=== PATIENT | female | born 1950 | race Caucasian/White ===

== ENCOUNTER 2017-08-04 01:55 | Inpatient (IN) | payer MEDICARE, SELFPAY ==
[2017-08-04] VITALS (10 sets, daily range): BP systolic 122–168; BP diastolic 63–113; PULSE 58–82; RESP 16–24; TEMP 36.4–36.6; O2SAT 94–100; BMI 32.3; BMI 31.9
--- NOTE | 2017-08-04 02:10 | EKG12_ITS ---
Test Reason : Blood Pressure : / mmHG Vent. Rate : 091 BPM Atrial Rate : 091 BPM P-R Int : 182 ms QRS Dur : 090 ms QT Int : 378 ms P-R-T Axes : 075 -23 003 degrees QTc Int : 464 ms Sinus rhythm with Premature atrial complexes Nonspecific ST and T wave abnormality Abnormal ECG Confirmed by LIZETTE FINLEY, LAWRENCE ([id number]), editor news AUTUMN LYONS ([id number]) on 08/06/2017 3:38:59 PM Referred By: LAURA Confirmed By:LAWRENCE BAUER MD
--- NOTE | 2017-08-04 02:10 | CT_ITS ---
STUDY: CT ABDOMEN AND PELVIS WITHOUT CONTRAST REASON FOR EXAM: Female, 66 years old. Mid abdominal pain. Vomiting RADIATION DOSAGE (If Supplied By Facility): CTDIvol = ( 13.91 ) mGy, DLP = ( 670.90 ) mGycm TECHNIQUE: Transaxial images were obtained from the dome of the diaphragm to the symphysis pubis without oral contrast, and without intravenous contrast. Sagittal and coronal images were reconstructed. Individualized dose optimization techniques were used for this CT. COMPARISON: None. FINDINGS: The visualized lung bases are unremarkable. The visualized portions of the heart are within normal limits. Normal liver. There are surgical clips in the gallbladder fossa consistent with a prior cholecystectomy. Normal spleen. Normal pancreas. Normal bilateral adrenal glands. Normal right kidney. Normal left kidney. The patient has had esophagectomy with gastrostomy and esophageal reconstruction using a segment of the colon. There are dilated loops of the small intestine with a non-distended colon consistent with a small bowel obstruction. The ascending colon has been resected. There is diffuse atherosclerotic calcification of the abdominal aorta, without a demonstrated aneurysm. Normal inferior vena cava. Normal retroperitoneum. Normal urinary bladder. Normal abdominal wall. There are diffuse degenerative changes of the visualized lumbar spine. CT/Abdomen/Pelvis without Cont IMPRESSION: There are dilated loops of the small intestine with a non-distended colon consistent with a small bowel obstruction. Electronically Signed: Fara Garcia MD at 3:24 EST Tel , Service support ,
--- NOTE | 2017-08-04 02:11 | RAD_ITS ---
STUDY: X-RAY CHEST REASON FOR EXAM: Female, 66 years old. Chronic cough. Chest pain TECHNIQUE: Frontal and lateral views of the chest. COMPARISON: None. FINDINGS: The lungs are clear and expanded. There is no demonstrated pleural abnormality. Normal size heart. The patient had esophagectomy with esophageal reconstruction. Normal visualized pulmonary arteries. Normal visualized aortic arch and descending thoracic aorta. Normal visualized thoracic spine. There is degenerative osteoarthritis of the bilateral shoulders. There is no demonstrated abnormality of the visualized soft tissue structures of the upper abdomen. RAD/Chest PA and Lateral IMPRESSION: Degenerative changes, status post esophagectomy as described above. No demonstrated acute cardiopulmonary process. Electronically Signed: Fara Garcia MD at 3:19 EST Tel , Service support ,
--- NOTE | 2017-08-04 02:14 | ED.DCSUM_ITS ---
- ER Visit Summary Date of Service: 08/04/17 Chief Complaint: Abdominal pain History of Present Illness: The patient is a 66 F with history of esophageal cancer, pancreatitis, bowel obstruction, cholecystectomy and appendectomy presents for abdominal pain since yesterday evening. Patient states it began in the epigastrium as her pain always begins and now radiates bilaterally around to her back. She denies any fever, chest pain, shortness of breath. She does endorse nausea, vomiting, urinary frequency. Denies diarrhea. She states she is not passing flatus. She takes stool softeners daily but has not had a good bowel movement today. She has had prior symptoms with pancreatitis. She has an anterior chest mass that she states is her esophagus protruding since removal of part of her clavicle, however she and her daughter both stated it is much more prominent and distended today. Physical Examination: Vital signs: afebrile, hemodynamically stable, no hypoxia on room air General: well nourished, well developed, in no distress Skin: warm, dry, no rash, no pallor HEENT: normocephalic and atraumatic; PERRL, EOMI, moist mucous membranes Cardiovascular: regular rate and rhythm without murmurs, no peripheral edema, 2 + pulses all distal extremities, soft nontender mass just left of the sternum in the anterior superior chest. Respiratory: No increased work of breathing, lungs are clear to auscultation bilaterally, no rales, rhonchi or wheezing Abdominal: Abdomen is soft, diffusely tender with hypoactive bowel sounds, no guarding or rebound, no masses MSK: Moves all extremities, no deformities, normal strength Neuro: Awake and alert, oriented ?4. No facial droop, sensation and motor function intact and symmetric Test Results: Abnormal Lab Results 08/04/17 08/04/17 08/04/17 02:25 02:25 02:25 WBC 10.3 RBC 4.97 Hgb 14.3 Hct 42.9 MCV 86.3 MCH 28.8 MCHC 33.3 RDW 13.7 RDW Differential 42.1 Plt Count 118 L MPV 12.1 H Immature Gran % (Auto) 0.200 Neut % (Auto) 90.1 H Lymph % (Auto) 5.9 L [place] % (Auto) 3.5 Eos % (Auto) 0.2 Baso % (Auto) 0.1 Absolute Neuts (auto) 9.3 H Absolute Lymphs (auto) 0.61 L Total Counted Not Reportable Sodium 149 H Potassium 2.7 L* Chloride 115 H Carbon Dioxide 26.0 Anion Gap 8 BUN 17 Creatinine 0.49 L Estim Creat Clear Calc 41.19 Est GFR (MDRD) Af Amer 162 Est GFR (MDRD) Non-Af 134 BUN/Creatinine Ratio 34.8 H Glucose 151 H Lactic Acid 2.6 H Calcium 6.4 L* Total Bilirubin 0.30 AST 159 H ALT 75 H Alkaline Phosphatase 130 H Troponin I 0.02 Total Protein 5.4 L Albumin 2.6 L Globulin 2.8 Albumin/Globulin Ratio 0.9 Lipase 3544 H Urine Color Urine Clarity Urine pH Ur Specific [place] Urine Protein Urine Glucose (UA) Urine Ketones Urine Occult Blood Urine Nitrite Urine Bilirubin Urine Urobilinogen Ur Leukocyte Esterase Urine RBC Urine WBC Ur Squamous Epith Cells Urine Bacteria Urine Mucus 08/04/17 02:25 WBC RBC Hgb Hct MCV MCH MCHC RDW RDW Differential Plt Count MPV Immature Gran % (Auto) Neut % (Auto) Lymph % (Auto) [place] % (Auto) Eos % (Auto) Baso % (Auto) Absolute Neuts (auto) Absolute Lymphs (auto) Total Counted Sodium Potassium Chloride Carbon Dioxide Anion Gap BUN Creatinine Estim Creat Clear Calc Est GFR (MDRD) Af Amer Est GFR (MDRD) Non-Af BUN/Creatinine Ratio Glucose Lactic Acid Calcium Total Bilirubin AST ALT Alkaline Phosphatase Troponin I Total Protein Albumin Globulin Albumin/Globulin Ratio Lipase Urine Color Yellow Urine Clarity Sl. Cloudy Urine pH 7.0 Ur Specific [place] 1.010 Urine Protein 30 H Urine Glucose (UA) 100 H Urine Ketones Negative Urine Occult Blood Negative Urine Nitrite Positive H Urine Bilirubin Negative Urine Urobilinogen Normal Ur Leukocyte Esterase 100 H Urine RBC 0 SEEN Urine WBC 5-10 SEEN Ur Squamous Epith Cells 0-5 SEEN Urine Bacteria 1+ Urine Mucus 0 SEEN Emergency Department Course and Treatment: Patient was given IV fluids, morphine and Zofran for symptomatic relief. EKG showed a sinus rhythm without ischemic changes. Troponin negative. CBC showed no leukocytosis and patient had thrombocytopenia, which is her baseline. Labs were remarkable for hypokalemia of 2.7 and a low calcium of 6.4. Lipase elevated at 3500 with very mild transaminitis. This is consistent with acute pancreatitis and fit patients presentation of epigastric pain radiating around into the back. Lactate was 2.6. Urine was positive for infection. Patient was started on Zosyn to cover urine infection as well as intra-abdominal pathology since the CT was still pending. CT did not show any concerning inflammatory changes in the abdomen but did show small bowel obstruction. An NG tube was not placed given patient's distorted anatomy with the esophageal reconstruction status post her surgical removal of the esophagus. Patient received potassium repletion IV since she is n.p.o. for the pancreatitis and bowel obstruction. She will require correction of her hypocalcemia, however that was deferred until patient received antibiotics and her potassium. Patient will require admission for management of her acute pancreatitis, small bowel obstruction, hypokalemia, and urinary tract infection. Patient was discussed with Dr. Mohr for admission. Because of the hypokalemia and hypocalcemia, patient will require cardiac monitoring. Treatment Plan: [] Disposition: Admission to telemetry Impression: 1. Small bowel obstruction 2. Acute pancreatitis 3. Urinary tract infection 4. Hypokalemia 5. Hypocalcemia This note was generated with Normal dictation software. It may contain incorrect words, spelling, and punctuation that were not noted in review of the chart prior to signing ED Disposition - Plan for ED Patient: Chief Complaint: Abd Pain Referrals: Selma Whitaker MD [Primary Care Provider] -
[2017-08-04] MEDS: Ondansetron 4 MG/2 ML Vial IV (02:20)
[2017-08-04] MEDS: 0.9% Normal Saline 1,000 ML 1000 ML IV (02:20)
[2017-08-04 02:33] LABS: Mucous, Urine 0 SEEN /hpf (<or=2+); Red Blood Cells-Urine 0 SEEN /hpf (0-5)
[2017-08-04 02:35] LABS: Color, Urine Yellow (Yellow); Glucose, Dipstick 100 mg/dl (Normal); Ketone-Dipstick Negative (Negative); Leukocyte Esterase-Dipstick 100 /ul (Negative); Nitrite-Dipstick Positive (Negative); Occult Blood-Urine Negative /ul (Negative); Protein-Dipstick 30 mg/dl (Negative); Urine Bilirubin Dipstick Negative (Negative); Urine Clarity Sl. Cloudy (Clear); Urine Urobilinogen Normal (Normal)
[2017-08-04 02:36] LABS: Absolute Lymphocyte Count 0.61 X10^3/ul (0.83-4.51); Absolute Neutrophil Count 9.3 X10^3/uL (2.0-7.7); Basophil# 0.01 X10^3/uL; Basophil% 0.1 % (0-1); Eosinophil# 0.02 X10^3/uL; Eosinophils% 0.2 % (0-5); Hematocrit 42.9 % (37-47); Hemoglobin 14.3 g/dl (12.0-15.0); Lymphocyte # 0.61 X10^3/ul (4.0); Lymphocyte % 5.9 % (19-41); Mean Corp Hgb Conc 33.3 g/gl (32-36); Mean Corpuscular Hgb 28.8 pg (27.0-32.0); Mean Corpuscular Volume 86.3 fL (81-99); Mean Platelet Vol. 12.1 fl (6.2-12.0); Monocyte# 0.36 X10^3/uL; Monocyte% 3.5 % (0-10); Neutrophil # 9.27 X10^3/uL (2.7-7.7); Neutrophil % 90.1 % (47-70); Platelet Count 118 K/mm3 (150-450); RBC Distribution Width CV 13.7 % (11.6-14.6); RBC Distribution Width SD 42.1 fl (35.1-43.9); Red Blood Count 4.97 M/mm3 (4.2-5.4); White Blood Count 10.3 K/mm3 (4.4-11.0)
[2017-08-04 02:38] LABS: POSITIVE COUNT NO; POSITIVE DIFFERENTIAL NO; POSITIVE MORPHOLOGY NO
[2017-08-04 02:44] LABS: Bacteria 1+ /hpf (None Seen); Squamous Epithelial Cells - UA 0-5 SEEN /hpf (5-10); White Blood Cells 5-10 SEEN /hpf (0-5)
[2017-08-04 03:12] LABS: ALB/GLOB Ratio 0.9 RATIO (0.9-2.4); AST(SGOT) 159 U/L (15-37); Alanine Aminotransfer ALT/SGPT 75 U/L (13-56); Albumin, Serum 2.6 g/dL (3.2-5.0); Alkaline Phosphatase 130 U/L (45-117); Anion Gap 8 (5-15); BUN 17 mg/dL (7-18); BUN/Creat Ratio 34.8 RATIO (10-20); Calcium,Total 6.4 mg/dL (8.5-10.1); Chloride 115 mmol/L (98-107); Creatinine, Serum 0.49 mg/dL (0.55-1.02); EST Glomerular Filtration Rate 134 mL/min (>60); Est Glom Filt Rate - Afr Amer 162 mL/min (>60); Estimated Creatinine Clearance 41.19 ml/min; Globulin 2.8 g/dL (2.2-4.2); Glucose 151 mg/dL (74-106); Lactic Acid 2.6 mmol/L (0.4-2.0); Lipase 3544 U/L (73-393); Potassium 2.7 mmol/L (3.5-5.1); Protein, Total 5.4 g/dL (6.4-8.2); Sodium Level 149 mmol/L (136-145)
--- NOTE | 2017-08-04 03:16 | ED.RN ---
THIS RN RECEIVED CRITICAL LAB VALUE FROM LAB. PT K+ IS 2.7, CALCIUM 6.4, AND LACTIC IS 2.6. DR. SANCHEZ NOTIFIED. CARINA SAMUELS NOTIFIED.
[2017-08-04] MEDS: Piperacil/Tazobactam 3.375 GM/50 ML ML IV ×2 (03:53→13:52)
[2017-08-04] MEDS: Lactated Ringers 1,000 ML 150 ML IV (03:54)
--- NOTE | 2017-08-04 05:11 | PCM.HP.STD ---
Problem List (1) Pancreatitis Status: Acute (2) Small bowel obstruction Status: Acute (3) Chronic pain syndrome Status: Chronic (4) Esophageal cancer Status: Chronic Comment: Unclear specific type, follows w/ [facility], s/p esophageal resection and partial gastrectomy. (5) Fibromyalgia Status: Chronic (6) GERD (gastroesophageal reflux disease) Status: Chronic Qualifiers: History of Present Illness Date of Admission: 08/04/17 Chief Complaint: Pancreatitis The patient is a 66 year old female w/ h/o esophageal cancer, pancreatitis, bowel obstruction, cholecystectomy and appendectomy admitted for abdominal pain. Pain started around 6-7PM last night. Pain is constant and diffuse in the abdominal area. Pain radiated both on the left and right flank. Pain is severe. Nothing made it better or worse. Pain is mostly sharp but also occasionally dull-aching. She has increase urinary frequency for the past 2 weeks. She recently had a bowel movement this AM. Past Medical History Past Medical History (Chronic Problems): Chronic Problems HTN (hypertension) (Chronic) GERD (gastroesophageal reflux disease) (Chronic) Esophageal cancer (Chronic) Unclear specific type, follows w/ [facility], s/p esophageal resection and partial gastrectomy. Anxiety and depression (Chronic) Fibromyalgia (Chronic) Chronic pain syndrome (Chronic) Allergies doxycycline Allergy (Verified 08/04/17 02:04) Unknown Iodinated Contrast- Oral and IV Dye [Iodinated Contrast Media - IV Dye] Allergy (Verified 08/04/17 02:04) Unknown Sulfa (Sulfonamide Antibiotics) Allergy (Verified 08/04/17 02:04) Unknown erythromycin base Adverse Reaction (Verified 08/04/17 02:04) Upset Stomach hydrocodone bitartrate [From Vicodin] Adverse Reaction (Verified 08/04/17 02:04) HEADACHE Home Medications: Ambulatory Orders Medication Instructions Recorded Enalapril Maleate 20 mg PO BID 07/12/15 Latanoprost 1 drop EACH EYE QHS 07/12/15 Metoprolol Tartrate [Lopressor 50 mg PO DAILY 07/12/15 (beta bruce)] Omeprazole 20 mg PO DAILY 07/12/15 Oxycodone HCl [Oxycodone HCl ER] 10 mg PO DAILY PRN 07/12/15 Paroxetine HCl 40 mg PO DAILY 07/12/15 Magnesium 250 mg PO DAILY 01/05/17 ProMETHAzine [Phenergan] 25 mg PO Q4H PRN PRN 01/05/17 Amlodipine [Norvasc] 10 mg PO DAILY #60 tablet 01/07/17 Docusate Sodium [Colace] 400 mg PO DAILY 08/04/17 Ferrous Sulfate [Iron] 325 mg PO DAILY 08/04/17 Ibuprofen 400 mg PO Q4H PRN PRN 08/04/17 Surgical History: - - Esophageal resection, partial gastrectomy, cholecystectomy, appendectomy, hysterectomy, ventral hernia repair ?1. 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 Smoking Status: Never smoker - *Family History Maternal History Items: Heart Disease Paternal History Items: Cancer Review of Systems Constitutional: Denies: Chills, Fever, Weight Change HEENT: Denies: Head Aches, Sinus Congestion, Sinus Drainage Cardiovascular: Denies: Chest Pain, Palpitations Respiratory: Denies: Cough, Shortness of breath at rest, Sputum production Gastrointestinal: Reports: Abdominal Pain, Nausea, Vomiting Genitourinary: Denies: Dysuria Musculoskeletal: Denies: Joint Pain, Joint Tenderness Skin: Denies: Rash, Wounds Neurological: Denies: Numbness, Tingling, Focal weakness Psychiatric: Denies: Anxiety, Depression, Homicidal Ideations, Suicidal Ideations Hematologic/ Lymphatic: Denies: Easy Bruising, Easy Bleeding VTE Information - Inpt Only VTE Present on Admission: No VTE Mechan Device Prophylaxis: SCD's VTE Pharm Prophylaxis ordered?: Yes Patient Problems: Active and Suspected Problems Pancreatitis (Acute) Small bowel obstruction (Acute) - Physical Exam General: Alert, Oriented x3, Cooperative HEENT: Atraumatic, PERRLA, EOMI, Normocephalic Neck: Supple, No JVD, Negative Carotid Bruits Lungs: Clear to auscultation, Normal air movement Cardiovascular: Regular rate, No murmurs Abdomen: Bowel Sounds Present, Soft, Non Tender Extremities: No edema, Capillary Refill Less than 3 Seconds Skin: No rashes, No breakdown Musculoskeletal: No Tenderness to Palpation of Joints or Extremities Neurological: Cranial nerves II-XII grossly intact Psych/Mental Status: Normal Affect, Appropriate Vital Signs Temp Pulse Resp BP Pulse Ox 97.9 F 68 18 167/92 H 95 08/04/17 04:58 08/04/17 04:58 08/04/17 04:58 08/04/17 04:58 08/04/17 04:58 Oxygen Delivery Method Room Air Weight: 77.6 kg Body Mass Index (BMI) 32.3 Laboratory Tests Past 24 Hrs 08/04/17 08/04/17 08/04/17 02:25 02:25 02:25 WBC 10.3 RBC 4.97 Hgb 14.3 Hct 42.9 MCV 86.3 MCH 28.8 MCHC 33.3 RDW 13.7 RDW Differential 42.1 Plt Count 118 L MPV 12.1 H Immature Gran % (Auto) 0.200 Neut % (Auto) 90.1 H Lymph % (Auto) 5.9 L [place] % (Auto) 3.5 Eos % (Auto) 0.2 Baso % (Auto) 0.1 Absolute Neuts (auto) 9.3 H Absolute Lymphs (auto) 0.61 L Total Counted Not Reportable Sodium 149 H Potassium 2.7 L* Chloride 115 H Carbon Dioxide 26.0 Anion Gap 8 BUN 17 Creatinine 0.49 L Estim Creat Clear Calc 41.19 Est GFR (MDRD) Af Amer 162 Est GFR (MDRD) Non-Af 134 BUN/Creatinine Ratio 34.8 H Glucose 151 H Lactic Acid 2.6 H Calcium 6.4 L* Total Bilirubin 0.30 AST 159 H ALT 75 H Alkaline Phosphatase 130 H Troponin I 0.02 Total Protein 5.4 L Albumin 2.6 L Globulin 2.8 Albumin/Globulin Ratio 0.9 Lipase 3544 H Urine Color Urine Clarity Urine pH Ur Specific [place] Urine Protein Urine Glucose (UA) Urine Ketones Urine Occult Blood Urine Nitrite Urine Bilirubin Urine Urobilinogen Ur Leukocyte Esterase Urine RBC Urine WBC Ur Squamous Epith Cells Urine Bacteria Urine Mucus 08/04/17 02:25 WBC RBC Hgb Hct MCV MCH MCHC RDW RDW Differential Plt Count MPV Immature Gran % (Auto) Neut % (Auto) Lymph % (Auto) [place] % (Auto) Eos % (Auto) Baso % (Auto) Absolute Neuts (auto) Absolute Lymphs (auto) Total Counted Sodium Potassium Chloride Carbon Dioxide Anion Gap BUN Creatinine Estim Creat Clear Calc Est GFR (MDRD) Af Amer Est GFR (MDRD) Non-Af BUN/Creatinine Ratio Glucose Lactic Acid Calcium Total Bilirubin AST ALT Alkaline Phosphatase Troponin I Total Protein Albumin Globulin Albumin/Globulin Ratio Lipase Urine Color Yellow Urine Clarity Sl. Cloudy Urine pH 7.0 Ur Specific [place] 1.010 Urine Protein 30 H Urine Glucose (UA) 100 H Urine Ketones Negative Urine Occult Blood Negative Urine Nitrite Positive H Urine Bilirubin Negative Urine Urobilinogen Normal Ur Leukocyte Esterase 100 H Urine RBC 0 SEEN Urine WBC 5-10 SEEN Ur Squamous Epith Cells 0-5 SEEN Urine Bacteria 1+ Urine Mucus 0 SEEN Assessment/Plan Active and Suspected Problems Pancreatitis (Acute) Small bowel obstruction (Acute) 66 year old female w/ h/o esophageal cancer, pancreatitis, bowel obstruction, cholecystectomy and appendectomy admitted for abdominal pain. 1) Pancreatitis: Lipase 3400 noted. Hydration. Pain controlled. NPO. 2) Small bowel obstruction: CT disclosed dilated loops of the small intestine with a non-distended colon. C/w IVF. C/w NPO. Monitor. 3) Hypokalemia: Will need to replete. Monitor. 4) UTI: C/w zosyn until cultures. No e/o necrotizing pancreatitis at this time. Monitor. 5) Prophylaxis: Heparin.
--- NOTE | 2017-08-04 05:21 | HP.PCM_ITS ---
Problem List (1) Pancreatitis Status: Acute (2) Small bowel obstruction Status: Acute (3) Chronic pain syndrome Status: Chronic (4) Esophageal cancer Status: Chronic Comment: Unclear specific type, follows w/ [facility], s/p esophageal resection and partial gastrectomy. (5) Fibromyalgia Status: Chronic (6) GERD (gastroesophageal reflux disease) Status: Chronic Qualifiers: History of Present Illness Date of Admission: 08/04/17 Chief Complaint: Pancreatitis The patient is a 66 year old female w/ h/o esophageal cancer, pancreatitis, bowel obstruction, cholecystectomy and appendectomy admitted for abdominal pain. Pain started around 6-7PM last night. Pain is constant and diffuse in the abdominal area. Pain radiated both on the left and right flank. Pain is severe. Nothing made it better or worse. Pain is mostly sharp but also occasionally dull -aching. She has increase urinary frequency for the past 2 weeks. She recently had a bowel movement this AM. Past Medical History Past Medical History (Chronic Problems): Chronic Problems HTN (hypertension) (Chronic) GERD (gastroesophageal reflux disease) (Chronic) Esophageal cancer (Chronic) Unclear specific type, follows w/ [facility], s/p esophageal resection and partial gastrectomy. Anxiety and depression (Chronic) Fibromyalgia (Chronic) Chronic pain syndrome (Chronic) Allergies doxycycline Allergy (Verified 08/04/17 02:04) Unknown Iodinated Contrast- Oral and IV Dye [Iodinated Contrast Media - IV Dye] Allergy (Verified 08/04/17 02:04) Unknown Sulfa (Sulfonamide Antibiotics) Allergy (Verified 08/04/17 02:04) Unknown erythromycin base Adverse Reaction (Verified 08/04/17 02:04) Upset Stomach hydrocodone bitartrate [From Vicodin] Adverse Reaction (Verified 08/04/17 02:04) HEADACHE Home Medications: Ambulatory Orders Medication Instructions Recorded Enalapril Maleate 20 mg PO BID 07/12/15 Latanoprost 1 drop EACH EYE QHS 07/12/15 Metoprolol Tartrate [Lopressor 50 mg PO DAILY 07/12/15 (beta bruce)] Omeprazole 20 mg PO DAILY 07/12/15 Oxycodone HCl [Oxycodone HCl ER] 10 mg PO DAILY PRN 07/12/15 Paroxetine HCl 40 mg PO DAILY 07/12/15 Magnesium 250 mg PO DAILY 01/05/17 ProMETHAzine [Phenergan] 25 mg PO Q4H PRN PRN 01/05/17 Amlodipine [Norvasc] 10 mg PO DAILY #60 tablet 01/07/17 Docusate Sodium [Colace] 400 mg PO DAILY 08/04/17 Ferrous Sulfate [Iron] 325 mg PO DAILY 08/04/17 Ibuprofen 400 mg PO Q4H PRN PRN 08/04/17 Surgical History: - - Esophageal resection, partial gastrectomy, cholecystectomy , appendectomy, hysterectomy, ventral hernia repair ?1. 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 Smoking Status: Never smoker - *Family History Maternal History Items: Heart Disease Paternal History Items: Cancer Review of Systems Constitutional: Denies: Chills, Fever, Weight Change HEENT: Denies: Head Aches, Sinus Congestion, Sinus Drainage Cardiovascular: Denies: Chest Pain, Palpitations Respiratory: Denies: Cough, Shortness of breath at rest, Sputum production Gastrointestinal: Reports: Abdominal Pain, Nausea, Vomiting Genitourinary: Denies: Dysuria Musculoskeletal: Denies: Joint Pain, Joint Tenderness Skin: Denies: Rash, Wounds Neurological: Denies: Numbness, Tingling, Focal weakness Psychiatric: Denies: Anxiety, Depression, Homicidal Ideations, Suicidal Ideations Hematologic/ Lymphatic: Denies: Easy Bruising, Easy Bleeding VTE Information - Inpt Only VTE Present on Admission: No VTE Mechan Device Prophylaxis: SCD's VTE Pharm Prophylaxis ordered?: Yes Patient Problems: Active and Suspected Problems Pancreatitis (Acute) Small bowel obstruction (Acute) - Physical Exam General: Alert, Oriented x3, Cooperative HEENT: Atraumatic, PERRLA, EOMI, Normocephalic Neck: Supple, No JVD, Negative Carotid Bruits Lungs: Clear to auscultation, Normal air movement Cardiovascular: Regular rate, No murmurs Abdomen: Bowel Sounds Present, Soft, Non Tender Extremities: No edema, Capillary Refill Less than 3 Seconds Skin: No rashes, No breakdown Musculoskeletal: No Tenderness to Palpation of Joints or Extremities Neurological: Cranial nerves II-XII grossly intact Psych/Mental Status: Normal Affect, Appropriate Vital Signs Temp Pulse Resp BP Pulse Ox 97.9 F 68 18 167/92 H 95 08/04/17 04:58 08/04/17 04:58 08/04/17 04:58 08/04/17 04:58 08/04/17 04:58 Oxygen Delivery Method Room Air Weight: 77.6 kg Body Mass Index (BMI) 32.3 Laboratory Tests Past 24 Hrs 08/04/17 08/04/17 08/04/17 02:25 02:25 02:25 WBC 10.3 RBC 4.97 Hgb 14.3 Hct 42.9 MCV 86.3 MCH 28.8 MCHC 33.3 RDW 13.7 RDW Differential 42.1 Plt Count 118 L MPV 12.1 H Immature Gran % (Auto) 0.200 Neut % (Auto) 90.1 H Lymph % (Auto) 5.9 L [place] % (Auto) 3.5 Eos % (Auto) 0.2 Baso % (Auto) 0.1 Absolute Neuts (auto) 9.3 H Absolute Lymphs (auto) 0.61 L Total Counted Not Reportable Sodium 149 H Potassium 2.7 L* Chloride 115 H Carbon Dioxide 26.0 Anion Gap 8 BUN 17 Creatinine 0.49 L Estim Creat Clear Calc 41.19 Est GFR (MDRD) Af Amer 162 Est GFR (MDRD) Non-Af 134 BUN/Creatinine Ratio 34.8 H Glucose 151 H Lactic Acid 2.6 H Calcium 6.4 L* Total Bilirubin 0.30 AST 159 H ALT 75 H Alkaline Phosphatase 130 H Troponin I 0.02 Total Protein 5.4 L Albumin 2.6 L Globulin 2.8 Albumin/Globulin Ratio 0.9 Lipase 3544 H Urine Color Urine Clarity Urine pH Ur Specific [place] Urine Protein Urine Glucose (UA) Urine Ketones Urine Occult Blood Urine Nitrite Urine Bilirubin Urine Urobilinogen Ur Leukocyte Esterase Urine RBC Urine WBC Ur Squamous Epith Cells Urine Bacteria Urine Mucus 08/04/17 02:25 WBC RBC Hgb Hct MCV MCH MCHC RDW RDW Differential Plt Count MPV Immature Gran % (Auto) Neut % (Auto) Lymph % (Auto) [place] % (Auto) Eos % (Auto) Baso % (Auto) Absolute Neuts (auto) Absolute Lymphs (auto) Total Counted Sodium Potassium Chloride Carbon Dioxide Anion Gap BUN Creatinine Estim Creat Clear Calc Est GFR (MDRD) Af Amer Est GFR (MDRD) Non-Af BUN/Creatinine Ratio Glucose Lactic Acid Calcium Total Bilirubin AST ALT Alkaline Phosphatase Troponin I Total Protein Albumin Globulin Albumin/Globulin Ratio Lipase Urine Color Yellow Urine Clarity Sl. Cloudy Urine pH 7.0 Ur Specific [place] 1.010 Urine Protein 30 H Urine Glucose (UA) 100 H Urine Ketones Negative Urine Occult Blood Negative Urine Nitrite Positive H Urine Bilirubin Negative Urine Urobilinogen Normal Ur Leukocyte Esterase 100 H Urine RBC 0 SEEN Urine WBC 5-10 SEEN Ur Squamous Epith Cells 0-5 SEEN Urine Bacteria 1+ Urine Mucus 0 SEEN Assessment/Plan Active and Suspected Problems Pancreatitis (Acute) Small bowel obstruction (Acute) 66 year old female w/ h/o esophageal cancer, pancreatitis, bowel obstruction, cholecystectomy and appendectomy admitted for abdominal pain. 1) Pancreatitis: Lipase 3400 noted. Hydration. Pain controlled. NPO. 2) Small bowel obstruction: CT disclosed dilated loops of the small intestine with a non-distended colon. C/w IVF. C/w NPO. Monitor. 3) Hypokalemia: Will need to replete. Monitor. 4) UTI: C/w zosyn until cultures. No e/o necrotizing pancreatitis at this time. Monitor. 5) Prophylaxis: Heparin.
[2017-08-04 06:32] LABS: Reflex Lactate? Y
[2017-08-04] MEDS: 0.9% Normal Saline 1,000 ML 150 ML IV (07:51)
[2017-08-04] MEDS: 0.9% NaCl Peripheral Flush Adult/Peds IV ×2 (07:51→12:11)
[2017-08-04] MEDS: 0.9% Normal Saline 1,000 ML 999 ML IV (07:51)
--- NOTE | 2017-08-04 08:11 | PN_ITS ---
Patient Problems: Active and Suspected Problems Pancreatitis (Acute) Small bowel obstruction (Acute) Subjective: Patient is a 66-year-old female with a past medical history of recurrent pancreatitis, chronic pain syndrome, esophageal cancer with esophageal resection and partial gastrectomy, fibromyalgia and GERD who presented to the emergency department at [facility] on 08/04/2017 complaining of constant abdominal pain. The pain radiated into both flanks. She additionally complained of urinary frequency for the preceding 2 weeks. Vital signs at presentation to the emergency room were temperature 97.8, pulse rate 82, blood pressure 168/113, respiratory rate 18 and she was 96% saturated on room air. Significant lab included a normal white blood cell count at 10.3 with a 90% neutrophil count. Hemoglobin was 14.3 and the platelet count was 118,000. She has chronic thrombocytopenia. Potassium was low at 2.7 and the sodium was increased at 149. BUN was 17 with a creatinine of 0.49. Calcium was low at 6.4 and the albumin was 2.6 making the corrected serum calcium 1.6 which is low. Lipase was 3544. Total bilirubin was 0.3 but the AST was 159 with an ALT of 75 and an alkaline phosphatase of 130. Urine was positive for nitrite and had 5-10 WBCs per high-power field with 1+ bacteria....clean catch. Blood cultures were sent but no urine culture. CT scan of the abdomen was reported as dilated loops of small intestine within nondistended colon consistent with a small bowel obstruction. She has had prior cholecystectomy. The pancreas was reported as normal. - Physical Exam Vital Signs Temp Pulse Resp BP Pulse Ox 97.6 F L 58 L 18 131/63 H 95 08/04/17 06:47 08/04/17 07:34 08/04/17 06:47 08/04/17 06:47 08/04/17 06:47 Oxygen Delivery Method Room Air Weight: 169 lb 1.259 oz Body Mass Index (BMI) 31.9 Laboratory Tests Past 24 Hrs 08/04/17 07:30 Lactic Acid Pending Assessment/Plan Active and Suspected Problems Pancreatitis (Acute) Small bowel obstruction (Acute)
[2017-08-04 08:20] LABS: Lactic Acid 3.2 mmol/L (0.4-2.0)
--- NOTE | 2017-08-04 08:56 | NURSING ---
Dr. Burgos in the room talking with pt. She is aware that recent Lactic Acid 3.2
--- NOTE | 2017-08-04 10:01 | CASEMGMT ---
Insurance Review for anticipated transfer to [facility]. Per [employer] website, [facility] is Innetwork for this insurance. Rene MEHTAN RN ACM
[2017-08-04] MEDS: Heparin Injection 5,000 UNITS/ML Syringe 5000 UNITS SC (10:59)
--- NOTE | 2017-08-04 10:59 | PCM.CONS.GEN ---
Problem List (1) Pancreatitis Status: Acute (2) Small bowel obstruction Status: Acute Reason for Consult Date of Consultation: 08/04/17 Reason for Consultation: bowel obstruction History of Present Illness: The patient is a 66 year old F with a very complex past medical history who presents with a couple day history of increasing abdominal discomfort, constipation but still passing flatus. Overall, the patient noted a poor appetite for the past few days and significant increasing upper abdominal discomfort/pain. She had a similar episode 6 months previously, which resolved spontaneously. As the pain became more severe, she presented to [facility] emergency department. laboratory studies demonstrated a normal white blood cell count, elevated lipase consistent with pancreatitis and elevated lactic acid. CT scan demonstrated postoperative changes and what was interpreted to be a small bowel obstruction. Patient was admitted to the medicine service. Repeat lactic acid level demonstrated this, it increased to 3.2 from 2.6. I was consulted by Dr. Razia Burgos. the patient is a complex previous medical and surgical history. she has a history of proximal gastric cancer. In 2007, she underwent an esophagogastrectomy with esophagojejunostomy and Grisel-en-Y anastomosis performed by Dr. Garcia at [facility]. This was complicated by an anastomotic failure requiring esophageal spit fistula, repeat thoracic procedure with decortication and a 1 year duration of the feeding jejunostomy. The patient was then brought back in 2008 and underwent a colonic interposition for reconstruction of her esophagus, and reestablishment of continuity between her esophagus and abdominal viscera. In 2009. The patient initially underwent an open cholecystectomy and then incisional hernia repair with a 8 x 12 cm polypropylene/sepramesh. the patient is also had an issue with stenosis at the esophago-colonic anastomosis requiring dilation. on evaluation today, the patient notes a bowel movement and is passing flatus but still notes proximal abdominal distention, discomfort and pain Past Medical History Past Medical History (Chronic Problems): Chronic Problems HTN (hypertension) (Chronic) GERD (gastroesophageal reflux disease) (Chronic) Esophageal cancer (Chronic) Unclear specific type, follows w/ [facility], s/p esophageal resection and partial gastrectomy. Anxiety and depression (Chronic) Fibromyalgia (Chronic) Chronic pain syndrome (Chronic) Allergies doxycycline Allergy (Verified 08/04/17 02:04) Unknown Iodinated Contrast- Oral and IV Dye [Iodinated Contrast Media - IV Dye] Allergy (Verified 08/04/17 02:04) Unknown Sulfa (Sulfonamide Antibiotics) Allergy (Verified 08/04/17 02:04) Unknown erythromycin base Adverse Reaction (Verified 08/04/17 02:04) Upset Stomach hydrocodone bitartrate [From Vicodin] Adverse Reaction (Verified 08/04/17 02:04) HEADACHE Home Medications: Ambulatory Orders Medication Instructions Recorded Enalapril Maleate 20 mg PO BID 07/12/15 Latanoprost 1 drop EACH EYE QHS 07/12/15 Omeprazole 20 mg PO DAILY 07/12/15 Oxycodone HCl [Oxycodone HCl ER] 10 mg PO BID 07/12/15 Paroxetine HCl 40 mg PO DAILY 07/12/15 Magnesium 250 mg PO BID 01/05/17 ProMETHAzine [Phenergan] 25 mg PO Q4H PRN PRN 01/05/17 Amlodipine [Norvasc] 10 mg PO DAILY #60 tablet 01/07/17 Docusate Sodium [Colace] 200 mg PO BID 08/04/17 Ferrous Sulfate [Iron] 325 mg PO DAILY 08/04/17 Ibuprofen 400 mg PO Q4H PRN PRN 08/04/17 Metoprolol Succ Er 50 mg PO DAILY 08/04/17 Surgical History: - - Esophageal resection, partial gastrectomy, cholecystectomy, appendectomy, hysterectomy, ventral hernia repair ?1. 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 Denies: Chills, Fever, Weight Change HEENT: Denies: Head Aches, Sinus Congestion, Sinus Drainage Cardiovascular: Denies: Chest Pain, Palpitations Respiratory: Denies: Cough, Shortness of breath at rest, Sputum production Gastrointestinal: Reports: Abdominal Pain. Denies: Nausea, Vomiting Genitourinary: Denies: Dysuria Musculoskeletal: Denies: Joint Pain, Joint Tenderness Skin: Denies: Rash, Wounds Neurological: Denies: Numbness, Tingling, Focal weakness Psychiatric: Denies: Anxiety, Depression, Homicidal Ideations, Suicidal Ideations Hematologic/ Lymphatic: Denies: Easy Bruising, Easy Bleeding Patient Problems: Active and Suspected Problems Pancreatitis (Acute) Small bowel obstruction (Acute) - Physical Exam General: Alert, Oriented x3, Cooperative Lungs: Clear to auscultation, Normal air movement Cardiovascular: Regular rate, Regular Rhythm Abdomen: Bowel Sounds Present, Soft, Hyperactive Bowel Sounds, Distended, Tender - in the upper abdominal regions with increased proximal abdominal distention with a softer lower abdomen.-This is consistent with the distention noted on CT scan Vital Signs Temp Pulse Resp BP Pulse Ox 97.6 F L 58 L 18 131/63 H 95 08/04/17 06:47 08/04/17 07:34 08/04/17 06:47 08/04/17 06:47 08/04/17 06:47 Oxygen Delivery Method Room Air Weight: 76.693 kg Body Mass Index (BMI) 31.9 Laboratory Tests Past 24 Hrs 08/04/17 07:30 Lactic Acid 3.2 H Assessment/Plan Active and Suspected Problems Pancreatitis (Acute) Small bowel obstruction (Acute) bowel obstruction-level of distal Grisel-en-Y anastomosis on CT scan, pancreatitis, elevated lactic acid level, complex prior surgical history. Currently, the patient appears stable. - with a normal white blood cell count but increasing lactic acid level along with the fact that her BUN wall. Normal is elevated over her baseline and her BUN/creatinine ratio is elevated, I feel her issues still more likely related to undergo resuscitation versus true intestinal ischemia. I've spoken with Dr. Burgos, who agrees and the plan is for IV fluid bolus currently. review the CT scan demonstrates distention and fluid type material/bezoar type material in the thoracic interposed: Section and dilated small bowel with bezoar type material to what appears to be the distal Grisel-en-Y anastomosis. I agree with not placing an NG tube in that there is no stomach to truly aspirate, an feel limited return of material would not improve the patient's symptomatology. As the patient is having some bowel movements. Hopefully with bowel rest. This area will pass somewhat spontaneously. If there is an anastomotic stricture as would be assumed via CT imaging, potentially this could be dilated endoscopically. patient denies alcohol abuse or other substances would lead to pancreatitis. Currently agree with support for her overall findings of elevated lipase level. CT scan does not seem to demonstrate distal pancreatitis, but there is some haziness near the pancreatic head. I'm uncertain whether this truly represents pancreatitis or postsurgical changes from her previous surgical history. Overall, with the patient appears stable and I do not feel she needs urgent surgical intervention. I am still concerned about her elevated lactic acid level and her degree of pain. Given this and the fact that she would be an exceedingly complex surgical endeavor, I recommend referral to a tertiary care center somewhat proactively. Dr. Burgos is contacting the [facility] transfer line. I had spoken with Dr. Fontaine, who was the attending surgeon recreation facility attendant for the acute care surgical service, who has accepted the patient.
[2017-08-04] MEDS: amLODIPine 10 MG Tablet PO (11:01)
--- NOTE | 2017-08-04 11:02 | CON.PCM_ITS ---
Problem List (1) Pancreatitis Status: Acute (2) Small bowel obstruction Status: Acute Reason for Consult Date of Consultation: 08/04/17 Reason for Consultation: bowel obstruction History of Present Illness: The patient is a 66 year old F with a very complex past medical history who presents with a couple day history of increasing abdominal discomfort, constipation but still passing flatus. Overall, the patient noted a poor appetite for the past few days and significant increasing upper abdominal discomfort/pain. She had a similar episode 6 months previously, which resolved spontaneously. As the pain became more severe, she presented to [facility] emergency department. laboratory studies demonstrated a normal white blood cell count, elevated lipase consistent with pancreatitis and elevated lactic acid. CT scan demonstrated postoperative changes and what was interpreted to be a small bowel obstruction. Patient was admitted to the medicine service. Repeat lactic acid level demonstrated this, it increased to 3.2 from 2.6. I was consulted by Dr. Razia Burgos. the patient is a complex previous medical and surgical history. she has a history of proximal gastric cancer. In 2007, she underwent an esophagogastrectomy with esophagojejunostomy and Grisel-en-Y anastomosis performed by Dr. Garcia at [facility]. This was complicated by an anastomotic failure requiring esophageal spit fistula, repeat thoracic procedure with decortication and a 1 year duration of the feeding jejunostomy. The patient was then brought back in 2008 and underwent a colonic interposition for reconstruction of her esophagus, and reestablishment of continuity between her esophagus and abdominal viscera. In 2009. The patient initially underwent an open cholecystectomy and then incisional hernia repair with a 8 x 12 cm polypropylene/sepramesh. the patient is also had an issue with stenosis at the esophago-colonic anastomosis requiring dilation. on evaluation today, the patient notes a bowel movement and is passing flatus but still notes proximal abdominal distention, discomfort and pain Past Medical History Past Medical History (Chronic Problems): Chronic Problems HTN (hypertension) (Chronic) GERD (gastroesophageal reflux disease) (Chronic) Esophageal cancer (Chronic) Unclear specific type, follows w/ [facility], s/p esophageal resection and partial gastrectomy. Anxiety and depression (Chronic) Fibromyalgia (Chronic) Chronic pain syndrome (Chronic) Allergies doxycycline Allergy (Verified 08/04/17 02:04) Unknown Iodinated Contrast- Oral and IV Dye [Iodinated Contrast Media - IV Dye] Allergy (Verified 08/04/17 02:04) Unknown Sulfa (Sulfonamide Antibiotics) Allergy (Verified 08/04/17 02:04) Unknown erythromycin base Adverse Reaction (Verified 08/04/17 02:04) Upset Stomach hydrocodone bitartrate [From Vicodin] Adverse Reaction (Verified 08/04/17 02:04) HEADACHE Home Medications: Ambulatory Orders Medication Instructions Recorded Enalapril Maleate 20 mg PO BID 07/12/15 Latanoprost 1 drop EACH EYE QHS 07/12/15 Omeprazole 20 mg PO DAILY 07/12/15 Oxycodone HCl [Oxycodone HCl ER] 10 mg PO BID 07/12/15 Paroxetine HCl 40 mg PO DAILY 07/12/15 Magnesium 250 mg PO BID 01/05/17 ProMETHAzine [Phenergan] 25 mg PO Q4H PRN PRN 01/05/17 Amlodipine [Norvasc] 10 mg PO DAILY #60 tablet 01/07/17 Docusate Sodium [Colace] 200 mg PO BID 08/04/17 Ferrous Sulfate [Iron] 325 mg PO DAILY 08/04/17 Ibuprofen 400 mg PO Q4H PRN PRN 08/04/17 Metoprolol Succ Er 50 mg PO DAILY 08/04/17 Surgical History: - - Esophageal resection, partial gastrectomy, cholecystectomy , appendectomy, hysterectomy, ventral hernia repair ?1. 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 Denies: Chills, Fever, Weight Change HEENT: Denies: Head Aches, Sinus Congestion, Sinus Drainage Cardiovascular: Denies: Chest Pain, Palpitations Respiratory: Denies: Cough, Shortness of breath at rest, Sputum production Gastrointestinal: Reports: Abdominal Pain. Denies: Nausea, Vomiting Genitourinary: Denies: Dysuria Musculoskeletal: Denies: Joint Pain, Joint Tenderness Skin: Denies: Rash, Wounds Neurological: Denies: Numbness, Tingling, Focal weakness Psychiatric: Denies: Anxiety, Depression, Homicidal Ideations, Suicidal Ideations Hematologic/ Lymphatic: Denies: Easy Bruising, Easy Bleeding Patient Problems: Active and Suspected Problems Pancreatitis (Acute) Small bowel obstruction (Acute) - Physical Exam General: Alert, Oriented x3, Cooperative Lungs: Clear to auscultation, Normal air movement Cardiovascular: Regular rate, Regular Rhythm Abdomen: Bowel Sounds Present, Soft, Hyperactive Bowel Sounds, Distended, Tender - in the upper abdominal regions with increased proximal abdominal distention with a softer lower abdomen.-This is consistent with the distention noted on CT scan Vital Signs Temp Pulse Resp BP Pulse Ox 97.6 F L 58 L 18 131/63 H 95 08/04/17 06:47 08/04/17 07:34 08/04/17 06:47 08/04/17 06:47 08/04/17 06:47 Oxygen Delivery Method Room Air Weight: 76.693 kg Body Mass Index (BMI) 31.9 Laboratory Tests Past 24 Hrs 08/04/17 07:30 Lactic Acid 3.2 H Assessment/Plan Active and Suspected Problems Pancreatitis (Acute) Small bowel obstruction (Acute) bowel obstruction-level of distal Grisel-en-Y anastomosis on CT scan, pancreatitis , elevated lactic acid level, complex prior surgical history. Currently, the patient appears stable. - with a normal white blood cell count but increasing lactic acid level along with the fact that her BUN wall. Normal is elevated over her baseline and her BUN/creatinine ratio is elevated, I feel her issues still more likely related to undergo resuscitation versus true intestinal ischemia. I've spoken with Dr. Burgos, who agrees and the plan is for IV fluid bolus currently. review the CT scan demonstrates distention and fluid type material/bezoar type material in the thoracic interposed: Section and dilated small bowel with bezoar type material to what appears to be the distal Grisel-en-Y anastomosis. I agree with not placing an NG tube in that there is no stomach to truly aspirate , an feel limited return of material would not improve the patient's symptomatology. As the patient is having some bowel movements. Hopefully with bowel rest. This area will pass somewhat spontaneously. If there is an anastomotic stricture as would be assumed via CT imaging, potentially this could be dilated endoscopically. patient denies alcohol abuse or other substances would lead to pancreatitis. Currently agree with support for her overall findings of elevated lipase level. CT scan does not seem to demonstrate distal pancreatitis, but there is some haziness near the pancreatic head. I'm uncertain whether this truly represents pancreatitis or postsurgical changes from her previous surgical history. Overall, with the patient appears stable and I do not feel she needs urgent surgical intervention. I am still concerned about her elevated lactic acid level and her degree of pain. Given this and the fact that she would be an exceedingly complex surgical endeavor, I recommend referral to a tertiary care center somewhat proactively. Dr. Burgos is contacting the [facility] transfer line. I had spoken with Dr. Fontaine, who was the attending surgeon survey questionnaire designer for the acute care surgical service, who has accepted the patient.
[2017-08-04] MEDS: Lactated Ringers 1,000 ML 999 ML IV ×2 (11:42→12:12)
[2017-08-04] MEDS: Metoprolol Tartrate 5 MG/5 ML Vial IV (12:10)
--- NOTE | 2017-08-04 13:52 | PCM.DC.SUM ---
Discharge Date and Diagnosis - Problem List Patient Problems: Active and Suspected Problems Pancreatitis (Acute) Small bowel obstruction (Acute) Date of Admission: 08/04/17 Date of Discharge: 08/04/17 - Primary Discharge Diagnosis Active and Suspected Problems Pancreatitis (Acute) Small bowel obstruction (Acute) Hypokalemia Hypocalcemia Abnormal LFTs Lactic acidosis - Secondary Discharge Diagnosis Chronic Problems HTN (hypertension) (Chronic) GERD (gastroesophageal reflux disease) (Chronic) Esophageal cancer (Chronic) Unclear specific type, follows w/ [facility], s/p esophageal resection and partial gastrectomy. Had reconstruction with a piece of colon at [facility] in 2008 Anxiety and depression (Chronic) Fibromyalgia (Chronic) Chronic pain syndrome (Chronic) Hospital Course and Treatment Imaging Results: Clinical Impression(s) from Imaging Studies Abdomen/Pelvis CT 08/04/17 02:10 IMPRESSION: There are dilated loops of the small intestine with a non-distended colon consistent with a small bowel obstruction. Electronically Signed: Fara Garcia MD at 3:24 EST Tel , Service support , Chest X-Ray 08/04/17 02:11 IMPRESSION: Degenerative changes, status post esophagectomy as described above. No demonstrated acute cardiopulmonary process. Electronically Signed: Fara Garcia MD at 3:19 EST Tel , Service support , Laboratory Tests 08/04/17 08/04/17 08/04/17 02:25 02:25 02:25 WBC 10.3 RBC 4.97 Hgb 14.3 Hct 42.9 MCV 86.3 MCH 28.8 MCHC 33.3 RDW 13.7 RDW Differential 42.1 Plt Count 118 L MPV 12.1 H Immature Gran % (Auto) 0.200 Neut % (Auto) 90.1 H Lymph % (Auto) 5.9 L [place] % (Auto) 3.5 Eos % (Auto) 0.2 Baso % (Auto) 0.1 Absolute Neuts (auto) 9.3 H Absolute Lymphs (auto) 0.61 L Total Counted Not Reportable Sodium 149 H Potassium 2.7 L* Chloride 115 H Carbon Dioxide 26.0 Anion Gap 8 BUN 17 Creatinine 0.49 L Estim Creat Clear Calc 41.19 Est GFR (MDRD) Af Amer 162 Est GFR (MDRD) Non-Af 134 BUN/Creatinine Ratio 34.8 H Glucose 151 H Lactic Acid 2.6 H Calcium 6.4 L* Total Bilirubin 0.30 AST 159 H ALT 75 H Alkaline Phosphatase 130 H Troponin I 0.02 Total Protein 5.4 L Albumin 2.6 L Globulin 2.8 Albumin/Globulin Ratio 0.9 Lipase 3544 H Urine Color Urine Clarity Urine pH Ur Specific [place] Urine Protein Urine Glucose (UA) Urine Ketones Urine Occult Blood Urine Nitrite Urine Bilirubin Urine Urobilinogen Ur Leukocyte Esterase Urine RBC Urine WBC Ur Squamous Epith Cells Urine Bacteria Urine Mucus 08/04/17 08/04/17 02:25 07:30 WBC RBC Hgb Hct MCV MCH MCHC RDW RDW Differential Plt Count MPV Immature Gran % (Auto) Neut % (Auto) Lymph % (Auto) [place] % (Auto) Eos % (Auto) Baso % (Auto) Absolute Neuts (auto) Absolute Lymphs (auto) Total Counted Sodium Potassium Chloride Carbon Dioxide Anion Gap BUN Creatinine Estim Creat Clear Calc Est GFR (MDRD) Af Amer Est GFR (MDRD) Non-Af BUN/Creatinine Ratio Glucose Lactic Acid 3.2 H Calcium Total Bilirubin AST ALT Alkaline Phosphatase Troponin I Total Protein Albumin Globulin Albumin/Globulin Ratio Lipase Urine Color Yellow Urine Clarity Sl. Cloudy Urine pH 7.0 Ur Specific [place] 1.010 Urine Protein 30 H Urine Glucose (UA) 100 H Urine Ketones Negative Urine Occult Blood Negative Urine Nitrite Positive H Urine Bilirubin Negative Urine Urobilinogen Normal Ur Leukocyte Esterase 100 H Urine RBC 0 SEEN Urine WBC 5-10 SEEN Ur Squamous Epith Cells 0-5 SEEN Urine Bacteria 1+ Urine Mucus [address] Jai Barnhart-[facility] general surgery Operations: None Procedures: None Summary of Care Provided: Patient is a 66-year-old female with a past medical history of recurrent pancreatitis, chronic pain syndrome, esophageal cancer with esophageal resection and partial gastrectomy, reconstruction of the esophagus in 2008, fibromyalgia and GERD who presented to the emergency department at [facility] on 08/04/2017 complaining of constant abdominal pain. The pain radiated into both flanks. She additionally complained of urinary frequency for the preceding 2 weeks but denied dysuria. Vital signs at presentation to the emergency room were temperature 97.8, pulse rate 82, blood pressure 168/113, respiratory rate 18 and she was 96% saturated on room air. Significant lab included a normal white blood cell count at 10.3 with a 90% neutrophil count. Hemoglobin was 14.3 and the platelet count was 118,000. She has chronic thrombocytopenia. Potassium was low at 2.7 and the sodium was increased at 149. BUN was 17 with a creatinine of 0.49. Calcium was low at 6.4 and the albumin was 2.6 making the corrected serum calcium 7.6 which is low. Lipase was 3544. Total bilirubin was 0.3 but the AST was 159 with an ALT of 75 and an alkaline phosphatase of 130. Urine was positive for nitrite and had 5-10 WBCs per high-power field with 1+ bacteria....clean catch. Lactic acid was initially 2.6 and increased to 3.2 after 3 hours. Blood cultures were sent but no urine culture. CT scan of the abdomen was reported as dilated loops of small intestine within nondistended colon consistent with a small bowel obstruction. She has had prior cholecystectomy. The pancreas was reported as normal. She was admitted to the hospital with a diagnosis of SBO and acute recurrent pancreatitis. She received 30 cc/kg of fluid. Calcium supplementation and a PTH level were ordered. Potassium supplementation was ordered. She was kept NPO. A follow up BMP and lactic acid are ordered. The abdomen was distended and tympanic but we held off on inserting an NG because of the extensive esophageal surgery in the past. Dr. Barnhart was consulted for a surgical opinion. Dr. Barnhart recommended transfer to [facility] and was in contact with Dr. Fontaine who has graciously agreed to take Mrs. Pitts on her surgical service. Currently she is stable and does not appear toxic. She will continue to be NPO for pancreatitis and pSBO - she has had 2 small BM's. The etiology of the pancreatitis is unclear at this time. She has had a prior cholecystectomy and she denies alcohol use. I wonder if there are adhesions causing obstruction of the biliary tract or if there is a mass in the head of the pancreas.....it appears hazy on CT scan. She is being transferred to the [facility] when a bed becomes available. IgG subclasses have been ordered to exclude autoimmune disease as the etiology of the recurrent pancreatitis. This note was generated with INFOGRAPHI[employer]ation software. It may contain incorrect words, spelling, and punctuation that were not noted in checking the note before signing. Home Medications: Medications to take at Discharge Enalapril Maleate 20 mg PO BID 07/12/15 Latanoprost 1 drop EACH EYE QHS 07/12/15 Omeprazole 20 mg PO DAILY 07/12/15 Oxycodone HCl [Oxycodone HCl ER] 10 mg PO BID 07/12/15 Paroxetine HCl 40 mg PO DAILY 07/12/15 Magnesium 250 mg PO BID 01/05/17 ProMETHAzine [Phenergan] 25 mg PO Q4H PRN PRN 01/05/17 Amlodipine [Norvasc] 10 mg PO DAILY #60 tablet 01/07/17 Docusate Sodium [Colace] 200 mg PO BID 08/04/17 Ferrous Sulfate [Iron] 325 mg PO DAILY 08/04/17 Ibuprofen 400 mg PO Q4H PRN PRN 08/04/17 Metoprolol Succ Er 50 mg PO DAILY 08/04/17 Primary Care Physician: Selma Whitaker MD [Primary Care Provider] - Disposition: Acute [facility] - [facility] Meaningful Use Info Meaningful Use Diagnoses (Choose all that apply): None applicable Code Visit Inpatient E&M: 07939 Disch Hosp
--- NOTE | 2017-08-04 14:14 | DS.PCM_ITS ---
Discharge Date and Diagnosis - Problem List Patient Problems: Active and Suspected Problems Pancreatitis (Acute) Small bowel obstruction (Acute) Date of Admission: 08/04/17 Date of Discharge: 08/04/17 - Primary Discharge Diagnosis Active and Suspected Problems Pancreatitis (Acute) Small bowel obstruction (Acute) Hypokalemia Hypocalcemia Abnormal LFTs Lactic acidosis - Secondary Discharge Diagnosis Chronic Problems HTN (hypertension) (Chronic) GERD (gastroesophageal reflux disease) (Chronic) Esophageal cancer (Chronic) Unclear specific type, follows w/ [facility], s/p esophageal resection and partial gastrectomy. Had reconstruction with a piece of colon at [facility] in 2008 Anxiety and depression (Chronic) Fibromyalgia (Chronic) Chronic pain syndrome (Chronic) Hospital Course and Treatment Imaging Results: Clinical Impression(s) from Imaging Studies Abdomen/Pelvis CT 08/04/17 02:10 IMPRESSION: There are dilated loops of the small intestine with a non-distended colon consistent with a small bowel obstruction. Electronically Signed: Fara Garcia MD at 3:24 EST Tel , Service support , Chest X-Ray 08/04/17 02:11 IMPRESSION: Degenerative changes, status post esophagectomy as described above. No demonstrated acute cardiopulmonary process. Electronically Signed: Fara Garcia MD at 3:19 EST Tel , Service support , Laboratory Tests 08/04/17 08/04/17 08/04/17 02:25 02:25 02:25 WBC 10.3 RBC 4.97 Hgb 14.3 Hct 42.9 MCV 86.3 MCH 28.8 MCHC 33.3 RDW 13.7 RDW Differential 42.1 Plt Count 118 L MPV 12.1 H Immature Gran % (Auto) 0.200 Neut % (Auto) 90.1 H Lymph % (Auto) 5.9 L [place]ye % (Auto) 3.5 Eos % (Auto) 0.2 Baso % (Auto) 0.1 Absolute Neuts (auto) 9.3 H Absolute Lymphs (auto) 0.61 L Total Counted Not Reportable Sodium 149 H Potassium 2.7 L* Chloride 115 H Carbon Dioxide 26.0 Anion Gap 8 BUN 17 Creatinine 0.49 L Estim Creat Clear Calc 41.19 Est GFR (MDRD) Af Amer 162 Est GFR (MDRD) Non-Af 134 BUN/Creatinine Ratio 34.8 H Glucose 151 H Lactic Acid 2.6 H Calcium 6.4 L* Total Bilirubin 0.30 AST 159 H ALT 75 H Alkaline Phosphatase 130 H Troponin I 0.02 Total Protein 5.4 L Albumin 2.6 L Globulin 2.8 Albumin/Globulin Ratio 0.9 Lipase 3544 H Urine Color Urine Clarity Urine pH Ur Specific [place] Urine Protein Urine Glucose (UA) Urine Ketones Urine Occult Blood Urine Nitrite Urine Bilirubin Urine Urobilinogen Ur Leukocyte Esterase Urine RBC Urine WBC Ur Squamous Epith Cells Urine Bacteria Urine Mucus 08/04/17 08/04/17 02:25 07:30 WBC RBC Hgb Hct MCV MCH MCHC RDW RDW Differential Plt Count MPV Immature Gran % (Auto) Neut % (Auto) Lymph % (Auto) Nye % (Auto) Eos % (Auto) Baso % (Auto) Absolute Neuts (auto) Absolute Lymphs (auto) Total Counted Sodium Potassium Chloride Carbon Dioxide Anion Gap BUN Creatinine Estim Creat Clear Calc Est GFR (MDRD) Af Amer Est GFR (MDRD) Non-Af BUN/Creatinine Ratio Glucose Lactic Acid 3.2 H Calcium Total Bilirubin AST ALT Alkaline Phosphatase Troponin I Total Protein Albumin Globulin Albumin/Globulin Ratio Lipase Urine Color Yellow Urine Clarity Sl. Cloudy Urine pH 7.0 Ur Specific [place] 1.010 Urine Protein 30 H Urine Glucose (UA) 100 H Urine Ketones Negative Urine Occult Blood Negative Urine Nitrite Positive H Urine Bilirubin Negative Urine Urobilinogen Normal Ur Leukocyte Esterase 100 H Urine RBC 0 SEEN Urine WBC 5-10 SEEN Ur Squamous Epith Cells 0-5 SEEN Urine Bacteria 1+ Urine Mucus [address] Jai Barhnart-[facility] general surgery Operations: None Procedures: None Summary of Care Provided: Patient is a 66-year-old female with a past medical history of recurrent pancreatitis, chronic pain syndrome, esophageal cancer with esophageal resection and partial gastrectomy, reconstruction of the esophagus in 2008, fibromyalgia and GERD who presented to the emergency department at [facility] on 08/04/2017 complaining of constant abdominal pain. The pain radiated into both flanks. She additionally complained of urinary frequency for the preceding 2 weeks but denied dysuria. Vital signs at presentation to the emergency room were temperature 97.8, pulse rate 82, blood pressure 168/113, respiratory rate 18 and she was 96% saturated on room air. Significant lab included a normal white blood cell count at 10.3 with a 90% neutrophil count. Hemoglobin was 14.3 and the platelet count was 118,000. She has chronic thrombocytopenia. Potassium was low at 2.7 and the sodium was increased at 149. BUN was 17 with a creatinine of 0.49. Calcium was low at 6.4 and the albumin was 2.6 making the corrected serum calcium 7.6 which is low. Lipase was 3544. Total bilirubin was 0.3 but the AST was 159 with an ALT of 75 and an alkaline phosphatase of 130. Urine was positive for nitrite and had 5-10 WBCs per high-power field with 1+ bacteria....clean catch. Lactic acid was initially 2.6 and increased to 3.2 after 3 hours. Blood cultures were sent but no urine culture. CT scan of the abdomen was reported as dilated loops of small intestine within nondistended colon consistent with a small bowel obstruction. She has had prior cholecystectomy. The pancreas was reported as normal. She was admitted to the hospital with a diagnosis of SBO and acute recurrent pancreatitis. She received 30 cc/kg of fluid. Calcium supplementation and a PTH level were ordered. Potassium supplementation was ordered. She was kept NPO. A follow up BMP and lactic acid are ordered. The abdomen was distended and tympanic but we held off on inserting an NG because of the extensive esophageal surgery in the past. Dr. Barnhart was consulted for a surgical opinion. Dr. Barnhart recommended transfer to [facility] and was in contact with Dr. Fontaine who has graciously agreed to take Mrs. Pitts on her surgical service. Currently she is stable and does not appear toxic. She will continue to be NPO for pancreatitis and pSBO - she has had 2 small BM's. The etiology of the pancreatitis is unclear at this time. She has had a prior cholecystectomy and she denies alcohol use. I wonder if there are adhesions causing obstruction of the biliary tract or if there is a mass in the head of the pancreas.....it appears hazy on CT scan. She is being transferred to the [facility] when a bed becomes available. IgG subclasses have been ordered to exclude autoimmune disease as the etiology of the recurrent pancreatitis. This note was generated with Mediumation software. It may contain incorrect words, spelling, and punctuation that were not noted in checking the note before signing. Home Medications: Medications to take at Discharge Enalapril Maleate 20 mg PO BID 07/12/15 Latanoprost 1 drop EACH EYE QHS 07/12/15 Omeprazole 20 mg PO DAILY 07/12/15 Oxycodone HCl [Oxycodone HCl ER] 10 mg PO BID 07/12/15 Paroxetine HCl 40 mg PO DAILY 07/12/15 Magnesium 250 mg PO BID 01/05/17 ProMETHAzine [Phenergan] 25 mg PO Q4H PRN PRN 01/05/17 Amlodipine [Norvasc] 10 mg PO DAILY #60 tablet 01/07/17 Docusate Sodium [Colace] 200 mg PO BID 08/04/17 Ferrous Sulfate [Iron] 325 mg PO DAILY 08/04/17 Ibuprofen 400 mg PO Q4H PRN PRN 08/04/17 Metoprolol Succ Er 50 mg PO DAILY 08/04/17 Primary Care Physician: Selma Whitaker MD [Primary Care Provider] - Disposition: Acute [facility] Meaningful Use Info Meaningful Use Diagnoses (Choose all that apply): None applicable Code Visit Inpatient E&M: 84567 Disch Hosp
[2017-08-06 10:04] LABS: PTHIN 101.7 pg/mL (18.4-80.1)
== END 2017-08-04 16:00 | disposition short-term general hospital (02) | DRG 388 ==
LOC: ED 02:38 → MS2 05:17
PROVIDERS: Admitting Provider Internal Medicine; Emergency Provider Emergency Medicine; Family Provider Internal Medicine; PCP Internal Medicine; Visit Provider Internal Medicine
DX: K56.600 Partial intestinal obstruction, unspecified as to cause (principal); K85.90 Acute pancreatitis without necrosis or infection, unspecified; E87.2 Acidosis; D69.6 Thrombocytopenia, unspecified; E83.51 Hypocalcemia; E87.6 Hypokalemia; R79.89 Other specified abnormal findings of blood chemistry; I10 Essential (primary) hypertension; K21.9 Gastro-esophageal reflux disease without esophagitis; Z90.3 Acquired absence of stomach [part of]; F41.9 Anxiety disorder, unspecified; F32.9 Major depressive disorder, single episode, unspecified; M79.7 Fibromyalgia; G89.4 Chronic pain syndrome; Z90.49 Acquired absence of other specified parts of digestive tract; Z85.01 Personal history of malignant neoplasm of esophagus
CPT/HCPCS: 36415; 71046; 74176; 80053; 81001; 83605; 83690; 83970; 84484; 85025; 87040; 93005; 99285; J7030; J7050; J7120; A4216; J0610; J2405

== ENCOUNTER 2017-12-23 11:35 | Emergency (ER) | payer MEDICARE, SELFPAY ==
[2017-12-23 11:36] VITALS: BP 156/68; PULSE 53; RESP 17; TEMP 36.8; O2SAT 93; BMI 31.4
--- NOTE | 2017-12-23 12:29 | RAD_ITS ---
STUDY: X-RAY - UNILATERAL RIBS ( LEFT ) WITH CHEST REASON FOR EXAM: Female, 67 years old. Rib pain after a hug TECHNIQUE - RIBS: 5 view(s) of the ribs. TECHNIQUE - CHEST: Single PA view of the chest. COMPARISON: August 04, 2017 chest x-ray FINDINGS - RIBS: FINDINGS - CHEST: Findings are highly suspicious for a anteriorly located diaphragmatic hernia with bowel loops which may extend to the level of the thoracic inlet. There is mild cardiac enlargement. There is postoperative change in the midepigastric region and gassy appearance of the anterior aspect of the chest. Normal visualized pulmonary arteries. There is atherosclerotic calcification of the aortic arch with tortuosity. Normal visualized thoracic spine. There is an old left-sided rib fracture. There are acute fractures at the level of left rib 10, 9, 8, 7 and 6. There is suggestion of multiple old anteriorly located rib fractures. There is no demonstrated abnormality of the visualized soft tissue structures of the upper abdomen. RAD/Ribs Uni Min 3V w/PA Chest IMPRESSION: RIBS: Multilevel left-sided rib fractures, ribs 6 through 10.. No definitive visualized pneumothorax. Recommend consideration for follow-up CT scan of the chest if appropriate. CHEST: There are gaseous distended loops of bowel within the chest compatible with probable prior esophagectomy. N.B. : The above information has been verbally conveyed by Mercedes Talley MD to Dr. Randal Chase , Referring Physician, on 12/23/2017 13:20:45 (ET). Electronically Signed: Mercedes Talley MD at 13:15 EDT Tel , Service support , N.B. : The above information has been verbally conveyed by Mercedes Talley MD to Dr. Randal Chase , Referring Physician, on 12/23/2017 13:20:45 (ET).
--- NOTE | 2017-12-23 12:51 | ED.DCSUM_ITS ---
- ER Visit Summary Date of Service: 12/23/17 Chief Complaint: Chest wall pain History of Present Illness: The patient is a 67 F who presents with left lower chest pain that began approximately a week and a half ago after her daughter-in- law gave her a hug and lifted her up. Patient states she felt and heard a pop at that time. Patient states her pain is sharp and is worse with any movement or deep breathing. Patient denies any shortness of breath. Patient denies any nausea or vomiting. Patient denies any radiation of the pain. Patient has been taking Naprosyn with minimal relief. Physical Examination: Vital signs are stable. Patient is afebrile. Patient is in no acute distress. Oral mucosa is pink and moist. Neck is supple. There is no JVD noted. Heart was regular rate and rhythm. Lungs are clear and equal bilaterally. There is good respiratory effort noted. There is tenderness over the left lower chest wall. There is no ecchymosis noted. Abdomen is soft nontender. Cranial nerves II through XII are intact. There are no focal motor or sensory deficits noted. Test Results: X-rays of the left ribs were obtained. There are multiple rib fractures on the left. There is no pneumothorax noted. This was interpreted by the radiologist. Emergency Department Course and Treatment: Patient was instructed to take 10-15 deep breaths every hour while awake to prevent atelectasis and pneumonia. Patient was instructed to continue her naproxen and oxycodone as previously prescribed. Patient was instructed to follow-up with her primary care physician in 5-7 days. Patient understood and was agreeable with the plan. All questions were answered. Disposition: Discharged home Impression: Multiple rib fractures This note was generated with [employer] dictation software. It may contain incorrect words, spelling, and punctuation that were not noted in review of the chart prior to signing ED Disposition - Plan for ED Patient: Disposition: Home or Assisted Living Chief Complaint: Chest Other Diagnosis: Left rib fracture Instructions: ED Fx Rib Referrals: Selma Whitaker MD [Primary Care Provider] -
== END 2017-12-23 14:57 | disposition home or self-care (01) ==
PROVIDERS: Emergency Provider Emergency Medicine; Family Provider Internal Medicine; PCP Internal Medicine
DX: S22.42XA Multiple fractures of ribs, left side, initial encounter for closed fracture (principal); X58.XXXA Exposure to other specified factors, initial encounter; Y93.89 Activity, other specified; Y92.9 Unspecified place or not applicable; Y99.8 Other external cause status
CPT/HCPCS: 71101; 99282

== ENCOUNTER 2021-07-21 12:11 | Inpatient (IN) | payer MEDICARE, SELFPAY ==
[2021-07-21] VITALS (17 sets, daily range): BP systolic 106–134; BP diastolic 58–98; PULSE 91–164; RESP 15–31; TEMP 35.9–37.2; O2SAT 93–98; BMI 28.3; BMI 28.4
--- NOTE | 2021-07-21 12:30 | EKG12_ITS ---
Test Reason : SOB Blood Pressure : / mmHG Vent. Rate : 146 BPM Atrial Rate : 147 BPM P-R Int : 192 ms QRS Dur : 084 ms QT Int : 260 ms P-R-T Axes : 009 -17 172 degrees QTc Int : 405 ms Sinus tachycardia Nonspecific ST and T wave abnormality Abnormal ECG Confirmed by LIZETTE FINLEY, LAWRENCE ([id number]), legal editor CAROLIN JACOBSEN ([id number]) on 07/22/2021 1:24:58 PM Referred By: ANH/ARGELIA Confirmed By:LAWRENCE BAUER MD
--- NOTE | 2021-07-21 12:30 | RAD_ITS ---
STUDY: X-RAY CHEST REASON FOR EXAM: Female, 70 years old. Increasing shortness of breath. History of CHF. TECHNIQUE: Single AP portable view of the chest. COMPARISON: Comparison is made with prior study dated 12/23/2017. FINDINGS: EKG electrodes are seen. There now is evidence of infiltrate in the right lung with blunting of the right cost phrenic angle. Mild increased markings at the left lung base. Blunting of the left costophrenic angle. There is mild cardiac enlargement. Surgical clips are seen in the left parahilar region. Normal visualized pulmonary arteries. There is atherosclerotic tortuosity of the aortic arch and descending thoracic aorta. Normal visualized thoracic spine. Normal visualized ribs, clavicles, and shoulders. There is no demonstrated abnormality of the visualized soft tissue structures of the upper abdomen. RAD/Chest 1 View (Portable) IMPRESSION: Infiltration in the right lung with blunting of the right costophrenic angle. Mild increased markings at the left lung base with blunting of the left costophrenic angle. Electronically Signed: Marvel Apple MD at 13:14 EST , Service support ,
[2021-07-21 13:00] LABS: Absolute Lymphocyte Count 0.72 X10^3/uL (0.83-4.51); Absolute Neutrophil Count 6.6 X10^3/uL (2.0-7.7); Basophil# 0.02 X10^3/uL; Basophil% 0.3 % (0-1); Eosinophil# 0.01 X10^3/uL; Eosinophils% 0.1 % (0-5); Lymphocyte # 0.72 X10^3/ul (0.83-4.51); Lymphocyte % 9.4 % (19-41); Mean Corp Hgb Conc 31.6 g/dL (32-36); Mean Corpuscular Hgb 28.6 pg (27.0-32.0); Mean Corpuscular Volume 90.5 fL (81-99); Mean Platelet Vol. 13.1 fl (6.2-12.0); Monocyte% 3.9 % (0-10); NRBC Flagged by Analyzer 0 % (0-5); Neutrophil # 6.58 X10^3/uL (2.7-7.7); Platelet Count 115 K/mm3 (150-450); RBC Distribution Width CV 14.4 % (11.6-14.6); RBC Distribution Width SD 47.2 fl (35.1-43.9); White Blood Count 7.7 K/mm3 (4.4-11.0)
[2021-07-21 13:15] LABS: Anion Gap 7 (5-15); BUN 19 mg/dL (7-18); BUN/Creat Ratio 26.5 RATIO (10-20); Calcium,Total 8.7 mg/dL (8.5-10.1); Chloride 109 mmol/L (98-107); Creatinine, Serum 0.72 mg/dL (0.55-1.02); EST Glomerular Filtration Rate 85 mL/min (>60); Est Glom Filt Rate - Afr Amer 103 mL/min (>60); Estimated Creatinine Clearance 38.94 ml/min; Glucose 132 mg/dL (74-106); Potassium 3.6 mmol/L (3.5-5.1); Sodium Level 142 mmol/L (136-145); Troponin-I HS 23 pg/mL (3.0-54.0)
[2021-07-21 13:22] LABS: BNP,B-Type NATRIURETIC PEPTIDE 438.2 pg/mL (0-100)
[2021-07-21 13:27] LABS: D-Dimer Quantitative (DVT/PE) 1.71 FEU/ug/m (0.27-0.49)
[2021-07-21] MEDS: 0.9% Normal Saline 1,000 ML 999 ML IV (13:29)
[2021-07-21] MEDS: Furosemide 40 MG/4 ML Vial IV (13:36)
[2021-07-21] MEDS: dilTIAZem 25 MG/5 ML Vial 20 MG IV BOLUS (13:36)
--- NOTE | 2021-07-21 13:42 | ED.VIS.DYS ---
HPI History of Present Illness Chief Complaint: Shortness of Breath Narrative Narrative: 70-year-old female presenting with shortness of breath. She states she has been short of breath since Sunday. She also describes abdominal fullness and believes she is holding onto water. She states that her heart rate has been elevated as well. She states she has a history of atrial fibrillation but it was not persistent so she is not anticoagulated. She is. Patient on metoprolol 25 mg p.o. daily and states that in the summer she was changed from 50 to 20 mg. Patient also feels like she is generally fatigued. She states I thought I had COVID but I am not sure. She denies any fever, chills, body aches. She has no loss of taste or smell. [facility] Medical History Anxiety and depression Esophageal cancer Fibromyalgia GERD (gastroesophageal reflux disease) History of gastrectomy HTN (hypertension) Home Medications enalapril maleate 20 mg PO BID 07/12/15 [History Last Taken 08/03/17 21:00] promethazine 25 mg PO TID PRN PRN 01/05/17 [History Last Taken 08/03/17 20:00] ferrous sulfate [Iron] 325 mg PO BID 08/04/17 [History Last Taken 08/03/17 10:00] amlodipine 10 mg PO DAILY 07/21/21 [History Last Taken Unknown] cholecalciferol (vitamin D3) 1,250 mcg PO .2X/WEEK 07/21/21 [History Last Taken Unknown] cyanocobalamin (vitamin B-12) 1,000 mcg IM QMONTH 07/21/21 [History Last Taken Unknown] latanoprost 1 drp EACH EYE QPM 07/21/21 [History Last Taken Unknown] magnesium 500 mg PO DAILY 07/21/21 [History Last Taken Unknown] metoprolol succinate 25 mg PO DAILY 07/21/21 [History Last Taken Unknown] omeprazole 40 mg PO DAILY 07/21/21 [History Last Taken Unknown] oxycodone 10 mg PO TID 07/21/21 [History Last Taken Unknown] sertraline 75 mg PO DAILY 07/21/21 [History Last Taken Unknown] Allergy/AdvReac Type Severity Reaction Status Date / Time doxycycline Allergy Unknown Verified 07/21/21 12:12 Iodinated Contrast Media Allergy Unknown Verified 07/21/21 12:12 [Iodinated Contrast Media - IV Dye] Sulfa (Sulfonamide Allergy Unknown Verified 07/21/21 12:12 Antibiotics) erythromycin base AdvReac Upset Verified 07/21/21 12:12 Stomach hydrocodone bitartrate AdvReac HEADACHE Verified 07/21/21 12:12 [From Vicodin] Family History Father Cancer Lung cancer. Mother Myocardial infarction Heart disease Surgical History H/O ventral hernia repair History of esophageal surgery Hx of appendectomy Hx of cholecystectomy S/P gastrectomy Social History (Updated 07/21/21 @ 18:05 by Itzel Magallanes) household members: none housing: house pets and animals: No Smoking Status: Never smoker substance use type: does not use ROS ROS ED ROS Narrative Fatigue Constitutional Constitutional ED: Denies chills or fever(s) ENT ENT ED: Denies rhinorrhea or sore throat Cardiovascular Cardiovascular: Reports palpitations and racing heartbeat; Denies chest pain Respiratory/Chest Respiratory/Chest: Reports dyspnea and dyspnea on exertion Gastrointestinal Gastrointestinal: Reports other Details: Abdominal fullness ; Denies nausea or vomiting Musculoskeletal Musculoskeletal: Denies arthralgias or myalgias Integumentary Denies rash Neurologic Neurologic: Denies headache(s) or paresthesias Psychiatric Psychiatric: Denies anxiety or depression EXAM Physical Exam Const Vital Signs: 07/21/21 12:12 07/21/21 12:15 07/21/21 12:50 Temperature 96.7 F L 96.7 F L Temperature Source Temporal Oral Pulse Rate 138 H 164 H 145 H Respiratory Rate 15 18 Respiratory Effort Normal Non-Labored Blood Pressure 131/97 H 106/74 Blood Pressure Mean 108 84 Pulse Ox 98 94 Oxygen Delivery Method Room Air Room Air Room Air Oxygen Flow Rate (L/min) 07/21/21 13:51 07/21/21 15:00 07/21/21 16:00 Temperature Temperature Source Pulse Rate 102 H 97 91 Respiratory Rate 20 H 28 H 25 H Respiratory Effort Blood Pressure 108/81 H 121/92 H 134/98 H Blood Pressure Mean 90 101 110 Pulse Ox 93 96 97 Oxygen Delivery Method Room Air Nasal Cannula Nasal Cannula Oxygen Flow Rate (L/min) 2 Positive well nourished General Appearance ED: Negative for pallor HEENT Reports moist mucous membranes atraumatic Eyes PERRL and EOMs intact bilaterally Resp normal respiratory effort Auscultation: rales right and left GI non-tender Palpation: soft Neuro oriented x3, CN's II-XII intact bilaterally and no sensory deficits noted Sensorium / Orientation: alert Motor Exam: strength 5/5 throughout Psych mental status grossly normal Thought Process: normal thought process Skin General Skin Exam: Negative for jaundice or pallor MDM MDM MDM Narrative Medical decision making narrative: Patient presenting with generalized fatigue, palpitations, dyspnea. She feels that she is holding onto water because her abdomen is a little bit bloated. Patient had initial EKG which on my interpretation showed a sinus tachycardia at 146 bpm, however when I went into the room on the monitor it appeared to be irregular and looks more like A. fib. She states she has a history of atrial fibrillation and her heart rate has been persistently elevated for the last 4 days. She states that usually it does slow down. She states he is not anticoagulated. She is currently on 25 mg of metoprolol daily and has been since the summertime. I obtained blood work and her CBC is unremarkable. Renal function and electrolytes are normal. High-sensitivity troponin is 23. BNP is 438. Chest x-ray on my interpretation shows blunting of the bilateral costophrenic angles. Patient does not have lower extremity edema but does have abdominal fullness. I suspect she may be in heart failure due to her fast heart rate. She was given Cardizem 20 mg IV. I ordered Lasix 40 mg IV as well. After she received the Cardizem she started to complain of chest pain and the Lasix was held. A repeat EKG will be performed. This EKG was atrial fibrillation with a ventricular rate of 89 bpm without sign of ischemic change. Patient had an elevated D-dimer and was premedicated for her allergy that she does not know the reaction of. She had no reaction during CTA. CT of the chest does not show any pulmonary emboli or dissection. There are bilateral effusions and infiltrates suggesting CHF which is suspected. Patient will likely has been in atrial fibrillation this is posterior and CHF. Patient was discussed with the hospitalist and is admitted in stable condition. Impression: 1. Atrial fibrillation with RVR 2. Acute CHF Lab Data Labs: Laboratory Results - last 24 hr 07/21/21 07/21/21 07/21/21 12:45 12:45 12:45 WBC 7.7 RBC 4.20 Hgb 12.0 Hct 38.0 MCV 90.5 MCH 28.6 MCHC 31.6 L RDW Std Deviation 47.2 H RDW Coeff of Mikayla 14.4 Plt Count 115 L MPV 13.1 H Immature Gran % (Auto) 0.300 Neut % (Auto) 86.0 H Lymph % (Auto) 9.4 L [place] % (Auto) 3.9 Eos % (Auto) 0.1 Baso % (Auto) 0.3 Absolute Neuts (auto) 6.6 Absolute Lymphs (auto) 0.72 L Nucleated RBC % 0 D-Dimer Quant (PE/DVT) Sodium 142 Potassium 3.6 Chloride 109 H Carbon Dioxide 26.0 Anion Gap 7 BUN 19 H Creatinine 0.72 Estim Creat Clear Calc 38.94 Est GFR (MDRD) Af Amer 103 Est GFR (MDRD) Non-Af 85 BUN/Creatinine Ratio 26.5 H Glucose 132 H Calcium 8.7 Troponin I High Sens 23 B-Natriuretic Peptide 438.2 H 07/21/21 07/21/21 12:45 14:39 WBC RBC Hgb Hct MCV MCH MCHC RDW Std Deviation RDW Coeff of Mikayla Plt Count MPV Immature Gran % (Auto) Neut % (Auto) Lymph % (Auto) [place] % (Auto) Eos % (Auto) Baso % (Auto) Absolute Neuts (auto) Absolute Lymphs (auto) Nucleated RBC % D-Dimer Quant (PE/DVT) 1.71 H* Sodium Potassium Chloride Carbon Dioxide Anion Gap BUN Creatinine Estim Creat Clear Calc Est GFR (MDRD) Af Amer Est GFR (MDRD) Non-Af BUN/Creatinine Ratio Glucose Calcium Troponin I High Sens 27 B-Natriuretic Peptide Radiography Diagnostic Testing: Clinical Impression(s) from Imaging Studies Chest X-Ray 07/21/21 12:30 IMPRESSION: Infiltration in the right lung with blunting of the right costophrenic angle. Mild increased markings at the left lung base with blunting of the left costophrenic angle. Electronically Signed: Marvel Apple MD at 13:14 EST , Service support , Chest CTA 07/21/21 15:01 IMPRESSION: Small bilateral pleural effusions right greater than left with increased interstitial markings and bibasilar atelectasis and/or infiltrates superimposed on chronic bronchiectasis. Findings are suggestive mild degree of CHF with bibasilar atelectasis and/or infiltrates. No evidence of pulmonary embolus. Electronically Signed: Marvel Apple MD at 15:49 EST , Service support , Discharge Plan Disposition Disposition: Acute Care Hospital [facility] Discharge Date/Time: 07/21/21 17:06
--- NOTE | 2021-07-21 13:52 | EKG12_ITS ---
Test Reason : REPEAT Blood Pressure : / mmHG Vent. Rate : 089 BPM Atrial Rate : 072 BPM P-R Int : 000 ms QRS Dur : 090 ms QT Int : 400 ms P-R-T Axes : 000 -17 156 degrees QTc Int : 486 ms Atrial fibrillation Nonspecific ST and T wave abnormality Prolonged QT Abnormal ECG Confirmed by LIZETTE FILNEY, LAWRENCE ([id number]), editorial manager CAROLIN JACOBSEN ([id number]) on 07/22/2021 1:24:36 PM Referred By: ANH Confirmed By:LAWRENCE BAUER MD
[2021-07-21 14:56] LABS: Troponin-I HS 27 pg/mL (3.0-54.0)
--- NOTE | 2021-07-21 15:01 | CT_ITS ---
STUDY: CTA CHEST REASON FOR EXAM: Female, 70 years old. Dyspnea. Increasing shortness of breath. Bilateral lower extremity edema. RADIATION DOSAGE (If Supplied By Facility): CTDIvol = ( 12.9 ) mGy, DLP = ( 380.90 ) mGycm TECHNIQUE: The examination was performed with the intravenous administration of IV 100mL [id number]-[id number]. Post-processing of the angiographic images was performed, with multiplanar reformation and 3D reconstruction. Individualized dose optimization techniques were used for this CT. COMPARISON: None. FINDINGS: Normal enhancement of the main pulmonary artery and right and left pulmonary arteries. Normal enhancement of the bilateral peripheral pulmonary arteries. There is no demonstrated pulmonary embolism. There is atherosclerotic calcification of the aortic arch with tortuosity. There is no demonstrated aortic dissection. There are calcifications of the coronary arteries. Moderate cardiomegaly. Enlargement of the left atrium. Normal mediastinum. Normal hilar regions. Normal visualized trachea and bronchi. The lungs are well expanded. Small bilateral pleural effusions right greater than left. Diffuse increased interstitial markings in the upper lobes. Patchy bibasilar infiltrates with a mild degree of bronchiectasis at the lung bases. Normal pleura. Normal chest wall structures. There are degenerative changes of thoracic spine. The patient is status post subtotal gastrectomy. Diffuse fatty infiltration of the liver. CT/CTA Chest W/WO Contrast IMPRESSION: Small bilateral pleural effusions right greater than left with increased interstitial markings and bibasilar atelectasis and/or infiltrates superimposed on chronic bronchiectasis. Findings are suggestive mild degree of CHF with bibasilar atelectasis and/or infiltrates. No evidence of pulmonary embolus. Electronically Signed: Marvel Apple MD at 15:49 EST , Service support ,
[2021-07-21] MEDS: DiphenhydrAMINE 50 MG/ML Syringe 25 MG IV (15:05)
[2021-07-21] MEDS: MethylPREDNISolone 125 MG/2 ML Vial IV (15:06)
--- NOTE | 2021-07-21 16:59 | HP.PCM.HOS_ITS ---
Documented by User: Werner العراقي 07/21/21 17:41 HPI - General General Date of Admission: 07/21/21 Date of Service: 07/21/21 Chief Complaint: Shortness of breath HPI Narrative KP FLORES is a 70-year-old female who presents to the ED at [facility] on 07/21/2021 with a chief complaint of progressively worsening shortness of breath. Patient reports that for the past 4 days she has been ex periencing progressively worsening shortness of breath. Patient also endorses fluid retention in the legs and abdomen with weight gain. Patient reports that shortness of breath is present with rest although is worse with exertion. Patient denies any orthopnea or paroxysmal nocturnal dyspnea. Patient endorses nausea although denies any fever, chills, vomiting or diarrhea, sputum production or hemoptysis. Patient denies any past medical history of atrial fibrillation or heart failure, although maternal medical history is significant for heart failure. Temperature in the ED is 98.9 ?F, HR of 124, BP of 134/98, RR of 31 and patient is currently satting 98% on 2 L via nasal cannula. CBC is unremarkable. D-dimer is elevated at 1.7. BMP is unremarkable. High- sensitivity troponins are within normal limits. BNP is elevated at 438.2. Chest x-ray demonstrates right lung infiltrate with blunting of the costophrenic angle as well as mild increased markings of the left lung base with blunting of the left costophrenic angle, there is mild cardiac enlargement. Chest CTA does not demonstrate any evidence of PE but is significant for findings suggestive of mild CHF with bibasilar pleural effusions that are greater on the right than left. Rapid COVID is negative. Patient was given Cardizem, Lasix and steroids in the ED. [facility] Medical History Anxiety and depression Esophageal cancer Fibromyalgia GERD (gastroesophageal reflux disease) History of gastrectomy HTN (hypertension) Home Medications enalapril maleate 20 mg PO BID 07/12/15 [History Last Taken 08/03/17 21:00] promethazine 25 mg PO TID PRN PRN 01/05/17 [History Last Taken 08/03/17 20:00] ferrous sulfate [Iron] 325 mg PO BID 08/04/17 [History Last Taken 08/03/17 10:00] amlodipine 10 mg PO DAILY 07/21/21 [History Last Taken Unknown] cholecalciferol (vitamin D3) 1,250 mcg PO .2X/WEEK 07/21/21 [History Last Taken Unknown] cyanocobalamin (vitamin B-12) 1,000 mcg IM QMONTH 07/21/21 [History Last Taken Unknown] latanoprost 1 drp EACH EYE QPM 07/21/21 [History Last Taken Unknown] magnesium 500 mg PO DAILY 07/21/21 [History Last Taken Unknown] metoprolol succinate 25 mg PO DAILY 07/21/21 [History Last Taken Unknown] omeprazole 40 mg PO DAILY 07/21/21 [History Last Taken Unknown] oxycodone 10 mg PO TID 07/21/21 [History Last Taken Unknown] sertraline 75 mg PO DAILY 07/21/21 [History Last Taken Unknown] Allergy/AdvReac Type Severity Reaction Status Date / Time doxycycline Allergy Unknown Verified 07/21/21 12:12 Iodinated Contrast Media Allergy Unknown Verified 07/21/21 12:12 [Iodinated Contrast Media - IV Dye] Sulfa (Sulfonamide Allergy Unknown Verified 07/21/21 12:12 Antibiotics) erythromycin base AdvReac Upset Verified 07/21/21 12:12 Stomach hydrocodone bitartrate AdvReac HEADACHE Verified 07/21/21 12:12 [From Vicodin] Family History Father Cancer Lung cancer. Mother Myocardial infarction Heart disease Surgical History H/O ventral hernia repair History of esophageal surgery Hx of appendectomy Hx of cholecystectomy S/P gastrectomy Social History (Updated 07/21/21 @ 18:05 by Itzel Magallanes) household members: none housing: house pets and animals: No Smoking Status: Never smoker substance use type: does not use ROS Constitutional Constitutional: Reports fatigue, malaise and weakness; Denies anorexia, change in weight, chills, fever(s), night sweats or other Eyes Eyes: Denies blurry vision, change in eye color, change in vision, discharge from eye(s), double vision, erythema, eye pain, loss of vision or other ENT HEENT: Denies abnormal hearing, dysphagia, ear pain, epistaxis, headache(s), hearing loss, nasal congestion, nasal discharge, post nasal drip, sinus pressure, sore throat or other Cardiovascular Cardiovascular: Reports dyspnea on exertion and edema; Denies chest pain, claudication, lightheadedness, orthopnea, palpitations, paroxysmal nocturnal dyspnea, rapid heart rate, syncope or other Respiratory/Chest Respiratory/Chest: Reports dyspnea, shortness of breath at rest and shortness of breath with exertion; Denies cough, excessive phlegm production, hemoptysis, productive cough, wheezing or other Gastrointestinal Gastrointestinal: Denies abdominal pain, coffee ground emesis, constipation, diarrhea, dyspepsia, hematemesis, hematochezia, loose stools, melena, nausea, vomiting or other Genitourinary Genitourinary: Denies burning urination, difficulty urinating, dysuria, hematuria, nocturia, urinary frequency, urinary hesitancy, urinary incontinence, urinary urgency or other Musculoskeletal Musculoskeletal: Denies arthralgias, back pain, joint pain, joint stiffness, joint swelling, myalgias, neck pain or other Neurologic Neurologic: Denies abnormal gait, abnormal speech, confusion, disequilibrium, dizziness, focal weakness, headache(s), numbness, paresthesias, seizure-like activity, seizures, syncope, tingling, tremor(s) or other Psychiatric Psychiatric: Denies anxiety, depression, homicidal ideation, suicidal ideation or other Endocrine Endocrinology: Denies change in body appearance, cold intolerance, excessive sweating, heat intolerance, polydipsia, polyuria or other Hematologic/Lymphatic Hematologic/Lymphatic: Denies anemia, easy bleeding, easy bruising, lymphadenopathy or other Allergic/Immunologic Allergic/Immunologic: Denies rhinitis, hives, eczemia, asthma or other Vital Signs Vital Signs Vital Signs: 07/21/21 12:12 07/21/21 12:15 07/21/21 12:50 Temperature 96.7 F L 96.7 F L Temperature Source Temporal Oral Pulse Rate 138 H 164 H 145 H Respiratory Rate 15 18 Respiratory Effort Normal Non-Labored Blood Pressure 131/97 H 106/74 Blood Pressure Mean 108 84 Pulse Ox 98 94 Oxygen Delivery Method Room Air Room Air Room Air Oxygen Flow Rate (L/min) 07/21/21 13:51 07/21/21 15:00 07/21/21 16:00 Temperature Temperature Source Pulse Rate 102 H 97 91 Respiratory Rate 20 H 28 H 25 H Respiratory Effort Blood Pressure 108/81 H 121/92 H 134/98 H Blood Pressure Mean 90 101 110 Pulse Ox 93 96 97 Oxygen Delivery Method Room Air Nasal Cannula Nasal Cannula Oxygen Flow Rate (L/min) 2 07/21/21 16:49 Temperature 98.9 F Temperature Source Oral Pulse Rate 124 H Respiratory Rate 31 H Respiratory Effort Blood Pressure 134/98 H Blood Pressure Mean 110 Pulse Ox 98 Oxygen Delivery Method Nasal Cannula Oxygen Flow Rate (L/min) 2 Weight Weight: 150 lb Body Mass Index (BMI) 28.3 Physical Exam Const alert and oriented x3 HEENT normocephalic, head/scalp atraumatic and hearing grossly normal bilaterally HEENT Narrative: Esophageal mass appreciated above the base of the neck and left clavicle. Eyes PERRL, EOMs intact bilaterally and conjunctivae normal Neck no lymphadenopathy, supple and no JVD Resp Effort and Inspection: tachypneic, respiratory distress and labored Auscultation: diminished lung sounds Cardio no murmurs and no JVD Rate: tachycardic Rhythm: abnormal rhythm GI normal to inspection, nondistended, normoactive bowel sounds, soft to palpation and non-tender Extremity normal to inspection, full ROM and no clubbing, cyanosis or edema Skin no rashes or lesions noted, no wounds, skin turgor normal and no jaundice Neuro CN's II-XII intact bilaterally Psych affect normal Results Lab / Micro Data Result Diagrams: 07/21/21 12:45 07/21/21 12:45 Labs: Laboratory Results - last 24 hr 07/21/21 12:45: WBC 7.7, RBC 4.20, Hgb 12.0, Hct 38.0, MCV 90.5, MCH 28.6, MCHC 31.6 L, RDW Std Deviation 47.2 H, RDW Coeff of Mikayla 14.4, Plt Count 115 L, MPV 13.1 H, Immature Gran % (Auto) 0.300, Neut % (Auto) 86.0 H, Lymph % (Auto) 9.4 L , Johnson % (Auto) 3.9, Eos % (Auto) 0.1, Baso % (Auto) 0.3, Absolute Neuts (auto) 6.6, Absolute Lymphs (auto) 0.72 L, Nucleated RBC % 0 07/21/21 12:45: Sodium 142, Potassium 3.6, Chloride 109 H, Carbon Dioxide 26.0, Anion Gap 7, BUN 19 H, Creatinine 0.72, Estim Creat Clear Calc 38.94, Est GFR (MDRD) Af Amer 103, Est GFR (MDRD) Non-Af 85, BUN/Creatinine Ratio 26.5 H, Glucose 132 H, Calcium 8.7, Troponin I High Sens 23 07/21/21 12:45: B-Natriuretic Peptide 438.2 H 07/21/21 12:45: D-Dimer Quant (PE/DVT) 1.71 H* 07/21/21 14:39: Troponin I High Sens 27 Micro: Microbiology 07/21/21 13:20 Nasal Secretion SARS-CoV-2 Antigen (Rapid) - Final Radiology Impression Chest X-Ray 07/21/21 12:30 IMPRESSION: Infiltration in the right lung with blunting of the right costophrenic angle. Mild increased markings at the left lung base with blunting of the left costophrenic angle. Electronically Signed: Marvel Apple MD at 13:14 EST , Service support , Chest CTA 07/21/21 15:01 IMPRESSION: Small bilateral pleural effusions right greater than left with increased interstitial markings and bibasilar atelectasis and/or infiltrates superimposed on chronic bronchiectasis. Findings are suggestive mild degree of CHF with bibasilar atelectasis and/or infiltrates. No evidence of pulmonary embolus. Electronically Signed: Marvel Apple MD at 15:49 EST , Service support , Assessment & Plan Assessment/Plan (1) Acute exacerbation of CHF (congestive heart failure): (2) Atrial fibrillation with RVR: PLAN: Patient is a 70-year-old female who presents to the ED at [facility] on 07/21/2021 with a chief complaint of shortness of breath. Patient will be admitted for evaluation and management of acute CHF exacerbation with atrial fibrillation. 1) acute CHF exacerbation Unclear type. Patient presents with a 4-day history of progressively worsening shortness of breath. Patient also reports swelling in the abdomen and legs with weight gain, although no edema appreciated in the lower extremities bilaterally on my examination. BNP mildly elevated at 438.2. Chest x-ray demonstrates mild cardiac enlargement with bibasilar blunting of the costophrenic angles, worse on the right than left. Plan; admit to PCU for cardiac monitoring, initiate IV Lasix, continue O2 wean as tolerated, incentive spirometry encouraged, monitor I's and O's, monitor daily weights, echocardiogram in a.m. 2) new onset atrial fibrillation EKG obtained in the ED demonstrated A. fib with RVR. Refractory to bolus of diltiazem given in the ED. Patient is on metoprolol at home for BP management. [id number] score is 3. Will initiate diltiazem drip. 3) possible COVID-19 infection Patient symptoms include progressively worsening shortness of breath with nausea. Patient denies any other infectious symptoms. Patient denies any known sick contacts. Patient is unvaccinated for COVID-19. Rapid COVID-19 in the ED was negative. Will obtain PCR. 4) elevated D-dimer D-dimer in the ED was 1.71. Chest CT-A did not demonstrate any evidence of PE. Likely demand secondary to 1 and 2. 5) history of esophageal cancer Patient underwent esophageal resection in 2017, follows with a surgeon at [facility] [place]. Patient denies following with an oncologist. 6) fibromyalgia Patient managed with oxycodone by her primary care provider. Continued. 7) HTN Continue amlodipine and metoprolol. 8) GERD Continue PPI. 9) depression/anxiety Continue sertraline. DVT prophylaxis -Lovenox CODE STATUS: Full code Patient seen by Werner Jauregui PA-C, under the supervision of Dr. Ochoa. Time spent on patient care: 15 minutes. Documented by User: Dr. Mecca Ochoa MD 07/21/21 18:46 HPI - General General Date of Admission: 07/21/21 [facility] Medical History Anxiety and depression Esophageal cancer Fibromyalgia GERD (gastroesophageal reflux disease) History of gastrectomy HTN (hypertension) Home Medications enalapril maleate 20 mg PO BID 07/12/15 [History Last Taken 08/03/17 21:00] promethazine 25 mg PO TID PRN PRN 01/05/17 [History Last Taken 08/03/17 20:00] ferrous sulfate [Iron] 325 mg PO BID 08/04/17 [History Last Taken 08/03/17 10:00] amlodipine 10 mg PO DAILY 07/21/21 [History Last Taken Unknown] cholecalciferol (vitamin D3) 1,250 mcg PO .2X/WEEK 07/21/21 [History Last Taken Unknown] cyanocobalamin (vitamin B-12) 1,000 mcg IM QMONTH 07/21/21 [History Last Taken Unknown] latanoprost 1 drp EACH EYE QPM 07/21/21 [History Last Taken Unknown] magnesium 500 mg PO DAILY 07/21/21 [History Last Taken Unknown] metoprolol succinate 25 mg PO DAILY 07/21/21 [History Last Taken Unknown] omeprazole 40 mg PO DAILY 07/21/21 [History Last Taken Unknown] oxycodone 10 mg PO TID 07/21/21 [History Last Taken Unknown] sertraline 75 mg PO DAILY 07/21/21 [History Last Taken Unknown] Allergy/AdvReac Type Severity Reaction Status Date / Time doxycycline Allergy Unknown Verified 07/21/21 12:12 Iodinated Contrast Media Allergy Unknown Verified 07/21/21 12:12 [Iodinated Contrast Media - IV Dye] Sulfa (Sulfonamide Allergy Unknown Verified 07/21/21 12:12 Antibiotics) erythromycin base AdvReac Upset Verified 07/21/21 12:12 Stomach hydrocodone bitartrate AdvReac HEADACHE Verified 07/21/21 12:12 [From Vicodin] Family History Father Cancer Lung cancer. Mother Myocardial infarction Heart disease Surgical History H/O ventral hernia repair History of esophageal surgery Hx of appendectomy Hx of cholecystectomy S/P gastrectomy Social History (Updated 07/21/21 @ 18:05 by Itzel Magallanes) household members: none housing: house pets and animals: No Smoking Status: Never smoker substance use type: does not use Results Lab / Micro Data Result Diagrams: 07/21/21 12:45 07/21/21 12:45 Charges/Coding Addendum Addendum: This patient was seen in conjunction with MALCOM Salvador. I have independently interviewed and examined the patient and reviewed pertinent historical, laboratory, and other data. Please refer to MALCOM Salvador's note for his patient's presentation, findings, and recommendations. I have reviewed and his note and concur with his documentation 70-year-old female past medical history hypertension, anxiety/depression who comes in progressive worsening shortness of breath, bilateral leg edema, pal pitations. She denies any history of heart disease or atrial fibrillation. Patient is unvaccinated against COVID-19 infection. Denies any fever chills but has nasal congestion. Admitting vitals are stable except for tachycardia. EKG showed atrial fibrillation. She received 1 dose of Cardizem as well as Lasix IV. Physical Exam: Gen: Comfortable, not pale, not jaundiced, on 2 L of oxygen CVS:HS I +II, irregular, no murmurs RESP: Diminished at lung bases GI: BS present and normal, soft, nontender, no palpable organs EXT:No edema ASSESSMENT: 1. A. fib with RVR 2. Acute CHF exacerbation, unknown EF 3. Hypertension 4. GERD 5. Anxiety/depression 6. Fibromyalgia/Chronic pain syndrome 7. Hypomagnesemia 8. Probable COVID-19 infection/pneumonia Plan: Admit to PCU Continue on metoprolol titrate If patient continues to be in RVR, consider Cardizem drip Replace magnesium Continue with therapeutic Lovenox Lasix 20 mg IV twice daily Trend cardiac enzymes 2D echo Follow-up on COVID-19 PCR Continue enhanced COVID precautions Continue home meds except hold amlodipine I discussed and explained in details the various types of CODE STATUS-full code, DNR CCA, DNR CC. Patient chose to be full code and wants all interventions done to keep her alive including intubation and CPR and life support: 16 minutes Time spent coordinating discussed with ED physician, history taking and examination as well as coordinating with nursing staff as well as discussing CODE STATUS: 40 minutes Visit Charges Inpatient E&M: 27191 Init Hosp L3 Procedures Hospitalists Procedures: 13674 Advncd Care Plan 30 Min
--- NOTE | 2021-07-21 17:00 | CASEMGMT ---
CARINA REGAN to room to meet with patient for initial transition planning/care coordination assessment. CARINA REGAN introduced self and role at [facility]. Admitting dx: CHF, atrial fibrillation. Patient continues to c/o shortness of breath at this time. Appears tachypneic and loop tacker showing tachycardia. Patient requests assessment be completed at another time. Yenifer LIM CM
--- NOTE | 2021-07-21 17:24 | ECHOD_ITS ---
Reason For Study: Afib/Flutter Procedure This was a 2D Doppler, Color Flow transthoracic echocardiogram. Exam performed portable in patient room. Left Ventricle Normal left ventricle. The estimated ejection fraction is 55-60 %. Right Ventricle Normal right ventricle. Normal systolic function. Atria The left atrium is moderately enlarged. The right atrium is moderately enlarged. Mitral Valve There is mild mitral annular calcification. Mild (1+) eccentric mitral valve insufficiency. Tricuspid Valve Normal tricuspid valve. Moderately severe (3+) tricuspid valve insufficiency. Aortic Valve Normal aortic valve. Pulmonic Valve The pulmonic valve is not well visualized. Great Vessels Normal aortic root. Pericardium/Pleural No pericardial effusion. MMode/2D Measurements & Calculations LVIDd: 4.8 cm IVSd: 1.2 cm LAV(MOD-bp): 78.1 ml LVIDs: 4.4 cm LVPWd: 1.2 cm LAV(MOD-bp) Indexed: 46.7 ml/m2 RVDd: 4.0 cm FS: 8.9 % LAV(MOD-sp2): 88.6 ml LAV(MOD-sp4): 69.2 ml LA A4 area: 22.2 cm2 RA A4 area: 22.7 cm2 Time Measurements MV dec time: 0.19 sec Doppler Measurements & Calculations MV E max jamshid: 125.6 cm/sec MV V2 max: 125.1 cm/sec MV P1/2t max jamshid: 125.8 cm/sec MV A max jamshid: 32.9 cm/sec MV max P.3 mmHg MV P1/2t: 88.5 msec MV E/A: 3.8 MV V2 mean: 61.4 cm/sec MV dec slope: 416.6 cm/sec2 MV mean P.9 mmHg MV V2 VTI: 25.1 cm MVA(P1/2t): 2.5 cm2 Ao V2 max: 162.1 cm/sec AI max jamshid: 366.9 cm/sec LV V1 max: 78.8 cm/sec Ao max P.6 mmHg AI max P.4 mmHg LV V1 max P.5 mmHg AI dec slope: 104.0 cm/sec2 AI P1/2t: 1033 msec PA V2 max: 83.5 cm/sec TR max jamshid: 318.2 cm/sec TR max P.5 mmHg ECHO/Echo Complete Interpretation Summary The estimated ejection fraction is 55-60 %. Biatrial Enlargment Mild MR Moderately severe TR Moderate Pulmonary Hypertension SPAP 45 mmhg Ordering Physician: Mecca Ochoa Referring Physician: Selma Whitaker M.D. Performed By: Henry Dyson RCS
[2021-07-21 18:00] LABS: Magnesium 1.9 mg/dL (1.6-2.6); Troponin-I HS 30 pg/mL (3.0-54.0)
--- NOTE | 2021-07-21 18:26 | PCS.PANDOC ---
PANDEMIC DOCUMENTATION INITIATED: Date: 02/14/2021 Time: 190
[2021-07-21 19:26] LABS: Troponin-I HS 32 pg/mL (3.0-54.0)
[2021-07-21] MEDS: Metoprolol Tartrate 25 MG Tablet PO (20:27)
[2021-07-21] MEDS: 0.9% Saline Lock 10 ML Syringe IV (20:38)
[2021-07-21] MEDS: Enoxaparin 80 MG/0.8 ML Syringe 70 MG SC (22:05)
[2021-07-21] MEDS: Latanoprost 0.005% 1 Bottle 1 DRP OPHTHALMIC (22:05)
[2021-07-21] MEDS: oxyCODONE HCl Cr 10 MG Tablet PO (22:06)
[2021-07-22] VITALS (30 sets, daily range): BP systolic 97–121; BP diastolic 51–94; PULSE 72–110; RESP 14–22; TEMP 36.3–36.9; O2SAT 92–98
[2021-07-22 06:19] LABS: Absolute Lymphocyte Count 0.66 X10^3/uL (0.83-4.51); Absolute Neutrophil Count 5.8 X10^3/uL (2.0-7.7); Hematocrit 35.4 % (37-47); Hemoglobin 11.1 g/dL (12.0-15.0); Lymphocyte # 0.66 X10^3/ul (0.83-4.51); Lymphocyte % 9.8 % (19-41); Mean Corp Hgb Conc 31.4 g/dL (32-36); Mean Corpuscular Hgb 28.8 pg (27.0-32.0); Mean Corpuscular Volume 91.9 fL (81-99); Mean Platelet Vol. 13.4 fl (6.2-12.0); Monocyte# 0.27 X10^3/uL; NRBC Flagged by Analyzer 0 % (0-5); Neutrophil # 5.78 X10^3/uL (2.7-7.7); Neutrophil % 85.8 % (47-70); POSITIVE COUNT YES; Platelet Count 95 K/mm3 (150-450); RBC Distribution Width CV 14.2 % (11.6-14.6); RBC Distribution Width SD 47.4 fl (35.1-43.9); Red Blood Count 3.85 M/mm3 (4.2-5.4); White Blood Count 6.7 K/mm3 (4.4-11.0)
[2021-07-22 06:54] LABS: ALB/GLOB Ratio 0.7 RATIO (0.9-2.4); AST(SGOT) 28 U/L (15-37); Alanine Aminotransfer ALT/SGPT 20 U/L (13-56); Albumin, Serum 2.5 g/dL (3.2-5.0); Alkaline Phosphatase 137 U/L (45-117); Anion Gap 6 (5-15); BUN 19 mg/dL (7-18); BUN/Creat Ratio 28.3 RATIO (10-20); Calcium,Total 8.5 mg/dL (8.5-10.1); Chloride 111 mmol/L (98-107); Creatinine, Serum 0.67 mg/dL (0.55-1.02); EST Glomerular Filtration Rate 92 mL/min (>60); Est Glom Filt Rate - Afr Amer 111 mL/min (>60); Estimated Creatinine Clearance 38.94 ml/min; Globulin 3.6 g/dL (2.2-4.2); Glucose 159 mg/dL (74-106); Magnesium 2.4 mg/dL (1.6-2.6); Potassium 3.8 mmol/L (3.5-5.1); Protein, Total 6.1 g/dL (6.4-8.2); Sodium Level 139 mmol/L (136-145)
[2021-07-22] MEDS: Ferrous Sulfate 325 MG Tablet PO (08:17)
[2021-07-22] MEDS: oxyCODONE HCl Cr 10 MG Tablet PO ×2 (09:50→21:39)
[2021-07-22] MEDS: Pantoprazole Sodium 40 MG Tablet PO (09:51)
[2021-07-22] MEDS: Magnesium Chloride 64 MG Delay Rel.Tablet 128 MG PO (09:51)
[2021-07-22] MEDS: Sertraline 50 MG Tablet 75 MG PO (09:51)
[2021-07-22] MEDS: Furosemide 20 MG/2 ML VIAL IV ×2 (09:51→18:31)
[2021-07-22] MEDS: 0.9% Saline Lock 10 ML Syringe IV ×3 (09:52→21:31)
[2021-07-22] MEDS: Metoprolol Tartrate 50 MG Tablet PO ×2 (10:00→21:33)
[2021-07-22] MEDS: APIXABAN 5 MG TABLET PO ×2 (10:01→21:33)
--- NOTE | 2021-07-22 11:00 | CASEMGMT ---
CARINA REGAN Face to Face with patient for initial transition planning/care coordination assessment. CARINA REGAN introduced self and role at [facility]. Patient lying in bed, alert and oriented. Patient willing to participate in assessment and is able to answer all questions appropriately. Care providers, pharmacy, and demographics verified. Patient wishes to discharge home with possible HHC pending progress with therapy. Patient states she has no further needs or concerns at this time. CM to follow for discharge planning needs that may arise. PCP: Julianne Specialists: none Preferred Pharmacy: [facility] Insurance: [employer] [facility] Prescription Benefit: yes Living Will/HPOA: yes but would like to update since her HPOA is her who has . SW updated. LNOK: DIL, son, sister Living Arrangements: Patient lives alone in a mobile home with 3 steps and railing to enter the home. Patient states she is independent at home Transportation: DIL, sister DME/HHC: Patient states she has shower chair, raised toilet, cane, and rollator at home. Patient has previously been to [facility] in [place]. No previous HHC Disposition Plan: Patient to discharge home with family support and follow-up plans in place. Will monitor for HHC pending progress with therapy. Noemi ARAYA, RN, CM
--- NOTE | 2021-07-22 11:23 | CASEMGMT ---
Pt to be sent home tomorrow on Eliquis and med e-scribed to [facility] [place]. Call to [facility] and per pharmacist, pt's co-pay is $47. Pt updated and provided with Eliquis 30 day free trial card with instructions at this time. Brady LIM CM
--- NOTE | 2021-07-22 12:40 | PN.HOSP_ITS ---
Documented by User: Werner العراقي 07/22/21 12:52 Subjective Subjective Patient is a 70-year-old female comfortably resting in a chair, alert and oriented today. Patient reports moderate improvement in her shortness of breath from admission. Denies development of any new symptoms overnight. Does not appear in acute distress. Objective Data Objective Data Vital Signs: Vital Signs Temp Pulse Resp BP Pulse Ox 98.4 F 89 18 98/51 L 94 07/22/21 09:00 07/22/21 12:00 07/22/21 12:00 07/22/21 12:00 07/22/21 12:00 Oxygen Flow Rate (L/min) 2 Oxygen Delivery Method Room Air Weight: 153 lb 3.54 oz Body Mass Index (BMI) 28.4 Intake & Output: Intake and Output for Last 24 Hours 07/20/21 07/21/21 07/22/21 23:59 23:59 23:59 Intake Total 1123 / 1123.58 125.00 / 125.00 Output Total 1900 / 1900 50 / 50 Balance -777 / -776.42 75.00 / 75.00 Lab / Micro Data Result Diagrams: 07/22/21 05:52 07/22/21 05:52 Labs: Laboratory Results - last 24 hr 07/21/21 12:45: WBC 7.7, RBC 4.20, Hgb 12.0, Hct 38.0, MCV 90.5, MCH 28.6, MCHC 31.6 L, RDW Std Deviation 47.2 H, RDW Coeff of Mikayla 14.4, Plt Count 115 L, MPV 13.1 H, Immature Gran % (Auto) 0.300, Neut % (Auto) 86.0 H, Lymph % (Auto) 9.4 L , [place] % (Auto) 3.9, Eos % (Auto) 0.1, Baso % (Auto) 0.3, Absolute Neuts (auto) 6.6, Absolute Lymphs (auto) 0.72 L, Nucleated RBC % 0 07/21/21 12:45: Sodium 142, Potassium 3.6, Chloride 109 H, Carbon Dioxide 26.0, Anion Gap 7, BUN 19 H, Creatinine 0.72, Estim Creat Clear Calc 38.94, Est GFR (MDRD) Af Amer 103, Est GFR (MDRD) Non-Af 85, BUN/Creatinine Ratio 26.5 H, Glucose 132 H, Calcium 8.7, Troponin I High Sens 23 07/21/21 12:45: B-Natriuretic Peptide 438.2 H 07/21/21 12:45: D-Dimer Quant (PE/DVT) 1.71 H* 07/21/21 14:39: Troponin I High Sens 27 07/21/21 17:29: Magnesium 1.9, Troponin I High Sens 30 07/21/21 17:30: COVID-19 (AMIRAH) Not Detected 07/21/21 18:43: Troponin I High Sens 32 07/22/21 05:52: WBC 6.7, RBC 3.85 L, Hgb 11.1 L, Hct 35.4 L, MCV 91.9, MCH 28.8, MCHC 31.4 L, RDW Std Deviation 47.4 H, RDW Coeff of Mikayla 14.2, Plt Count 95 L, MPV 13.4 H, Immature Gran % (Auto) 0.400, Neut % (Auto) 85.8 H, Lymph % (Auto) 9.8 L, [place] % (Auto) 4.0, Eos % (Auto) 0.0, Baso % (Auto) 0.0, Absolute Neuts (auto) 5.8, Absolute Lymphs (auto) 0.66 L, Nucleated RBC % 0 07/22/21 05:52: Sodium 139, Potassium 3.8, Chloride 111 H, Carbon Dioxide 22.0, Anion Gap 6, BUN 19 H, Creatinine 0.67, Estim Creat Clear Calc 38.94, Est GFR (MDRD) Af Amer 111, Est GFR (MDRD) Non-Af 92, BUN/Creatinine Ratio 28.3 H, Glucose 159 H, Calcium 8.5, Magnesium 2.4, Total Bilirubin 1.10 H, AST 28, ALT 20, Alkaline Phosphatase 137 H, Total Protein 6.1 L, Albumin 2.5 L, Globulin 3.6, Albumin/Globulin Ratio 0.7 L Micro: Microbiology 07/21/21 13:20 Nasal Secretion SARS-CoV-2 Antigen (Rapid) - Final Radiography Diagnostic Testing: Radiology Impression Chest X-Ray 07/21/21 12:30 IMPRESSION: Infiltration in the right lung with blunting of the right costophrenic angle. Mild increased markings at the left lung base with blunting of the left costophrenic angle. Electronically Signed: Marvel Apple MD at 13:14 EST , Service support , Chest CTA 07/21/21 15:01 IMPRESSION: Small bilateral pleural effusions right greater than left with increased interstitial markings and bibasilar atelectasis and/or infiltrates superimposed on chronic bronchiectasis. Findings are suggestive mild degree of CHF with bibasilar atelectasis and/or infiltrates. No evidence of pulmonary embolus. Electronically Signed: Marvel Apple MD at 15:49 EST , Service support , Echocardiogram 07/21/21 17:24 Interpretation Summary The estimated ejection fraction is 55-60 %. Biatrial Enlargment Mild MR Moderately severe TR Moderate Pulmonary Hypertension SPAP 45 mmhg Ordering Physician: Mecca Ochoa Referring Physician: Selma Whitaker M.D. Performed By: Henry Dyson RCS Physical Exam Const alert, oriented x3 and no apparent distress HEENT head/scalp atraumatic and moist oral mucous membranes Head and Scalp: normocephalic Eyes PERRL, EOMs intact bilaterally and conjunctivae normal Neck no lymphadenopathy, supple and no JVD Resp normal respiratory effort, normal air movement and no retractions Auscultation: diminished lung sounds Cardio regular rate, regular rhythm, no murmurs and no JVD GI normal to inspection, nondistended, normoactive bowel sounds, soft to palpation and non-tender Extremity normal to inspection, full ROM and no clubbing, cyanosis or edema Skin no rashes or lesions noted, no wounds and skin turgor normal Neuro CN's II-XII intact bilaterally Psych affect normal Assessment & Plan Assessment/Plan (1) Atrial fibrillation with RVR: (2) Acute exacerbation of CHF (congestive heart failure): PLAN: Day 1 Discharge planning: Current plan is for patient to discharge home. 1) acute HFpEF exacerbation Moderate improvement in shortness of breath from admission, currently satting 94% on room air. Echocardiogram obtained this morning demonstrated an EF of 55%, biatrial enlargement, mild mitral regurgitation, moderately severe tricuspid regurgitation, moderate pulmonary hypertension with's pulmonary artery systolic pressure of 45 mmHg. Continue low-dose IV Lasix, increase patient's home metoprolol to 50 mg p.o. twice daily, continue to monitor overnight. 2) new onset atrial fibrillation EKG on admission demonstrated A. fib with RVR. Patient converted back to normal sinus rhythm with diltiazem drip. [id number] score is 3. Home metoprolol increased as above, initiate Eliquis. Will initiate diltiazem drip. 3) possible COVID-19 infection Ruled out, rapid COVID and COVID PCR are negative. We'll continue to monitor. 4) elevated D-dimer D-dimer in the ED was 1.71. Chest CT-A did not demonstrate any evidence of PE. 5) history of esophageal cancer Patient underwent esophageal resection in 2017, follows with a surgeon at [facility] Main campus. Patient denies following with an oncologist. Continue chronic medications for fibromyalgia, hypertension, GERD and depression/anxiety. DVT prophylaxis - Eliquis Patient seen by Werner Jauregui PA-C, under the supervision of Dr. Ochoa. Time spent on patient care: 9 minutes. Documented by User: Dr. Mecca Ochoa MD 07/22/21 15:14 Objective Data Lab / Micro Data Result Diagrams: 07/22/21 05:52 07/22/21 05:52 Charges/Coding Addendum Addendum: This patient was seen in conjunction with MALCOM Salvador. I have independently interviewed and examined the patient and reviewed pertinent historical, laboratory, and other data. Please refer to MALCOM Salvador's note for his patient's presentation, findings, and recommendations. I have reviewed and his note and concur with his documentation 70-year-old female past medical history hypertension, anxiety/depression who comes in progressive worsening shortness of breath, bilateral leg edema, palpitations. She denies any history of heart disease or atrial fibrillation. Patient is u nvaccinated against COVID-19 infection. Denies any fever chills but has nasal congestion. Admitting vitals are stable except for tachycardia. EKG showed atrial fibrillation. She received 1 dose of Cardizem as well as Lasix IV. Physical Exam: Gen: Comfortable, not pale, not jaundiced, on 2 L of oxygen CVS:HS I +II, irregular, no murmurs, large left sided soft mass(esophageal dilatation) RESP: Diminished at lung bases GI: BS present and normal, soft, nontender, no palpable organs EXT:No edema ASSESSMENT: 1. A. fib with RVR 2. Acute CHF exacerbation, unknown EF 3. Hypertension 4. GERD 5. Anxiety/depression 6. Fibromyalgia/Chronic pain syndrome 7. Hypomagnesemia 8. H/o esophageal cancer Plan: Continue on increased dose of metoprolol Continue on Eliquis Follow-up on 2D-echo Visit Charges Inpatient E&M: 13297 Subs Hosp L2
--- NOTE | 2021-07-22 14:49 | CASEMGMT ---
Pt was provided a list of [facility] providers including quality and resource use data and consistent with the patient?s preferred geographic region, medical needs, and insurance network. CM to follow. Brady LIM CM
--- NOTE | 2021-07-22 15:25 | CASEMGMT ---
SW completed a Healthcare Power of Form Drafter per patient's request. Copies were made and given to patient along with originals. A copy was also placed in patient's chart. Cristal TAVERAS
[2021-07-22] MEDS: Latanoprost 0.005% 1 Bottle 1 DRP OPHTHALMIC (21:33)
[2021-07-23] VITALS (26 sets, daily range): BP systolic 98–127; BP diastolic 71–100; PULSE 89–138; RESP 15–26; TEMP 36–37.1; O2SAT 92–97
[2021-07-23 07:01] LABS: Absolute Lymphocyte Count 1.76 X10^3/uL (0.83-4.51); Absolute Neutrophil Count 5.6 X10^3/uL (2.0-7.7); Basophil# 0.05 X10^3/uL; Basophil% 0.6 % (0-1); Eosinophil# 0.13 X10^3/uL; Eosinophils% 1.6 % (0-5); Hematocrit 37.2 % (37-47); Hemoglobin 11.9 g/dL (12.0-15.0); Lymphocyte # 1.76 X10^3/ul (0.83-4.51); Lymphocyte % 22.1 % (19-41); Mean Corpuscular Hgb 29.1 pg (27.0-32.0); Monocyte# 0.42 X10^3/uL; Monocyte% 5.3 % (0-10); NRBC Flagged by Analyzer 0 % (0-5); Neutrophil # 5.58 X10^3/uL (2.7-7.7); Neutrophil % 70.1 % (47-70); Platelet Count 122 K/mm3 (150-450); RBC Distribution Width CV 14.5 % (11.6-14.6); RBC Distribution Width SD 48.1 fl (35.1-43.9); Red Blood Count 4.09 M/mm3 (4.2-5.4)
[2021-07-23 07:22] LABS: ALB/GLOB Ratio 0.9 RATIO (0.9-2.4); AST(SGOT) 33 U/L (15-37); Alanine Aminotransfer ALT/SGPT 21 U/L (13-56); Alkaline Phosphatase 140 U/L (45-117); Anion Gap 4 (5-15); BUN 26 mg/dL (7-18); BUN/Creat Ratio 29.2 RATIO (10-20); Calcium,Total 8.8 mg/dL (8.5-10.1); Chloride 109 mmol/L (98-107); Creatinine, Serum 0.89 mg/dL (0.55-1.02); EST Glomerular Filtration Rate 66 mL/min (>60); Est Glom Filt Rate - Afr Amer 80 mL/min (>60); Estimated Creatinine Clearance 43.75 ml/min; Globulin 3.5 g/dL (2.2-4.2); Glucose 107 mg/dL (74-106); Potassium 3.9 mmol/L (3.5-5.1); Protein, Total 6.5 g/dL (6.4-8.2); Sodium Level 143 mmol/L (136-145)
[2021-07-23] MEDS: Ferrous Sulfate 325 MG Tablet PO (09:23)
[2021-07-23] MEDS: Magnesium Chloride 64 MG Delay Rel.Tablet 128 MG PO (09:23)
[2021-07-23] MEDS: Pantoprazole Sodium 40 MG Tablet PO (09:24)
[2021-07-23] MEDS: APIXABAN 5 MG TABLET PO ×2 (09:24→19:53)
[2021-07-23] MEDS: Sertraline 50 MG Tablet 75 MG PO (09:25)
[2021-07-23] MEDS: 0.9% Saline Lock 10 ML Syringe IV (09:45)
--- NOTE | 2021-07-23 12:45 | PCM.CONS.C ---
Assessment & Plan Assessment/Plan (1) HTN (hypertension): QUALIFIERS: Hypertension type: essential hypertension Qualified Code(s): I10 - Essential (primary) hypertension (2) Esophageal cancer: (3) Acute exacerbation of CHF (congestive heart failure): (4) Atrial fibrillation with RVR: PLAN: This patient 70-year-old who has multiple medical comorbidities with history of esophageal cancer treated surgically in 2007 at [facility], history of GERD hypertension and chronic pain syndrome. Presented with symptoms of weight gain, palpitation shortness of breath Cardiac consult requested for evaluation and management of A. fib with rapid ventricular rate also patient has, acute on chronic diastolic heart failure. She been tested negative/rapid test and PCR for COVID and she responded well to the diuretic therapy and currently she is on anticoagulation with Eliquis as well as amiodarone and beta-bruce metoprolol Cardiac care plan recommendations; 1. We will continue the current medication 2. We will follow-up clinically 3. Once stable clinically patient can be set up for outpatient follow-up with cardiology team at [facility]. HPI Consult Data Date of Consult: 07/23/21 HPI Narrative Reason for Consultation: A. fib with rapid ventricular rate/RVR HPI Narrative: KP FLORES, is a 70 F who presents [facility] Medical History Anxiety and depression Esophageal cancer Fibromyalgia GERD (gastroesophageal reflux disease) History of gastrectomy HTN (hypertension) Home Medications enalapril maleate 20 mg PO BID 07/12/15 [History Last Taken 08/03/17 21:00] promethazine 25 mg PO TID PRN PRN 01/05/17 [History Last Taken 08/03/17 20:00] ferrous sulfate [Iron] 325 mg PO BID 08/04/17 [History Last Taken 08/03/17 10:00] amlodipine 10 mg PO DAILY 07/21/21 [History Last Taken Unknown] cholecalciferol (vitamin D3) 1,250 mcg PO .2X/WEEK 07/21/21 [History Last Taken Unknown] cyanocobalamin (vitamin B-12) 1,000 mcg IM QMONTH 07/21/21 [History Last Taken Unknown] latanoprost 1 drp EACH EYE QPM 07/21/21 [History Last Taken Unknown] magnesium 500 mg PO DAILY 07/21/21 [History Last Taken Unknown] metoprolol succinate 25 mg PO DAILY 07/21/21 [History Last Taken Unknown] omeprazole 40 mg PO DAILY 07/21/21 [History Last Taken Unknown] oxycodone 10 mg PO TID 07/21/21 [History Last Taken Unknown] sertraline 75 mg PO DAILY 07/21/21 [History Last Taken Unknown] apixaban [Eliquis] 5 mg PO BID #60 tab 07/22/21 [Rx Last Taken Unknown] Allergy/AdvReac Type Severity Reaction Status Date / Time doxycycline Allergy Unknown Verified 07/21/21 12:12 Iodinated Contrast Media Allergy Unknown Verified 07/21/21 12:12 [Iodinated Contrast Media - IV Dye] Sulfa (Sulfonamide Allergy Unknown Verified 07/21/21 12:12 Antibiotics) erythromycin base AdvReac Upset Verified 07/21/21 12:12 Stomach hydrocodone bitartrate AdvReac HEADACHE Verified 07/21/21 12:12 [From Vicodin] Family History Father Cancer Lung cancer. Mother Myocardial infarction Heart disease Surgical History H/O ventral hernia repair History of esophageal surgery Hx of appendectomy Hx of cholecystectomy S/P gastrectomy Social History (Updated 07/21/21 @ 18:05 by Itzel Magallanes) household members: none housing: house pets and animals: No Smoking Status: Never smoker substance use type: does not use Physical Exam Narrative Patient seen and evaluated today at bedside and discussed with the nursing staff and the medical team. Patient alert orientated x3 Review of the director music showed underlying atrial fibrillation with rapid ventricular rate around 124?133 Cardiovascular examination; S1-S2 is regular there is no murmur no systolic or diastolic murmur no pericardial rub Chest examination; mild bilateral basilar rales with mild diminished air entry bilaterally Abdomen soft not distended Examination lower extremity +1 lower extremity edema no clubbing no cyanosis. Risk Stratification Risk Stratification Applicable: No Objective Data Vital Signs: Vital Signs Temp Pulse Resp BP Pulse Ox 97.7 F L 117 H 24 H 124/96 H 94 07/23/21 10:25 07/23/21 12:00 07/23/21 12:00 07/23/21 12:00 07/23/21 12:00 Oxygen Flow Rate (L/min) 2 Oxygen Delivery Method Room Air Weight: 149 lb 4.047 oz Body Mass Index (BMI) 28.4 Intake & Output: Intake and Output for Last 24 Hours 07/21/21 07/22/21 07/23/21 23:59 23:59 23:59 Intake Total 1123 / 1123.58 645.00 / 645.00 434.94 / 434.94 Output Total 1900 / 1900 400 / 950 650 / 650 Balance -777 / -776.42 245.00 / -305.00 -215.06 / -215.06 Lab / Micro Data Result Diagrams: 07/23/21 06:45 07/23/21 06:45 Labs: Laboratory Results - last 24 hr 07/23/21 06:45: WBC 8.0, RBC 4.09 L, Hgb 11.9 L, Hct 37.2, MCV 91.0, MCH 29.1, MCHC 32.0, RDW Std Deviation 48.1 H, RDW Coeff of Mikayla 14.5, Plt Count 122 L, MPV 13.0 H, Immature Gran % (Auto) 0.300, Neut % (Auto) 70.1 H, Lymph % (Auto) 22.1, [place] % (Auto) 5.3, Eos % (Auto) 1.6, Baso % (Auto) 0.6, Absolute Neuts (auto) 5.6, Absolute Lymphs (auto) 1.76, Nucleated RBC % 0 07/23/21 06:45: Sodium 143, Potassium 3.9, Chloride 109 H, Carbon Dioxide 30.0, Anion Gap 4 L, BUN 26 H, Creatinine 0.89, Estim Creat Clear Calc 43.75, Est GFR (MDRD) Af Amer 80, Est GFR (MDRD) Non-Af 66, BUN/Creatinine Ratio 29.2 H, Glucose 107 H, Calcium 8.8, Total Bilirubin 0.90, AST 33, ALT 21, Alkaline Phosphatase 140 H, Total Protein 6.5, Albumin 3.0 L, Globulin 3.5, Albumin/Globulin Ratio 0.9 Cardiology Labs/Tests 07/23/21 06:45: WBC 8.0, RBC 4.09 L, Hgb 11.9 L, Hct 37.2, MCV 91.0, MCH 29.1, MCHC 32.0, Plt Count 122 L, MPV 13.0 H, Immature Gran % (Auto) 0.300, Neut % (Auto) 70.1 H, Lymph % (Auto) 22.1, [place] % (Auto) 5.3, Eos % (Auto) 1.6, Baso % (Auto) 0.6, Absolute Neuts (auto) 5.6, Nucleated RBC % 0 07/23/21 06:45: Sodium 143, Potassium 3.9, Chloride 109 H, Carbon Dioxide 30.0, Anion Gap 4 L, BUN 26 H, Creatinine 0.89, Est GFR (MDRD) Af Amer 80, Est GFR (MDRD) Non-Af 66, BUN/Creatinine Ratio 29.2 H, Glucose 107 H, Calcium 8.8, Total Bilirubin 0.90 Rhythm: Atrial fibrillation with rapid ventricular rate ECHO: LV function preserved ejection fraction in the range of 55-60%, mild MR Moderately severe TR with moderate pulmonary hypertension, RV systolic pressure measured 45 mmHg
--- NOTE | 2021-07-23 13:05 | PN.HOSP_ITS ---
Documented by User: Werner العراقي 07/23/21 13:12 Subjective Subjective Patient is a 70-year-old female comfortably resting in a chair, alert and oriented today. Patient reports moderate improvement in her shortness of breath from admission. Denies development of any new symptoms overnight. Does not appear in acute distress. Objective Data Objective Data Vital Signs: Vital Signs Temp Pulse Resp BP Pulse Ox 97.7 F L 117 H 24 H 124/96 H 94 07/23/21 10:25 07/23/21 12:00 07/23/21 12:00 07/23/21 12:00 07/23/21 12:00 Oxygen Flow Rate (L/min) 2 Oxygen Delivery Method Room Air Weight: 149 lb 4.047 oz Body Mass Index (BMI) 28.4 Intake & Output: Intake and Output for Last 24 Hours 07/21/21 07/22/21 07/23/21 23:59 23:59 23:59 Intake Total 1123 / 1123.58 645.00 / 645.00 434.94 / 434.94 Output Total 1900 / 1900 400 / 950 650 / 650 Balance -777 / -776.42 245.00 / -305.00 -215.06 / -215.06 Lab / Micro Data Result Diagrams: 07/23/21 06:45 07/23/21 06:45 Labs: Laboratory Results - last 24 hr 07/23/21 06:45: WBC 8.0, RBC 4.09 L, Hgb 11.9 L, Hct 37.2, MCV 91.0, MCH 29.1, MCHC 32.0, RDW Std Deviation 48.1 H, RDW Coeff of Mikayla 14.5, Plt Count 122 L, MPV 13.0 H, Immature Gran % (Auto) 0.300, Neut % (Auto) 70.1 H, Lymph % (Auto) 22.1, [place] % (Auto) 5.3, Eos % (Auto) 1.6, Baso % (Auto) 0.6, Absolute Neuts (auto) 5.6, Absolute Lymphs (auto) 1.76, Nucleated RBC % 0 07/23/21 06:45: Sodium 143, Potassium 3.9, Chloride 109 H, Carbon Dioxide 30.0, Anion Gap 4 L, BUN 26 H, Creatinine 0.89, Estim Creat Clear Calc 43.75, Est GFR (MDRD) Af Amer 80, Est GFR (MDRD) Non-Af 66, BUN/Creatinine Ratio 29.2 H, Glucose 107 H, Calcium 8.8, Total Bilirubin 0.90, AST 33, ALT 21, Alkaline Phosphatase 140 H, Total Protein 6.5, Albumin 3.0 L, Globulin 3.5, Albumin/Globulin Ratio 0.9 Micro: Microbiology 07/21/21 13:20 Nasal Secretion SARS-CoV-2 Antigen (Rapid) - Final Physical Exam Const alert, oriented x3 and no apparent distress HEENT head/scalp atraumatic and moist oral mucous membranes Head and Scalp: normocephalic Eyes PERRL, EOMs intact bilaterally and conjunctivae normal Neck no lymphadenopathy, supple and no JVD Resp normal respiratory effort, no retractions, no use of accessory muscles and clear to auscultation bilaterally Cardio regular rate, regular rhythm and no JVD GI normal to inspection, nondistended, normoactive bowel sounds, soft to palpation and non-tender Extremity normal to inspection, full ROM and no clubbing, cyanosis or edema Skin no rashes or lesions noted, no wounds and skin turgor normal Neuro CN's II-XII intact bilaterally Psych affect normal Assessment & Plan Assessment/Plan (1) Atrial fibrillation with RVR: (2) Acute exacerbation of CHF (congestive heart failure): PLAN: Day 2 Discharge planning: Current plan is for patient to discharge home. 1) acute HFpEF exacerbation Moderate improvement in shortness of breath from admission, currently satting 94% on room air. Echocardiogram obtained this morning demonstrated an EF of 55%, biatrial enlargement, mild mitral regurgitation, moderately severe tricuspid regurgitation, moderate pulmonary hypertension with's pulmonary artery systolic pressure of 45 mmHg. Continue metoprolol at 50 mg p.o. twice daily, initiate Lasix 20 mg p.o. twice daily. 2) new onset atrial fibrillation Patient continues to have episodes of tachycardia which developed overnight and have proceeded into the morning. Have initiated amiodarone drip, continue metoprolol and Eliquis. Cardiology consult ordered recommendations as follows, continue current medical management, will continue to follow patient while admitted. 3) possible COVID-19 infection Ruled out, rapid COVID and COVID PCR are negative. We'll continue to monitor. 4) elevated D-dimer D-dimer in the ED was 1.71. Chest CT-A did not demonstrate any evidence of PE. 5) history of esophageal cancer Patient underwent esophageal resection in 2017, follows with a surgeon at [facility] Main campus. Patient denies following with an oncologist. Continue chronic medications for fibromyalgia, hypertension, GERD and depression/anxiety. DVT prophylaxis - Eliquis Patient seen by Werner Jauregui PA-C, under the supervision of Dr. Ochoa. Time spent on patient care: 8 minutes. Documented by User: Dr. Mecca Ochoa MD 07/23/21 15:29 Objective Data Lab / Micro Data Result Diagrams: 07/23/21 06:45 07/23/21 06:45 Charges/Coding Addendum Addendum: This patient was seen in conjunction with MALCOM Salvador. I have independently interviewed and examined the patient and reviewed pertinent historical, laboratory, and other data. Please refer to MALCOM Salvador's note for his patient's presentation, findings, and recommendations. I have reviewed and his note and concur with his documentation Patient was seen and examined. Heart rate is still elevated at 135. Heart rate was improved overnight. Blood pressures are relatively low -systolic in the 90s in the morning. 2D echo showed EF of 55 to 60%, moderate to severe TR, moderate pulmonary hypertension, mild MR Physical Exam: Gen: Comfortable, not pale, not jaundiced, off oxygen CVS:HS I +II, irregular, no murmurs, large left sided soft mass(esophageal dilatation) RESP: Diminished at lung bases GI: BS present and normal, soft, nontender, no palpable organs EXT:No edema ASSESSMENT: 1. A. fib with RVR 2. Acute CHF exacerbation, likely diastolic, EF of 55 to 60% 3. Valvular heart disease -severe TR, mild MR 4. Hypertension 5. GERD 6. Anxiety/depression 7. Fibromyalgia/Chronic pain syndrome 8. Hypomagnesemia 9. H/o esophageal cancer Plan: Hold off on metoprolol for now on account of relative hypotension Start amiodarone drip Cardiology consult Continue Eliquis Visit Charges Inpatient E&M: 05094 Subs Hosp L2
[2021-07-23] MEDS: Metoprolol Tartrate 50 MG Tablet PO (19:53)
[2021-07-23] MEDS: oxyCODONE HCl Cr 10 MG Tablet PO (19:53)
[2021-07-23] MEDS: Latanoprost 0.005% 1 Bottle 1 DRP OPHTHALMIC (19:54)
[2021-07-24] VITALS (22 sets, daily range): BP systolic 107–146; BP diastolic 76–103; PULSE 64–141; RESP 14–24; TEMP 36.3–37; O2SAT 92–96
[2021-07-24 07:14] LABS: Absolute Lymphocyte Count 1.25 X10^3/uL (0.83-4.51); Absolute Neutrophil Count 4.1 X10^3/uL (2.0-7.7); Basophil# 0.03 X10^3/uL; Basophil% 0.5 % (0-1); Eosinophil# 0.14 X10^3/uL; Eosinophils% 2.4 % (0-5); Hemoglobin 11.5 g/dL (12.0-15.0); Lymphocyte # 1.25 X10^3/ul (0.83-4.51); Lymphocyte % 21.3 % (19-41); Mean Corp Hgb Conc 31.9 g/dL (32-36); Mean Corpuscular Hgb 29.1 pg (27.0-32.0); Mean Corpuscular Volume 91.1 fL (81-99); Mean Platelet Vol. 13.3 fl (6.2-12.0); Monocyte# 0.38 X10^3/uL; Monocyte% 6.5 % (0-10); NRBC Flagged by Analyzer 0 % (0-5); Neutrophil # 4.07 X10^3/uL (2.7-7.7); Neutrophil % 69.1 % (47-70); POSITIVE COUNT YES; Platelet Count 92 K/mm3 (150-450); RBC Distribution Width CV 14.3 % (11.6-14.6); RBC Distribution Width SD 47.7 fl (35.1-43.9); Red Blood Count 3.95 M/mm3 (4.2-5.4); White Blood Count 5.9 K/mm3 (4.4-11.0)
[2021-07-24 07:16] LABS: Differential Indicated SCAN CRITERIA MET
[2021-07-24 07:32] LABS: Platelet Estimate MOD DEC (ADEQ)
[2021-07-24 07:53] LABS: ALB/GLOB Ratio 0.8 RATIO (0.9-2.4); AST(SGOT) 32 U/L (15-37); Alanine Aminotransfer ALT/SGPT 22 U/L (13-56); Albumin, Serum 2.6 g/dL (3.2-5.0); Alkaline Phosphatase 127 U/L (45-117); Anion Gap 5 (5-15); BUN 23 mg/dL (7-18); BUN/Creat Ratio 35.2 RATIO (10-20); Calcium,Total 8.3 mg/dL (8.5-10.1); Chloride 109 mmol/L (98-107); Creatinine, Serum 0.65 mg/dL (0.55-1.02); EST Glomerular Filtration Rate 95 mL/min (>60); Est Glom Filt Rate - Afr Amer 114 mL/min (>60); Estimated Creatinine Clearance 38.94 ml/min; Globulin 3.4 g/dL (2.2-4.2); Glucose 95 mg/dL (74-106); Potassium 3.4 mmol/L (3.5-5.1); Sodium Level 142 mmol/L (136-145)
[2021-07-24] MEDS: Pantoprazole Sodium 40 MG Tablet PO (09:49)
[2021-07-24] MEDS: Magnesium Chloride 64 MG Delay Rel.Tablet 128 MG PO (09:49)
[2021-07-24] MEDS: Metoprolol Tartrate 50 MG Tablet PO ×2 (09:49→21:06)
[2021-07-24] MEDS: Sertraline 50 MG Tablet 75 MG PO (09:49)
[2021-07-24] MEDS: Ferrous Sulfate 325 MG Tablet PO (09:50)
[2021-07-24] MEDS: Furosemide 20 MG Tablet PO ×2 (09:50→18:43)
[2021-07-24] MEDS: APIXABAN 5 MG TABLET PO ×2 (09:50→21:07)
[2021-07-24] MEDS: Amiodarone 200 MG Tablet PO ×2 (10:26→21:07)
--- NOTE | 2021-07-24 13:45 | PN.CARD_ITS ---
Subjective Subjective Seen and evaluated at bedside today with the nursing staff No events noted from last night. Objective Data Vital Signs: Vital Signs Temp Pulse Resp BP Pulse Ox 97.6 F L 93 18 131/85 H 94 07/24/21 11:00 07/24/21 11:18 07/24/21 11:18 07/24/21 11:18 07/24/21 11:18 Oxygen Flow Rate (L/min) 2 Oxygen Delivery Method Room Air Weight: 153 lb 14.122 oz Body Mass Index (BMI) 28.4 Intake & Output: Intake and Output for Last 24 Hours 07/22/21 07/23/21 07/24/21 23:59 23:59 23:59 Intake Total 645.00 / 645.00 1413.61 / 1430.31 807.64 / 807.64 Output Total 400 / 950 650 / 650 Balance 245.00 / -305.00 763.61 / 780.31 807.64 / 807.64 Lab / Micro Data Result Diagrams: 07/24/21 05:57 07/24/21 05:57 Labs: Laboratory Results - last 24 hr 07/24/21 05:57: WBC 5.9, RBC 3.95 L, Hgb 11.5 L, Hct 36.0 L, MCV 91.1, MCH 29.1, MCHC 31.9 L, RDW Std Deviation 47.7 H, RDW Coeff of Mikayla 14.3, Plt Count 92 L, MPV 13.3 H, Immature Gran % (Auto) 0.200, Neut % (Auto) 69.1, Lymph % (Auto) 21.3, Glades % (Auto) 6.5, Eos % (Auto) 2.4, Baso % (Auto) 0.5, Absolute Neuts (auto) 4.1, Absolute Lymphs (auto) 1.25, Nucleated RBC % 0, Platelet Estimate MOD DEC 07/24/21 05:57: Sodium 142, Potassium 3.4 L, Chloride 109 H, Carbon Dioxide 28.0, Anion Gap 5, BUN 23 H, Creatinine 0.65, Estim Creat Clear Calc 38.94, Est GFR (MDRD) Af Amer 114, Est GFR (MDRD) Non-Af 95, BUN/Creatinine Ratio 35.2 H, Glucose 95, Calcium 8.3 L, Total Bilirubin 0.60, AST 32, ALT 22, Alkaline Phosphatase 127 H, Total Protein 6.0 L, Albumin 2.6 L, Globulin 3.4, Albumin/Globulin Ratio 0.8 L Cardiology Labs/Tests 07/24/21 05:57: WBC 5.9, RBC 3.95 L, Hgb 11.5 L, Hct 36.0 L, MCV 91.1, MCH 29.1, MCHC 31.9 L, Plt Count 92 L, MPV 13.3 H, Immature Gran % (Auto) 0.200, Neut % ( Auto) 69.1, Lymph % (Auto) 21.3, Glades % (Auto) 6.5, Eos % (Auto) 2.4, Baso % (Auto) 0.5, Absolute Neuts (auto) 4.1, Nucleated RBC % 0 07/24/21 05:57: Sodium 142, Potassium 3.4 L, Chloride 109 H, Carbon Dioxide 28.0, Anion Gap 5, BUN 23 H, Creatinine 0.65, Est GFR (MDRD) Af Amer 114, Est GFR (MDRD) Non-Af 95, BUN/Creatinine Ratio 35.2 H, Glucose 95, Calcium 8.3 L, Total Bilirubin 0.60 Rhythm: EKG: ECHO: Stress Test: Cardiac Cath: PCI: CT Surgery: Holter monitor: EPS: PPM: CXR: Chest CT Scan: Physical Exam Narrative Alert and orientated x3 Review of the cardiac telemetry showed underlying atrial fibrillation with controlled ventricular rate Cardiovascular exam S1-S2 is regular No pericardial rub, no gallop Chest exam; minimal bilateral basilar rales Abdomen soft not distended Examination lower extremity minimal bilateral lower extremity edema Assessment & Plan Assessment/Plan (1) Acute exacerbation of CHF (congestive heart failure): (2) HTN (hypertension): QUALIFIERS: Hypertension type: essential hypertension Qualified Code(s): I10 - Essential (primary) hypertension (3) GERD (gastroesophageal reflux disease): (4) Esophageal cancer: (5) Chronic pain syndrome: (6) Atrial fibrillation with RVR: PLAN: 70-year-old patient with known cardiac history. Patient has a A. fib with RVR and started on amiodarone and anticoagulation with Eliquis Heart rate is better controlled Also patient had acute on chronic diastolic heart failure And on admission she has a symptoms of palpitation shortness of breath and bilateral lower extremity edema She is improving on the current treatment. Cardiac care plan recommendations; 1. I reviewed and discussed the current medication with the medical team we will continue the current medication 2. Patient has evaluation by echocardiogram which showed LV function preserved 3. From cardiac standpoint patient can be discharged home tomorrow with the plan of follow-up as an outpatient with the cardiology team at [facility]. For continuation of cardiac care plan and management 4. I will defer to the medical team for management of other medical problems
--- NOTE | 2021-07-24 14:11 | PCM.PN.HOSP ---
Documented by User: Werner العراقي 07/24/21 14:20 Subjective Subjective Patient is a 70-year-old female comfortably resting in bed, alert and oriented x3. Patient reports improvement in her shortness of breath although does reports feeling tired. Denies development of any new symptoms overnight. Does not appear in acute distress. Objective Data Objective Data Vital Signs: Vital Signs Temp Pulse Resp BP Pulse Ox 97.6 F L 93 18 131/85 H 94 07/24/21 11:00 07/24/21 11:18 07/24/21 11:18 07/24/21 11:18 07/24/21 11:18 Oxygen Flow Rate (L/min) 2 Oxygen Delivery Method Room Air Weight: 153 lb 14.122 oz Body Mass Index (BMI) 28.4 Intake & Output: Intake and Output for Last 24 Hours 07/22/21 07/23/21 07/24/21 23:59 23:59 23:59 Intake Total 645.00 / 645.00 1413.61 / 1430.31 807.64 / 807.64 Output Total 400 / 950 650 / 650 Balance 245.00 / -305.00 763.61 / 780.31 807.64 / 807.64 Lab / Micro Data Result Diagrams: 07/24/21 05:57 07/24/21 05:57 Labs: Laboratory Results - last 24 hr 07/24/21 05:57: WBC 5.9, RBC 3.95 L, Hgb 11.5 L, Hct 36.0 L, MCV 91.1, MCH 29.1, MCHC 31.9 L, RDW Std Deviation 47.7 H, RDW Coeff of Mikayla 14.3, Plt Count 92 L, MPV 13.3 H, Immature Gran % (Auto) 0.200, Neut % (Auto) 69.1, Lymph % (Auto) 21.3, Bracken % (Auto) 6.5, Eos % (Auto) 2.4, Baso % (Auto) 0.5, Absolute Neuts (auto) 4.1, Absolute Lymphs (auto) 1.25, Nucleated RBC % 0, Platelet Estimate MOD DEC 07/24/21 05:57: Sodium 142, Potassium 3.4 L, Chloride 109 H, Carbon Dioxide 28.0, Anion Gap 5, BUN 23 H, Creatinine 0.65, Estim Creat Clear Calc 38.94, Est GFR (MDRD) Af Amer 114, Est GFR (MDRD) Non-Af 95, BUN/Creatinine Ratio 35.2 H, Glucose 95, Calcium 8.3 L, Total Bilirubin 0.60, AST 32, ALT 22, Alkaline Phosphatase 127 H, Total Protein 6.0 L, Albumin 2.6 L, Globulin 3.4, Albumin/Globulin Ratio 0.8 L Micro: Microbiology 07/21/21 13:20 Nasal Secretion SARS-CoV-2 Antigen (Rapid) - Final Physical Exam Const alert, oriented x3 and no apparent distress HEENT head/scalp atraumatic and moist oral mucous membranes Head and Scalp: normocephalic Eyes PERRL, EOMs intact bilaterally and conjunctivae normal Neck no lymphadenopathy, supple and no JVD Resp normal respiratory effort, no retractions, no use of accessory muscles and clear to auscultation bilaterally Cardio no murmurs and no JVD Rate: tachycardic Rhythm: abnormal rhythm GI normal to inspection, nondistended, normoactive bowel sounds, soft to palpation and non-tender Extremity normal to inspection, full ROM and no clubbing, cyanosis or edema Skin no rashes or lesions noted, no wounds and skin turgor normal Neuro CN's II-XII intact bilaterally Psych affect normal Assessment & Plan Assessment/Plan (1) Acute exacerbation of CHF (congestive heart failure): (2) Atrial fibrillation with RVR: PLAN: Day 3 Discharge planning: Current plan is for patient to discharge home. 1) acute HFpEF exacerbation Resolved, currently satting 95% on room air. Echocardiogram obtained this morning demonstrated an EF of 55%, biatrial enlargement, mild mitral regurgitation, moderately severe tricuspid regurgitation, moderate pulmonary hypertension with's pulmonary artery systolic pressure of 45 mmHg. Continue metoprolol at 50 mg p.o. twice daily, initiate Lasix 20 mg p.o. twice daily. 2) new onset atrial fibrillation Currently not in sinus rhythm, still having sustained periods of atrial fibrillation. Have completed amiodarone drip and have transition to an oral regimen. Cardiology consult obtained and recommends current medication regimen and to monitor patient overnight. If patient converts back to normal sinus rhythm and remains there, she can be discharged tomorrow 07/25. Continue metoprolol and Eliquis. 3) possible COVID-19 infection Ruled out, rapid COVID and COVID PCR are negative. We'll continue to monitor. 4) elevated D-dimer D-dimer in the ED was 1.71. Chest CT-A did not demonstrate any evidence of PE. 5) history of esophageal cancer Patient underwent esophageal resection in 2017, follows with a surgeon at [facility] [place]. Patient denies following with an oncologist. Continue chronic medications for fibromyalgia, hypertension, GERD and depression/anxiety. DVT prophylaxis - Eliquis Patient seen by Werner Jauregui PA-C, under the supervision of Dr. Ochoa. Time spent on patient care: 8 minutes. Documented by User: Dr. Mecca Ochoa MD 07/24/21 14:33 Objective Data Lab / Micro Data Result Diagrams: 07/24/21 05:57 07/24/21 05:57 Charges/Coding Addendum Addendum: This patient was seen in conjunction with MALCOM Salvador. I have independently interviewed and examined the patient and reviewed pertinent historical, laboratory, and other data. Please refer to MALCOM Salvador's note for his patient's presentation, findings, and recommendations. I have reviewed and his note and concur with his documentation Patient was seen and examined. She remains in RVR. She denies any new complaints Physical Exam: Gen: Comfortable, not pale, not jaundiced, off oxygen CVS:HS I +II, irregular, no murmurs, large left sided soft mass(esophageal dilatation) RESP: Diminished at lung bases GI: BS present and normal, soft, nontender, no palpable organs EXT:No edema ASSESSMENT: 1. A. fib with RVR 2. Acute CHF exacerbation, likely diastolic, EF of 55 to 60% 3. Valvular heart disease -severe TR, mild MR 4. Hypertension 5. GERD 6. Anxiety/depression 7. Fibromyalgia/Chronic pain syndrome 8. Hypomagnesemia 9. H/o esophageal cancer Plan: Continue on metoprolol and amiodarone as well as Lasix Appreciate cardiology consult Continue Eliquis Possible DC in a.m. Visit Charges Inpatient E&M: 95397 Subs Hosp L2
[2021-07-24] MEDS: Potassium Chloride Oral Tablet 20 MEQ 40 MEQ PO (14:29)
[2021-07-24] MEDS: oxyCODONE HCl Cr 10 MG Tablet PO (18:47)
[2021-07-24] MEDS: Latanoprost 0.005% 1 Bottle 1 DRP OPHTHALMIC (21:07)
[2021-07-25] VITALS (12 sets, daily range): BP systolic 118–126; BP diastolic 82–93; PULSE 84–114; RESP 14–18; TEMP 36.1–36.6; O2SAT 95–98
[2021-07-25 06:42] LABS: Anion Gap 6 (5-15); BUN 20 mg/dL (7-18); BUN/Creat Ratio 29.4 RATIO (10-20); Calcium,Total 8.6 mg/dL (8.5-10.1); Chloride 108 mmol/L (98-107); Creatinine, Serum 0.68 mg/dL (0.55-1.02); EST Glomerular Filtration Rate 90 mL/min (>60); Est Glom Filt Rate - Afr Amer 109 mL/min (>60); Estimated Creatinine Clearance 38.94 ml/min; Glucose 97 mg/dL (74-106); Potassium 3.6 mmol/L (3.5-5.1); Sodium Level 143 mmol/L (136-145)
[2021-07-25] MEDS: Potassium Chloride Oral Tablet 20 MEQ 40 MEQ PO (09:04)
[2021-07-25] MEDS: Magnesium Chloride 64 MG Delay Rel.Tablet 128 MG PO (09:05)
[2021-07-25] MEDS: Pantoprazole Sodium 40 MG Tablet PO (09:05)
[2021-07-25] MEDS: Metoprolol Tartrate 50 MG Tablet PO (09:05)
[2021-07-25] MEDS: Furosemide 20 MG Tablet PO ×2 (09:05→18:12)
[2021-07-25] MEDS: oxyCODONE HCl Cr 10 MG Tablet PO ×2 (09:05→21:20)
[2021-07-25] MEDS: APIXABAN 5 MG TABLET PO ×2 (09:06→21:20)
[2021-07-25] MEDS: Amiodarone 200 MG Tablet PO ×3 (09:06→21:19)
[2021-07-25] MEDS: Sertraline 50 MG Tablet 75 MG PO (09:06)
[2021-07-25] MEDS: Ferrous Sulfate 325 MG Tablet PO (09:06)
--- NOTE | 2021-07-25 13:38 | PN.HOSP_ITS ---
Documented by User: Werner العراقي 07/25/21 13:46 Subjective Subjective Patient is a 70-year-old female comfortably resting in a chair, alert and orient x3. Reports feeling still very tired, denies development of any new symptoms overnight. Does not appear in acute distress. Objective Data Objective Data Vital Signs: Vital Signs Temp Pulse Resp BP Pulse Ox 97.9 F 114 H 18 123/82 H 98 07/25/21 08:59 07/25/21 09:05 07/25/21 08:59 07/25/21 08:59 07/25/21 08:59 Oxygen Flow Rate (L/min) 2 Oxygen Delivery Method Room Air Weight: 151 lb 0.266 oz Body Mass Index (BMI) 28.4 Intake & Output: Intake and Output for Last 24 Hours 07/23/21 07/24/21 07/25/21 23:59 23:59 23:59 Intake Total 1413.61 / 1430.31 1287.64 / 1287.64 Output Total 650 / 650 200 / 200 400 / 400 Balance 763.61 / 780.31 1087.64 / 1087.64 -400 / -400 Lab / Micro Data Result Diagrams: 07/24/21 05:57 07/25/21 04:30 Labs: Laboratory Results - last 24 hr 07/25/21 04:30: Sodium 143, Potassium 3.6, Chloride 108 H, Carbon Dioxide 29.0, Anion Gap 6, BUN 20 H, Creatinine 0.68, Estim Creat Clear Calc 38.94, Est GFR (MDRD) Af Amer 109, Est GFR (MDRD) Non-Af 90, BUN/Creatinine Ratio 29.4 H, Glucose 97, Calcium 8.6 Micro: Microbiology 07/21/21 13:20 Nasal Secretion SARS-CoV-2 Antigen (Rapid) - Final Physical Exam Const alert, oriented x3 and no apparent distress HEENT head/scalp atraumatic and moist oral mucous membranes Head and Scalp: normocephalic Eyes PERRL, EOMs intact bilaterally and conjunctivae normal Neck no lymphadenopathy, supple and no JVD Resp normal respiratory effort, no retractions and no use of accessory muscles Cardio no murmurs and no JVD Rate: tachycardic Rhythm: abnormal rhythm GI normal to inspection, nondistended, normoactive bowel sounds, soft to palpation and non-tender Extremity normal to inspection, full ROM and no clubbing, cyanosis or edema Skin no rashes or lesions noted, no wounds and skin turgor normal Neuro CN's II-XII intact bilaterally Psych affect normal Assessment & Plan Assessment/Plan (1) Atrial fibrillation with RVR: (2) Acute exacerbation of CHF (congestive heart failure): PLAN: Day 4 Discharge planning: Current plan is for patient to discharge home. 1) acute HFpEF exacerbation Resolved, currently satting 95% on room air. Echocardiogram obtained this m orning demonstrated an EF of 55%, biatrial enlargement, mild mitral regurgitation, moderately severe tricuspid regurgitation, moderate pulmonary hypertension with's pulmonary artery systolic pressure of 45 mmHg. 2) new onset atrial fibrillation Currently not in sinus rhythm, still having sustained periods of atrial fibrillation. Have completed amiodarone drip and have transition to an oral regimen. Will increase oral regimen to 200 mg 3 times daily as well as increase her metoprolol to 100 mg p.o. twice daily. Will observe overnight. 3) possible COVID-19 infection Ruled out, rapid COVID and COVID PCR are negative. We'll continue to monitor. 4) elevated D-dimer D-dimer in the ED was 1.71. Chest CT-A did not demonstrate any evidence of PE. 5) history of esophageal cancer Patient underwent esophageal resection in 2017, follows with a surgeon at [facility]. Patient denies following with an oncologist. Continue chronic medications for fibromyalgia, hypertension, GERD and depr ession/anxiety. [facility] Patient seen by Werner Jauregui PA-C, under the supervision of Dr. Oreilly. Documented by User: Dr. Sudhakar Oreilly MD 07/25/21 14:07 Objective Data Lab / Micro Data Result Diagrams: 07/24/21 05:57 07/25/21 04:30 Assessment & Plan Addt'l Comments This patient was seen in conjunction with Werner Jauregui PA-C. I have independently interviewed and examined the patient and reviewed pertinent historical, laboratory, and other data. Please refer to Werner Jauregui PA-C's note for details of this patient's presentation, findings, and recommendations. I have reviewed Werner Jauregui PA-C's note and concur with documented findings. In brief, patient is a 70-year-old lady admitted with progressive shortness of breath and assessment of acute congestive heart failure as well as new onset A. fib with RVR made admitted to a monitored bed for subsequent management Physical Examination: GENERAL: cooperative HEENT: Atraumatic; significant swelling in the neck (reconstructed esophagus) EYES; Anicteric, Normal Conjunctiva NECK; supple, normal thyroid, RESPIRATORY: Diminished to auscultation CARDIOVASCULAR: Irregularly irregular tachycardic GI: soft, normoactive bowel sounds, : No Renal angle tenderness; EXTREMITIES: No edema, no clubbing, MUSCULOSKELETAL: no muscle waisting NEURO: Awake; no lateralizing signs. SKIN: No Rash PSYCH; Flat affect Assessment: 1. Acute congestive heart failure with preserved ejection fraction-55% 2. New onset A. fib with RVR 3. Essential hypertension 4. History of esophageal cancer status post resection with subsequent reconstruction in 2017 5. Fibromyalgia 6. GERD 7. Depression with anxiety 8. DVT prophylaxis Recommendations: 1. I have discussed the results of my overview and impressions with the patient 2. Options for management were reviewed Total time spent by myself and the advanced practice practitioner evaluating patient, reviewing labs, subsequent management decisions, discussion with patient as well as other providers 40 minutes ( 25 of which was spent by myself) Charges/Coding Visit Charges Inpatient E&M: 36543 Subs Hosp L2
--- NOTE | 2021-07-25 14:33 | CASEMGMT ---
Addendum entered by Noemi Clinton 07/25/21 15:13: Pt provided application for [facility] support that she can complete and mail in as she is concerned about the $47/month as she supports son/family as well with her social security, voices understanding. Brady LIM CM Original Note: This RN CM to room to discuss d/c plan and pt states would like [facility] set up at discharge. Pt was previously provided [facility] list of in-network. Order placed for SN, PT/OT and call to Poornima at [facility] to notify of referral, voices understanding. Plan is not for pt to discharge today as they are still adjusting meds. Brady LIM CM
--- NOTE | 2021-07-25 16:00 | CASEMGMT ---
Call from Poornima at [facility] and she states they can accept pt with a SOC either 07/27 or 07/28. [facility] to be updated on pt d/c date. Brady LIM CM
--- NOTE | 2021-07-25 17:07 | CHAPLAIN ---
Type of Pastoral Visit _x__ Initial Visit ___ Follow-up Visit ___ On-call Visit ___ General Patient Visit ___ Spiritual Assessment ___ Family Conference ___ Bereavement ___ Rapid Response ___ Code Blue ___ Other (describe below) Pastoral Care Referral From _x__ Patient ___ Family ___ Nurse ___ Physician ___ Breakdown Person ___ Assembly Department Supervisor ___ Other (describe below) Sacrament/Intervention _x__ Active listening ___ Anointing ___ Congregation ___ Bereavement ___ Communion _x__ Chuyita exploration ___ _x__ Life review _x__ Prayer ___ Reconciliation ___ Sacrament of Sick _x__ Supportive presence ___ Wedding ___ Other (describe below) Pastoral Comments very talkative, shares life review and health issues from the past; pt has strong chuyita in God and that has been her greatest encouragement in life; spouse a few years ago and he was a big support to her as well; pt welcomes spiritual care and prayer as well as future visits
[2021-07-25] MEDS: Metoprolol Tartrate 100 MG Tablet PO (21:20)
[2021-07-25] MEDS: Latanoprost 0.005% 1 Bottle 1 DRP OPHTHALMIC (21:20)
[2021-07-26] VITALS (11 sets, daily range): BP systolic 119–130; BP diastolic 71–102; PULSE 77–102; RESP 14–16; TEMP 36.6; O2SAT 94–96
[2021-07-26] MEDS: Amiodarone 200 MG Tablet PO ×2 (06:16→13:34)
[2021-07-26] MEDS: APIXABAN 5 MG TABLET PO (09:14)
[2021-07-26] MEDS: Furosemide 20 MG Tablet PO (09:15)
[2021-07-26] MEDS: Magnesium Chloride 64 MG Delay Rel.Tablet 128 MG PO (09:15)
[2021-07-26] MEDS: Sertraline 50 MG Tablet 75 MG PO (09:15)
[2021-07-26] MEDS: Ferrous Sulfate 325 MG Tablet PO (09:15)
[2021-07-26] MEDS: Metoprolol Tartrate 100 MG Tablet PO (09:15)
[2021-07-26] MEDS: Potassium Chloride Oral Tablet 20 MEQ 40 MEQ PO (09:15)
[2021-07-26] MEDS: Pantoprazole Sodium 40 MG Tablet PO (09:15)
[2021-07-26] MEDS: oxyCODONE HCl Cr 10 MG Tablet PO (09:22)
[2021-07-26] MEDS: Metoprolol Tartrate 50 MG Tablet PO (10:28)
--- NOTE | 2021-07-26 11:53 | PCM.DC ---
Discharge Instructions Diet Discharge Diet: No restrictions Activity Discharge Activity: Return to Normal Activity Weight Bearing Status: Weight bearing as tolerated Dressing / Incision Call your doctor if you observe: Fever of 101 or Higher, Numbness or Tingling, Shortness of breath, Dizziness, Chest pain, Increased palpitations (irregular heartbeat) and Calf discomfort Follow Up Care Please Follow Up With: Primary care provider When: Within the next two weeks. Test Results: Test results from this visit will be discussed in further detail at your follow-up appointment, if applicable. Discharge Plan Admission Admit Date/Time: 07/21/21 16:31 Primary Reason for Your Visit: Shortness of breath Attending Provider: Sudhakar Oreilly Primary Care Provider: Selma Whitaker Consulting Providers: Kendell Mena Discharge Orders/Prescriptions Prescriptions: New Eliquis 5 mg tablet 5 mg PO BID Qty: 60 RF: 0 metoprolol tartrate 100 mg Tablet 150 mg PO BID Qty: 90 RF: 0 amiodarone 200 mg Tablet 200 mg PO TID Qty: 90 RF: 0 Continued enalapril maleate 20 MG tablet 20 mg PO BID RF: 0 promethazine 25 MG tablet 25 mg PO TID PRN PRN (Reason: Nausea) RF: 0 ferrous sulfate [Iron (ferrous sulfate)] 325 MG tablet 325 mg PO BID RF: 0 latanoprost 0.005 % Drops 1 drp EACH EYE QPM RF: 0 omeprazole 40 mg Capsule,Delayed Release(Dr/Ec) 40 mg PO DAILY RF: 0 cyanocobalamin (vitamin B-12) 1,000 mcg/mL solution 1,000 mcg IM QMONTH RF: 0 magnesium 250 mg Tablet 500 mg PO DAILY RF: 0 sertraline 50 mg Tablet 75 mg PO DAILY RF: 0 cholecalciferol (vitamin D3) 1,250 mcg (50,000 unit) Capsule 1,250 mcg PO .2X/WEEK RF: 0 oxycodone 10 mg tablet 10 mg PO TID RF: 0 amlodipine 10 MG tablet 10 mg PO DAILY RF: 0 Discontinued metoprolol succinate 25 mg Tablet Extended Release 24 Hr 25 mg PO DAILY RF: 0 Other Ambulatory Orders: Cardiac Holter Monitor, 48 Hrs (Routine) Timeframe: 2 Days Facility: [facility] - Location: Cardiovascular Services Ordered By: Dr. Mecca Ochoa Referrals / Follow Up: Selma Whitaker MD [Primary Care Provider] - Within 2 Weeks Celia Hutchison, PA [PHYSICIAN FILM MASKER] - 08/04/21 9:30 am Disposition Disposition (needs filled in before D/C Order can be placed): Home Health Service
--- NOTE | 2021-07-26 13:24 | PCM.DC.SUM ---
Documented by User: Werner العراقي 07/26/21 13:33 Providers Date of Admission: 07/21/21 Primary Care Physician: Dr. Selma Whitaker MD Consultations 07/23/21 10:49 Consult: Cardiology Routine Consulting Provider: Kendell Mena Reason for Consult: Atrial Fibrillation EMERGENT Consult: No MD Notified: Yes Date Notified: 07/23/21 Time Notified: 10:49 Method of Notification: Provider Initiated Reason For Visit: A. FIB Diagnosis Discharge Diagnosis (1) Atrial fibrillation with RVR: Status: Acute Code(s): I48.91 - Unspecified atrial fibrillation (2) Acute exacerbation of CHF (congestive heart failure): Status: Chronic Code(s): I50.9 - Heart failure, unspecified Medications at Discharge Home Medications enalapril maleate 20 mg PO BID 07/12/15 promethazine 25 mg PO TID PRN PRN 01/05/17 ferrous sulfate [Iron (ferrous sulfate)] 325 mg PO BID 08/04/17 amlodipine 10 mg PO DAILY 07/21/21 cholecalciferol (vitamin D3) 1,250 mcg PO .2X/WEEK 07/21/21 cyanocobalamin (vitamin B-12) 1,000 mcg IM QMONTH 07/21/21 latanoprost 1 drp EACH EYE QPM 07/21/21 magnesium 500 mg PO DAILY 07/21/21 omeprazole 40 mg PO DAILY 07/21/21 oxycodone 10 mg PO TID 07/21/21 sertraline 75 mg PO DAILY 07/21/21 apixaban [Eliquis] 5 mg PO BID #60 tab 07/22/21 amiodarone 200 mg PO TID #90 tab 07/26/21 furosemide [Lasix] 20 mg PO DAILY #30 tab 07/26/21 metoprolol tartrate 150 mg PO BID #90 tab 07/26/21 Hospital Course Summary of Care Provided Minutes Spent on Discharge: 20 Hospital Course: Patient is a 70-year-old female who was admitted to [facility] on 07/21/2021 for evaluation and management of acute on chronic CHF exacerbation as well as atrial fibrillation with RVR. Course during admission as below. 1) acute HFpEF exacerbation Resolved, currently satting 95% on room air. Patient was initiated on IV Lasix throughout admission and then was transitioned to oral Lasix. Adequate diuresis was achieved. Echocardiogram obtained this morning demonstrated an EF of 55%, biatrial enlargement, mild mitral regurgitation, moderately severe tricuspid regurgitation, moderate pulmonary hypertension with's pulmonary artery systolic pressure of 45 mmHg. Home metoprolol regimen increased and Lasix were added to patient's home CHF regimen. Follow-up with primary care provider and cardiology within the next 2 weeks. 2) new onset atrial fibrillation Currently in normal sinus rhythm. Have completed amiodarone drip and have transition to an oral regimen. Patient was initiated on amiodarone drip and then transition to oral regimen at 200 mg 3 times daily. Home metoprolol regimen increased to 150 mg p.o. twice daily. Eliquis initiated. Patient to follow-up with primary care provider and cardiology as above. 3) possible COVID-19 infection Ruled out, rapid COVID and COVID PCR are negative. We'll continue to monitor. 4) elevated D-dimer D-dimer in the ED was 1.71. Chest CT-A did not demonstrate any evidence of PE. 5) history of esophageal cancer Patient underwent esophageal resection in 2017, follows with a surgeon at [facility]. Patient denies following with an oncologist. Continue chronic medications for fibromyalgia, hypertension, GERD and depression/anxiety. Patient seen by Werner Jauregui PA-C, under the supervision of Dr. Oreilly. Physical Exam Narrative Patient is a 70-year-old female comfortably resting in a chair, alert and orient x3. Patient denies development of any new symptoms overnight. Does not appear in acute distress. Const alert, oriented x3 and no apparent distress HEENT normocephalic, head/scalp atraumatic and hearing grossly normal bilaterally Eyes PERRL, EOMs intact bilaterally and conjunctivae normal Neck no lymphadenopathy, supple and no JVD Resp normal respiratory effort, no retractions, no use of accessory muscles and clear to auscultation bilaterally Cardio regular rate, regular rhythm, no murmurs and no JVD GI normal to inspection, nondistended, normoactive bowel sounds, soft to palpation and non-tender Extremity normal to inspection, full ROM and no clubbing, cyanosis or edema Skin no rashes or lesions noted, no wounds and skin turgor normal Neuro CN's II-XII intact bilaterally Psych affect normal Weight / BMI Weight Weight: 149 lb 14.629 oz Body Mass Index (BMI) 28.4 ABG / Lab / Microbiology Data Result Diagrams: 07/24/21 05:57 07/25/21 04:30 Microbiology: Microbiology 07/21/21 13:20 Nasal Secretion SARS-CoV-2 Antigen (Rapid) - Final D/C Instructions Discharge Diet: No restrictions Weight Bearing Status: Weight bearing as tolerated Call your doctor if you observe: Fever of 101 or Higher, Numbness or Tingling, Shortness of breath, Dizziness, Chest pain, Increased palpitations (irregular heartbeat) and Calf discomfort Please Follow Up With: Primary care provider When: Within the next two weeks. Meaningful Use Info Meaningful Use Diagnoses (Choose all that apply): CHF CHF KASSANDRA/ARB ordered at discharge?: Yes Documented LVEF (%): 50 Discharge Plan Admission Admit Date/Time: 07/21/21 16:31 Primary Reason for Your Visit: Shortness of breath Attending Provider: Sudhakar Oreilly Primary Care Provider: Selma Whitaker Consulting Providers: Kendell Mena Discharge Orders/Prescriptions Prescriptions: New Eliquis 5 mg tablet 5 mg PO BID Qty: 60 RF: 0 metoprolol tartrate 100 mg Tablet 150 mg PO BID Qty: 90 RF: 0 amiodarone 200 mg Tablet 200 mg PO TID Qty: 90 RF: 0 furosemide [Lasix] 20 mg tablet 20 mg PO DAILY Qty: 30 RF: 0 Continued enalapril maleate 20 MG tablet 20 mg PO BID RF: 0 promethazine 25 MG tablet 25 mg PO TID PRN PRN (Reason: Nausea) RF: 0 ferrous sulfate [Iron (ferrous sulfate)] 325 MG tablet 325 mg PO BID RF: 0 latanoprost 0.005 % Drops 1 drp EACH EYE QPM RF: 0 omeprazole 40 mg Capsule,Delayed Release(Dr/Ec) 40 mg PO DAILY RF: 0 cyanocobalamin (vitamin B-12) 1,000 mcg/mL solution 1,000 mcg IM QMONTH RF: 0 magnesium 250 mg Tablet 500 mg PO DAILY RF: 0 sertraline 50 mg Tablet 75 mg PO DAILY RF: 0 cholecalciferol (vitamin D3) 1,250 mcg (50,000 unit) Capsule 1,250 mcg PO .2X/WEEK RF: 0 oxycodone 10 mg tablet 10 mg PO TID RF: 0 amlodipine 10 MG tablet 10 mg PO DAILY RF: 0 Discontinued metoprolol succinate 25 mg Tablet Extended Release 24 Hr 25 mg PO DAILY RF: 0 Other Ambulatory Orders: Cardiac Holter Monitor, 48 Hrs (Routine) Timeframe: 2 Days Facility: [facility] - Location: Cardiovascular Services Ordered By: Dr. Mecca Ochoa Referrals / Follow Up: Selma Whitaker MD [Primary Care Provider] - Within 2 Weeks Celia Hutchison PA [PHYSICIAN DIAGNOSTIC TECHNICIAN] - 08/04/21 9:30 am Disposition Disposition (needs filled in before D/C Order can be placed): Home Health Service Documented by User: Dr. Sudhakar Oreilly MD 07/26/21 13:40 Providers Date of Admission: 07/21/21 Reason For Visit: Ranjeet. ACACIA Medications at Discharge Home Medications enalapril maleate 20 mg PO BID 07/12/15 promethazine 25 mg PO TID PRN PRN 01/05/17 ferrous sulfate [Iron (ferrous sulfate)] 325 mg PO BID 08/04/17 amlodipine 10 mg PO DAILY 07/21/21 cholecalciferol (vitamin D3) 1,250 mcg PO .2X/WEEK 07/21/21 cyanocobalamin (vitamin B-12) 1,000 mcg IM QMONTH 07/21/21 latanoprost 1 drp EACH EYE QPM 07/21/21 magnesium 500 mg PO DAILY 07/21/21 omeprazole 40 mg PO DAILY 07/21/21 oxycodone 10 mg PO TID 07/21/21 sertraline 75 mg PO DAILY 07/21/21 apixaban [Eliquis] 5 mg PO BID #60 tab 07/22/21 amiodarone 200 mg PO TID #90 tab 07/26/21 furosemide [Lasix] 20 mg PO DAILY #30 tab 07/26/21 metoprolol tartrate 150 mg PO BID #90 tab 07/26/21 Hospital Course Operations None Summary of Care Provided Minutes Spent on Discharge: 40 Hospital Course: This patient was seen in conjunction with Werner Jauregui PA-C. I have independently interviewed and examined the patient and reviewed pertinent historical, laboratory, and other data. Please refer to Werner Jauregui PA-C's note for details of this patient's presentation, findings, and recommendations. I have reviewed Werner Jauregui PA-C's note and concur with documented findings. In brief, patient is a 70-year-old lady admitted with progressive shortness of breath and assessment of acute congestive heart failure as well as new onset A. fib with RVR made admitted to a monitored bed for subsequent management Physical Examination: GENERAL: cooperative HEENT: Atraumatic; significant swelling in the neck (reconstructed esophagus) EYES; Anicteric, Normal Conjunctiva NECK; supple, normal thyroid, RESPIRATORY: Diminished to auscultation CARDIOVASCULAR: Irregularly irregular tachycardic GI: soft, normoactive bowel sounds, : No Renal angle tenderness; EXTREMITIES: No edema, no clubbing, MUSCULOSKELETAL: no muscle waisting NEURO: Awake; no lateralizing signs. SKIN: No Rash PSYCH; Flat affect Assessment: 1. Acute congestive heart failure with preserved ejection fraction-55% 2. New onset A. fib with RVR 3. Essential hypertension 4. History of esophageal cancer status post resection with subsequent reconstruction in 2017 5. Fibromyalgia 6. GERD 7. Depression with anxiety 8. DVT prophylaxis Hospital course: As documented above Total time spent by myself and the advanced practice practitioner evaluating patient, reviewing labs, subsequent management decisions, discussion with patient as well as other providers 40 minutes ( 25 of which was spent by myself) ABG / Lab / Microbiology Data Result Diagrams: 07/24/21 05:57 07/25/21 04:30 Discharge Plan Admission Admit Date/Time: 07/21/21 16:31 Primary Reason for Your Visit: Shortness of breath Attending Provider: Sudhakar Oreilly Primary Care Provider: Selma Whitaker Consulting Providers: Kendell Mena Discharge Orders/Prescriptions Prescriptions: New Eliquis 5 mg tablet 5 mg PO BID Qty: 60 RF: 0 metoprolol tartrate 100 mg Tablet 150 mg PO BID Qty: 90 RF: 0 amiodarone 200 mg Tablet 200 mg PO TID Qty: 90 RF: 0 furosemide [Lasix] 20 mg tablet 20 mg PO DAILY Qty: 30 RF: 0 Continued enalapril maleate 20 MG tablet 20 mg PO BID RF: 0 promethazine 25 MG tablet 25 mg PO TID PRN PRN (Reason: Nausea) RF: 0 ferrous sulfate [Iron (ferrous sulfate)] 325 MG tablet 325 mg PO BID RF: 0 latanoprost 0.005 % Drops 1 drp EACH EYE QPM RF: 0 omeprazole 40 mg Capsule,Delayed Release(Dr/Ec) 40 mg PO DAILY RF: 0 cyanocobalamin (vitamin B-12) 1,000 mcg/mL solution 1,000 mcg IM QMONTH RF: 0 magnesium 250 mg Tablet 500 mg PO DAILY RF: 0 sertraline 50 mg Tablet 75 mg PO DAILY RF: 0 cholecalciferol (vitamin D3) 1,250 mcg (50,000 unit) Capsule 1,250 mcg PO .2X/WEEK RF: 0 oxycodone 10 mg tablet 10 mg PO TID RF: 0 amlodipine 10 MG tablet 10 mg PO DAILY RF: 0 Discontinued metoprolol succinate 25 mg Tablet Extended Release 24 Hr 25 mg PO DAILY RF: 0 Other Ambulatory Orders: Cardiac Holter Monitor, 48 Hrs (Routine) Timeframe: 2 Days Facility: [facility] - Location: Cardiovascular Services Ordered By: Dr. Mecca Ochoa Referrals / Follow Up: Selma Whitaker MD [Primary Care Provider] - Within 2 Weeks Celia Hutchison PA [PHYSICIAN DIAGNOSTIC TECHNICIAN] - 08/04/21 9:30 am Disposition Disposition (needs filled in before D/C Order can be placed): Home Health Service Charges/Coding Visit Charges Inpatient E&M: 07569 Disch Hosp Hospital Course Consultations Consultations: Consultations 07/23/21 10:49 Consult: Cardiology Routine Consulting Provider: Kendell Mena Reason for Consult: Atrial Fibrillation EMERGENT Consult: No MD Notified: Yes Date Notified: 07/23/21 Time Notified: 10:49 Method of Notification: Provider Initiated Operations None
== END 2021-07-26 15:07 | disposition home health service (06) | DRG 291 ==
LOC: ED 13:19 → PCU 07-22 07:18
PROVIDERS: Physician Assistant; Admitting Provider Internal Medicine; Emergency Provider Student in an Organized Health Care Education/Training Program; PCP Internal Medicine; Visit Provider Internal Medicine
DX: I11.0 Hypertensive heart disease with heart failure (principal); I50.33 Acute on chronic diastolic (congestive) heart failure; I27.20 Pulmonary hypertension, unspecified; Z79.01 Long term (current) use of anticoagulants; I48.91 Unspecified atrial fibrillation; K21.9 Gastro-esophageal reflux disease without esophagitis; E83.42 Hypomagnesemia; F41.9 Anxiety disorder, unspecified; M79.7 Fibromyalgia; I08.1 Rheumatic disorders of both mitral and tricuspid valves; F32.A Depression, unspecified; G89.4 Chronic pain syndrome; Z80.1 Family history of malignant neoplasm of trachea, bronchus and lung; Z66 Do not resuscitate; Z85.01 Personal history of malignant neoplasm of esophagus
CPT/HCPCS: 36415; 71045; 71275; 80048; 80053; 83735; 83880; 84484; 85025; 85379; 87426; 87635; 93005; 93306; 97110; 97116; 97162; 97166; 97530; 97535; 97802; 99251; 99285; J7030; J7050; Q9967; A4216; G0463; J1940; U0003; U0005

== ENCOUNTER 2021-07-26 14:06 | Outpatient (CLI) | payer MEDICARE, SELFPAY | END 2021-07-26 23:59 | disposition short-term general hospital (02) | LOC: CVS 14:08 | PROVIDERS: PCP Internal Medicine; Visit Provider Internal Medicine | DX: I48.91 Unspecified atrial fibrillation (principal) | CPT/HCPCS: 93225; 93226 ==

== ENCOUNTER 2021-08-22 00:10 | Observation (INO) | payer MEDICARE, SELFPAY ==
[2021-08-22] VITALS (14 sets, daily range): BP systolic 95–125; BP diastolic 67–90; PULSE 81–128; RESP 15–20; TEMP 36.1–37.3; O2SAT 87–99; BMI 30.2; BMI 29.0
--- NOTE | 2021-08-22 00:32 | ED.VIS.FALL ---
HPI HPI - Fall History of Present Illness Chief Complaint: Fall Informant: patient Occured/Mechanism Occurred: Today Mechanism/Context: Yes same level fall Pain/Injury Pain Location: head and lower extremity (Left ankle) Quality of Pain: Aching Worsened by: Nothing Relieved by: Nothing Associated Symptoms Associated Symptoms: Negative for Parasthesias and Loss of consciousness Narrative Narrative: Patient presents after a fall that occurred tonight. Patient states he was going to the bathroom when she fell. Patient denies any loss of consciousness. Patient states she did hit her head. Patient complains of pain in her head and left ankle. Patient describes her pain as dull. Patient states nothing makes it better and nothing makes it worse. Patient denies any paresthesias or weakness. Patient denies any lacerations. [facility] Medical History Anxiety and depression Esophageal cancer Esophageal cancer Fibromyalgia GERD (gastroesophageal reflux disease) History of gastrectomy HTN (hypertension) Home Medications enalapril maleate 20 mg PO BID 07/12/15 [History Last Taken 08/21/21 20:30] promethazine 25 mg PO TID PRN PRN 01/05/17 [History Last Taken 08/03/17 20:00] ferrous sulfate [Iron (ferrous sulfate)] 650 mg PO QODAY 08/04/17 [History Last Taken 08/20/21 09:00] amlodipine 10 mg PO DAILY 07/21/21 [History Last Taken 08/21/21 09:00] cholecalciferol (vitamin D3) 1,250 mcg PO .2X/WEEK 07/21/21 [History Last Taken 08/19/21 09:00] cyanocobalamin (vitamin B-12) 1,000 mcg IM QMONTH 07/21/21 [History Last Taken 08/13/21 09:00] latanoprost 1 drp EACH EYE QPM 07/21/21 [History Last Taken 08/20/21 21:00] magnesium 500 mg PO DAILY 07/21/21 [History Last Taken 08/21/21 09:00] omeprazole 40 mg PO DAILY 07/21/21 [History Last Taken 08/21/21 09:00] oxycodone 10 mg PO TID PRN PRN 07/21/21 [History Last Taken 08/21/21 13:00] sertraline 75 mg PO DAILY 07/21/21 [History Last Taken 08/21/21 09:00] amiodarone 200 mg PO TID 08/22/21 [History Last Taken 08/21/21 13:00] apixaban [Eliquis] 5 mg PO BID 08/22/21 [History Last Taken 08/21/21 20:30] furosemide [Lasix] 20 mg PO DAILY 08/22/21 [History Last Taken 08/21/21 09:00] metoprolol tartrate 150 mg PO BID 08/22/21 [History Last Taken 08/21/21 20:00] Allergy/AdvReac Type Severity Reaction Status Date / Time doxycycline Allergy Unknown Verified 08/22/21 00:16 Iodinated Contrast Media Allergy Rash Verified 08/22/21 00:16 [Iodinated Contrast Media - IV Dye] Sulfa (Sulfonamide Allergy Unknown Verified 08/22/21 00:16 Antibiotics) erythromycin base AdvReac Upset Verified 08/22/21 00:16 Stomach hydrocodone bitartrate AdvReac HEADACHE Verified 08/22/21 00:16 [From Vicodin] Family History Father Cancer Lung cancer. Mother Myocardial infarction Heart disease Surgical History H/O ventral hernia repair History of esophageal surgery Hx of appendectomy Hx of cholecystectomy S/P gastrectomy Social History household members: none housing: house pets and animals: No Smoking Status: Never smoker substance use type: does not use ROS ROS ED Constitutional Constitutional ED: Denies chills or fever(s) Eyes Eyes: Denies blurry vision or change in vision ENT ENT ED: Denies rhinorrhea or sore throat Cardiovascular Cardiovascular: Denies chest pain or palpitations Respiratory/Chest Respiratory/Chest: Denies cough or dyspnea Gastrointestinal Gastrointestinal: Reports nausea; Denies vomiting Genitourinary Genitourinary ED: Denies dysuria or hematuria Musculoskeletal Musculoskeletal: Denies back pain or neck pain Integumentary Denies abscess or rash Neurologic Neurologic: Reports headache(s); Denies weakness Allergic/Immunologic Allergic/Immunologic ED: Denies mouth swelling or urticaria EXAM Physical Exam Const Vital Signs: 08/22/21 00:11 08/22/21 00:20 08/22/21 02:15 Temperature 97 F L Temperature Source Temporal Pulse Rate 81 106 H Respiratory Rate 18 18 Respiratory Effort Normal Respiratory Pattern Normal Blood Pressure 107/90 H 106/82 H Blood Pressure Mean 95 90 Pulse Ox 99 96 Oxygen Delivery Method Room Air Room Air Positive well developed General Appearance ED: well developed and NAD HEENT Reports normocephalic Eyes PERRL and EOMs intact bilaterally Neck supple Resp normal respiratory effort and clear to auscultation bilaterally Cardio regular rate Rhythm: abnormal rhythm irregularly irregular GI non-tender Palpation: soft Extremity Extremity Narrative: There is tenderness and edema over the lateral aspect of the left ankle. There is no obvious deformity noted. There is no tenderness over the fifth metatarsal or proximal fibula. Range of motion of the left ankle was limited in all motion secondary to pain. Sensation was intact to light touch in all digits. There is a strong pedal pulse noted. Neuro oriented x3, CN's II-XII intact bilaterally, moves all extremities, no focal motor deficits and no sensory deficits noted Sensorium / Orientation: alert Psych mental status grossly normal MDM MDM MDM Narrative Medical decision making narrative: X-rays of the left ankle were obtained. There are 3 views. On my interpretation, there is a nondisplaced fracture of the medial malleolus and a nondisplaced fracture of the distal fibula. There is some soft tissue swelling. Radiologist also interpreted the x-ray and agrees. Portable 1 view chest x-ray was obtained. On my interpretation, lung mistry are clear. There is normal cardiac silhouette. Bony thorax is normal. There is no acute process noted. Radiologist also interpreted the x-ray and agrees. CT scan of the brain was obtained. There is no acute intracranial abnormality. This was interpreted by the radiologist and reviewed by myself. CBC was essentially within normal limits. PT was INR was obtained. INR is 1.6. Comprehensive metabolic profile was essentially within normal limits. Lipase was normal at 14. Urinalysis shows leukocyte esterase of 100 with positive nitrites and 10-25 white blood cells. There is 3+ bacteria. Urine culture was ordered. Patient was given a dose of Rocephin. Patient was placed in a short leg posterior and stirrup splint. This was custom made by myself. Neurovascular exam was intact after application of the splint. Since the patient has fallen 3 times at home, she does not feel safe going home. Case was discussed with the hospitalist. He will admit the patient to his service. Patient understands and is agreeable with the plan. All questions were answered. Lab Data Labs: Laboratory Results - last 24 hr 08/22/21 08/22/21 08/22/21 00:55 00:55 00:55 WBC 9.5 RBC 4.14 L Hgb 12.4 Hct 37.9 MCV 91.5 MCH 30.0 MCHC 32.7 RDW Std Deviation 47.4 H RDW Coeff of Mikayla 14.1 Plt Count 108 L MPV 13.4 H Immature Gran % (Auto) 0.500 Neut % (Auto) 84.0 H Lymph % (Auto) 9.3 L [place] % (Auto) 4.8 Eos % (Auto) 1.1 Baso % (Auto) 0.3 Absolute Neuts (auto) 8.0 H Absolute Lymphs (auto) 0.88 Nucleated RBC % 0 PT 18.3 H INR 1.6 Sodium 141 Potassium 4.0 Chloride 106 Carbon Dioxide 30.0 Anion Gap 5 BUN 29 H Creatinine 1.04 H Estim Creat Clear Calc 36.90 Est GFR (MDRD) Af Amer 67 Est GFR (MDRD) Non-Af 55 L BUN/Creatinine Ratio 27.9 H Glucose 152 H Calcium 8.7 Total Bilirubin 0.80 AST 32 ALT 25 Alkaline Phosphatase 134 H Troponin I High Sens 18 Total Protein 6.4 Albumin 3.1 L Globulin 3.3 Albumin/Globulin Ratio 0.9 Lipase 14 L Urine Color Urine Clarity Urine pH Ur Specific [place] Urine Protein Urine Glucose (UA) Urine Ketones Urine Occult Blood Urine Nitrite Urine Bilirubin Urine Urobilinogen Ur Leukocyte Esterase Urine RBC Urine WBC Ur Squamous Epith Cells Urine Bacteria Urine Mucus 08/22/21 01:30 WBC RBC Hgb Hct MCV MCH MCHC RDW Std Deviation RDW Coeff of Mikayla Plt Count MPV Immature Gran % (Auto) Neut % (Auto) Lymph % (Auto) [place] % (Auto) Eos % (Auto) Baso % (Auto) Absolute Neuts (auto) Absolute Lymphs (auto) Nucleated RBC % PT INR Sodium Potassium Chloride Carbon Dioxide Anion Gap BUN Creatinine Estim Creat Clear Calc Est GFR (MDRD) Af Amer Est GFR (MDRD) Non-Af BUN/Creatinine Ratio Glucose Calcium Total Bilirubin AST ALT Alkaline Phosphatase Troponin I High Sens Total Protein Albumin Globulin Albumin/Globulin Ratio Lipase Urine Color Yellow Urine Clarity Sl. Cloudy Urine pH 5.0 Ur Specific [place] 1.020 Urine Protein Negative Urine Glucose (UA) Normal Urine Ketones Negative Urine Occult Blood 10 H Urine Nitrite Positive H Urine Bilirubin Negative Urine Urobilinogen 1 H Ur Leukocyte Esterase 100 H Urine RBC 0 SEEN Urine WBC 10-25 SEEN Ur Squamous Epith Cells 0 SEEN Urine Bacteria 3+ Urine Mucus 0 SEEN Radiography Diagnostic Testing: Clinical Impression(s) from Imaging Studies Ankle X-Ray 08/22/21 00:36 IMPRESSION: Acute nondisplaced transverse fracture of the medial malleolus. Acute nondisplaced fracture of distal fibular metadiaphysis. Calcaneal plantar spur. Diffuse osteopenia. Diffuse soft tissue swelling. Electronically Signed: Alvino Craig MD at 1:38 EST Reading Location ID and State: [facility] / [place] Tel , Service support , Brain CT 08/22/21 00:36 IMPRESSION: No acute intracranial finding. Electronically Signed: Alvino Craig MD at 2:28 EST Reading Location ID and State: [facility] / [place] Tel , Service support , Chest X-Ray 08/22/21 00:36 IMPRESSION: Significant interval improvement in multifocal airspace opacities in the right lung. Left retrocardiac opacities, unchanged. No pneumothorax. Borderline cardiomegaly. Questionable small bilateral pleural effusions. Bones unchanged. Electronically Signed: Alvino Craig MD at 1:36 EST Reading Location ID and State: [facility] [place] / [place] Tel , Service support , Treatment and Re-Evaluation Vital Sign Attestation:: Vital signs were reviewed prior to admission. They are stable. Procedures Lower Extremity Splints Lower Extremity Splint: Orthoglass and - (Short leg posterior and sugar tong splint) Splint Fabrication: Fabricated Location: Left Discharge Plan Dx/Rx/DC Orders Clinical Impression: Frequent falls, Urinary tract infection, Bimalleolar fracture of left ankle Disposition Disposition: Acute Care Hospital [facility] Discharge Date/Time: 08/22/21 04:21
--- NOTE | 2021-08-22 00:36 | RAD_ITS ---
STUDY: X-RAY CHEST REASON FOR EXAM: Female, 71 years old. Cough TECHNIQUE: 1 view COMPARISON: 07/21/2021 FINDINGS: Please see the impression. RAD/Chest 1 View (Portable) IMPRESSION: Significant interval improvement in multifocal airspace opacities in the right lung. Left retrocardiac opacities, unchanged. No pneumothorax. Borderline cardiomegaly. Questionable small bilateral pleural effusions. Bones unchanged. Electronically Signed: Alvino Craig MD at 1:36 EST ,
--- NOTE | 2021-08-22 00:36 | CT_ITS ---
STUDY: CT BRAIN WITHOUT CONTRAST REASON FOR EXAM: Female, 71 years old. Injury/Pain RADIATION DOSAGE (If Supplied By Facility): CTDIvol = ( 47.06 ) mGy, DLP = ( 890.33 ) mGycm TECHNIQUE: Transaxial CT imaging of the brain was performed without administration of intravenous contrast material. Individualized dose optimization techniques were used for this CT. COMPARISON: No relevant priors. FINDINGS: There is no intra-/extra-axial fluid collection, mass effect, or midline shift. The diaz/white matter junction is preserved. Hypoattenuation of periventricular and subcortical white matter suggestive of chronic small vessel ischemic disease. Mild diffuse parenchymal volume loss is noted. There is vascular calcification. The basal cisterns are patent. Visualized paranasal sinuses and mastoid air cells are clear. The calvarium is intact. CT/Brain/Head without Contrast IMPRESSION: No acute intracranial finding. Electronically Signed: Alvino Craig MD at 2:28 EST ,
--- NOTE | 2021-08-22 00:36 | EKG12_ITS ---
Test Reason : AFIB Blood Pressure : / mmHG Vent. Rate : 109 BPM Atrial Rate : 127 BPM P-R Int : 000 ms QRS Dur : 098 ms QT Int : 346 ms P-R-T Axes : 000 -23 184 degrees QTc Int : [address] & T wave abnormality, consider lateral ischemia Abnormal ECG Confirmed by NELSON FINLEY, PIOTR ([id number]), editor map CHARITO ALLEN ([id number]) on 08/25/2021 8:33:56 AM Referred By: JOSE JUAN Confirmed By:PIOTR DAMON MD
--- NOTE | 2021-08-22 00:36 | RAD_ITS ---
STUDY: X-RAY - LEFT ANKLE REASON FOR EXAM: Female, 71 years old. Injury/Pain TECHNIQUE: 3 view(s) of the ankle. COMPARISON: None. FINDINGS: Please see the impression. RAD/Ankle min 3 Views IMPRESSION: Acute nondisplaced transverse fracture of the medial malleolus. Acute nondisplaced fracture of distal fibular metadiaphysis. Calcaneal plantar spur. Diffuse osteopenia. Diffuse soft tissue swelling. Electronically Signed: Alvino Craig MD at 1:38 EST ,
[2021-08-22 01:00] LABS: Absolute Lymphocyte Count 0.88 X10^3/uL (0.83-4.51); Basophil# 0.03 X10^3/uL; Basophil% 0.3 % (0-1); Eosinophils% 1.1 % (0-5); Hematocrit 37.9 % (37-47); Hemoglobin 12.4 g/dL (12.0-15.0); Lymphocyte # 0.88 X10^3/ul (0.83-4.51); Lymphocyte % 9.3 % (19-41); Mean Corp Hgb Conc 32.7 g/dL (32-36); Mean Corpuscular Volume 91.5 fL (81-99); Mean Platelet Vol. 13.4 fl (6.2-12.0); Monocyte# 0.46 X10^3/uL; Monocyte% 4.8 % (0-10); NRBC Flagged by Analyzer 0 % (0-5); Neutrophil # 7.99 X10^3/uL (2.7-7.7); Platelet Count 108 K/mm3 (150-450); RBC Distribution Width CV 14.1 % (11.6-14.6); RBC Distribution Width SD 47.4 fl (35.1-43.9); Red Blood Count 4.14 M/mm3 (4.2-5.4); White Blood Count 9.5 K/mm3 (4.4-11.0)
[2021-08-22 01:18] LABS: ALB/GLOB Ratio 0.9 RATIO (0.9-2.4); AST(SGOT) 32 U/L (15-37); Alanine Aminotransfer ALT/SGPT 25 U/L (13-56); Albumin, Serum 3.1 g/dL (3.2-5.0); Alkaline Phosphatase 134 U/L (45-117); Anion Gap 5 (5-15); BUN 29 mg/dL (7-18); BUN/Creat Ratio 27.9 RATIO (10-20); Calcium,Total 8.7 mg/dL (8.5-10.1); Chloride 106 mmol/L (98-107); Creatinine, Serum 1.04 mg/dL (0.55-1.02); EST Glomerular Filtration Rate 55 mL/min (>60); Est Glom Filt Rate - Afr Amer 67 mL/min (>60); Globulin 3.3 g/dL (2.2-4.2); Glucose 152 mg/dL (74-106); Lipase 14 U/L (73-393); Protein, Total 6.4 g/dL (6.4-8.2); Sodium Level 141 mmol/L (136-145); Troponin-I HS 18 pg/mL (3.0-54.0)
[2021-08-22 01:24] LABS: International Normalized Ratio 1.6; Prothrombin Time (Protime)PT. 18.3 SECONDS (11.7-14.9)
[2021-08-22 01:34] LABS: Mucous, Urine 0 SEEN /hpf (<or=2+); Red Blood Cells-Urine 0 SEEN /hpf (0-5); Squamous Epithelial Cells - UA 0 SEEN /hpf (5-10)
[2021-08-22 01:36] LABS: Color, Urine Yellow (Yellow); Glucose, Dipstick Normal (Normal); Ketone-Dipstick Negative (Negative); Leukocyte Esterase-Dipstick 100 /ul (Negative); Nitrite-Dipstick Positive (Negative); Occult Blood-Urine 10 /ul (Negative); Protein-Dipstick Negative (Negative); Urine Bilirubin Dipstick Negative (Negative); Urine Clarity Sl. Cloudy (Clear); Urine Urobilinogen 1 mg/dl (Normal)
[2021-08-22 01:47] LABS: Bacteria 3+ /hpf (None Seen); White Blood Cells 10-25 SEEN /hpf (0-5)
--- NOTE | 2021-08-22 03:30 | HP.PCM.HOS_ITS ---
HPI - General General Date of Admission: 08/22/21 HPI Narrative KP FLORES, is a 71 F with a significant history of atrial fibrillation on Eliquis; esophageal cancer status post esophageal resection and stomach resection who presents to the emergency department with multiple falls. A few hours before presentation patient legs gave up and she fell 3 times. Following the fall she had pain in her left ankle. The pain increases with movements. At the emergency department x-rays identified a fracture of the left ankle. [facility] Medical History Anxiety and depression Esophageal cancer Esophageal cancer Fibromyalgia GERD (gastroesophageal reflux disease) History of gastrectomy HTN (hypertension) Home Medications enalapril maleate 20 mg PO BID 07/12/15 [History Last Taken 08/03/17 21:00] promethazine 25 mg PO TID PRN PRN 01/05/17 [History Last Taken 08/03/17 20:00] ferrous sulfate [Iron (ferrous sulfate)] 650 mg PO QODAY 08/04/17 [History Last Taken 08/03/17 10:00] amlodipine 10 mg PO DAILY 07/21/21 [History Last Taken Unknown] cholecalciferol (vitamin D3) 1,250 mcg PO .2X/WEEK 07/21/21 [History Last Taken Unknown] cyanocobalamin (vitamin B-12) 1,000 mcg IM QMONTH 07/21/21 [History Last Taken Unknown] latanoprost 1 drp EACH EYE QPM 07/21/21 [History Last Taken Unknown] magnesium 500 mg PO DAILY 07/21/21 [History Last Taken Unknown] omeprazole 40 mg PO DAILY 07/21/21 [History Last Taken Unknown] oxycodone 10 mg PO TID 07/21/21 [History Last Taken Unknown] sertraline 75 mg PO DAILY 07/21/21 [History Last Taken Unknown] apixaban [Eliquis] 5 mg PO BID #60 tab 07/22/21 [Rx Last Taken Unknown] amiodarone 200 mg PO TID #90 tab 07/26/21 [Rx Last Taken Unknown] furosemide [Lasix] 20 mg PO DAILY #30 tab 07/26/21 [Rx Last Taken Unknown] metoprolol tartrate 150 mg PO BID #90 tab 07/26/21 [Rx Last Taken Unknown] Allergy/AdvReac Type Severity Reaction Status Date / Time doxycycline Allergy Unknown Verified 08/22/21 00:16 Iodinated Contrast Media Allergy Rash Verified 08/22/21 00:16 [Iodinated Contrast Media - IV Dye] Sulfa (Sulfonamide Allergy Unknown Verified 08/22/21 00:16 Antibiotics) erythromycin base AdvReac Upset Verified 08/22/21 00:16 Stomach hydrocodone bitartrate AdvReac HEADACHE Verified 08/22/21 00:16 [From Vicodin] Family History Father Cancer Lung cancer. Mother Myocardial infarction Heart disease Surgical History H/O ventral hernia repair History of esophageal surgery Hx of appendectomy Hx of cholecystectomy S/P gastrectomy Social History household members: none housing: house pets and animals: No Smoking Status: Never smoker substance use type: does not use ROS ROS Narrative Constitutional: Denies fever, chills, fatigue, anorexia and change in weight Eyes: Denies blurry vision, change in eye color, change in vision, discharge from eye(s), double vision, erythema, eye pain, loss of vision or other HEENT: Denies abnormal hearing, dysphagia, ear pain, epistaxis, headache(s), hearing loss, nasal congestion, nasal discharge, post nasal drip, sinus pressure, sore throat or other Cardiovascular: Denies chest pain or palpitations. Denies dyspnea on exertion, orthopnea and paroxysmal nocturnal dyspnea Respiratory/Chest: Denies cough, excessive phlegm production, shortness of breath with exertion and wheezing Gastrointestinal: Denies abdominal pain, coffee ground emesis, constipation, diarrhea, dyspepsia, hematemesis, hematochezia, loose stools, melena, nausea, vomiting or other Genitourinary: Denies burning urination, difficulty urinating, dysuria, hematuria, nocturia, urinary frequency, urinary hesitancy, urinary incontinence, urinary urgency or other Musculoskeletal: Reports left ankle pain. Report legs giving out. Denies back pain, joint pain, joint swelling, myalgias, neck pain or other Neurologic: Denies abnormal gait, abnormal speech, confusion, disequilibrium, dizziness, focal weakness, headache(s), numbness, paresthesias, seizure-like activity, seizures, syncope, tingling, tremor(s) or other Psychiatric: Denies anxiety, depression, homicidal ideation, suicidal ideation or other Endocrinology: Denies polyuria but associates it with diuretic use. Denies change in body appearance, cold intolerance, excessive sweating, heat intolerance, polydipsia, or other Hematologic/Lymphatic: Denies anemia, easy bleeding, easy bruising, lymphadenopathy or other Integumentary: Denies rashes Allergic/Immunologic: Denies rhinitis, hives, eczema, asthma or other Vital Signs Vital Signs Vital Signs: 08/22/21 00:11 08/22/21 00:20 08/22/21 02:15 Temperature 97 F L Temperature Source Temporal Pulse Rate 81 106 H Respiratory Rate 18 18 Respiratory Effort Normal Respiratory Pattern Normal Blood Pressure 107/90 H 106/82 H Blood Pressure Mean 95 90 Pulse Ox 99 96 Oxygen Delivery Method Room Air Room Air Weight Weight: 72.5 kg Body Mass Index (BMI) 30.2 Physical Exam Narrative Physical exam: General: Well-nourished, well-developed. Head: Normocephalic, atraumatic, no tenderness Eyes: PERRLA, EOMI ENT, no trauma, moist mucous membranes, no rhinorrhea Neck: Nontender, full range of motion, no spinal tenderness, deformities, step- off CVS: Regular rate and rhythm. S1-S2 present. No murmur, gallop or rub. Respiratory : clear to auscultation bilaterally, chest wall nontender, no wheezing Abdomen: Soft, nontender, nondistended, normal bowel sounds, no masses : Deferred Back: Nontender, no CVA tenderness, no midline spinal tenderness, deformities, step-offs Extremities: Left leg in cast (placed at the emergency department); +2; pitting edema. Skin: Normal color, no trauma, abrasions Neuro: Alert, oriented, cranial nerves II through XII grossly intact. Psychiatry: Normal mood. Normal affect. Not depressed. Not anxious. Results Lab / Micro Data Result Diagrams: 08/22/21 00:55 08/22/21 00:55 Labs: Laboratory Results - last 24 hr 08/22/21 00:55: WBC 9.5, RBC 4.14 L, Hgb 12.4, Hct 37.9, MCV 91.5, MCH 30.0, MCHC 32.7, RDW Std Deviation 47.4 H, RDW Coeff of Mikayla 14.1, Plt Count 108 L, MPV 13.4 H, Immature Gran % (Auto) 0.500, Neut % (Auto) 84.0 H, Lymph % (Auto) 9.3 L , [place] % (Auto) 4.8, Eos % (Auto) 1.1, Baso % (Auto) 0.3, Absolute Neuts (auto) 8.0 H, Absolute Lymphs (auto) 0.88, Nucleated RBC % 0 08/22/21 00:55: PT 18.3 H, INR 1.6 08/22/21 00:55: Sodium 141, Potassium 4.0, Chloride 106, Carbon Dioxide 30.0, Anion Gap 5, BUN 29 H, Creatinine 1.04 H, Estim Creat Clear Calc 36.90, Est GFR (MDRD) Af Amer 67, Est GFR (MDRD) Non-Af 55 L, BUN/Creatinine Ratio 27.9 H, Glucose 152 H, Calcium 8.7, Total Bilirubin 0.80, AST 32, ALT 25, Alkaline Phosphatase 134 H, Troponin I High Sens 18, Total Protein 6.4, Albumin 3.1 L, Globulin 3.3, Albumin/Globulin Ratio 0.9, Lipase 14 L 08/22/21 01:30: Urine Color Yellow, Urine Clarity Sl. Cloudy, Urine pH 5.0, Ur Specific [place] 1.020, Urine Protein Negative, Urine Glucose (UA) Normal, Urine Ketones Negative, Urine Occult Blood 10 H, Urine Nitrite Positive H, Urine Bilirubin Negative, Urine Urobilinogen 1 H, Ur Leukocyte Esterase 100 H, Urine RBC 0 SEEN, Urine WBC 10-25 SEEN, Ur Squamous Epith Cells 0 SEEN, Urine Bacteria 3+, Urine Mucus 0 SEEN Radiology Impression Ankle X-Ray 08/22/21 00:36 IMPRESSION: Acute nondisplaced transverse fracture of the medial malleolus. Acute nondisplaced fracture of distal fibular metadiaphysis. Calcaneal plantar spur. Diffuse osteopenia. Diffuse soft tissue swelling. Electronically Signed: Alvino Craig MD at 1:38 EST Reading Location ID and State: [facility] / [place] Tel , Service support , Brain CT 08/22/21 00:36 IMPRESSION: No acute intracranial finding. Electronically Signed: Alvino Craig MD at 2:28 EST Reading Location ID and State: [facility] / [place] Tel , Service support , Chest X-Ray 08/22/21 00:36 IMPRESSION: Significant interval improvement in multifocal airspace opacities in the right lung. Left retrocardiac opacities, unchanged. No pneumothorax. Borderline cardiomegaly. Questionable small bilateral pleural effusions. Bones unchanged. Electronically Signed: Alvino Craig MD at 1:36 EST Reading Location ID and State: [facility] / [place] Tel , Service support , Assessment & Plan Assessment/Plan (1) Bimalleolar fracture of left ankle: QUALIFIERS: Encounter type: initial encounter Fracture type: closed Qualified Code(s): S82.842A - Displaced bimalleolar fracture of left lower leg, initial encounter for closed fracture (2) Frequent falls: (3) Urinary tract infection: QUALIFIERS: Hematuria presence: without hematuria Urinary tract infection type: acute cystitis Qualified Code(s): N30.00 - Acute cystitis without hematuria PLAN: Multiple falls with bimalleolar fracture of left ankle Actual chest x-ray image was independently interpreted and there is no fracture Ankle x-ray was independently viewed and interpreted. I agree with radiologist interpretation of bimalleolar fracture No acute intracranial findings. No weightbearing on left lower extremity. A splint was placed at the emergency department. Oxycodone p.o. and Tylenol p.o. as needed for pain. Orthopedic consult. Hold Eliquis. Check vitamin D level. CBC reviewed showed normal white count and hemoglobin. Acute cystitis Patient denies burning with urination. She reports polyuria but she attributed to diuretic use. Urinalysis was reviewed. Urinalysis is abnormal. With multiple falls will treat as UTI. Given ceftriaxone at the emergency department and continued. MALCOLM Review of labs showed creatinine of 1.04. Creatinine baseline is around 0.7. BUN is 29. BUN over creatinine is 27.9. Likely prerenal. Hold home Lasix. Trend BMP Atrial fibrillation with rapid ventricular response Echocardiogram on 07/22/2021 was reviewed. Echocardiogram showed preserved ejection fraction with ejection fraction of 55 to 60%. Left and right atrium were moderately enlarged. Moderate severe tricuspid valve insufficiency. Mild eccentric mitral valve insufficiency EKG was reviewed. Patient in A. fib. Ventricular rate is around 102. Home metoprolol and amiodarone continued. Hold Eliquis for now. A. fib is not new. Of note patient has appointment with attending physician on 08/22/2021 to establish care. Discussed with patient that upon discharge patient can follow-up with cardiology. DVT prophylaxis: SCD ordered Charges/Coding Visit Charges Inpatient E&M: 53524 Init Hosp L3
[2021-08-22] MEDS: Ceftriaxone 1 GM/50 ML BAG IV ×2 (03:45→23:12)
[2021-08-22] MEDS: Ondansetron 4 MG/2 ML Vial IV (05:42)
[2021-08-22] MEDS: 0.9% Saline Lock 10 ML Syringe IV (05:43)
[2021-08-22] MEDS: oxyCODONE 5 MG Tablet PO (05:50)
[2021-08-22 06:01] LABS: Vitamin D,25 Hydroxy 82.6 ng/mL
[2021-08-22 06:59] LABS: Absolute Lymphocyte Count 0.88 X10^3/uL (0.83-4.51); Absolute Neutrophil Count 6.9 X10^3/uL (2.0-7.7); Basophil# 0.02 X10^3/uL; Basophil% 0.2 % (0-1); Eosinophil# 0.03 X10^3/uL; Eosinophils% 0.4 % (0-5); Hematocrit 37.1 % (37-47); Hemoglobin 11.9 g/dL (12.0-15.0); Lymphocyte # 0.88 X10^3/ul (0.83-4.51); Lymphocyte % 10.5 % (19-41); Mean Corp Hgb Conc 32.1 g/dL (32-36); Mean Corpuscular Hgb 29.2 pg (27.0-32.0); Mean Corpuscular Volume 90.9 fL (81-99); Mean Platelet Vol. 13.6 fl (6.2-12.0); Monocyte# 0.57 X10^3/uL; Monocyte% 6.8 % (0-10); NRBC Flagged by Analyzer 0 % (0-5); Neutrophil # 6.87 X10^3/uL (2.7-7.7); Neutrophil % 81.7 % (47-70); POSITIVE COUNT YES; Platelet Count 96 K/mm3 (150-450); RBC Distribution Width CV 14.2 % (11.6-14.6); RBC Distribution Width SD 47.3 fl (35.1-43.9); Red Blood Count 4.08 M/mm3 (4.2-5.4); White Blood Count 8.4 K/mm3 (4.4-11.0)
--- NOTE | 2021-08-22 07:20 | PN.HOSP_ITS ---
Subjective Subjective Patient is a 71-year-old lady admitted following a fall found to have bimalleolar left ankle fracture Objective Data Objective Data Vital Signs: Vital Signs Temp Pulse Resp BP Pulse Ox 98.5 F 97 16 125/83 H 95 08/22/21 04:30 08/22/21 04:30 08/22/21 04:30 08/22/21 04:30 08/22/21 04:30 Oxygen Delivery Method Room Air Weight: 69.763 kg Body Mass Index (BMI) 29.0 Intake & Output: Intake and Output for Last 24 Hours 08/20/21 08/21/21 08/22/21 23:59 23:59 23:59 Intake Total 50 / 50 Balance 50 / 50 Lab / Micro Data Result Diagrams: 08/22/21 06:00 08/22/21 06:00 Labs: Laboratory Results - last 24 hr 08/22/21 00:55: WBC 9.5, RBC 4.14 L, Hgb 12.4, Hct 37.9, MCV 91.5, MCH 30.0, MCHC 32.7, RDW Std Deviation 47.4 H, RDW Coeff of Mikayla 14.1, Plt Count 108 L, MPV 13.4 H, Immature Gran % (Auto) 0.500, Neut % (Auto) 84.0 H, Lymph % (Auto) 9.3 L , [place] % (Auto) 4.8, Eos % (Auto) 1.1, Baso % (Auto) 0.3, Absolute Neuts (auto) 8.0 H, Absolute Lymphs (auto) 0.88, Nucleated RBC % 0 08/22/21 00:55: PT 18.3 H, INR 1.6 08/22/21 00:55: Sodium 141, Potassium 4.0, Chloride 106, Carbon Dioxide 30.0, An ion Gap 5, BUN 29 H, Creatinine 1.04 H, Estim Creat Clear Calc 36.90, Est GFR (MDRD) Af Amer 67, Est GFR (MDRD) Non-Af 55 L, BUN/Creatinine Ratio 27.9 H, Glucose 152 H, Calcium 8.7, Total Bilirubin 0.80, AST 32, ALT 25, Alkaline Phosphatase 134 H, Troponin I High Sens 18, Total Protein 6.4, Albumin 3.1 L, Globulin 3.3, Albumin/Globulin Ratio 0.9, Lipase 14 L 08/22/21 00:55: Vitamin D 25-Hydroxy 82.6 08/22/21 01:30: Urine Color Yellow, Urine Clarity Sl. Cloudy, Urine pH 5.0, Ur Specific [place] 1.020, Urine Protein Negative, Urine Glucose (UA) Normal, Urine Ketones Negative, Urine Occult Blood 10 H, Urine Nitrite Positive H, Urine Bilirubin Negative, Urine Urobilinogen 1 H, Ur Leukocyte Esterase 100 H, Urine RBC 0 SEEN, Urine WBC 10-25 SEEN, Ur Squamous Epith Cells 0 SEEN, Urine Bacteria 3+, Urine Mucus 0 SEEN 08/22/21 06:00: WBC 8.4, RBC 4.08 L, Hgb 11.9 L, Hct 37.1, MCV 90.9, MCH 29.2, MCHC 32.1, RDW Std Deviation 47.3 H, RDW Coeff of Mikayla 14.2, Plt Count 96 L, MPV 13.6 H, Immature Gran % (Auto) 0.400, Neut % (Auto) 81.7 H, Lymph % (Auto) 10.5 L, [place] % (Auto) 6.8, Eos % (Auto) 0.4, Baso % (Auto) 0.2, Absolute Neuts (auto) 6.9, Absolute Lymphs (auto) 0.88, Nucleated RBC % 0 Radiography Diagnostic Testing: Radiology Impression Ankle X-Ray 08/22/21 00:36 IMPRESSION: Acute nondisplaced transverse fracture of the medial malleolus. Acute nondisplaced fracture of distal fibular metadiaphysis. Calcaneal plantar spur. Diffuse osteopenia. Diffuse soft tissue swelling. Electronically Signed: Alvino Craig MD at 1:38 EST Reading Location ID and State: [facility] / [place] Tel , Service support , Brain CT 08/22/21 00:36 IMPRESSION: No acute intracranial finding. Electronically Signed: Alvino Craig MD at 2:28 EST Reading Location ID and State: [facility] / [place] Tel , Service support , Chest X-Ray 08/22/21 00:36 IMPRESSION: Significant interval improvement in multifocal airspace opacities in the right lung. Left retrocardiac opacities, unchanged. No pneumothorax. Borderline cardiomegaly. Questionable small bilateral pleural effusions. Bones unchanged. Electronically Signed: Alvino Craig MD at 1:36 EST Reading Location ID and State: [facility] / [place] Tel , Service support , Physical Exam Narrative GENERAL: cooperative HEENT: Atraumatic; EYES; Anicteric, Normal Conjunctiva NECK; supple, normal thyroid, RESPIRATORY: Diminished to auscultation CARDIOVASCULAR: Regular S1 S2, GI: soft, normoactive bowel sounds, : No Renal angle tenderness; EXTREMITIES: No edema, no clubbing, MUSCULOSKELETAL: Left ankle immobilized NEURO: Awake; no lateralizing signs. SKIN: No Rash PSYCH; Flat affect Assessment & Plan Assessment/Plan (1) Bimalleolar fracture of left ankle: QUALIFIERS: Encounter type: initial encounter Fracture type: closed Qualified Code(s): S82.842A - Displaced bimalleolar fracture of left lower leg, initial encounter for closed fracture (2) Frequent falls: (3) Urinary tract infection: QUALIFIERS: Hematuria presence: without hematuria Urinary tract infection type: acute cystitis Qualified Code(s): N30.00 - Acute cystitis without hematuria PLAN: Patient is a 71-year-old lady admitted following a fall found to have bimalleolar left ankle fracture 1. Fall with bimalleolar fracture involving the left ankle ?Admitted for immobilization pain management with consultation placed to orthopedics. Patient was seen by Dr. Ra Sales who recommended conservative management at this point 2. Acute cystitis ?Started on Rocephin cultures sent we will monitor 3. A. fib ?Rate controlled at on amiodarone and is on systemic anticoagulation with Eliquis 4. Hypertension - Blood pressure controlled, home medications continued with dose adjustment as needed 5. DVT prophylaxis ?Patient is on Eliquis 6. Physical deconditioning - Requested for PT OT eval and social media project manager to assist with discharge planning Charges/Coding Visit Charges Inpatient E&M: 26220 Subs Hosp L2
[2021-08-22 07:40] LABS: Anion Gap 5 (5-15); BUN 28 mg/dL (7-18); BUN/Creat Ratio 29.4 RATIO (10-20); Calcium,Total 8.4 mg/dL (8.5-10.1); Chloride 106 mmol/L (98-107); Creatinine, Serum 0.95 mg/dL (0.55-1.02); EST Glomerular Filtration Rate 61 mL/min (>60); Est Glom Filt Rate - Afr Amer 74 mL/min (>60); Estimated Creatinine Clearance 40.39 ml/min; Glucose 124 mg/dL (74-106); Sodium Level 141 mmol/L (136-145)
--- NOTE | 2021-08-22 08:23 | CON.PCM_ITS ---
Assessment & Plan Assessment/Plan (1) Frequent falls: (2) Bimalleolar fracture of left ankle: QUALIFIERS: Encounter type: initial encounter Fracture type: [facility] ed Qualified Code(s): S82.842A - Displaced bimalleolar fracture of left lower leg, initial encounter for closed fracture PLAN: PAtient examined and evaluated, radiographs reviewed. Left posterior splint left clean, dry and intact. Neurovascular status intact to left foot, skin intact, ankle fracture is non- displaced. I have recommended conservative treatment. She will maintain non-weightbearing status to left lower extremity, recommend PT evaluation. She lives at home, but has a son in the area that should be able to help her, if not would consider SNF placement. Patient already on Eliquis, should suffice for DVT prophylaxis. Stable for d/c upon PT evaluation from my view point, we will see her in 1 week for further evaluation. I can be reached directly at [phone] if there are any questions on this case. HPI Consult Data Date of Consult: 08/22/21 HPI Narrative HPI Narrative: KP FLORES, is a 71 F who presents to hospital for left ankle pain after a fall in her bathroom. She is uncertain of mechanism of injury, but noted immediate pain and inability to bear weight to her left ankle. She was taken to ED and diagnosed with frequent falls, UTI and a non-displaced ankle fracture. Patient denies any loss of sensation to her left foot or parasthesias. He pain is manageable and not intractable, no other complaints. [facility] Medical History Anxiety and depression Esophageal cancer Esophageal cancer Fibromyalgia GERD (gastroesophageal reflux disease) History of gastrectomy HTN (hypertension) Home Medications enalapril maleate 20 mg PO BID 07/12/15 [History Last Taken 08/21/21 20:30] promethazine 25 mg PO TID PRN PRN 01/05/17 [History Last Taken 08/03/17 20:00] ferrous sulfate [Iron (ferrous sulfate)] 650 mg PO QODAY 08/04/17 [History Last Taken 08/20/21 09:00] amlodipine 10 mg PO DAILY 07/21/21 [History Last Taken 08/21/21 09:00] cholecalciferol (vitamin D3) 1,250 mcg PO .2X/WEEK 07/21/21 [History Last Taken 08/19/21 09:00] cyanocobalamin (vitamin B-12) 1,000 mcg IM QMONTH 07/21/21 [History Last Taken 08/13/21 09:00] latanoprost 1 drp EACH EYE QPM 07/21/21 [History Last Taken 08/20/21 21:00] magnesium 500 mg PO DAILY 07/21/21 [History Last Taken 08/21/21 09:00] omeprazole 40 mg PO DAILY 07/21/21 [History Last Taken 08/21/21 09:00] oxycodone 10 mg PO TID PRN PRN 07/21/21 [History Last Taken 08/21/21 13:00] sertraline 75 mg PO DAILY 07/21/21 [History Last Taken 08/21/21 09:00] amiodarone 200 mg PO TID 08/22/21 [History Last Taken 08/21/21 13:00] apixaban [Eliquis] 5 mg PO BID 08/22/21 [History Last Taken 08/21/21 20:30] furosemide [Lasix] 20 mg PO DAILY 08/22/21 [History Last Taken 08/21/21 09:00] metoprolol tartrate 150 mg PO BID 08/22/21 [History Last Taken 08/21/21 20:00] Allergy/AdvReac Type Severity Reaction Status Date / Time doxycycline Allergy Unknown Verified 08/22/21 00:16 Iodinated Contrast Media Allergy Rash Verified 08/22/21 00:16 [Iodinated Contrast Media - IV Dye] Sulfa (Sulfonamide Allergy Unknown Verified 08/22/21 00:16 Antibiotics) erythromycin base AdvReac Upset Verified 08/22/21 00:16 Stomach hydrocodone bitartrate AdvReac HEADACHE Verified 08/22/21 00:16 [From Vicodin] Family History Father Cancer Lung cancer. Mother Myocardial infarction Heart disease Surgical History H/O ventral hernia repair History of esophageal surgery Hx of appendectomy Hx of cholecystectomy S/P gastrectomy Social History household members: none housing: house pets and animals: No Smoking Status: Never smoker substance use type: does not use ROS Constitutional Constitutional: Denies systems reviewed and no addt'l complaints, except as documented, as per HPI, anorexia, body ache(s), change in weight, chills, daytime sleepiness, difficulty sleeping, excessive sweating, fatigue, fever(s), frequent falls, headache(s), increased appetite, lethargy, malaise, night sweats, poor appetite, snoring, stops breathing during sleep, weakness, weight gain, weight loss or other Eyes Eyes: Denies systems reviewed and no addt'l complaints, except as documented, as per HPI, none, acute decrease in peripheral vision, blindness, blind spots, bloody eye, blurry vision, burning, change in eye color, change in vision, decreased night vision, diplopia, discharge from eye(s), discongugate gaze, double vision, dry eyes, erythema, excessive blinking, exophthalmos, eye pain, floaters, foreign body, halo effect, irritation, itchy eyes, loss of central vision, loss of peripheral vision, loss of vision, miosis, mydriasis, numbness, nystagmus, other visual disturbances, periorbital itching, photophobia, ptosis, puffy eyes, requires corrective lenses, seeing flashes, spots in vision, sunken eyes, tearing, tunnel vision or other Gastrointestinal Gastrointestinal: Denies systems reviewed and no addt'l complaints, except as documented, as per HPI, none, abdominal pain, anorexia, belching, bloating, change in bowel habits, change in stool character, chewing difficulty, coffee ground emesis, constipation, cramping, diarrhea, dry heaves, dyspepsia, dysphagia, early satiety, excessive flatus, fecal incontinence, heartburn, hematemesis, hematochezia, hemorrhoids, loose stools, melena, nausea, odynophagia, rectal bleeding, taste impaired, tenesmus, vomiting, weight changes or other Physical Exam Narrative Patient seen resting comfortably in bed. She was asleep when I came in. Patient is alert and oriented to person, place and time. Vascular: Capillary fill time brisk to digits 1-5 bilaterally. Digital hairgrowth noted. Toes warm to palpation on right side. Dermatologic: Well padded posterior splint with sugar tongs intact to left lower extremity, per review of chart no open wounds. Musculoskeletal: No pain with calf squeeze, diffuse left ankle pain, range of motion deferred. Radiographs: SER type ankle fracture with a non-displaced medial malleolar fracture and non-displaced distal fibular fracture (oblique on lateral), intact ankle mortise. Lab / Micro Data Result Diagrams: 08/22/21 06:00 08/22/21 06:00 Labs: Laboratory Results - last 24 hr 08/22/21 00:55: WBC 9.5, RBC 4.14 L, Hgb 12.4, Hct 37.9, MCV 91.5, MCH 30.0, MCHC 32.7, RDW Std Deviation 47.4 H, RDW Coeff of Mkiayla 14.1, Plt Count 108 L, MPV 13.4 H, Immature Gran % (Auto) 0.500, Neut % (Auto) 84.0 H, Lymph % (Auto) 9.3 L , [place] % (Auto) 4.8, Eos % (Auto) 1.1, Baso % (Auto) 0.3, Absolute Neuts (auto) 8.0 H, Absolute Lymphs (auto) 0.88, Nucleated RBC % 0 08/22/21 00:55: PT 18.3 H, INR 1.6 08/22/21 00:55: Sodium 141, Potassium 4.0, Chloride 106, Carbon Dioxide 30.0, Anion Gap 5, BUN 29 H, Creatinine 1.04 H, Estim Creat Clear Calc 36.90, Est GFR (MDRD) Af Amer 67, Est GFR (MDRD) Non-Af 55 L, BUN/Creatinine Ratio 27.9 H, Glucose 152 H, Calcium 8.7, Total Bilirubin 0.80, AST 32, ALT 25, Alkaline Phosphatase 134 H, Troponin I High Sens 18, Total Protein 6.4, Albumin 3.1 L, Globulin 3.3, Albumin/Globulin Ratio 0.9, Lipase 14 L 08/22/21 00:55: Vitamin D 25-Hydroxy 82.6 08/22/21 01:30: Urine Color Yellow, Urine Clarity Sl. Cloudy, Urine pH 5.0, Ur Specific [place] 1.020, Urine Protein Negative, Urine Glucose (UA) Normal, Urine Ketones Negative, Urine Occult Blood 10 H, Urine Nitrite Positive H, Urine Bilirubin Negative, Urine Urobilinogen 1 H, Ur Leukocyte Esterase 100 H, Urine RBC 0 SEEN, Urine WBC 10-25 SEEN, Ur Squamous Epith Cells 0 SEEN, Urine Bacteria 3+, Urine Mucus 0 SEEN 08/22/21 06:00: WBC 8.4, RBC 4.08 L, Hgb 11.9 L, Hct 37.1, MCV 90.9, MCH 29.2, MCHC 32.1, RDW Std Deviation 47.3 H, RDW Coeff of Mikayla 14.2, Plt Count 96 L, MPV 13.6 H, Immature Gran % (Auto) 0.400, Neut % (Auto) 81.7 H, Lymph % (Auto) 10.5 L, [place] % (Auto) 6.8, Eos % (Auto) 0.4, Baso % (Auto) 0.2, Absolute Neuts (auto) 6.9, Absolute Lymphs (auto) 0.88, Nucleated RBC % 0 08/22/21 06:00: Sodium 141, Potassium 4.0, Chloride 106, Carbon Dioxide 30.0, Anion Gap 5, BUN 28 H, Creatinine 0.95, Estim Creat Clear Calc 40.39, Est GFR (MDRD) Af Amer 74, Est GFR (MDRD) Non-Af 61, BUN/Creatinine Ratio 29.4 H, Glucose 124 H, Calcium 8.4 L Radiology Impression Ankle X-Ray 08/22/21 00:36 IMPRESSION: Acute nondisplaced transverse fracture of the medial malleolus. Acute nondisplaced fracture of distal fibular metadiaphysis. Calcaneal plantar spur. Diffuse osteopenia. Diffuse soft tissue swelling. Electronically Signed: Alvino Craig MD at 1:38 EST , Brain CT 08/22/21 00:36 IMPRESSION: No acute intracranial finding. Electronically Signed: Alvino Craig MD at 2:28 EST , Chest X-Ray 08/22/21 00:36 IMPRESSION: Significant interval improvement in multifocal airspace opacities in the right lung. Left retrocardiac opacities, unchanged. No pneumothorax. Borderline cardiomegaly. Questionable small bilateral pleural effusions. Bones unchanged. Electronically Signed: Alvino Craig MD at 1:36 EST ,
--- NOTE | 2021-08-22 09:55 | CASEMGMT ---
Addendum entered by Mitzi Atkins 08/22/21 10:50: Received return tc from pt sister Kailyn. She confirms that pt does not have anyone to assist her at home. States that the family has been going back and forth and knew this was coming but no one wanted to discuss it. She agrees with pt decision for SNF. Original Note: CARINA REGAN Assessment: Face to Face with pt for initial transition planning/care coordination assessment. RN SHEREEN introduced self and role at [facility], pt voices understanding and consents to assessment. Pt is A/O x4 and is slow to answer questions. States she feels very disoriented. Pt grimacing when moving at all in the bed, she reports pain. Care providers, pharmacy, and demographics verified/updated. Admitting Dx: Left ankle fx PCP:[facility] Specialists:misha Hanson in hospital Preferred Pharmacy: [facility] Insurance: [facility] Prescription Benefit: yes LW/HPOA: Pt has a LW/DPOA on file at [facility]. Her DPOA is Naldo Pitts, son. LNOK: Naldo Pitts, son; Kailyn Saleh, sister; Yadi Hong, chele Living Arrangements: Pt lives alone in a mobile home with 3 steps to enter with a rail. Pt states she has been having increasing difficulty getting in and out of the tub with falls. Transportation: Pt reports she stopped driving a few mos ago. She states her sister and brother are able to transport her to medical appts. DME/C/SNF: Pt reports she has a rollator at home. States no FWW. She states she cannot remember what else she has. She is current with [facility] SN. She states she has been to [facility] in the past. Pt states she has no one to assist her at home. She reports that she does not feel it would be safe to return home. Inquired about family assisting her, she states they have their own lives. Pt states this RN SHEREEN could contact her sister Kailyn Saleh for her designated person to discuss her dc plan with. TC to Kailyn, no answer, vm left. TC to [facility] Nereyda clinical materials planning manager to discuss pt care and availability of assistance at home. Left vm on her line requesting returned call. Notified BOILER RIVETER of pt request for SNF. Pt states no further concerns/needs. CM to follow. Advised pt to ask CM if any further question/concerns/needs arise, voices understanding. Pt Goal: Possible SNF Plan: Possible SNF
[2021-08-22] MEDS: Sertraline 50 MG Tablet 75 MG PO (10:44)
[2021-08-22] MEDS: Ferrous Sulfate 325 MG Tablet PO ×2 (10:44→18:36)
[2021-08-22] MEDS: Pantoprazole Sodium 40 MG Tablet PO (10:44)
[2021-08-22] MEDS: Magnesium Chloride 64 MG Delay Rel.Tablet 128 MG PO (10:44)
[2021-08-22] MEDS: proMETHazine 25 MG Tablet PO (10:47)
--- NOTE | 2021-08-22 10:47 | CASEMGMT ---
Addendum entered by Noemi Blackwell 08/22/21 10:55: SW then updated that pt's preference is either [facility] or [facility]. SW also placed a call to Kailyn in TCU and left message to inquire about bed availability. Original Note: Social Work Note SW received referral for SNF. SW in to speak with pt. SW introduced self and role at [facility]. Patient was provided a list of SNF providers including quality and resource use data and consistent with the patient?s preferred geographic region, medical needs, and insurance network. SW spoke with pt about SNF options. Pt states that she was at [facility] in [place], [place] before. Pt's preferred provider is [facility]. SW to fax referral to [facility] once PT/OT evaluations are completed. Plan: SNF pending acceptance and pre-cert Noemi Blackwell HOSE COUPLING JOINER, AQUATIC LIFE LABORER
--- NOTE | 2021-08-22 12:30 | CASEMGMT ---
Social Work Note SW received update that pt's son Naldo is on the phone requesting to speak to SW. SW reviewed chart, Naldo is not listed on demographics. SW in to speak with pt. SW informed pt that Naldo is on the phone. Pt gave this worker permission to speak with Naldo. SW spoke with Naldo. Naldo with questions regarding SNF placement. SERA informed Naldo that pt gave two choices of either [facility] or [place] and that this worker has referrals out, waiting on bed confirmation. Naldo states he would like to be updated when pt discharges. Naldo provided his , Diane Aguilar, number for update [phone]. Noemi Blackwell HEAT AND FROST INSULATOR, RV REPAIR TECHNICIAN
--- NOTE | 2021-08-22 15:45 | CASEMGMT ---
Social Work Note SERA received call from Kailyn with TCU, no beds available. SERA placed a call to Abigail at [facility] and provided referral. SERA faxed referral to [facility]. SERA received call from Abigail at [facility] stating they can accept pt and will submit for pre-cert. Abigail asked if pt is vaccinated. SERA in to speak with pt. SERA informed pt that [facility] can accept pt pending pre-cert. SERA asked pt about vaccination status. Pt states she is not vaccinated. SERA placed a call to Abigail at [facility] and updated her that pt is not vaccinated. Plan: [facility] pending pre-cert. Noemi Blackwell BOTTLING EQUIPMENT SALES REPRESENTATIVE, HOUSEHOLD APPLIANCE MECHANIC
[2021-08-22] MEDS: Latanoprost 0.005% 1 Bottle 1 DRP EACH EYE (23:15)
[2021-08-22] MEDS: Amiodarone 200 MG Tablet PO (23:15)
[2021-08-22] MEDS: APIXABAN 5 MG TABLET PO (23:16)
[2021-08-22] MEDS: Senna/Docusate Sodium 1 Tablet 2 TABLET PO (23:18)
[2021-08-23] VITALS (12 sets, daily range): BP systolic 101–136; BP diastolic 78–92; PULSE 63–140; RESP 17–18; TEMP 36.4–36.8; O2SAT 90–97
[2021-08-23 05:44] LABS: Absolute Lymphocyte Count 1.27 X10^3/uL (0.83-4.51); Absolute Neutrophil Count 5.4 X10^3/uL (2.0-7.7); Basophil# 0.03 X10^3/uL; Basophil% 0.4 % (0-1); Eosinophil# 0.14 X10^3/uL; Eosinophils% 1.9 % (0-5); Hematocrit 37.4 % (37-47); Hemoglobin 11.7 g/dL (12.0-15.0); Lymphocyte # 1.27 X10^3/ul (0.83-4.51); Lymphocyte % 16.9 % (19-41); Mean Corp Hgb Conc 31.3 g/dL (32-36); Mean Corpuscular Hgb 28.7 pg (27.0-32.0); Mean Corpuscular Volume 91.7 fL (81-99); Mean Platelet Vol. 13.8 fl (6.2-12.0); Monocyte# 0.67 X10^3/uL; Monocyte% 8.9 % (0-10); NRBC Flagged by Analyzer 0 % (0-5); Neutrophil # 5.39 X10^3/uL (2.7-7.7); Neutrophil % 71.5 % (47-70); POSITIVE COUNT YES; Platelet Count 80 K/mm3 (150-450); RBC Distribution Width CV 14.2 % (11.6-14.6); RBC Distribution Width SD 47.6 fl (35.1-43.9); Red Blood Count 4.08 M/mm3 (4.2-5.4); White Blood Count 7.5 K/mm3 (4.4-11.0)
[2021-08-23 06:09] LABS: Anion Gap 3 (5-15); BUN 22 mg/dL (7-18); BUN/Creat Ratio 27.3 RATIO (10-20); Calcium,Total 8.2 mg/dL (8.5-10.1); Chloride 109 mmol/L (98-107); Creatinine, Serum 0.81 mg/dL (0.55-1.02); EST Glomerular Filtration Rate 74 mL/min (>60); Est Glom Filt Rate - Afr Amer 90 mL/min (>60); Estimated Creatinine Clearance 47.37 ml/min; Glucose 115 mg/dL (74-106); Potassium 4.1 mmol/L (3.5-5.1); Sodium Level 142 mmol/L (136-145)
[2021-08-23] MEDS: Amiodarone 200 MG Tablet PO ×2 (06:13→14:40)
--- NOTE | 2021-08-23 07:29 | PN.HOSP_ITS ---
Subjective Subjective Patient seen complains of significant discomfort in the left ankle. Awaiting placement in a care home facility Objective Data Objective Data Vital Signs: Vital Signs Temp Pulse Resp BP Pulse Ox 97.9 F 98 18 136/92 H 97 08/23/21 04:10 08/23/21 06:19 08/23/21 04:10 08/23/21 06:10 08/23/21 04:10 Oxygen Flow Rate (L/min) 3 Oxygen Delivery Method Nasal Cannula Weight: 69.763 kg Body Mass Index (BMI) 29.0 Intake & Output: Intake and Output for Last 24 Hours 08/21/21 08/22/21 08/23/21 23:59 23:59 23:59 Intake Total 600 / 600 Output Total 300 / 300 Balance 300 / 300 Lab / Micro Data Result Diagrams: 08/23/21 04:39 08/23/21 04:39 Labs: Laboratory Results - last 24 hr 08/22/21 06:00: Sodium 141, Potassium 4.0, Chloride 106, Carbon Dioxide 30.0, Anion Gap 5, BUN 28 H, Creatinine 0.95, Estim Creat Clear Calc 40.39, Est GFR (MDRD) Af Amer 74, Est GFR (MDRD) Non-Af 61, BUN/Creatinine Ratio 29.4 H, Glucose 124 H, Calcium 8.4 L 08/23/21 04:39: WBC 7.5, RBC 4.08 L, Hgb 11.7 L, Hct 37.4, MCV 91.7, MCH 28.7, MCHC 31.3 L, RDW Std Deviation 47.6 H, RDW Coeff of Mikayla 14.2, Plt Count 80 L, MPV 13.8 H, Immature Gran % (Auto) 0.400, Neut % (Auto) 71.5 H, Lymph % (Auto) 16.9 L, [place] % (Auto) 8.9, Eos % (Auto) 1.9, Baso % (Auto) 0.4, Absolute Neuts (auto) 5.4, Absolute Lymphs (auto) 1.27, Nucleated RBC % 0 08/23/21 04:39: Sodium 142, Potassium 4.1, Chloride 109 H, Carbon Dioxide 30.0, Anion Gap 3 L, BUN 22 H, Creatinine 0.81, Estim Creat Clear Calc 47.37, Est GFR (MDRD) Af Amer 90, Est GFR (MDRD) Non-Af 74, BUN/Creatinine Ratio 27.3 H, Glucose 115 H, Calcium 8.2 L Physical Exam Narrative GENERAL: cooperative HEENT: Atraumatic; EYES; Anicteric, Normal Conjunctiva NECK; supple, normal thyroid, RESPIRATORY: Diminished to auscultation CARDIOVASCULAR: Regular S1 S2, GI: soft, normoactive bowel sounds, : No Renal angle tenderness; EXTREMITIES: No edema, no clubbing, MUSCULOSKELETAL: Left ankle immobilized NEURO: Awake; no lateralizing signs. SKIN: No Rash PSYCH; Flat affect Assessment & Plan Assessment/Plan (1) Bimalleolar fracture of left ankle: QUALIFIERS: Encounter type: initial encounter Fracture type: closed Qualified Code(s): S82.842A - Displaced bimalleolar fracture of left lower leg, initial encounter for closed fracture (2) Frequent falls: (3) Urinary tract infection: QUALIFIERS: Hematuria presence: without hematuria Urinary tract infection type: acute cystitis Qualified Code(s): N30.00 - Acute cystitis without hematuria PLAN: Patient is a 71-year-old lady admitted following a fall found to have bimalleolar left ankle fracture 1. Fall with bimalleolar fracture involving the left ankle ?Admitted for immobilization pain management with consultation placed to orthopedics. Patient was seen by Dr. Ra Sales who recommended conservative management at this point -08/23/2021; awaiting transfer to a care home facility pending insurance approval 2. Acute cystitis ?Started on Rocephin cultures sent we will monitor ?08/23/2021; patient urine cultures pending 3. A. fib ?Rate controlled at on amiodarone and is on systemic anticoagulation with Eliquis 4. Hypertension - Blood pressure controlled, home medications continued with dose adjustment as needed 5. DVT prophylaxis ?Patient is on Eliquis; restarted 6. Physical deconditioning - Requested for PT OT eval and social services director to assist with discharge planning Charges/Coding Visit Charges Inpatient E&M: 17254 Subs Hosp L2
[2021-08-23] MEDS: Sertraline 50 MG Tablet 75 MG PO (10:05)
[2021-08-23] MEDS: APIXABAN 5 MG TABLET PO (10:06)
[2021-08-23] MEDS: Pantoprazole Sodium 40 MG Tablet PO (10:06)
[2021-08-23] MEDS: Ergocalciferol 1.25 MG (50, 000 UNIT) Capsule PO (10:06)
[2021-08-23] MEDS: Magnesium Chloride 64 MG Delay Rel.Tablet 128 MG PO (10:06)
[2021-08-23] MEDS: Metoprolol Tartrate 50 MG Tablet PO (10:06)
[2021-08-23] MEDS: Senna/Docusate Sodium 1 Tablet 2 TABLET PO (10:07)
[2021-08-23] MEDS: proMETHazine 25 MG Tablet PO ×2 (10:18→14:37)
[2021-08-23] MEDS: oxyCODONE 5 MG Tablet PO (10:18)
--- NOTE | 2021-08-23 14:05 | TREXTCAR_ITS ---
Diet 08/22/21 13:23 Diet: Regular - General Is pt able to select menu?: Yes Routine Orders/Code Status Code Status: Full Code Therapies Weight Bearing: Non weight bearing Physical Therapy: Eval and Treat Occupational Therapy: Eval and Treat Problem/Diagnosis (1) Bimalleolar fracture of left ankle: Status: Acute (2) Frequent falls: Status: Acute (3) Urinary tract infection: Status: Acute Allergies/Procedures Done in Hospital Allergies doxycycline Allergy (Verified 08/22/21 00:16) Unknown Iodinated Contrast Media [Iodinated Contrast Media - IV Dye] Allergy (Verified 08/22/21 00:16) Rash Sulfa (Sulfonamide Antibiotics) Allergy (Verified 08/22/21 00:16) Unknown erythromycin base Adverse Reaction (Verified 08/22/21 00:16) Upset Stomach hydrocodone bitartrate [From Vicodin] Adverse Reaction (Verified 08/22/21 00:16) HEADACHE Type of Care/Length of Stay Estimated LOS: Convalescent Care Less Than 30 days Type of Care Needed: Skilled Rehab Potential: Good Prognosis: Good Additional Orders/Day of Discharge Day of Discharge: 08/23/21 Dietary and Speech Recommendations Dietitian Recommendations/Changes: Will change diet to Regular d/t pt preference d/t decreased appetite. Continue ONS as ordered - adjust as po intake improves. Discharge Plan Admission Admit Date/Time: 08/22/21 03:22 Attending Provider: Sudhakar Oreilly Primary Care Provider: Selma Whitaker Consulting Providers: Ra Hanson Instructions Patient Instructions: ED Ankle Fracture, Distal Fibula Additional Instructions / Restrictions: Remain non-weightbearing to left ankle with asssistance keep splint clean, dry and intact elevated left ankle above heart at rest Ice behind knee 3 times a day for 15 minutes Follow up with Dr. Hanson in 1-2 weeks. Discharge Orders/Prescriptions Prescriptions: New acetaminophen [Tylenol] 325 mg Tablet 650 mg PO Q6H PRN PRN (Reason: Pain Score 1-10/Temp > 100.7 F) Qty: 0 RF: 0 sennosides-docusate sodium [Stool Softener-Stimulant Laxat] 8.6-50 mg Tablet 2 tab PO BID PRN PRN (Reason: Constipation) Qty: 1 RF: 0 metoprolol tartrate 50 mg Tablet 50 mg PO BID Qty: 0 RF: 0 cefdinir 300 mg Capsule 300 mg PO Q12 Qty: 10 RF: 0 oxycodone 5 mg Tablet 5 mg PO Q4H PRN PRN (Reason: Pain Score 6-10) 3 Days Qty: 15 RF: 0 Ensure Enlive 0.08 gram-1.5 kcal/mL Liquid 120 ml PO 4X/DAY Qty: 0 RF: 0 Continued promethazine 25 MG tablet 25 mg PO TID PRN PRN (Reason: Nausea) RF: 0 ferrous sulfate [Iron (ferrous sulfate)] 325 MG tablet 650 mg PO QODAY RF: 0 latanoprost 0.005 % Drops 1 drp EACH EYE QPM RF: 0 omeprazole 40 mg Capsule,Delayed Release(Dr/Ec) 40 mg PO DAILY RF: 0 cyanocobalamin (vitamin B-12) 1,000 mcg/mL solution 1,000 mcg IM QMONTH RF: 0 magnesium 250 mg Tablet 500 mg PO DAILY RF: 0 sertraline 50 mg Tablet 75 mg PO DAILY RF: 0 cholecalciferol (vitamin D3) 1,250 mcg (50,000 unit) Capsule 1,250 mcg PO .2X/WEEK RF: 0 amiodarone 200 mg tablet 200 mg PO TID RF: 0 furosemide [Lasix] 20 mg tablet 20 mg PO DAILY RF: 0 Eliquis 5 mg tablet 5 mg PO BID RF: 0 Discontinued enalapril maleate 20 MG tablet 20 mg PO BID RF: 0 oxycodone 10 mg tablet 10 mg PO TID PRN PRN (Reason: Pain) RF: 0 amlodipine 10 MG tablet 10 mg PO DAILY RF: 0 metoprolol tartrate 100 mg tablet 150 mg PO BID RF: 0 Referrals / Follow Up: Ra Hanson DPM [STAFF PHYSICIAN] - 08/31/21 Selma Whitaker MD [Primary Care Provider] - Disposition Disposition (needs filled in before D/C Order can be placed): [facility]
--- NOTE | 2021-08-23 14:15 | CASEMGMT ---
Addendum entered by Noemi Blackwell 08/23/21 16:06: SW received call from pt's son Naldo. SW updated Naldo that pt will be discharged to [facility] today at 4:30pm. Naldo states understanding. Addendum entered by Noemi Blackwell 08/23/21 15:50: SERA faxed completed discharge paperwork to [facility] including transfer to extended care facility, signed medication list, any scripts, COVID test/tool, and [facility]. Original in SNF folder and copy on pt's chart. SERA completed [facility] in [facility]. Original in SNF folder and copy on pt's chart. SERA spoke with RN, pt to transport via cot. SW accessed trip assist and arranged transportation via cot for 4:30pm. Transportation form completed and placed on SNF folder and copy on pt's chart. RN updated on transportation time. SERA placed a call to Abigail at [facility] and updated her on discharge and transportation time. SW in to speak with pt. SW updated pt on discharge and transportation time to [facility]. SW informed pt that this worker will call her son Naldo to update. Pt states understanding. SW attempted to call both pt's son Naldo and his Diane (as per previous conversation with Naldo he wanted this worker to call Diane with updates on discharge) but there was no answer. Voicemail left. Plan: [facility] today under Convalescent stay with Physician's transporting pt via cot at 4:30pm DESIREE Miller Original Note: Social Work Note SW received message from Abigail at [facility] stating pre-cert has been obtained, pt can discharge to [facility] today. SERA updated physician. Plan: [facility] skilled Noemi RASCON, PROCUREMENT ANALYST
--- NOTE | 2021-08-23 14:19 | DS.PCM_ITS ---
Providers Date of Admission: 08/22/21 Primary Care Physician: Dr. Selma Whitaker MD Consultations 08/22/21 05:12 Consult: Podiatry Routine Consulting Provider: Ra Hanson Reason for Consult: left ankle fracture EMERGENT Consult: No MD Notified: Yes Date Notified: 08/22/21 Time Notified: 07:40 Method of Notification: Text Reason For Visit: LEFT ANKLE Diagnosis Discharge Diagnosis (1) Bimalleolar fracture of left ankle: Status: Acute Code(s): S82.842A - Displaced bimalleolar fracture of left lower leg, initial encounter for closed fracture Qualifiers: Encounter type: initial encounter Fracture type: closed Qualified Code(s): S82.842A - Displaced bimalleolar fracture of left lower leg, initial encounter for closed fracture (2) Frequent falls: Status: Acute Code(s): R29.6 - Repeated falls (3) Urinary tract infection: Status: Acute Code(s): N39.0 - Urinary tract infection, site not specified Qualifiers: Urinary tract infection type: acute cystitis Hematuria presence: without hematuria Qualified Code(s): N30.00 - Acute cystitis without hematuria Medications at Discharge Home Medications promethazine 25 mg PO TID PRN PRN 01/05/17 ferrous sulfate [Iron (ferrous sulfate)] 650 mg PO QODAY 08/04/17 cholecalciferol (vitamin D3) 1,250 mcg PO .2X/WEEK 07/21/21 cyanocobalamin (vitamin B-12) 1,000 mcg IM QMONTH 07/21/21 latanoprost 1 drp EACH EYE QPM 07/21/21 magnesium 500 mg PO DAILY 07/21/21 omeprazole 40 mg PO DAILY 07/21/21 sertraline 75 mg PO DAILY 07/21/21 Eliquis 5 mg PO BID 08/22/21 amiodarone 200 mg PO TID 08/22/21 furosemide [Lasix] 20 mg PO DAILY 08/22/21 acetaminophen [Tylenol] 650 mg PO Q6H PRN PRN #0 tab 08/23/21 cefdinir 300 mg PO Q12 #10 cap 08/23/21 food supplemt, lactose-reduced [Ensure Enlive] 120 ml PO 4X/DAY #0 ml 08/23/21 metoprolol tartrate 50 mg PO BID #0 tab 08/23/21 oxycodone 5 mg PO Q4H PRN PRN 3 Days #15 tab 08/23/21 sennosides-docusate sodium [Stool Softener-Stimulant Laxat] 2 tab PO BID PRN PRN #1 tab 08/23/21 Hospital Course Summary of Care Provided Minutes Spent on Discharge: 35 Hospital Course: Patient is a 71-year-old lady admitted following a fall found to have bimalleolar left ankle fracture 1. Fall with bimalleolar fracture involving the left ankle ?Admitted for immobilization pain management with consultation placed to orthopedics. Patient was seen by Dr. Ra Sales who recommended conservative management at this point 2. Acute cystitis with E. coli ?Started on Rocephin cultures sent we will monitor ?08/23/2021; cultures came back positive for E. coli patient was on Rocephin this was switched to cefdinir on discharge 3. A. fib ?Rate controlled at on amiodarone and is on systemic anticoagulation with El iquis 4. Hypertension - Blood pressure controlled, home medications continued with dose adjustment as needed 5. DVT prophylaxis ?Patient is on Eliquis; restarted 6. Physical deconditioning - Requested for PT OT eval and elementary school social worker to assist with discharge planning Physical Exam Narrative GENERAL: cooperative HEENT: Atraumatic; EYES; Anicteric, Normal Conjunctiva NECK; supple, normal thyroid, RESPIRATORY: Diminished to auscultation CARDIOVASCULAR: Regular S1 S2, GI: soft, normoactive bowel sounds, : No Renal angle tenderness; EXTREMITIES: No edema, no clubbing, MUSCULOSKELETAL: Left ankle immobilized NEURO: Awake; no lateralizing signs. SKIN: No Rash PSYCH; Flat affect Weight / BMI Weight Weight: 69.763 kg Body Mass Index (BMI) 29.0 ABG / Lab / Microbiology Data Result Diagrams: 08/23/21 04:39 08/23/21 04:39 Laboratory: Laboratory Results - last 24 hr 08/23/21 04:39: WBC 7.5, RBC 4.08 L, Hgb 11.7 L, Hct 37.4, MCV 91.7, MCH 28.7, MCHC 31.3 L, RDW Std Deviation 47.6 H, RDW Coeff of Mikayla 14.2, Plt Count 80 L, MPV 13.8 H, Immature Gran % (Auto) 0.400, Neut % (Auto) 71.5 H, Lymph % (Auto) 16.9 L, [place] % (Auto) 8.9, Eos % (Auto) 1.9, Baso % (Auto) 0.4, Absolute Neuts (auto) 5.4, Absolute Lymphs (auto) 1.27, Nucleated RBC % 0 08/23/21 04:39: Sodium 142, Potassium 4.1, Chloride 109 H, Carbon Dioxide 30.0, Anion Gap 3 L, BUN 22 H, Creatinine 0.81, Estim Creat Clear Calc 47.37, Est GFR (MDRD) Af Amer 90, Est GFR (MDRD) Non-Af 74, BUN/Creatinine Ratio 27.3 H, Glucose 115 H, Calcium 8.2 L Microbiology: Microbiology 08/22/21 01:30 Urine Catheter - Catheter Urine Culture - Preliminary Presumptive E. coli D/C Instructions Discharge Diet: No restrictions Discharge Activity: Return to Normal Activity Call your doctor if you observe: Fever of 101 or Higher, Shortness of breath, Fainting spells and Chest pain Meaningful Use Info Meaningful Use Diagnoses (Choose all that apply): None applicable Discharge Plan Admission Admit Date/Time: 08/22/21 03:22 Attending Provider: Sudhakar Oreilly Primary Care Provider: Selma Whitaker Consulting Providers: Ra Hanson Instructions Patient Instructions: ED Ankle Fracture, Distal Fibula Additional Instructions / Restrictions: Remain non-weightbearing to left ankle with asssistance keep splint clean, dry and intact elevated left ankle above heart at rest Ice behind knee 3 times a day for 15 minutes Follow up with Dr. Hanson in 1-2 weeks. Discharge Orders/Prescriptions Prescriptions: New acetaminophen [Tylenol] 325 mg Tablet 650 mg PO Q6H PRN PRN (Reason: Pain Score 1-10/Temp > 100.7 F) Qty: 0 RF: 0 sennosides-docusate sodium [Stool Softener-Stimulant Laxat] 8.6-50 mg Tablet 2 tab PO BID PRN PRN (Reason: Constipation) Qty: 1 RF: 0 metoprolol tartrate 50 mg Tablet 50 mg PO BID Qty: 0 RF: 0 cefdinir 300 mg Capsule 300 mg PO Q12 Qty: 10 RF: 0 oxycodone 5 mg Tablet 5 mg PO Q4H PRN PRN (Reason: Pain Score 6-10) 3 Days Qty: 15 RF: 0 Ensure Enlive 0.08 gram-1.5 kcal/mL Liquid 120 ml PO 4X/DAY Qty: 0 RF: 0 Continued promethazine 25 MG tablet 25 mg PO TID PRN PRN (Reason: Nausea) RF: 0 ferrous sulfate [Iron (ferrous sulfate)] 325 MG tablet 650 mg PO QODAY RF: 0 latanoprost 0.005 % Drops 1 drp EACH EYE QPM RF: 0 omeprazole 40 mg Capsule,Delayed Release(Dr/Ec) 40 mg PO DAILY RF: 0 cyanocobalamin (vitamin B-12) 1,000 mcg/mL solution 1,000 mcg IM QMONTH RF: 0 magnesium 250 mg Tablet 500 mg PO DAILY RF: 0 sertraline 50 mg Tablet 75 mg PO DAILY RF: 0 cholecalciferol (vitamin D3) 1,250 mcg (50,000 unit) Capsule 1,250 mcg PO .2X/WEEK RF: 0 amiodarone 200 mg tablet 200 mg PO TID RF: 0 furosemide [Lasix] 20 mg tablet 20 mg PO DAILY RF: 0 Eliquis 5 mg tablet 5 mg PO BID RF: 0 Discontinued enalapril maleate 20 MG tablet 20 mg PO BID RF: 0 oxycodone 10 mg tablet 10 mg PO TID PRN PRN (Reason: Pain) RF: 0 amlodipine 10 MG tablet 10 mg PO DAILY RF: 0 metoprolol tartrate 100 mg tablet 150 mg PO BID RF: 0 Referrals / Follow Up: Ra Hanson DPM [STAFF PHYSICIAN] - 08/31/21 Selma Whitaker MD [Primary Care Provider] - Disposition Disposition (needs filled in before D/C Order can be placed): [facility] Charges/Coding Visit Charges Inpatient E&M: 11838 Disch Hosp
[2021-08-23] MEDS: Acetaminophen 325 MG Tablet 650 MG PO (14:37)
--- NOTE | 2021-08-23 16:54 | NURSING ---
report called to Khalida
== END 2021-08-23 17:17 | disposition skilled nursing facility (03) | DRG 563 ==
LOC: ED 03:10 → MS3 03:49
PROVIDERS: Admitting Provider Hospitalist; Emergency Provider Emergency Medicine; PCP Internal Medicine; Visit Provider Internal Medicine
DX: S82.842A Displaced bimalleolar fracture of left lower leg, initial encounter for closed fracture (principal); I48.91 Unspecified atrial fibrillation; N30.00 Acute cystitis without hematuria; F32.A Depression, unspecified; I10 Essential (primary) hypertension; I08.1 Rheumatic disorders of both mitral and tricuspid valves; W19.XXXA Unspecified fall, initial encounter; M79.7 Fibromyalgia; B96.20 Unspecified Escherichia coli [E. coli] as the cause of diseases classified elsewhere; F41.9 Anxiety disorder, unspecified; K21.9 Gastro-esophageal reflux disease without esophagitis; Z79.01 Long term (current) use of anticoagulants; Y93.9 Activity, unspecified; Y99.9 Unspecified external cause status; Y92.89 Other specified places as the place of occurrence of the external cause; Z79.899 Other long term (current) drug therapy; R29.6 Repeated falls
CPT/HCPCS: 29515; 36415; 70450; 71045; 73610; 80048; 80053; 81001; 82306; 83690; 84484; 85025; 85610; 87086; 87088; 87186; 87426; 93005; 96365; 96366; 96375; 97110; 97162; 97167; 97530; 97535; 97802; 99218; 99285; J7050; A4216; G0378; J2405

== ENCOUNTER 2021-11-01 10:16 | Observation (INO) | payer MEDICARE, SELFPAY ==
[2021-11-01] VITALS (12 sets, daily range): BP systolic 83–112; BP diastolic 58–89; PULSE 57–109; RESP 14–20; TEMP 36.1–37.3; O2SAT 90–100; BMI 27.8; BMI 27.3
--- NOTE | 2021-11-01 10:23 | EX.ED.DYSGE1 ---
HPI History of Present Illness Chief Complaint: Head Injury Informant: patient and EMS Narrative Narrative: 71-year-old female presents to the emergency room via EMS. EMS states that physical therapy was at the house who was concerned because she seemed weaker than normal and that she had fallen last night. Patient states that she was in the bathroom at some point last night and was standing there and woke up on the floor. She states that she does not believe that she was injured. The patient can provide very little history or much input into her situation. When asked if she has had any new medicine she says I believe so but I do not know what they are. She then tells me to go look in the computer. I informed her that probably will not be in the computer because they are new. She does not finish her sentences and speaks in very random statements. PFSH PFSH Medical History Anxiety and depression Atrial fibrillation Congestive heart failure (CHF) Depression Esophageal cancer Esophageal cancer Fibromyalgia GERD (gastroesophageal reflux disease) History of gastrectomy HTN (hypertension) Non-smoker Home Medications promethazine 25 mg PO TID PRN PRN 01/05/17 [History Last Taken 08/03/17 20:00] ferrous sulfate [Iron (ferrous sulfate)] 325 mg PO QODAY 08/04/17 [History Last Taken 08/20/21 09:00] cholecalciferol (vitamin D3) 1,250 mcg PO .2X/WEEK 07/21/21 [History Last Taken 08/19/21 09:00] cyanocobalamin (vitamin B-12) 1,000 mcg IM QMONTH 07/21/21 [History Last Taken 08/13/21 09:00] latanoprost 1 drp EACH EYE QPM 07/21/21 [History Last Taken 08/20/21 21:00] magnesium 500 mg PO DAILY 07/21/21 [History Last Taken 08/21/21 09:00] omeprazole 40 mg PO DAILY 07/21/21 [History Last Taken 08/21/21 09:00] sertraline 75 mg PO DAILY 07/21/21 [History Last Taken 08/21/21 09:00] amlodipine 10 mg PO DAILY 11/01/21 [History Last Taken Unknown] diphenhydramine HCl 25 mg PO TID PRN PRN 11/01/21 [History Last Taken Unknown] enalapril maleate 20 mg PO BID 11/01/21 [History Last Taken Unknown] metoprolol tartrate 25 mg PO DAILY 11/01/21 [History Last Taken Unknown] oxycodone 10 mg PO TID PRN PRN 11/01/21 [History Last Taken Unknown] Allergy/AdvReac Type Severity Reaction Status Date / Time adhesive tape Allergy Rash Verified 11/01/21 11:17 dobutamine Allergy Low blood Verified 11/01/21 11:17 pressure doxycycline Allergy Unknown Verified 11/01/21 11:17 Iodinated Contrast Media Allergy Rash Verified 11/01/21 11:17 [Iodinated Contrast Media - IV Dye] Sulfa (Sulfonamide Allergy Unknown Verified 11/01/21 11:17 Antibiotics) erythromycin base AdvReac Upset Verified 11/01/21 11:17 Stomach hydrocodone bitartrate AdvReac HEADACHE Verified 11/01/21 11:17 [From Vicodin] ibuprofen AdvReac Nausea Verified 11/01/21 11:17 chlortab-4 Allergy Other Uncoded 11/01/21 11:17 Family History Father Cancer Lung cancer. Mother Myocardial infarction Heart disease Surgical History H/O ventral hernia repair History of esophageal surgery Hx of appendectomy Hx of cholecystectomy S/P gastrectomy Social History household members: none housing: house pets and animals: No Smoking Status: Never smoker substance use type: does not use ROS ROS ED Review of Systems ROS Unobtainable: due to mental status EXAM Physical Exam Const Vital Signs: 11/01/21 10:16 11/01/21 10:18 11/01/21 11:35 Temperature 97 F L Temperature Source Temporal Pulse Rate 85 57 L Respiratory Rate 16 Respiratory Effort Normal Non-Labored Respiratory Pattern Normal Blood Pressure 86/62 L 83/58 L Blood Pressure Mean 70 66 Pulse Ox 95 Oxygen Delivery Method Room Air Oxygen Flow Rate (L/min) 11/01/21 12:16 11/01/21 12:40 11/01/21 13:40 Temperature 97.8 F 98.5 F Temperature Source Oral Oral Pulse Rate 75 104 H 98 Respiratory Rate 18 20 H 14 Respiratory Effort Respiratory Pattern Blood Pressure 98/78 96/74 112/89 H Blood Pressure Mean 84 81 96 Pulse Ox 91 90 100 Oxygen Delivery Method Room Air Room Air Nasal Cannula Oxygen Flow Rate (L/min) 2 11/01/21 14:00 Temperature 98.5 F Temperature Source Oral Pulse Rate 98 Respiratory Rate 14 Respiratory Effort Respiratory Pattern Blood Pressure 112/89 H Blood Pressure Mean 96 Pulse Ox 100 Oxygen Delivery Method Nasal Cannula Oxygen Flow Rate (L/min) 2 Positive well nourished, well developed and obese General Appearance ED: well developed Nutritional Appearance: obese HEENT Reports normocephalic, head/scalp atraumatic, TM's clear and moist mucous membranes Negative for trauma Tympanic Membrane ED: Yes TM's clear Eyes PERRL and EOMs intact bilaterally Neck no lymphadenopathy, supple and no JVD Resp normal respiratory effort and clear to auscultation bilaterally Cardio regular rate, regular rhythm and no murmurs GI normal to inspection, nondistended, normoactive bowel sounds and non-tender Palpation: soft Narrative: Patient has significant amount of excoriated/irritated skin in the inguinal folds. Back/Spine no CVA tenderness and normal ROM Extremity normal to inspection General Extremety ED: Negative for edema General Extremity: Negative for edema Neuro CN's II-XII intact bilaterally Sensorium / Orientation: alert and orientation impaired Motor Exam: strength 5/5 throughout Psych Mood & Affect: Negative for depressed or tearful Skin no rashes or lesions noted and no wounds MDM MDM MDM Narrative Medical decision making narrative: Patient received IV fluids and her blood pressure responded appropriately and she has been normotensive over the past hour and a half. White count 8.5 with a hemoglobin of 11.7 INR 2. Creatinine 0.97 lactic acid elevated 2.4. Urinalysis which was a cath specimen positive for nitrates 0-5 whites 2+ bacteria sent for culture blood cultures obtained patient received Rocephin. CT the brain was negative my interpretation of the chest x-ray is no acute process. The patient is globally weak and frail most likely will need admitted and transferred to skilled facility or to be moved in with family. Lab Data Attestation: I reviewed the patient's lab results. Labs: Laboratory Results - last 24 hr 11/01/21 11/01/21 11/01/21 10:35 10:35 10:35 WBC 8.5 RBC 4.01 L Hgb 11.7 L Hct 36.7 L MCV 91.5 MCH 29.2 MCHC 31.9 L RDW Std Deviation 49.9 H RDW Coeff of Mikayla 14.6 Plt Count 119 L MPV 13.3 H Immature Gran % (Auto) 0.500 Neut % (Auto) 80.6 H Lymph % (Auto) 11.3 L [place] % (Auto) 6.3 Eos % (Auto) 0.8 Baso % (Auto) 0.5 Absolute Neuts (auto) 6.8 Absolute Lymphs (auto) 0.96 Nucleated RBC % 0 PT 22.0 H INR 2.0 APTT 40.5 H Sodium 140 Potassium 3.9 Chloride 106 Carbon Dioxide 27.0 Anion Gap 7 BUN 18 Creatinine 0.97 Estim Creat Clear Calc 39.56 Est GFR (MDRD) Af Amer 73 Est GFR (MDRD) Non-Af 60 BUN/Creatinine Ratio 18.6 Glucose 178 H Lactic Acid Calcium 8.1 L Total Bilirubin 0.60 AST 25 ALT 17 Alkaline Phosphatase 168 H Troponin I High Sens 17 Total Protein 5.6 L Albumin 2.5 L Globulin 3.1 Albumin/Globulin Ratio 0.8 L Lipase 33 L Urine Color Urine Clarity Urine pH Ur Specific [place] Urine Protein Urine Glucose (UA) Urine Ketones Urine Occult Blood Urine Nitrite Urine Bilirubin Urine Urobilinogen Ur Leukocyte Esterase Urine RBC Urine WBC Ur Squamous Epith Cells Urine Bacteria Urine Mucus 11/01/21 11/01/21 10:35 12:15 WBC RBC Hgb Hct MCV MCH MCHC RDW Std Deviation RDW Coeff of Mikayla Plt Count MPV Immature Gran % (Auto) Neut % (Auto) Lymph % (Auto) [place] % (Auto) Eos % (Auto) Baso % (Auto) Absolute Neuts (auto) Absolute Lymphs (auto) Nucleated RBC % PT INR APTT Sodium Potassium Chloride Carbon Dioxide Anion Gap BUN Creatinine Estim Creat Clear Calc Est GFR (MDRD) Af Amer Est GFR (MDRD) Non-Af BUN/Creatinine Ratio Glucose Lactic Acid 2.4 H* Calcium Total Bilirubin AST ALT Alkaline Phosphatase Troponin I High Sens Total Protein Albumin Globulin Albumin/Globulin Ratio Lipase Urine Color Yellow Urine Clarity Sl. Cloudy Urine pH 6.5 Ur Specific [place] 1.010 Urine Protein Negative Urine Glucose (UA) Normal Urine Ketones Negative Urine Occult Blood 250 H Urine Nitrite Positive H Urine Bilirubin Negative Urine Urobilinogen Normal Ur Leukocyte Esterase 25 H Urine RBC 0-5 SEEN Urine WBC 0-5 SEEN Ur Squamous Epith Cells 0 SEEN Urine Bacteria 2+ Urine Mucus 0 SEEN Radiography Diagnostic Testing: Clinical Impression(s) from Imaging Studies Brain CT 11/01/21 10:26 IMPRESSION: Chronic involutional changes of the brain. Electronically Signed: Marvel Apple MD at 11:04 EDT , Chest X-Ray 11/01/21 10:50 IMPRESSION: Cardiomegaly. Linear calcification along the medial aspect of the pleural surface overlying the left upper lobe. Electronically Signed: Marvel Apple MD at 11:03 EDT , EKG Initial EKG: Attestation: I personally reviewed and interpreted this EKG as follows: Comments: Atrial fibrillation with a ventricular rate of 96 bpm Discharge Plan Dx/Rx/DC Orders Clinical Impression: Syncope and collapse, Acute hypotension, Acute UTI Disposition Disposition: Acute Care [facility]
--- NOTE | 2021-11-01 10:26 | CT_ITS ---
STUDY: CT BRAIN WITHOUT CONTRAST REASON FOR EXAM: Female, 71 years old. Head injury due to a fall. RADIATION DOSAGE (If Supplied By Facility): CTDIvol = ( 44.99 ) mGy, DLP = ( 762.36 ) mGycm TECHNIQUE: Transaxial CT imaging of the brain was performed without administration of intravenous contrast material. Individualized dose optimization techniques were used for this CT. COMPARISON: Comparison is made with prior study dated 08/22/2021. FINDINGS: Normal soft tissue structures. Normal calvarium. There is mild cerebral atrophy with widening of the extra-axial spaces and ventricular dilatation. There are areas of decreased attenuation within the white matter tracts of the supratentorial brain, consistent with microvascular disease changes. Normal basal ganglia and thalami. Normal brainstem. Normal cerebellum. There is no intracranial hemorrhage. There are no findings of an acute ischemic infarction. Atherosclerotic calcification of the cavernous portions of the internal carotid arteries bilaterally. Normal visualized paranasal sinuses. CT/Brain/Head without Contrast IMPRESSION: Chronic involutional changes of the brain. Electronically Signed: Marvel Apple MD at 11:04 EDT ,
--- NOTE | 2021-11-01 10:26 | EKG12_ITS ---
Test Reason : HEAD INJURY Blood Pressure : / mmHG Vent. Rate : 096 BPM Atrial Rate : 094 BPM P-R Int : 000 ms QRS Dur : 088 ms QT Int : 358 ms P-R-T Axes : 000 -13 184 degrees QTc Int : [address] & T wave abnormality, consider lateral ischemia Abnormal ECG Confirmed by LIZETTE FINLEY, LAWRENCE ([id number]), associate editor CHARITO ALLEN ([id number]) on 11/02/2021 9:50:22 AM Referred By: SKYLER Confirmed By:LAWRENCE BAUER MD
[2021-11-01] MEDS: 0.9% Normal Saline 1,000 ML 1000 ML IV (10:35)
[2021-11-01] MEDS: Ondansetron 4 MG/2 ML Vial IV (10:38)
[2021-11-01 10:47] LABS: Absolute Lymphocyte Count 0.96 X10^3/uL (0.83-4.51); Absolute Neutrophil Count 6.8 X10^3/uL (2.0-7.7); Basophil# 0.04 X10^3/uL; Basophil% 0.5 % (0-1); Eosinophil# 0.07 X10^3/uL; Eosinophils% 0.8 % (0-5); Hematocrit 36.7 % (37-47); Hemoglobin 11.7 g/dL (12.0-15.0); Lymphocyte # 0.96 X10^3/ul (0.83-4.51); Lymphocyte % 11.3 % (19-41); Mean Corp Hgb Conc 31.9 g/dL (32-36); Mean Corpuscular Hgb 29.2 pg (27.0-32.0); Mean Corpuscular Volume 91.5 fL (81-99); Mean Platelet Vol. 13.3 fl (6.2-12.0); Monocyte# 0.53 X10^3/uL; Monocyte% 6.3 % (0-10); NRBC Flagged by Analyzer 0 % (0-5); Neutrophil # 6.83 X10^3/uL (2.7-7.7); Neutrophil % 80.6 % (47-70); Platelet Count 119 K/mm3 (150-450); RBC Distribution Width CV 14.6 % (11.6-14.6); RBC Distribution Width SD 49.9 fl (35.1-43.9); Red Blood Count 4.01 M/mm3 (4.2-5.4); White Blood Count 8.5 K/mm3 (4.4-11.0)
--- NOTE | 2021-11-01 10:50 | RAD_ITS ---
STUDY: X-RAY CHEST REASON FOR EXAM: Female, 71 years old. Weakness TECHNIQUE: Single AP portable view of the chest. COMPARISON: Comparison is made with prior examination dated 08/22/2021. FINDINGS: EKG electrodes are seen. Focal linear calcification in the medial aspect of the pleura seen in the left lung apex. No acute infiltrate is seen. There is no demonstrated pleural abnormality. There is mild cardiac enlargement. Surgical clips are seen in the left axillary region. Normal visualized pulmonary arteries. There is atherosclerotic calcification of the aortic arch with tortuosity. Normal visualized thoracic spine. Normal visualized ribs, clavicles, and shoulders. There is no demonstrated abnormality of the visualized soft tissue structures of the upper abdomen. RAD/Chest 1 View (Portable) IMPRESSION: Cardiomegaly. Linear calcification along the medial aspect of the pleural surface overlying the left upper lobe. Electronically Signed: Marvel Apple MD at 11:03 EDT ,
[2021-11-01 10:56] LABS: Partial Thromboplast Time 40.5 Seconds (24.1-36.2)
[2021-11-01 11:04] LABS: ALB/GLOB Ratio 0.8 RATIO (0.9-2.4); AST(SGOT) 25 U/L (15-37); Alanine Aminotransfer ALT/SGPT 17 U/L (13-56); Albumin, Serum 2.5 g/dL (3.2-5.0); Alkaline Phosphatase 168 U/L (45-117); Anion Gap 7 (5-15); BUN 18 mg/dL (7-18); BUN/Creat Ratio 18.6 RATIO (10-20); Calcium,Total 8.1 mg/dL (8.5-10.1); Chloride 106 mmol/L (98-107); Creatinine, Serum 0.97 mg/dL (0.55-1.02); EST Glomerular Filtration Rate 60 mL/min (>60); Est Glom Filt Rate - Afr Amer 73 mL/min (>60); Estimated Creatinine Clearance 39.56 ml/min; Globulin 3.1 g/dL (2.2-4.2); Glucose 178 mg/dL (74-106); Lipase 33 U/L (73-393); Potassium 3.9 mmol/L (3.5-5.1); Protein, Total 5.6 g/dL (6.4-8.2); Sodium Level 140 mmol/L (136-145); Troponin-I HS 17 pg/mL (3.0-54.0)
[2021-11-01 11:19] LABS: Lactic Acid 2.4 mmol/L (0.4-1.9)
[2021-11-01 12:22] LABS: Mucous, Urine 0 SEEN /hpf (<or=2+); Squamous Epithelial Cells - UA 0 SEEN /hpf (5-10)
--- NOTE | 2021-11-01 12:45 | NURSING ---
pt noted to be 90% o2 on RA at this time, pt placed on 2L NC. pt sats increased to 98%
[2021-11-01 14:05] LABS: Color, Urine Yellow (Yellow); Glucose, Dipstick Normal (Normal); Ketone-Dipstick Negative (Negative); Leukocyte Esterase-Dipstick 25 /ul (Negative); Nitrite-Dipstick Positive (Negative); Occult Blood-Urine 250 /ul (Negative); Protein-Dipstick Negative (Negative); Urine Bilirubin Dipstick Negative (Negative); Urine Clarity Sl. Cloudy (Clear); Urine Urobilinogen Normal (Normal); Urine pH 6.5 (5.0 - 8.0)
[2021-11-01 14:24] LABS: Bacteria 2+ /hpf (None Seen); Red Blood Cells-Urine 0-5 SEEN /hpf (0-5); White Blood Cells 0-5 SEEN /hpf (0-5)
[2021-11-01 14:43] LABS: Reflex Lactate? Y
--- NOTE | 2021-11-01 14:45 | PCM.HP.STD ---
HPI - General General Date of Admission: 11/01/21 Date of Service: 11/01/21 Chief Complaint: Fall HPI Narrative KP FLORES, is a 71 with multiple comorbidities including esophageal CA status post reconstructive surgery, paroxysmal A. fib on systemic anticoagulation with Eliquis who presents with a fall. Per patient she was in the bathroom at this point and apparently passed out. She was found on her floor by home health care nurse who called EMS. Patient was brought to the emergency department. In the ED patient was found to be relatively hypotensive resuscitated with IV fluid. Initial work-up came back consistent with cystitis with lactic acidosis. Antibiotics initiated per protocol admitted to a monitored bed for further management PFSH Medical History Anxiety and depression Atrial fibrillation Congestive heart failure (CHF) Depression Esophageal cancer Esophageal cancer Fibromyalgia GERD (gastroesophageal reflux disease) History of gastrectomy HTN (hypertension) Non-smoker Home Medications promethazine 25 mg PO TID PRN PRN 01/05/17 [History Last Taken 08/03/17 20:00] ferrous sulfate [Iron (ferrous sulfate)] 325 mg PO QODAY 08/04/17 [History Last Taken 08/20/21 09:00] cholecalciferol (vitamin D3) 1,250 mcg PO .2X/WEEK 07/21/21 [History Last Taken 08/19/21 09:00] cyanocobalamin (vitamin B-12) 1,000 mcg IM QMONTH 07/21/21 [History Last Taken 08/13/21 09:00] latanoprost 1 drp EACH EYE QPM 07/21/21 [History Last Taken 08/20/21 21:00] magnesium 500 mg PO DAILY 07/21/21 [History Last Taken 08/21/21 09:00] omeprazole 40 mg PO DAILY 07/21/21 [History Last Taken 08/21/21 09:00] sertraline 75 mg PO DAILY 07/21/21 [History Last Taken 08/21/21 09:00] amlodipine 10 mg PO DAILY 11/01/21 [History Last Taken Unknown] apixaban [Eliquis] 5 mg PO BID 11/01/21 [History Last Taken Unknown] enalapril maleate 20 mg PO BID 11/01/21 [History Last Taken Unknown] furosemide 20 mg PO DAILY 11/01/21 [History Last Taken 11/01/21] metoprolol tartrate 150 mg PO DAILY 11/01/21 [History Last Taken 11/01/21] oxycodone 10 mg PO TID PRN PRN 11/01/21 [History Last Taken Unknown] Allergy/AdvReac Type Severity Reaction Status Date / Time adhesive tape Allergy Rash Verified 11/01/21 11:17 chlorpheniramine Allergy Other Verified 11/01/21 15:14 dobutamine Allergy Low blood Verified 11/01/21 11:17 pressure doxycycline Allergy Unknown Verified 11/01/21 11:17 Iodinated Contrast Media Allergy Rash Verified 11/01/21 11:17 [Iodinated Contrast Media - IV Dye] Sulfa (Sulfonamide Allergy Unknown Verified 11/01/21 11:17 Antibiotics) erythromycin base AdvReac Upset Verified 11/01/21 11:17 Stomach hydrocodone bitartrate AdvReac HEADACHE Verified 11/01/21 11:17 [From Vicodin] ibuprofen AdvReac Nausea Verified 11/01/21 11:17 chlortab-4 Allergy Other Uncoded 11/01/21 11:17 Family History Father Cancer Lung cancer. Mother Myocardial infarction Heart disease Surgical History H/O ventral hernia repair History of esophageal surgery Hx of appendectomy Hx of cholecystectomy S/P gastrectomy Social History household members: none housing: house pets and animals: No Smoking Status: Never smoker substance use type: does not use ROS ROS Narrative GENERAL: denies fever, chills, night sweats, HEENT: denies headache, sinus congestion, RESPIRATORY: denies cough, sputum production, CARDIAC: denies chest pain, palpitations, orthopnea, GASTROINTESTINAL: denies abdominal pain, nausea, GENITOURINARY: denies , heamaturia EXTREMITY: denies swelling MUSCULOSKELETAL: denies current joint pain or tenderness NEUROLOGIC: denies focal numbness, weakness, tingling HEMATOLOGIC: denies easy bruising and/or hemorrhage INTEGUMENT: denies rashes PSYCHIATRIC: denies suicidal or homicidal ideation Vital Signs Vital Signs Vital Signs: 11/01/21 10:16 11/01/21 10:18 11/01/21 11:35 Temperature 97 F L Temperature Source Temporal Pulse Rate 85 57 L Respiratory Rate 16 Respiratory Effort Normal Non-Labored Respiratory Pattern Normal Blood Pressure 86/62 L 83/58 L Blood Pressure Mean 70 66 Pulse Ox 95 Oxygen Delivery Method Room Air Oxygen Flow Rate (L/min) 11/01/21 12:16 11/01/21 12:40 11/01/21 13:40 Temperature 97.8 F 98.5 F Temperature Source Oral Oral Pulse Rate 75 104 H 98 Respiratory Rate 18 20 H 14 Respiratory Effort Respiratory Pattern Blood Pressure 98/78 96/74 112/89 H Blood Pressure Mean 84 81 96 Pulse Ox 91 90 100 Oxygen Delivery Method Room Air Room Air Nasal Cannula Oxygen Flow Rate (L/min) 2 11/01/21 14:00 Temperature 98.5 F Temperature Source Oral Pulse Rate 98 Respiratory Rate 14 Respiratory Effort Respiratory Pattern Blood Pressure 112/89 H Blood Pressure Mean 96 Pulse Ox 100 Oxygen Delivery Method Nasal Cannula Oxygen Flow Rate (L/min) 2 Weight Weight: 66.7 kg Body Mass Index (BMI) 27.8 Physical Exam Narrative GENERAL: cooperative HEENT: Atraumatic; EYES; Anicteric, Normal Conjunctiva NECK; supple, normal thyroid, RESPIRATORY: Diminished to auscultation CARDIOVASCULAR: Regular S1 S2, GI: soft, normoactive bowel sounds, : No Renal angle tenderness; EXTREMITIES: No edema, no clubbing, MUSCULOSKELETAL: no muscle wasting NEURO: Awake; no lateralizing signs. SKIN: No Rash PSYCH; Flat affect Results Lab / Micro Data Result Diagrams: 11/01/21 10:35 11/01/21 10:35 Labs: Laboratory Results - last 24 hr 11/01/21 10:35: WBC 8.5, RBC 4.01 L, Hgb 11.7 L, Hct 36.7 L, MCV 91.5, MCH 29.2, MCHC 31.9 L, RDW Std Deviation 49.9 H, RDW Coeff of Mikayla 14.6, Plt Count 119 L, MPV 13.3 H, Immature Gran % (Auto) 0.500, Neut % (Auto) 80.6 H, Lymph % (Auto) 11.3 L, [place] % (Auto) 6.3, Eos % (Auto) 0.8, Baso % (Auto) 0.5, Absolute Neuts (auto) 6.8, Absolute Lymphs (auto) 0.96, Nucleated RBC % 0 11/01/21 10:35: PT 22.0 H, INR 2.0, APTT 40.5 H 11/01/21 10:35: Sodium 140, Potassium 3.9, Chloride 106, Carbon Dioxide 27.0, Anion Gap 7, BUN 18, Creatinine 0.97, Estim Creat Clear Calc 39.56, Est GFR (MDRD) Af Amer 73, Est GFR (MDRD) Non-Af 60, BUN/Creatinine Ratio 18.6, Glucose 178 H, Calcium 8.1 L, Total Bilirubin 0.60, AST 25, ALT 17, Alkaline Phosphatase 168 H, Troponin I High Sens 17, Total Protein 5.6 L, Albumin 2.5 L, Globulin 3.1, Albumin/Globulin Ratio 0.8 L, Lipase 33 L 11/01/21 10:35: Lactic Acid 2.4 H* 11/01/21 12:15: Urine Color Yellow, Urine Clarity Sl. Cloudy, Urine pH 6.5, Ur Specific [place] 1.010, Urine Protein Negative, Urine Glucose (UA) Normal, Urine Ketones Negative, Urine Occult Blood 250 H, Urine Nitrite Positive H, Urine Bilirubin Negative, Urine Urobilinogen Normal, Ur Leukocyte Esterase 25 H, Urine RBC 0-5 SEEN, Urine WBC 0-5 SEEN, Ur Squamous Epith Cells 0 SEEN, Urine Bacteria 2+, Urine Mucus 0 SEEN Radiology Impression Brain CT 11/01/21 10:26 IMPRESSION: Chronic involutional changes of the brain. Electronically Signed: Marvel Apple MD at 11:04 EDT , Chest X-Ray 11/01/21 10:50 IMPRESSION: Cardiomegaly. Linear calcification along the medial aspect of the pleural surface overlying the left upper lobe. Electronically Signed: Marvel Apple MD at 11:03 EDT , Assessment & Plan Assessment/Plan (1) Frequent falls: (2) Urinary tract infection: QUALIFIERS: Urinary tract infection type: acute cystitis Hematuria presence: without hematuria Qualified Code(s): N30.00 - Acute cystitis without hematuria (3) Acute UTI: (4) Acute hypotension: (5) Syncope and collapse: PLAN: Patient is a 71-year-old lady admitted with progressive generalized weakness and falls 1. Fall ? Thought to be secondary to syncopal episode as a result of orthostatic hypotension. Patient has been admitted to a monitored bed currently being resuscitated with IV fluid. Acute shift orthostatics checked 2. Acute cystitis ? Patient has lactic acidosis but no other signs of cellulitis. Patient was started on Rocephin from the ED plan is to continue cultures have been sent 3. A. fib ? Rate controlled patient on amiodarone and systemic anticoagulation with Eliquis. 4. Essential hypertension ? Patient blood pressure was relatively low on admission antihypertensives subsequently held 5. History of esophageal CA ? Status post reconstructive surgery in 1999 6. GERD ? On PPI 7. Depression with anxiety ? Patient is on PPI did continue 8. DVT prophylaxis ? Patient is on Eliquis no need for additional measures Advance planning; did discuss with the patient and family regarding advanced directives as well as CODE STATUS. Did explain the various scenarios involved ( FULL CODE, DNR CCA, DNR CCA with no intubation, and DNR CC and what each meant) patient elected to be full code with CPR and intubation if needed. Order was placed. Time spent on discussion 18 minutes. Charges/Coding Visit Charges Inpatient E&M: 01039 Init Hosp L3 Procedures Hospitalists Procedures: 94187 Critial Care Addl 30 Min
--- NOTE | 2021-11-01 14:45 | NURSING ---
DR EDGARD JASMINE
[2021-11-01] MEDS: Ceftriaxone 1 GM/50 ML BAG IV (14:51)
--- NOTE | 2021-11-01 14:57 | NURSING ---
PCU KITTOE SEPSIS, UTI, SYNCOPE
--- NOTE | 2021-11-01 14:57 | ED.RN ---
[facility] called and advised pt will be admitted. Pt had appointments for the next 3 days. They will call in a couple days to see where she is. [phone]
[2021-11-01 15:37] LABS: Lactic Acid 0.9 mmol/L (0.4-1.9)
[2021-11-01] MEDS: 0.9% Normal Saline 1,000 ML 150 ML IV ×2 (15:46→22:34)
[2021-11-01] MEDS: Acetaminophen 325 MG Tablet 650 MG PO (20:53)
[2021-11-01] MEDS: Latanoprost 0.005% 1 Bottle 1 DRP EACH EYE (20:54)
[2021-11-01] MEDS: oxyCODONE 5 MG Tablet 10 MG PO (20:54)
[2021-11-01] MEDS: APIXABAN 5 MG TABLET PO (20:58)
--- NOTE | 2021-11-01 23:46 | NURSING ---
no urinary out put. Pt scanned for only 6cc
[2021-11-02] VITALS (10 sets, daily range): BP systolic 90–103; BP diastolic 70–81; PULSE 82–98; RESP 16–18; TEMP 36.5–36.9; O2SAT 92–97
[2021-11-02] MEDS: 0.9% Normal Saline 1,000 ML 150 ML IV (05:19)
--- NOTE | 2021-11-02 05:50 | NURSING ---
pt still has not voided. Pt bladder scan for 281. Pt denies the needing to void.
[2021-11-02 06:02] LABS: Absolute Lymphocyte Count 1.32 X10^3/uL (0.83-4.51); Absolute Neutrophil Count 4.8 X10^3/uL (2.0-7.7); Basophil# 0.04 X10^3/uL; Basophil% 0.6 % (0-1); Eosinophil# 0.17 X10^3/uL; Eosinophils% 2.5 % (0-5); Hematocrit 38.7 % (37-47); Lymphocyte # 1.32 X10^3/ul (0.83-4.51); Lymphocyte % 19.5 % (19-41); Mean Corpuscular Hgb 28.8 pg (27.0-32.0); Mean Platelet Vol. 13.4 fl (6.2-12.0); Monocyte# 0.44 X10^3/uL; Monocyte% 6.5 % (0-10); NRBC Flagged by Analyzer 0 % (0-5); Neutrophil # 4.77 X10^3/uL (2.7-7.7); Neutrophil % 70.6 % (47-70); Platelet Count 115 K/mm3 (150-450); RBC Distribution Width CV 14.9 % (11.6-14.6); RBC Distribution Width SD 51.5 fl (35.1-43.9); Red Blood Count 4.16 M/mm3 (4.2-5.4); White Blood Count 6.8 K/mm3 (4.4-11.0)
[2021-11-02 06:36] LABS: Anion Gap 4 (5-15); BUN 15 mg/dL (7-18); BUN/Creat Ratio 19.8 RATIO (10-20); Calcium,Total 7.9 mg/dL (8.5-10.1); Chloride 110 mmol/L (98-107); Creatinine, Serum 0.76 mg/dL (0.55-1.02); EST Glomerular Filtration Rate 80 mL/min (>60); Est Glom Filt Rate - Afr Amer 97 mL/min (>60); Estimated Creatinine Clearance 38.37 ml/min; Glucose 86 mg/dL (74-106); Magnesium 2.1 mg/dL (1.6-2.6); Phosphorus 2.9 mg/dL (2.5-4.9); Potassium 4.3 mmol/L (3.5-5.1); Sodium Level 141 mmol/L (136-145)
--- NOTE | 2021-11-02 07:38 | PCM.PN.HOSP ---
Subjective Subjective Patient seen still appears frail and weak. Objective Data Objective Data Vital Signs: Vital Signs Temp Pulse Resp BP Pulse Ox 97.9 F 92 17 103/81 H 92 11/02/21 03:57 11/02/21 06:59 11/02/21 03:57 11/02/21 03:57 11/02/21 07:01 Oxygen Flow Rate (L/min) 2 Oxygen Delivery Method Room Air Weight: 65.5 kg Body Mass Index (BMI) 27.3 Intake & Output: Intake and Output for Last 24 Hours 10/31/21 11/01/21 11/02/21 23:59 23:59 23:59 Intake Total 2270 / 2270 1000 / 1000 Output Total 0 / 0 Balance 2270 / 2270 1000 / 1000 Lab / Micro Data Result Diagrams: 11/02/21 05:37 11/02/21 05:37 Labs: Laboratory Results - last 24 hr 11/01/21 10:35: WBC 8.5, RBC 4.01 L, Hgb 11.7 L, Hct 36.7 L, MCV 91.5, MCH 29.2, MCHC 31.9 L, RDW Std Deviation 49.9 H, RDW Coeff of Mikayla 14.6, Plt Count 119 L, MPV 13.3 H, Immature Gran % (Auto) 0.500, Neut % (Auto) 80.6 H, Lymph % (Auto) 11.3 L, [place] % (Auto) 6.3, Eos % (Auto) 0.8, Baso % (Auto) 0.5, Absolute Neuts (auto) 6.8, Absolute Lymphs (auto) 0.96, Nucleated RBC % 0 11/01/21 10:35: PT 22.0 H, INR 2.0, APTT 40.5 H 11/01/21 10:35: Sodium 140, Potassium 3.9, Chloride 106, Carbon Dioxide 27.0, Anion Gap 7, BUN 18, Creatinine 0.97, Estim Creat Clear Calc 39.56, Est GFR (MDRD) Af Amer 73, Est GFR (MDRD) Non-Af 60, BUN/Creatinine Ratio 18.6, Glucose 178 H, Calcium 8.1 L, Total Bilirubin 0.60, AST 25, ALT 17, Alkaline Phosphatase 168 H, Troponin I High Sens 17, Total Protein 5.6 L, Albumin 2.5 L, Globulin 3.1, Albumin/Globulin Ratio 0.8 L, Lipase 33 L 11/01/21 10:35: Lactic Acid 2.4 H* 11/01/21 12:15: Urine Color Yellow, Urine Clarity Sl. Cloudy, Urine pH 6.5, Ur Specific [place] 1.010, Urine Protein Negative, Urine Glucose (UA) Normal, Urine Ketones Negative, Urine Occult Blood 250 H, Urine Nitrite Positive H, Urine Bilirubin Negative, Urine Urobilinogen Normal, Ur Leukocyte Esterase 25 H, Urine RBC 0-5 SEEN, Urine WBC 0-5 SEEN, Ur Squamous Epith Cells 0 SEEN, Urine Bacteria 2+, Urine Mucus 0 SEEN 11/01/21 14:50: Lactic Acid 0.9 11/02/21 05:37: WBC 6.8, RBC 4.16 L, Hgb 12.0, Hct 38.7, MCV 93.0, MCH 28.8, MCHC 31.0 L, RDW Std Deviation 51.5 H, RDW Coeff of Mikayla 14.9 H, Plt Count 115 L, MPV 13.4 H, Immature Gran % (Auto) 0.300, Neut % (Auto) 70.6 H, Lymph % (Auto) 19.5, [place] % (Auto) 6.5, Eos % (Auto) 2.5, Baso % (Auto) 0.6, Absolute Neuts (auto) 4.8, Absolute Lymphs (auto) 1.32, Nucleated RBC % 0 11/02/21 05:37: Sodium 141, Potassium 4.3, Chloride 110 H, Carbon Dioxide 27.0, Anion Gap 4 L, BUN 15, Creatinine 0.76, Estim Creat Clear Calc 38.37, Est GFR (MDRD) Af Amer 97, Est GFR (MDRD) Non-Af 80, BUN/Creatinine Ratio 19.8, Glucose 86, Calcium 7.9 L, Phosphorus 2.9, Magnesium 2.1 Radiography Diagnostic Testing: Radiology Impression Brain CT 11/01/21 10:26 IMPRESSION: Chronic involutional changes of the brain. Electronically Signed: Marvel Apple MD at 11:04 EDT , Chest X-Ray 11/01/21 10:50 IMPRESSION: Cardiomegaly. Linear calcification along the medial aspect of the pleural surface overlying the left upper lobe. Electronically Signed: Marvel Apple MD at 11:03 EDT Reading Location ID and State: [address] [place] [address] , Service support , Physical Exam Narrative GENERAL: cooperative HEENT: Atraumatic; EYES; Anicteric, Normal Conjunctiva NECK; supple, normal thyroid, RESPIRATORY: Diminished to auscultation CARDIOVASCULAR: Regular S1 S2, GI: soft, normoactive bowel sounds, : No Renal angle tenderness; EXTREMITIES: No edema, no clubbing, MUSCULOSKELETAL: no muscle wasting NEURO: Awake; no lateralizing signs. SKIN: No Rash PSYCH; Flat affect Assessment & Plan Assessment/Plan (1) Frequent falls: (2) Urinary tract infection: QUALIFIERS: Hematuria presence: without hematuria Urinary tract infection type: acute cystitis Qualified Code(s): N30.00 - Acute cystitis without hematuria (3) Acute UTI: (4) Acute hypotension: (5) Syncope and collapse: PLAN: Patient is a 71-year-old lady admitted with progressive generalized weakness and falls 1. Fall ? Thought to be secondary to syncopal episode as a result of orthostatic hypotension. Patient has been admitted to a monitored bed currently being resuscitated with IV fluid. Acute shift orthostatics checked 11/02/2021 requested for PT OT eval and social worker psychiatric to assist with discharge planning 2. Acute cystitis ? Patient has lactic acidosis but no other signs of cellulitis. Patient was started on Rocephin from the ED plan is to continue cultures have been sent 11/02/2021; cultures including urine and blood sent results pending patient remains on Rocephin 3. A. fib ? Rate controlled patient on amiodarone and systemic anticoagulation with Eliquis. 4. Essential hypertension ? Patient blood pressure was relatively low on admission antihypertensives subsequently held 5. History of esophageal CA ? Status post reconstructive surgery in 1999 6. GERD ? On PPI 7. Depression with anxiety ? Patient is on PPI did continue 8. DVT prophylaxis ? Patient is on Eliquis no need for additional measures Charges/Coding Visit Charges Inpatient E&M: 77740 Subs Hosp L2
[2021-11-02] MEDS: APIXABAN 5 MG TABLET PO ×2 (09:21→20:43)
[2021-11-02] MEDS: Sertraline 50 MG Tablet 75 MG PO (09:21)
[2021-11-02] MEDS: Magnesium Chloride 64 MG Delay Rel.Tablet 128 MG PO (09:21)
[2021-11-02] MEDS: Pantoprazole Sodium 40 MG Tablet PO (09:21)
[2021-11-02] MEDS: Ceftriaxone 1 GM/50 ML BAG IV (09:22)
--- NOTE | 2021-11-02 09:43 | CASEMGMT ---
Pt is active with [facility] for SN, PT/OT. NILE order and clinicals faxed. Brady LIM CM
[2021-11-02] MEDS: oxyCODONE 5 MG Tablet 10 MG PO ×2 (10:13→17:55)
[2021-11-02] MEDS: Acetaminophen 325 MG Tablet 650 MG PO ×2 (10:14→17:55)
[2021-11-02] MEDS: Ondansetron 4 MG/2 ML Vial IV (10:15)
--- NOTE | 2021-11-02 12:00 | CASEMGMT ---
CARINA REGAN assessment: Face to Face with patient for initial transition planning/care coordination assessment. RN SHEREEN introduced self and role at [facility], pt voices understanding and consents to assessment. Pt is sitting up on side of bed eating lunch in no distress on room air. Pt is A/Ox4 and answers all questions appropriately. Care providers, pharmacy, and demographics verified/updated. Presentation: Pt arrives via EMS, fall at home last night-on blood thinners Admitting dx: Falls, UTI PCP: Julianne Specialists: Giorgi at [facility] Preferred Pharmacy: [facility] Insurance: AeR Prescription Benefit: AeR Living Will/HPOA: Pt has HPOA and is aware that it's on file at [facility]. Pt sons, Perry and Miles Pitts, are listed as HPOA's. LNOK: Perry Pitts, son/HPOA; Miles Pitts, son; Kailyn Saleh, sister; Yadi Pitts, [id number] Living Arrangements: Pt lives alone in mobile home with 3 ra[address] steps in and states no concerns at home. Pt is independent with ADL's except for housework and has had frequent falls and states plan at this time is to go stay with son, Perry, in [place]. Transportation: Pt states [id number] or sister drive and states no transportation concerns. DME/C: Pt has the following DME: cane, rollator, raised toilet seat, grab bars, and shower chair. Pt states no need for any further DME. Pt has been to [facility] and [facility] in [place] in the past. Pt is active with [facility] for SN, PT/OT and clinicals faxed. Per Swetha at [facility], they do not go to [place] or [place] area. Swetha aware that CM will notify for sure on plan at d/c, voices understanding. CM to follow for definitive plan at discharge and possible new [facility] agency. Pt mentions SNF but states 'is out of days.' Pt is retired. Pt does not smoke cigarettes or drink ETOH. Pt voices no further concerns/needs. CM to follow for therapy notes and any further discharge planning/needs. Advised pt to ask for CM if any further questions/concerns/needs arise, voices understanding. Pt Goal: Home Plan: Home, pending therapy notes and further d/c plan. SStaten RN CM
--- NOTE | 2021-11-02 14:10 | CHAPLAIN ---
Type of Pastoral Visit _x__ Initial Visit ___ Follow-up Visit ___ On-call Visit ___ General Patient Visit ___ Spiritual Assessment ___ Family Conference ___ Bereavement ___ Rapid Response ___ Code Blue ___ Other (describe below) Pastoral Care Referral From _x__ Patient ___ Family ___ Nurse ___ Physician ___ Machine Stoppage Frequency Checker ___ Composition Instructor ___ Other (describe below) Sacrament/Intervention _x__ Active listening ___ Anointing ___ Samaritan ___ Bereavement ___ Communion ___ Chuyita exploration ___ ___ Life review _x__ Prayer ___ Reconciliation ___ Sacrament of Sick ___ Supportive presence ___ Wedding ___ Other (describe below) Pastoral Comments patient remembers this endocrinology teacher from previous visits to hospital; pt updates endocrinology teacher on her health; pt welcomes a prayer and states that is the best thing you can do for me; no other concerns at this time
[2021-11-02] MEDS: 0.9% Saline Lock 10 ML Syringe IV (20:43)
[2021-11-02] MEDS: Latanoprost 0.005% 1 Bottle 1 DRP EACH EYE (20:43)
[2021-11-03] VITALS (14 sets, daily range): BP systolic 98–108; BP diastolic 58–86; PULSE 83–126; RESP 14–20; TEMP 36.6–36.9; O2SAT 92–95
[2021-11-03 05:51] LABS: Absolute Lymphocyte Count 1.33 X10^3/uL (0.83-4.51); Absolute Neutrophil Count 5.1 X10^3/uL (2.0-7.7); Basophil# 0.03 X10^3/uL; Basophil% 0.4 % (0-1); Eosinophil# 0.23 X10^3/uL; Eosinophils% 3.2 % (0-5); Hematocrit 37.5 % (37-47); Lymphocyte # 1.33 X10^3/ul (0.83-4.51); Lymphocyte % 18.3 % (19-41); Mean Corpuscular Hgb 29.7 pg (27.0-32.0); Mean Corpuscular Volume 92.8 fL (81-99); Mean Platelet Vol. 13.4 fl (6.2-12.0); Monocyte# 0.54 X10^3/uL; Monocyte% 7.4 % (0-10); NRBC Flagged by Analyzer 0 % (0-5); Neutrophil # 5.11 X10^3/uL (2.7-7.7); Neutrophil % 70.6 % (47-70); Platelet Count 114 K/mm3 (150-450); RBC Distribution Width SD 51.5 fl (35.1-43.9); Red Blood Count 4.04 M/mm3 (4.2-5.4); White Blood Count 7.3 K/mm3 (4.4-11.0)
[2021-11-03 06:41] LABS: Anion Gap 3 (5-15); BUN 17 mg/dL (7-18); BUN/Creat Ratio 20.2 RATIO (10-20); Calcium,Total 7.9 mg/dL (8.5-10.1); Chloride 110 mmol/L (98-107); Creatinine, Serum 0.84 mg/dL (0.55-1.02); EST Glomerular Filtration Rate 71 mL/min (>60); Est Glom Filt Rate - Afr Amer 85 mL/min (>60); Estimated Creatinine Clearance 45.68 ml/min; Glucose 79 mg/dL (74-106); Potassium 4.2 mmol/L (3.5-5.1); Sodium Level 141 mmol/L (136-145)
[2021-11-03] MEDS: Ondansetron 4 MG/2 ML Vial IV (06:47)
[2021-11-03] MEDS: oxyCODONE 5 MG Tablet 10 MG PO ×3 (06:49→19:32)
[2021-11-03] MEDS: 0.9% Saline Lock 10 ML Syringe IV ×2 (06:49→09:17)
[2021-11-03] MEDS: Ceftriaxone 1 GM/50 ML BAG IV (09:17)
[2021-11-03] MEDS: APIXABAN 5 MG TABLET PO ×3 (09:21→20:59)
[2021-11-03] MEDS: Sertraline 50 MG Tablet 75 MG PO (09:21)
[2021-11-03] MEDS: Magnesium Chloride 64 MG Delay Rel.Tablet 128 MG PO (09:22)
[2021-11-03] MEDS: Ferrous Sulfate 325 MG Tablet PO (09:22)
[2021-11-03] MEDS: Pantoprazole Sodium 40 MG Tablet PO (09:22)
[2021-11-03] MEDS: Metoprolol Tartrate 50 MG Tablet PO ×2 (09:26→20:58)
--- NOTE | 2021-11-03 10:34 | CASEMGMT ---
Addendum entered by Noemi Castellanos 11/03/21 14:09: No answer from felicia Amador. RN CM attempted to call ELIZABETH Pitts to discuss discharge planning and concerns. No answer, voice message left with return contact information. Original Note: RN SHEREEN in to discuss discharge planning. Patient is unsure of disposition at discharge, either she is going to her home or she is staying with son. Patient is not sure of when she will be moving in with son in [place]. CARINA REGAN inquired if this was going to be immediate going to son's or if it was going to be in a few weeks. Patient was unable to say when she would be going there. CARINA REGAN asked permission to call felicia Amador to discuss discharge plans. Permission given by patient. CARINA REGAN called felicia Amador, no answer and voice message left with return contact information. CM to continue to follow this patient and plan for a safe discharge.
--- NOTE | 2021-11-03 11:46 | PCM.PN.HOSP ---
Documented by User: Itzel Michelle NP, ADVERTISING DISPLAY ROTATOR-C 11/03/21 12:00 Subjective Subjective Patient seen and examined. Reports abdominal discomfort, nausea and generalized weakness. States she had a small bowel movement this morning. Denies other symptoms or complaints. Objective Data Objective Data Vital Signs: Vital Signs Temp Pulse Resp BP Pulse Ox 98.5 F 113 H 14 102/58 L 95 11/03/21 09:11 11/03/21 09:26 11/03/21 09:11 11/03/21 09:26 11/03/21 09:11 Oxygen Flow Rate (L/min) 2 Oxygen Delivery Method Room Air Weight: 144 lb 6.444 oz Body Mass Index (BMI) 27.3 Intake & Output: Intake and Output for Last 24 Hours 11/01/21 11/02/21 11/03/21 23:59 23:59 23:59 Intake Total 2270 / 2270 2840 / 2840 50 / 50 Output Total 0 / 0 Balance 2270 / 2270 2840 / 2840 50 / 50 Lab / Micro Data Result Diagrams: 11/03/21 05:15 11/03/21 05:15 Labs: Laboratory Results - last 24 hr 11/03/21 05:15: WBC 7.3, RBC 4.04 L, Hgb 12.0, Hct 37.5, MCV 92.8, MCH 29.7, MCHC 32.0, RDW Std Deviation 51.5 H, RDW Coeff of Mikayla 15.0 H, Plt Count 114 L, MPV 13.4 H, Immature Gran % (Auto) 0.100, Neut % (Auto) 70.6 H, Lymph % (Auto) 18.3 L, Jessamine % (Auto) 7.4, Eos % (Auto) 3.2, Baso % (Auto) 0.4, Absolute Neuts (auto) 5.1, Absolute Lymphs (auto) 1.33, Nucleated RBC % 0 11/03/21 05:15: Sodium 141, Potassium 4.2, Chloride 110 H, Carbon Dioxide 28.0, Anion Gap 3 L, BUN 17, Creatinine 0.84, Estim Creat Clear Calc 45.68, Est GFR (MDRD) Af Amer 85, Est GFR (MDRD) Non-Af 71, BUN/Creatinine Ratio 20.2 H, Glucose 79, Calcium 7.9 L Micro: Microbiology 11/01/21 13:03 Blood Culture (Wb) - Arm Right Blood Culture - Preliminary No growth in 48 hours. 11/01/21 12:50 Blood Culture (Wb) - Anticubital Left Blood Culture - Preliminary No growth in 48 hours. 11/01/21 12:15 Urine, Random Urine Culture - Final Escherichia coli Physical Exam Const alert, oriented x3 and no apparent distress Orientation / Consciousness: awake, oriented to person, oriented to place and oriented to time HEENT normocephalic and moist oral mucous membranes Eyes PERRL, EOMs intact bilaterally and conjunctivae normal Neck no lymphadenopathy Resp normal respiratory effort and clear to auscultation bilaterally Cardio regular rate, regular rhythm and no murmurs Peripheral Pulses: pulses 2+ throughout GI normal to inspection, nondistended, normoactive bowel sounds, non-tender and non-distended Extremity normal to inspection Skin no rashes or lesions noted Lesions: no lesions Rashes: no rashes Trauma: no lacerations or abrasions Neuro CN's II-XII intact bilaterally, no focal motor deficits, no sensory deficits noted and deep tendon reflexes 2+ bilaterally Psych mental status grossly normal and affect normal Assessment & Plan Assessment/Plan (1) Acute UTI: PLAN: 1. Syncope with fall-likely due to orthostatic hypotension, complicated by underlying acute UTI. Troponin negative. Echo 07/22/2021 with EF 55 to 60%, moderately severe TR, moderate pulmonary hypertension. PT/OT. Case management consulted for discharge planning. 2. Acute cystitis-on IV Rocephin. Urine culture growing greater than 100,000 E. coli. Pansensitive. Likely transition to oral regimen tomorrow. 3. Atrial fibrillation-on amiodarone, metoprolol, Eliquis. 4. Hypertension-continue metoprolol.Amlodipine,enalapril on hold due to hypotension. 5. GERD-continue PPI. 6. Depression/anxiety-on sertraline. 7. History of esophageal cancer-status post reconstructive surgery in 1999. DVT prophylaxis-Eliquis This patient was seen by BRO Rodriguez under the supervision of Dr. Oreilly. Documented by User: Dr. Sudhakar Oreilly MD 11/03/21 12:31 Objective Data Lab / Micro Data Result Diagrams: 11/03/21 05:15 11/03/21 05:15 Assessment & Plan Addt'l Comments This patient was seen in conjunction with BRO Rodriguez . I have independently interviewed and examined the patient and reviewed pertinent historical, laboratory, and other data. Please refer to BRO Rodriguez note for details of this patient's presentation, findings, and recommendations. I have reviewed BRO Rodriguez note and concur with documented findings. In brief, Patient is a 71-year-old lady admitted with progressive generalized weakness and falls. Patient was found to have acute cystitis urine cultures came back positive for E. coli currently on a monitored bed where patient is being managed Physical Examination: GENERAL: Appears depressed HEENT: Atraumatic; EYES; Anicteric, Normal Conjunctiva NECK; supple, normal thyroid, RESPIRATORY: Diminished to auscultation CARDIOVASCULAR: Regular S1 S2, GI: soft, normoactive bowel sounds, : No Renal angle tenderness; EXTREMITIES: No edema, no clubbing, MUSCULOSKELETAL: no muscle wasting NEURO: Awake; no lateralizing signs. SKIN: No Rash PSYCH; Flat affect Assessment: 1. Fall 2. Orthostatic hypotension 3. Acute cystitis with E. coli 4. Paroxysmal A. fib 5. Essential potential 6. Esophageal CA status post reconstructive surgery 7. GERD 8. Depression anxiety 9. Physical deconditioning 10. DVT prophylaxis Recommendations: 1. I have discussed the results of my overview and impressions with the patient 2. Options for management were reviewed Total time spent by myself and the advanced practice practitioner evaluating patient, reviewing labs, subsequent management decisions, discussion with patient as well as other providers 40 minutes ( 25 of which was spent by myself) Charges/Coding Visit Charges Inpatient E&M: 16177 Subs Hosp L2
--- NOTE | 2021-11-03 12:35 | RAD_ITS ---
STUDY: X-RAY - ABDOMEN/PELVIS REASON FOR EXAM: Female, 71 years old. Abdominal pain TECHNIQUE: Two AP supine views of the abdomen and pelvis. COMPARISON: None. FINDINGS: There is an unremarkable bowel gas pattern. Surgical clips are seen in the left upper quadrant. The visualized liver, spleen and kidneys are grossly normal in size and morphology. Normal soft tissue structures. There are diffuse degenerative changes of the visualized lumbar spine. Osteoarthritis of both hip joints. RAD/Abdomen Single View IMPRESSION: Nonspecific bowel gas pattern. Electronically Signed: Marvel Apple MD at 15:35 EDT ,
--- NOTE | 2021-11-03 13:05 | CASEMGMT ---
Patient has a Healthcare Power of Surveying Or Spatial Science Technician (POA) on file at [facility]. Her son Naldo is her Healthcare POA. Patient does not have a Healthcare Living Will. Cristal TAVERAS
[2021-11-03] MEDS: 0.9% Normal Saline 1,000 ML 100 ML IV ×2 (13:35→23:27)
[2021-11-03] MEDS: Polyethylene Glycol 3350 17 GM PACKET PO (17:20)
[2021-11-03] MEDS: Latanoprost 0.005% 1 Bottle 1 DRP EACH EYE (22:05)
[2021-11-04] VITALS (7 sets, daily range): BP systolic 96–111; BP diastolic 74–81; PULSE 72–106; RESP 16–20; TEMP 36.4–36.8; O2SAT 91–94
[2021-11-04] MEDS: 0.9% Saline Lock 10 ML Syringe IV (04:43)
[2021-11-04] MEDS: Ondansetron 4 MG/2 ML Vial IV ×2 (04:43→14:02)
[2021-11-04] MEDS: oxyCODONE 5 MG Tablet 10 MG PO ×2 (05:15→13:57)
[2021-11-04 06:06] LABS: Absolute Lymphocyte Count 1.19 X10^3/uL (0.83-4.51); Absolute Neutrophil Count 5.9 X10^3/uL (2.0-7.7); Basophil# 0.04 X10^3/uL; Basophil% 0.5 % (0-1); Eosinophil# 0.18 X10^3/uL; Eosinophils% 2.3 % (0-5); Hematocrit 38.3 % (37-47); Hemoglobin 12.1 g/dL (12.0-15.0); Lymphocyte # 1.19 X10^3/ul (0.83-4.51); Lymphocyte % 15.5 % (19-41); Mean Corp Hgb Conc 31.6 g/dL (32-36); Mean Corpuscular Hgb 29.1 pg (27.0-32.0); Mean Corpuscular Volume 92.1 fL (81-99); Mean Platelet Vol. 12.5 fl (6.2-12.0); Monocyte% 5.2 % (0-10); NRBC Flagged by Analyzer 0 % (0-5); Neutrophil # 5.86 X10^3/uL (2.7-7.7); Neutrophil % 76.1 % (47-70); Platelet Count 128 K/mm3 (150-450); RBC Distribution Width CV 15.2 % (11.6-14.6); RBC Distribution Width SD 51.9 fl (35.1-43.9); Red Blood Count 4.16 M/mm3 (4.2-5.4); White Blood Count 7.7 K/mm3 (4.4-11.0)
[2021-11-04 06:34] LABS: Anion Gap 5 (5-15); BUN 13 mg/dL (7-18); BUN/Creat Ratio 17.1 RATIO (10-20); Calcium,Total 8.1 mg/dL (8.5-10.1); Chloride 111 mmol/L (98-107); Creatinine, Serum 0.76 mg/dL (0.55-1.02); EST Glomerular Filtration Rate 79 mL/min (>60); Est Glom Filt Rate - Afr Amer 96 mL/min (>60); Estimated Creatinine Clearance 38.37 ml/min; Glucose 102 mg/dL (74-106); Potassium 4.4 mmol/L (3.5-5.1); Sodium Level 140 mmol/L (136-145)
--- NOTE | 2021-11-04 09:06 | CASEMGMT ---
SW met with patient as she is not doing well getting around. SW spoke with patient about going to a SNF for short term rehab. Patient was planning on going to each of her son's houses for a little bit. Patient said she would go to [place] if she went anywhere. Patient agreed to let SW send a referral to [place]. SERA called [place] and spoke with Kristy regarding referral. SERA also faxed referral. Await response. Cristal TAVERAS
[2021-11-04] MEDS: Magnesium Chloride 64 MG Delay Rel.Tablet 128 MG PO (09:55)
[2021-11-04] MEDS: Metoprolol Tartrate 50 MG Tablet PO (09:55)
[2021-11-04] MEDS: Ceftriaxone 1 GM/50 ML BAG IV (09:55)
[2021-11-04] MEDS: Ergocalciferol 1.25 MG (50, 000 UNIT) Capsule PO (09:56)
[2021-11-04] MEDS: Pantoprazole Sodium 40 MG Tablet PO (09:56)
[2021-11-04] MEDS: Polyethylene Glycol 3350 17 GM PACKET PO (09:56)
[2021-11-04] MEDS: Sertraline 50 MG Tablet 75 MG PO (09:56)
[2021-11-04] MEDS: oxyCODONE 5 MG Tablet PO (09:57)
--- NOTE | 2021-11-04 10:53 | PCM.DC ---
Discharge Instructions Diet Discharge Diet: Low fat / Low cholesterol Activity Discharge Activity: Return to Normal Activity and Use Walker Dressing / Incision Call your doctor if you observe: Fever of 101 or Higher, Shortness of breath, Dizziness and Chest pain Follow Up Care Test Results: Test results from this visit will be discussed in further detail at your follow-up appointment, if applicable. Discharge Plan Admission Admit Date/Time: 11/01/21 14:46 Primary Reason for Your Visit: Syncope, UTI Attending Provider: Sudhakar Oreilly Primary Care Provider: Selma Whitaker Discharge Orders/Prescriptions Prescriptions: New polyethylene glycol 3350 17 gram Powder In Packet 17 g PO DAILY Qty: 0 RF: 0 metoprolol tartrate 50 mg Tablet 50 mg PO BID 30 Days Qty: 60 RF: 0 cefdinir 300 mg Capsule 300 mg PO Q12 5 Days Qty: 10 RF: 0 Continued promethazine 25 MG tablet 25 mg PO TID PRN PRN (Reason: Nausea) RF: 0 ferrous sulfate [Iron (ferrous sulfate)] 325 MG tablet 325 mg PO QODAY RF: 0 latanoprost 0.005 % Drops 1 drp EACH EYE QPM RF: 0 omeprazole 40 mg Capsule,Delayed Release(Dr/Ec) 40 mg PO DAILY RF: 0 cyanocobalamin (vitamin B-12) 1,000 mcg/mL solution 1,000 mcg IM QMONTH RF: 0 magnesium 250 mg Tablet 500 mg PO DAILY RF: 0 sertraline 50 mg Tablet 50 mg PO DAILY RF: 0 cholecalciferol (vitamin D3) 1,250 mcg (50,000 unit) Capsule 1,250 mcg PO .2X/WEEK RF: 0 oxycodone 5 mg tablet 10 mg PO TID PRN PRN (Reason: Pain Score 6-10) RF: 0 Eliquis 5 mg tablet 5 mg PO BID RF: 0 Held enalapril maleate 20 mg Tablet 20 mg PO BID RF: 0 Hold Instructions: Resume on 11/18/21. Hold until further follow-up with primary care provider for repeat blood pressure check. amlodipine 10 mg Tablet 10 mg PO DAILY RF: 0 Hold Instructions: Resume on 11/18/21. Hold until further follow-up with PCP for repeat blood pressure check. furosemide 20 mg tablet 20 mg PO DAILY RF: 0 Hold Instructions: Resume on 11/18/21. Hold until further follow-up with PCP. Discontinued metoprolol tartrate 100 mg tablet 150 mg PO DAILY RF: 0 Referrals / Follow Up: Selma Whitaker MD [Primary Care Provider] - In 1 Week Disposition Disposition (needs filled in before D/C Order can be placed): Home Health Service
--- NOTE | 2021-11-04 11:00 | PCM.DC.SUM ---
Documented by User: Itzel Michelle NP, SPORTS PHYSIOTHERAPIST-C 11/04/21 11:05 Providers Date of Admission: 11/01/21 Date of Discharge: 11/04/21 Primary Care Physician: Dr. Selma Whitaker MD Reason For Visit: FALL, UTI Diagnosis Discharge Diagnosis (1) Acute UTI: Status: Acute Code(s): N39.0 - Urinary tract infection, site not specified Medications at Discharge Home Medications promethazine 25 mg PO TID PRN PRN 01/05/17 ferrous sulfate [Iron (ferrous sulfate)] 325 mg PO QODAY 08/04/17 cholecalciferol (vitamin D3) 1,250 mcg PO .2X/WEEK 07/21/21 cyanocobalamin (vitamin B-12) 1,000 mcg IM QMONTH 07/21/21 latanoprost 1 drp EACH EYE QPM 07/21/21 magnesium 500 mg PO DAILY 07/21/21 omeprazole 40 mg PO DAILY 07/21/21 sertraline 50 mg PO DAILY 07/21/21 Eliquis 5 mg PO BID 11/01/21 amlodipine 10 mg PO DAILY 11/01/21 enalapril maleate 20 mg PO BID 11/01/21 furosemide 20 mg PO DAILY 11/01/21 oxycodone 10 mg PO TID PRN PRN 11/01/21 cefdinir 300 mg PO Q12 5 Days #10 cap 11/04/21 metoprolol tartrate 50 mg PO BID 30 Days #60 tab 11/04/21 polyethylene glycol 3350 17 g PO DAILY #0 ea 11/04/21 Hospital Course Operations None Procedures None Summary of Care Provided Hospital Course: Patient is a 71-year-old female admitted 11/01/2021 due to weakness, fall. 1. Syncope with fall-likely due to orthostatic hypotension, complicated by underlying acute UTI. Orthostatic hypotension resolved with IV fluids. Troponin negative. Echo 07/22/2021 with EF 55 to 60%, moderately severe TR, moderate pulmonary hypertension. Patient declined SNF. She will live with family at discharge. Home health referral at discharge. Follow-up with PCP in 1 week. 2. Acute cystitis- Urine culture growing greater than 100,000 E. coli. Pansensitive. IV Rocephin during admission, transition to Omnicef at discharge to complete course. 3. Atrial fibrillation-on amiodarone, metoprolol, Eliquis. 4. Hypertension-continue metoprolol. Amlodipine,enalapril, Lasix on hold due to hypotension. Follow-up with PCP for repeat blood pressure monitoring and assessment regarding resuming BP regimen. 5. GERD-continue PPI. 6. Depression/anxiety-on sertraline. 7. History of esophageal cancer-status post reconstructive surgery in 1999. Physical Exam Const alert, oriented x3 and no apparent distress Orientation / Consciousness: awake, oriented to person, oriented to place and oriented to time HEENT normocephalic and moist oral mucous membranes Eyes PERRL, EOMs intact bilaterally and conjunctivae normal Neck no lymphadenopathy Resp normal respiratory effort and clear to auscultation bilaterally Cardio regular rate, regular rhythm and no murmurs Peripheral Pulses: pulses 2+ throughout GI normal to inspection, nondistended, normoactive bowel sounds, non-tender and non-distended Extremity normal to inspection Skin no rashes or lesions noted Lesions: no lesions Rashes: no rashes Trauma: no lacerations or abrasions Neuro CN's II-XII intact bilaterally, no focal motor deficits, no sensory deficits noted and deep tendon reflexes 2+ bilaterally Psych mental status grossly normal and affect normal Patient seen and examined prior to discharge. Physical assessment as noted above. Patient is stable for discharge with follow up recommendations as noted above. This patient was seen by BRO Rodriguez under the supervision of Dr. Oreilly. Weight / BMI Weight Weight: 144 lb 6.444 oz Body Mass Index (BMI) 27.3 ABG / Lab / Microbiology Data Result Diagrams: 11/04/21 05:55 11/04/21 05:55 Laboratory: Laboratory Results - last 24 hr 11/04/21 05:55: WBC 7.7, RBC 4.16 L, Hgb 12.1, Hct 38.3, MCV 92.1, MCH 29.1, MCHC 31.6 L, RDW Std Deviation 51.9 H, RDW Coeff of Mikayla 15.2 H, Plt Count 128 L, MPV 12.5 H, Immature Gran % (Auto) 0.400, Neut % (Auto) 76.1 H, Lymph % (Auto) 15.5 L, Runnels % (Auto) 5.2, Eos % (Auto) 2.3, Baso % (Auto) 0.5, Absolute Neuts (auto) 5.9, Absolute Lymphs (auto) 1.19, Nucleated RBC % 0 11/04/21 05:55: Sodium 140, Potassium 4.4, Chloride 111 H, Carbon Dioxide 24.0, Anion Gap 5, BUN 13, Creatinine 0.76, Estim Creat Clear Calc 38.37, Est GFR (MDRD) Af Amer 96, Est GFR (MDRD) Non-Af 79, BUN/Creatinine Ratio 17.1, Glucose 102, Calcium 8.1 L Microbiology: Microbiology 11/01/21 13:03 Blood Culture (Wb) - Arm Right Blood Culture - Preliminary No growth in 48 hours. 11/01/21 12:50 Blood Culture (Wb) - Anticubital Left Blood Culture - Preliminary No growth in 48 hours. 11/01/21 12:15 Urine, Random Urine Culture - Final Escherichia coli Radiography Diagnostic Testing: Radiology Impression KUB X-Ray 11/03/21 12:35 IMPRESSION: Nonspecific bowel gas pattern. Electronically Signed: Marvel Apple MD at 15:35 EDT , D/C Instructions Discharge Diet: Low fat / Low cholesterol Call your doctor if you observe: Fever of 101 or Higher, Shortness of breath, Dizziness and Chest pain Meaningful Use Info Meaningful Use Diagnoses (Choose all that apply): None applicable Discharge Plan Admission Admit Date/Time: 11/01/21 14:46 Primary Reason for Your Visit: Syncope, UTI Attending Provider: Sudhakar Oreilly Primary Care Provider: Selma Whitaker Discharge Orders/Prescriptions Prescriptions: New polyethylene glycol 3350 17 gram Powder In Packet 17 g PO DAILY Qty: 0 RF: 0 metoprolol tartrate 50 mg Tablet 50 mg PO BID 30 Days Qty: 60 RF: 0 cefdinir 300 mg Capsule 300 mg PO Q12 5 Days Qty: 10 RF: 0 Continued promethazine 25 MG tablet 25 mg PO TID PRN PRN (Reason: Nausea) RF: 0 ferrous sulfate [Iron (ferrous sulfate)] 325 MG tablet 325 mg PO QODAY RF: 0 latanoprost 0.005 % Drops 1 drp EACH EYE QPM RF: 0 omeprazole 40 mg Capsule,Delayed Release(Dr/Ec) 40 mg PO DAILY RF: 0 cyanocobalamin (vitamin B-12) 1,000 mcg/mL solution 1,000 mcg IM QMONTH RF: 0 magnesium 250 mg Tablet 500 mg PO DAILY RF: 0 sertraline 50 mg Tablet 50 mg PO DAILY RF: 0 cholecalciferol (vitamin D3) 1,250 mcg (50,000 unit) Capsule 1,250 mcg PO .2X/WEEK RF: 0 oxycodone 5 mg tablet 10 mg PO TID PRN PRN (Reason: Pain Score 6-10) RF: 0 Eliquis 5 mg tablet 5 mg PO BID RF: 0 Held enalapril maleate 20 mg Tablet 20 mg PO BID RF: 0 Hold Instructions: Resume on 11/18/21. Hold until further follow-up with primary care provider for repeat blood pressure check. amlodipine 10 mg Tablet 10 mg PO DAILY RF: 0 Hold Instructions: Resume on 11/18/21. Hold until further follow-up with PCP for repeat blood pressure check. furosemide 20 mg tablet 20 mg PO DAILY RF: 0 Hold Instructions: Resume on 11/18/21. Hold until further follow-up with PCP. Discontinued metoprolol tartrate 100 mg tablet 150 mg PO DAILY RF: 0 Referrals / Follow Up: Sherrie Klein NP, SPORTS PHYSIOTHERAPIST-C [NON-STAFF] - 11/17/21 10:00 am Disposition Disposition (needs filled in before D/C Order can be placed): Home Health Service Documented by User: Dr. Sudhakar Oreilly MD 11/04/21 12:01 Providers Date of Admission: 11/01/21 Reason For Visit: FALL, UTI Medications at Discharge Home Medications promethazine 25 mg PO TID PRN PRN 01/05/17 ferrous sulfate [Iron (ferrous sulfate)] 325 mg PO QODAY 08/04/17 cholecalciferol (vitamin D3) 1,250 mcg PO .2X/WEEK 07/21/21 cyanocobalamin (vitamin B-12) 1,000 mcg IM QMONTH 07/21/21 latanoprost 1 drp EACH EYE QPM 07/21/21 magnesium 500 mg PO DAILY 07/21/21 omeprazole 40 mg PO DAILY 07/21/21 sertraline 50 mg PO DAILY 07/21/21 Eliquis 5 mg PO BID 11/01/21 amlodipine 10 mg PO DAILY 11/01/21 enalapril maleate 20 mg PO BID 11/01/21 furosemide 20 mg PO DAILY 11/01/21 oxycodone 10 mg PO TID PRN PRN 11/01/21 cefdinir 300 mg PO Q12 5 Days #10 cap 11/04/21 metoprolol tartrate 50 mg PO BID 30 Days #60 tab 11/04/21 polyethylene glycol 3350 17 g PO DAILY #0 ea 11/04/21 Hospital Course Operations None Summary of Care Provided Minutes Spent on Discharge: 40 Hospital Course: This patient was seen in conjunction with BRO Rodriguez . I have independently interviewed and examined the patient and reviewed pertinent historical, laboratory, and other data. Please refer to BRO Rodriguez note for details of this patient's presentation, findings, and recommendations. I have reviewed BRO Rodriguez note and concur with documented findings. In brief, Patient is a 71-year-old lady admitted with progressive generalized weakness and falls. Patient was found to have acute cystitis urine cultures came back positive for E. coli currently on a monitored bed where patient is being managed Physical Examination: GENERAL: Appears depressed HEENT: Atraumatic; EYES; Anicteric, Normal Conjunctiva NECK; supple, normal thyroid, RESPIRATORY: Diminished to auscultation CARDIOVASCULAR: Regular S1 S2, GI: soft, normoactive bowel sounds, : No Renal angle tenderness; EXTREMITIES: No edema, no clubbing, MUSCULOSKELETAL: no muscle wasting NEURO: Awake; no lateralizing signs. SKIN: No Rash PSYCH; Flat affect Assessment: 1. Fall 2. Orthostatic hypotension 3. Acute cystitis with E. coli 4. Paroxysmal A. fib 5. Essential potential 6. Esophageal CA status post reconstructive surgery 7. GERD 8. Depression anxiety 9. Physical deconditioning 10. DVT prophylaxis Hospital course: As documented above Total time spent by myself and the advanced practice practitioner evaluating patient, reviewing labs, subsequent management decisions, discussion with patient as well as other providers 40 minutes ( 25 of which was spent by myself) ABG / Lab / Microbiology Data Result Diagrams: 11/04/21 05:55 11/04/21 05:55 Discharge Plan Admission Admit Date/Time: 11/01/21 14:46 Primary Reason for Your Visit: Syncope, UTI Attending Provider: Sudhakar Oreilly Primary Care Provider: Selma Whitaker Discharge Orders/Prescriptions Prescriptions: New polyethylene glycol 3350 17 gram Powder In Packet 17 g PO DAILY Qty: 0 RF: 0 metoprolol tartrate 50 mg Tablet 50 mg PO BID 30 Days Qty: 60 RF: 0 cefdinir 300 mg Capsule 300 mg PO Q12 5 Days Qty: 10 RF: 0 Continued promethazine 25 MG tablet 25 mg PO TID PRN PRN (Reason: Nausea) RF: 0 ferrous sulfate [Iron (ferrous sulfate)] 325 MG tablet 325 mg PO QODAY RF: 0 latanoprost 0.005 % Drops 1 drp EACH EYE QPM RF: 0 omeprazole 40 mg Capsule,Delayed Release(Dr/Ec) 40 mg PO DAILY RF: 0 cyanocobalamin (vitamin B-12) 1,000 mcg/mL solution 1,000 mcg IM QMONTH RF: 0 magnesium 250 mg Tablet 500 mg PO DAILY RF: 0 sertraline 50 mg Tablet 50 mg PO DAILY RF: 0 cholecalciferol (vitamin D3) 1,250 mcg (50,000 unit) Capsule 1,250 mcg PO .2X/WEEK RF: 0 oxycodone 5 mg tablet 10 mg PO TID PRN PRN (Reason: Pain Score 6-10) RF: 0 Eliquis 5 mg tablet 5 mg PO BID RF: 0 Held enalapril maleate 20 mg Tablet 20 mg PO BID RF: 0 Hold Instructions: Resume on 11/18/21. Hold until further follow-up with primary care provider for repeat blood pressure check. amlodipine 10 mg Tablet 10 mg PO DAILY RF: 0 Hold Instructions: Resume on 11/18/21. Hold until further follow-up with PCP for repeat blood pressure check. furosemide 20 mg tablet 20 mg PO DAILY RF: 0 Hold Instructions: Resume on 11/18/21. Hold until further follow-up with PCP. Discontinued metoprolol tartrate 100 mg tablet 150 mg PO DAILY RF: 0 Referrals / Follow Up: Sherrie Klein NP, SPORTS PHYSIOTHERAPIST-C [NON-STAFF] - 11/17/21 10:00 am Disposition Disposition (needs filled in before D/C Order can be placed): Home Health Service Charges/Coding Visit Charges Inpatient E&M: 93447 Disch Hosp Hospital Course Operations None
--- NOTE | 2021-11-04 11:06 | CASEMGMT ---
Addendum entered by Cristal Mueller 11/04/21 11:31: SERA spoke with patient and let her know SW spoke with her daughter in law and son Perry. SW told patient it sounds like the plan is for her to go to her son Miles's home today and then tomorrow she will be going up to [place] with her son Perry. Patient said that is fine with her. She does wish they lived closer. SW also told patient that the home health agency she had does not go to [place] so the [employer] will work on finding another one. Cristal TAVERAS Original Note: SERA called patient's daughter in law, Yadi. SERA discussed patient's discharge plans with Yadi. Yadi is fine with patient coming home with them. Yadi said she is normally the one that cares for patient. She is the one that picks her up when she falls. She also gets patient's groceries etc. Yadi said the plan is for patient to go to Perry's home in [place] this weekend. SERA said SW will call Perry. SERA called Perry. Introduced self and role at [facility]. SERA asked Perry about patient coming to his home. He said the plan is for her to come to his place tomorrow. SW let him know she is being discharged today. 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 SW let her know it will be sometime today and the RN will let her know when she can berry picker machine operator patient. She thanked SERA for the update. SERA called [facility] and canceled the referral. SERA will also talk with patient. Cristal TAVERAS
--- NOTE | 2021-11-04 11:21 | CASEMGMT ---
Addendum entered by Noemi Clinton 11/04/21 14:18: Call from Ace at [facility] and he states [facility] does not service [facility] but their sister company, [facility], does and they can accept pt with SOC 11/06/21. Pt updated, voices understanding. Pt voices no further questions/concerns/needs. Call to [facility] to notify to disregard referral as they still have not called this RN SHEREEN back. Brady LIM CM Addendum entered by Noemi Clinton 11/04/21 13:43: Call to [facility] to notify to that pt will be going to stay with son in [place] and to d/c pt from their service as they do not service that area, voices understanding. Awaiting call back from [facility] and this RN SHEREEN did fax a further referral to [facility] as no answer from [facility] yet. CM to follow. Brady LIM CM Original Note: Cristal ZAOMRA spoke with pt's son, Perry, and [id number], Yadi and they state that plan is for pt to go home with son and , Miles and Yadi, today then they will move her to son, Perry's house over the weekend, which is in [place]. Call to Perry to obtain his address and preference for [facility]. Referral faxed to [facility] at this time. Brady LIM CM
--- NOTE | 2021-11-04 11:43 | PHA.DC.MC ---
Pharmacy Service has performed discharge medication reconciliation and counseling for this patient. 1. CEFDINIR 300MG PO BID X 5 DAYS 2. MIRALAX 17GM PO DAILY The patient's discharge medication list was reviewed for discrepancies and discrepancies were resolved. Home Medications promethazine 25 mg PO TID PRN PRN 01/05/17 ferrous sulfate [Iron (ferrous sulfate)] 325 mg PO QODAY 08/04/17 cholecalciferol (vitamin D3) 1,250 mcg PO .2X/WEEK 07/21/21 cyanocobalamin (vitamin B-12) 1,000 mcg IM QMONTH 07/21/21 latanoprost 1 drp EACH EYE QPM 07/21/21 magnesium 500 mg PO DAILY 07/21/21 omeprazole 40 mg PO DAILY 07/21/21 sertraline 50 mg PO DAILY 07/21/21 Eliquis 5 mg PO BID 11/01/21 amlodipine 10 mg PO DAILY 11/01/21 enalapril maleate 20 mg PO BID 11/01/21 furosemide 20 mg PO DAILY 11/01/21 oxycodone 10 mg PO TID PRN PRN 11/01/21 cefdinir 300 mg PO Q12 5 Days #10 cap 11/04/21 metoprolol tartrate 50 mg PO BID 30 Days #60 tab 11/04/21 polyethylene glycol 3350 17 g PO DAILY #0 ea 11/04/21 The patient was counseled on the following discharge medications and changes in medications for homegoing were reviewed. The Reason for Use, instructions for use, and potential side effects were reviewed for all new medications. The patient's questions regarding all of their medications were answered. The patient was able to verbally demonstrate an understanding of their discharge medications.
[2021-11-04] MEDS: Cefdinir 300 MG Capsule PO (12:03)
--- NOTE | 2021-11-04 14:22 | CASEMGMT ---
[id number] [address] ZAMORA spoke with pt's son, Perry, and [id number], Yadi and they state that plan is for pt to go home with son and , Miles and Yadi, today then they will move her to son, Perry's house over the weekend, which is in [place]. Call to Perry to obtain his address and preference for [facility]. Perry states no preference for HH. Referral faxed to [facility] at this time. Brady LIM CM [phone] Call to [facility] to notify to that pt will be going to stay with son in [place] and to d/c pt from their service as they do not service that area, voices understanding. Awaiting call back from [facility] and this RN SHEREEN did fax a further referral to [facility] as no answer from [facility] yet. CM to follow. Brady LIM CM [phone] Call from Ace at [facility] and he states [facility] does not service [facility] but their sister company, [facility], does and they can accept pt with SOC 11/06/21. Pt updated, voices understanding. Pt voices no further questions/concerns/needs. Call to [facility] to notify to disregard referral as they still have not called this RN SHEREEN back. Brady LIM CM
== END 2021-11-04 16:06 | disposition home health service (06) | DRG 690 ==
LOC: ED 11:55 → PCU 18:52
PROVIDERS: Admitting Provider Internal Medicine; Emergency Provider Emergency Medicine; PCP Internal Medicine; Visit Provider Internal Medicine
DX: N30.00 Acute cystitis without hematuria (principal); I50.9 Heart failure, unspecified; I11.0 Hypertensive heart disease with heart failure; I48.0 Paroxysmal atrial fibrillation; B96.20 Unspecified Escherichia coli [E. coli] as the cause of diseases classified elsewhere; I95.1 Orthostatic hypotension; F41.8 Other specified anxiety disorders; M79.7 Fibromyalgia; K21.9 Gastro-esophageal reflux disease without esophagitis; W19.XXXA Unspecified fall, initial encounter; Z85.01 Personal history of malignant neoplasm of esophagus; Z79.899 Other long term (current) drug therapy; Z79.01 Long term (current) use of anticoagulants; R29.6 Repeated falls
CPT/HCPCS: 36415; 70450; 71045; 74018; 80048; 80053; 81001; 83605; 83690; 83735; 84100; 84484; 85025; 85610; 85730; 87040; 87077; 87086; 87088; 87186; 93005; 96361; 96365; 96366; 96375; 96376; 97110; 97162; 97166; 97530; 97535; 99218; 99285; J7030; P9612; A4216; G0378; J2405

== ENCOUNTER 2021-11-04 23:52 | Emergency (ER) | payer MEDICARE, SELFPAY ==
[2021-11-04 23:54] VITALS: BP 109/79; PULSE 126; RESP 15; TEMP 36.5; O2SAT 96; BMI 24.5
[2021-11-05 00:04] VITALS: O2SAT 96
--- NOTE | 2021-11-05 00:14 | EKG12_ITS ---
Test Reason : SOB Blood Pressure : / mmHG Vent. Rate : 111 BPM Atrial Rate : 122 BPM P-R Int : 000 ms QRS Dur : 090 ms QT Int : 350 ms P-R-T Axes : 000 -21 209 degrees QTc Int : 476 ms Atrial fibrillation with premature ventricular or aberrantly conducted complexes Low voltage QRS Nonspecific ST and T wave abnormality Abnormal ECG Confirmed by LIZETTE FINLEY, LAWRENCE ([id number]), book or script editor CHARITO ALLEN ([id number]) on 11/07/2021 1:26:28 PM Referred By: ECTOR Confirmed By:LAWRENCE BAUER MD
--- NOTE | 2021-11-05 00:16 | EX.ED.DYSGE1 ---
HPI History of Present Illness Chief Complaint: Shortness of Breath Informant: patient Onset/Context/Timing Onset: Today Narrative Narrative: Patient presents via EMS secondary to nausea and abdominal pain. Patient was discharged from PCU on the with weakness and fall secondary to UTI with possible syncopal episode. She states after going home she was unable to eat much for dinner because her abdomen hurt. She initially felt short of breath but states that often happens when she starts to panic. She does not feel short of breath at this time. She denies chest pain. PFSH PFSH Medical History Anxiety and depression Atrial fibrillation Congestive heart failure (CHF) Depression Esophageal cancer Esophageal cancer Fibromyalgia GERD (gastroesophageal reflux disease) History of gastrectomy HTN (hypertension) Non-smoker Home Medications promethazine 25 mg PO TID PRN PRN 01/05/17 [History Last Taken 08/03/17 20:00] ferrous sulfate [Iron (ferrous sulfate)] 325 mg PO QODAY 08/04/17 [History Last Taken 11/01/21] cholecalciferol (vitamin D3) 1,250 mcg PO .2X/WEEK 07/21/21 [History Last Taken 11/01/21] cyanocobalamin (vitamin B-12) 1,000 mcg IM QMONTH 07/21/21 [History Last Taken 11/01/21] latanoprost 1 drp EACH EYE QPM 07/21/21 [History Last Taken 11/01/21] magnesium 500 mg PO DAILY 07/21/21 [History Last Taken 08/21/21 09:00] omeprazole 40 mg PO DAILY 07/21/21 [History Last Taken 08/21/21 09:00] sertraline 50 mg PO DAILY 07/21/21 [History Last Taken 08/21/21 09:00] Eliquis 5 mg PO BID 11/01/21 [History Last Taken Unknown] amlodipine 10 mg PO DAILY 11/01/21 [History Last Taken 11/01/21] enalapril maleate 20 mg PO BID 11/01/21 [History Last Taken 11/01/21] furosemide 20 mg PO DAILY 11/01/21 [History Last Taken 11/01/21] oxycodone 10 mg PO TID PRN PRN 11/01/21 [History Last Taken Unknown] cefdinir 300 mg PO Q12 5 Days #10 cap 11/04/21 [Rx Last Taken Unknown] metoprolol tartrate 50 mg PO BID 30 Days #60 tab 11/04/21 [Rx Last Taken Unknown] polyethylene glycol 3350 17 g PO DAILY #0 ea 11/04/21 [Rx Last Taken Unknown] Allergy/AdvReac Type Severity Reaction Status Date / Time adhesive tape Allergy Rash Verified 11/05/21 00:05 chlorpheniramine Allergy Other Verified 11/05/21 00:05 dobutamine Allergy Low blood Verified 11/05/21 00:05 pressure doxycycline Allergy Unknown Verified 11/05/21 00:05 Iodinated Contrast Media Allergy Rash Verified 11/05/21 00:05 [Iodinated Contrast Media - IV Dye] Sulfa (Sulfonamide Allergy Unknown Verified 11/05/21 00:05 Antibiotics) erythromycin base AdvReac Upset Verified 11/05/21 00:05 Stomach hydrocodone bitartrate AdvReac HEADACHE Verified 11/05/21 00:05 [From Vicodin] ibuprofen AdvReac Nausea Verified 11/05/21 00:05 chlortab-4 Allergy Other Uncoded 11/05/21 00:05 Family History Father Cancer Lung cancer. Mother Myocardial infarction Heart disease Surgical History H/O ventral hernia repair History of esophageal surgery Hx of appendectomy Hx of cholecystectomy S/P gastrectomy Social History household members: none housing: house pets and animals: No Smoking Status: Never smoker substance use type: does not use ROS ROS ED Constitutional Constitutional ED: Denies chills or fever(s) Eyes Eyes: Denies change in vision ENT ENT ED: Denies sore throat Cardiovascular Cardiovascular: Denies chest pain Respiratory/Chest Respiratory/Chest: Reports dyspnea; Denies cough Gastrointestinal Gastrointestinal: Reports abdominal pain and nausea; Denies diarrhea or vomiting Genitourinary Genitourinary ED: Denies dysuria Musculoskeletal Musculoskeletal: Denies back pain or neck pain Integumentary Denies rash Neurologic Neurologic: Reports weakness; Denies headache(s) Allergic/Immunologic Allergic/Immunologic ED: Denies urticaria EXAM Physical Exam Const Vital Signs: 11/04/21 23:54 11/05/21 00:04 11/05/21 00:58 Temperature 97.7 F L Temperature Source Temporal Pulse Rate 126 H 101 H Respiratory Rate 15 17 Respiratory Depth Normal Blood Pressure 109/79 Blood Pressure Mean 89 Pulse Ox 96 93 Oxygen Delivery Method Room Air Room Air Room Air 11/05/21 01:02 Temperature Temperature Source Pulse Rate Respiratory Rate Respiratory Depth Blood Pressure 111/75 Blood Pressure Mean 87 Pulse Ox Oxygen Delivery Method Positive well nourished and well developed General Appearance ED: well developed HEENT Reports moist mucous membranes Eyes PERRL and EOMs intact bilaterally Neck supple Chest Wall inspection of chest normal and palpation of chest normal Resp normal respiratory effort and clear to auscultation bilaterally Cardio Rate: tachycardic Rhythm: abnormal rhythm irregularly irregular GI non-tender Auscultation: hypoactive bowel sounds Palpation: soft Extremity normal to inspection Neuro oriented x3 Sensorium / Orientation: alert Psych mental status grossly normal Skin Skin Narrative: Ecchymoses noted to the bilateral arms from prior IV sites. MDM MDM MDM Narrative Medical decision making narrative: EKG, CBC, chemistries, LFTs and lipase ordered. Patient denies chest pain or shortness of breath at this time but is complaining of some abdominal pain. She is given Zofran for nausea. Lab Data Attestation: I reviewed the patient's lab results. Labs: Laboratory Results - last 24 hr 11/05/21 11/05/21 00:23 00:23 WBC 8.3 RBC 4.12 L Hgb 12.2 Hct 37.9 MCV 92.0 MCH 29.6 MCHC 32.2 RDW Std Deviation 51.6 H RDW Coeff of Mikayla 15.1 H Plt Count 123 L MPV 12.4 H Immature Gran % (Auto) 0.200 Neut % (Auto) 78.9 H Lymph % (Auto) 13.3 L [place] % (Auto) 5.4 Eos % (Auto) 1.8 Baso % (Auto) 0.4 Absolute Neuts (auto) 6.5 Absolute Lymphs (auto) 1.10 Nucleated RBC % 0 Sodium 141 Potassium 4.2 Chloride 109 H Carbon Dioxide 26.0 Anion Gap 6 BUN 11 Creatinine 0.78 Estim Creat Clear Calc 51.30 Est GFR (MDRD) Af Amer 93 Est GFR (MDRD) Non-Af 77 BUN/Creatinine Ratio 14.0 Glucose 119 H Calcium 8.3 L Total Bilirubin 0.60 Direct Bilirubin 0.34 H AST 26 ALT 19 Alkaline Phosphatase 168 H Total Protein 5.9 L Albumin 2.5 L Globulin 3.4 Lipase 34 L Radiography Diagnostic Testing: Clinical Impression(s) from Imaging Studies Abdomen/Pelvis CT 11/05/21 01:34 IMPRESSION: 1. 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 2. Mild cardiomegaly. 3. Subsegmental atelectasis in the bases and slight right pleural effusion. 4. Generalized edema state with thickening of the interlobular septa, anasarca, mild retroperitoneal edema, right pleural effusion, and slight ascites. Findings may be related to CHF. 5. Coronary artery disease. 6. Cholecystectomy. 7. Hysterectomy. 8. Scattered diverticula without diverticulitis. 9. The bones are diffusely osteopenic. Electronically Signed: Linwood Montes MD at 3:08 EDT , EKG Initial EKG: Attestation: I personally reviewed and interpreted this EKG as follows: Interpretation: Atrial Fibrillation (A. fib at 111 with nonspecific T wave flattening. No acute ST change.) Treatment and Re-Evaluation Narrative: Repeat evaluation patient reported still feeling nauseated. She was given a dose of Reglan. She continues to complain of some abdominal pain but has no focal tenderness on exam. CT flank obtained with some increased fluid noted but no acute cause of pain. Nursing staff advises patient did not want to get up to bedside commode to go to the bathroom. I had a long talk with her concerning whether she was concerned about being at home as she was just discharged from the hospital yesterday and if she felt comfortable with her family taking care of her. She states that when she goes to her son's house on Sunday her daughter in law will be available to take care of her 22/01. Today she will be staying with her daughter and son-in-law. She does feel that she is safe at home and does not need to be readmitted to the hospital. In light of the fact that her vital signs and lab work is stable from her recent discharge I do not see a reason for repeat admission. Discharge Plan Triage Chief Complaint: Shortness of Breath ED Provider: Karie Morse Dx/Rx/DC Orders Clinical Impression: Abdominal pain, Nausea Instructions: ED Abdominal Pain Unkn Cause Fem Prescriptions: No Action promethazine 25 MG tablet 25 mg PO TID PRN PRN (Reason: Nausea) RF: 0 ferrous sulfate [Iron (ferrous sulfate)] 325 MG tablet 325 mg PO QODAY RF: 0 latanoprost 0.005 % Drops 1 drp EACH EYE QPM RF: 0 omeprazole 40 mg Capsule,Delayed Release(Dr/Ec) 40 mg PO DAILY RF: 0 cyanocobalamin (vitamin B-12) 1,000 mcg/mL solution 1,000 mcg IM QMONTH RF: 0 magnesium 250 mg Tablet 500 mg PO DAILY RF: 0 sertraline 50 mg Tablet 50 mg PO DAILY RF: 0 cholecalciferol (vitamin D3) 1,250 mcg (50,000 unit) Capsule 1,250 mcg PO .2X/WEEK RF: 0 enalapril maleate 20 mg Tablet 20 mg PO BID RF: 0 Hold Instructions: Resume on 11/18/21. Hold until further follow-up with primary care provider for repeat blood pressure check. amlodipine 10 mg Tablet 10 mg PO DAILY RF: 0 Hold Instructions: Resume on 11/18/21. Hold until further follow-up with PCP for repeat blood pressure check. oxycodone 5 mg tablet 10 mg PO TID PRN PRN (Reason: Pain Score 6-10) RF: 0 furosemide 20 mg tablet 20 mg PO DAILY RF: 0 Hold Instructions: Resume on 11/18/21. Hold until further follow-up with PCP. Eliquis 5 mg tablet 5 mg PO BID RF: 0 polyethylene glycol 3350 17 gram Powder In Packet 17 g PO DAILY Qty: 0 RF: 0 metoprolol tartrate 50 mg Tablet 50 mg PO BID 30 Days Qty: 60 RF: 0 cefdinir 300 mg Capsule 300 mg PO Q12 5 Days Qty: 10 RF: 0 Primary Care Provider: Selma Whitaker Referrals: Selma Whitaker MD [Primary Care Provider] - 1-2 Weeks Disposition Disposition: Home, Self Care
[2021-11-05] MEDS: Ondansetron 4 MG/2 ML Vial IV (00:22)
[2021-11-05 00:32] LABS: Absolute Neutrophil Count 6.5 X10^3/uL (2.0-7.7); Basophil# 0.03 X10^3/uL; Basophil% 0.4 % (0-1); Eosinophil# 0.15 X10^3/uL; Eosinophils% 1.8 % (0-5); Hematocrit 37.9 % (37-47); Hemoglobin 12.2 g/dL (12.0-15.0); Lymphocyte % 13.3 % (19-41); Mean Corp Hgb Conc 32.2 g/dL (32-36); Mean Corpuscular Hgb 29.6 pg (27.0-32.0); Mean Platelet Vol. 12.4 fl (6.2-12.0); Monocyte# 0.45 X10^3/uL; Monocyte% 5.4 % (0-10); NRBC Flagged by Analyzer 0 % (0-5); Neutrophil # 6.54 X10^3/uL (2.7-7.7); Neutrophil % 78.9 % (47-70); Platelet Count 123 K/mm3 (150-450); RBC Distribution Width CV 15.1 % (11.6-14.6); RBC Distribution Width SD 51.6 fl (35.1-43.9); Red Blood Count 4.12 M/mm3 (4.2-5.4); White Blood Count 8.3 K/mm3 (4.4-11.0)
[2021-11-05 00:49] LABS: AST(SGOT) 26 U/L (15-37); Alanine Aminotransfer ALT/SGPT 19 U/L (13-56); Albumin, Serum 2.5 g/dL (3.2-5.0); Alkaline Phosphatase 168 U/L (45-117); Anion Gap 6 (5-15); BUN 11 mg/dL (7-18); Bilirubin, Direct 0.34 mg/dL (0.00-0.30); Calcium,Total 8.3 mg/dL (8.5-10.1); Chloride 109 mmol/L (98-107); Creatinine, Serum 0.78 mg/dL (0.55-1.02); EST Glomerular Filtration Rate 77 mL/min (>60); Est Glom Filt Rate - Afr Amer 93 mL/min (>60); Globulin 3.4 g/dL (2.2-4.2); Glucose 119 mg/dL (74-106); Lipase 34 U/L (73-393); Potassium 4.2 mmol/L (3.5-5.1); Protein, Total 5.9 g/dL (6.4-8.2); Sodium Level 141 mmol/L (136-145)
[2021-11-05 00:58] VITALS: PULSE 101; RESP 17; O2SAT 93
[2021-11-05 01:02] VITALS: BP 111/75
--- NOTE | 2021-11-05 01:34 | CT_ITS ---
EXAM: CT ABDOMEN AND PELVIS WITHOUT INTRAVENOUS CONTRAST CLINICAL INDICATION: abd pain TECHNIQUE: Helically acquired images were obtained of the abdomen and pelvis without intravenous contrast. This CT exam was performed using one or more of the following dose reduction techniques: automated exposure control, adjustment of the mA and/or kV according to patient size, and/or use of iterative reconstruction technique. This report was created using [employer] report generation technology. RADIATION DOSE: CTDIvol = 9.7 mGy, DLP = 510 mGy-cm. COMPARISON: 08/04/2017. 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 Mild cardiomegaly. Subsegmental atelectasis in the bases and slight right pleural effusion. Coronary artery calcifications. Mild thickening of the interlobular septa in the lung bases may be due to interstitial edema. ABDOMEN: LIVER: Unremarkable. Homogeneous. GALLBLADDER AND BILE DUCTS: Cholecystectomy. No intra- or extrahepatic biliary ductal dilation. PANCREAS: Unremarkable. No focal cystic mass. SPLEEN: Unremarkable. Normal size without focal cystic or solid mass. ADRENALS: Unremarkable. No nodules. KIDNEYS AND URETERS: Unremarkable. Normal renal size and position. No hydronephrosis. STOMACH AND BOWEL: Scattered diverticula without diverticulitis. PELVIS: APPENDIX: No evidence of acute appendicitis. BLADDER: Unremarkable. REPRODUCTIVE: Hysterectomy. ABDOMEN and PELVIS: INTRAPERITONEAL SPACE: Slight ascites. No free air. RETROPERITONEAL SPACE: Mild retroperitoneal edema. BONES/JOINTS: The bones are diffusely osteopenic. No suspicious lytic or blastic abnormality. SOFT TISSUES: Anasarca. No discrete abdominal or pelvic wall hernia. VASCULATURE: Unremarkable. Abdominal aorta is non-dilated. LYMPH NODES: Unremarkable. No enlarged lymph nodes. CT/Abdomen/Pelvis without Cont IMPRESSION: 1. 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 2. Mild cardiomegaly. 3. Subsegmental atelectasis in the bases and slight right pleural effusion. 4. Generalized edema state with thickening of the interlobular septa, anasarca, mild retroperitoneal edema, right pleural effusion, and slight ascites. Findings may be related to CHF. 5. Coronary artery disease. 6. Cholecystectomy. 7. Hysterectomy. 8. Scattered diverticula without diverticulitis. 9. The bones are diffusely osteopenic. Electronically Signed: Linwood Montes MD at 3:08 EDT ,
[2021-11-05] MEDS: Metoclopramide 10 MG/2 ML Vial 5 MG IV (02:10)
[2021-11-05 04:08] VITALS: RESP 14
[2021-11-05 06:08] VITALS: PULSE 74; RESP 17; O2SAT 98
--- NOTE | 2021-11-05 06:08 | ED.RN ---
CALLED SON IN [place] BUT NO ANSWER. CALL DAUGHTER, LEFT MESSAGE AND TO COME HERE TO GET HER. GAVE NUMBER TO CALL IF SHE HAS QUESTIONS.
[2021-11-05 06:11] VITALS: BP 123/93; PULSE 100; O2SAT 98
--- NOTE | 2021-11-05 06:16 | NURSING ---
SON CALLED BACK AND WILL COME TO GET PATIENT
== END 2021-11-05 06:34 | disposition home or self-care (01) ==
PROVIDERS: Emergency Provider Emergency Medicine; PCP Internal Medicine; Visit Provider Emergency Medicine
DX: R10.9 Unspecified abdominal pain (principal); I11.0 Hypertensive heart disease with heart failure; I50.9 Heart failure, unspecified; I48.91 Unspecified atrial fibrillation; R11.0 Nausea; F41.9 Anxiety disorder, unspecified; F32.A Depression, unspecified; K21.9 Gastro-esophageal reflux disease without esophagitis; Z79.01 Long term (current) use of anticoagulants; Z79.899 Other long term (current) drug therapy; Z23 Encounter for immunization
CPT/HCPCS: 74176; 80048; 80076; 83690; 85025; 90471; 93005; 96374; 96375; 99285; J7030; A4216; J2405

== ENCOUNTER 2022-02-11 12:47 | Inpatient (IN) | payer MEDICARE, SELFPAY ==
[2022-02-11] VITALS (13 sets, daily range): BP systolic 100–124; BP diastolic 76–97; PULSE 95–128; RESP 12–20; TEMP 36.4–37.2; O2SAT 93–98; BMI 24.7; BMI 29.2
--- NOTE | 2022-02-11 13:10 | EKG12_ITS ---
Test Reason : Blood Pressure : / mmHG Vent. Rate : 103 BPM Atrial Rate : 000 BPM P-R Int : 000 ms QRS Dur : 092 ms QT Int : 274 ms P-R-T Axes : 000 -14 192 degrees QTc Int : 358 ms Atrial fibrillation with rapid ventricular response Low voltage QRS Nonspecific ST and T wave abnormality Poor R wave progression Abnormal ECG Confirmed by NELSON FINLEY, PIOTR ([id number]), book or script editor CHARITO ALLEN ([id number]) on 02/13/2022 10:01:49 AM Referred By: ANH Confirmed By:PIOTR DAMON MD
--- NOTE | 2022-02-11 13:13 | EDS_ITS ---
HPI <MALCOM Haywood - Last Filed: 02/11/22 15:28> History of Present Illness Chief Complaint: Edema Narrative Narrative: 71-year-old female with PMH of A. fib, CHF was sent in by [facility]. On 02/10 she was diagnosed with UTI and started on Keflex. She also has chronic bilateral leg edema which per EMS report is around baseline but her legs are seeping and cool. Apparently nursing staff today was concerned about her legs and could not find a pulse or a blood pressure so sent her in. Med records state she is on Lasix 20 mg every other day. Patient is mildly confused here but denies any acute complaints. She tells me her leg swelling is much better. PFSH <MALCOM Haywood - Last Filed: 02/11/22 15:28> PFSH Medical History Anxiety and depression Atrial fibrillation Congestive heart failure (CHF) Depression Esophageal cancer Esophageal cancer Fibromyalgia GERD (gastroesophageal reflux disease) History of gastrectomy HTN (hypertension) Non-smoker Home Medications ferrous sulfate 325 mg (65 mg iron) tablet (Iron (ferrous sulfate)) 650 mg PO QODAY supplement 08/04/17 [History Last Taken 11/01/21] cyanocobalamin (vitamin B-12) 1,000 mcg/mL injection solution 1,000 mcg IM QMONTH SUPPLEMENT 07/21/21 [History Last Taken 11/01/21] latanoprost 0.005 % eye drops 1 drp EACH EYE QPM GLAUCOMA 07/21/21 [History Last Taken 11/01/21] magnesium 250 mg tablet 400 mg PO DAILY SUPPLEMENT 07/21/21 [History Last Taken 08/21/21 09:00] omeprazole 40 mg capsule,delayed release 20 mg PO DAILY GERD 07/21/21 [History Last Taken 08/21/21 09:00] sertraline 50 mg tablet 50 mg PO DAILY DEPRESSION 07/21/21 [History Last Taken 08/21/21 09:00] amlodipine 10 mg tablet 10 mg PO DAILY blood pressure 11/01/21 [History Last Taken 11/01/21] apixaban 5 mg tablet (Eliquis) 5 mg PO BID a fib 11/01/21 [History Last Taken Unknown] enalapril maleate 20 mg tablet 20 mg PO BID heart 11/01/21 [History Last Taken 11/01/21] furosemide 20 mg tablet 20 mg PO DAILY blood pressure 11/01/21 [History Last Taken 11/01/21] oxycodone 5 mg tablet 10 mg PO BID 11/01/21 [History Last Taken Unknown] metoprolol tartrate 50 mg tablet 50 mg PO BID 30 days #60 tabs 11/04/21 [Rx Last Taken Unknown] Lactobacillus acidophilus 1,000 mmu cells PO DAILY 02/11/22 [History Last Taken Unknown] Vitamin D3 1 tab PO/SL BID supplement 02/11/22 [History Last Taken Unknown] acetaminophen 650 mg tablet 650 mg PO Q4H PRN PAIN/FEVER 02/11/22 [History Last Taken Unknown] bisacodyl 10 mg rectal suppository 10 mg VA DAILY PRN Constipation 02/11/22 [History Last Taken Unknown] cephalexin 500 mg capsule 500 mg PO BID 02/11/22 [History Last Taken Unknown] diphenhydramine HCl 25 mg capsule 25 mg PO QHS PRN SEASONAL ALLERGIES 02/11/22 [History Last Taken Unknown] magnesium hydroxide 400 mg/5 mL oral suspension (Milk of Magnesia) 30 ml PO DAILY PRN Constipation 02/11/22 [History Last Taken Unknown] metoclopramide HCl 10 mg tablet 10 mg PO BID 02/11/22 [History Last Taken Unknown] sennosides 8.6 mg tablet (senna) 17.2 mg PO BID 02/11/22 [History Last Taken Unknown] simethicone 80 mg tablet 80 mg PO 4X/DAY 02/11/22 [History Last Taken Unknown] sodium phosphates 19 gram-7 gram/118 mL enema (Enema) 118 ml VA DAILY PRN Constipation 02/11/22 [History Last Taken Unknown] spironolactone 25 mg tablet 12.5 mg PO DAILY 02/11/22 [History Last Taken Unknown] Allergy/AdvReac Type Severity Reaction Status Date / Time adhesive tape Allergy Rash Verified 02/11/22 16:31 chlorpheniramine Allergy Other Verified 02/11/22 16:31 dobutamine Allergy Low blood Verified 02/11/22 16:31 pressure doxycycline Allergy Unknown Verified 02/11/22 16:31 Iodinated Contrast Media Allergy Rash Verified 02/11/22 16:31 [Iodinated Contrast Media - IV Dye] Sulfa (Sulfonamide Allergy Unknown Verified 02/11/22 16:31 Antibiotics) erythromycin base AdvReac Upset Verified 02/11/22 16:31 Stomach hydrocodone bitartrate AdvReac HEADACHE Verified 02/11/22 16:31 [From Vicodin] ibuprofen AdvReac Nausea Verified 02/11/22 16:31 chlortab-4 Allergy Other Uncoded 02/11/22 16:31 Family History Father Cancer Lung cancer. Mother Myocardial infarction Heart disease Surgical History H/O ventral hernia repair History of esophageal surgery Hx of appendectomy Hx of cholecystectomy S/P gastrectomy Social History household members: none housing: house pets and animals: No Smoking Status: Never smoker substance use type: does not use ROS <MALCOM Haywood - Last Filed: 02/11/22 15:28> ROS ED ROS Narrative Unable to obtain due to mental status EXAM <MALCOM Haywood - Last Filed: 02/11/22 15:28> Physical Exam Narrative Exam Narrative: CONST: Patient sitting in no acute distress. EYES: Normal inspection. ENT: Normal inspection, moist mucous membranes. NECK: Focal enlarged area at lower neck/upper chest from previous esophagus surgery. RESP: No respiratory distress, faint bibasilar crackles. CVS: Regular rate and rhythm, no murmur, no gallop. ABD: Soft and nontender, no guarding or rebound, nondistended. SKIN: Color normal, no rash, warm, dry, intact. EXTREMITIES: 2+ pitting edema and of bilateral legs to mid tibia, cool to touch, slight mottling of soles of feet, no erythema or wounds, bilateral monophasic DP pulses with Doppler. NEURO: Oriented to self, place, year. Unsure why she is here. Moving all extremities. PSYCH: Normal affect. Const Vital Signs: 02/11/22 12:48 02/11/22 12:55 02/11/22 13:02 Temperature 97.5 F L 97.8 F Temperature Source Oral Oral Pulse Rate 99 121 H Respiratory Rate 14 12 Respiratory Effort Normal Respiratory Depth Respiratory Pattern Normal Blood Pressure 124/97 H 124/97 H Blood Pressure Mean 106 106 Pulse Ox 93 Oxygen Delivery Method Room Air 02/11/22 13:55 02/11/22 14:47 02/11/22 15:30 Temperature 98.9 F Temperature Source Temporal Pulse Rate 128 H 115 H Respiratory Rate 14 18 Respiratory Effort Normal Non-Labored Respiratory Depth Normal Respiratory Pattern Normal Blood Pressure 106/78 114/85 H Blood Pressure Mean 87 94 Pulse Ox 94 93 Oxygen Delivery Method Room Air Room Air Room Air <Dr. Karie Morse MD - Last Filed: 02/11/22 21:52> Physical Exam Const Vital Signs: 02/11/22 12:48 02/11/22 12:55 02/11/22 13:02 Temperature 97.5 F L 97.8 F Temperature Source Oral Oral Pulse Rate 99 121 H Respiratory Rate 14 12 Respiratory Effort Normal Respiratory Depth Respiratory Pattern Normal Blood Pressure 124/97 H 124/97 H Blood Pressure Mean 106 106 Pulse Ox 93 Oxygen Delivery Method Room Air 02/11/22 13:55 02/11/22 14:47 02/11/22 15:30 Temperature 98.9 F Temperature Source Temporal Pulse Rate 128 H 115 H Respiratory Rate 14 18 Respiratory Effort Normal Non-Labored Respiratory Depth Normal Respiratory Pattern Normal Blood Pressure 106/78 114/85 H Blood Pressure Mean 87 94 Pulse Ox 94 93 Oxygen Delivery Method Room Air Room Air Room Air MDM <MALCOM Haywood - Last Filed: 02/11/22 15:28> [facility] Narrative Medical decision making narrative: . Patient was sent in by SNF for worsening confusion. Also lower extremity edema and no palpable pulses. She appears well and nontoxic. Vital signs unremarkable. She is alert to self and place but occasionally answers historical questions wrong and then stated she was here for the of her grandson. She does have 2+ pitting edema to both shins and extremities are cool to the touch. There are no palpable pulses but with Doppler there are weak monophasic DP pulses bilaterally. There are no signs of infection. Labs show normal white count and hemoglobin and chronic thrombocytopenia. She does have acute kidney injury with creatinine of 1.53. proBNP slightly up at 998 but CXR is unchanged. Due to worsening confusion, MALCOLM, UTI patient will be admitted. She was given Rocephin. After discussion with the hospitalist she also advised giving IV Lasix 40 mg x 1. Lab Data Attestation: I reviewed the patient's lab results. Labs: Laboratory Results - last 24 hr 02/11/22 02/11/22 02/11/22 13:52 13:55 13:57 WBC 9.5 RBC 4.88 Hgb 14.2 Hct 45.6 MCV 93.4 MCH 29.1 MCHC 31.1 L RDW Std Deviation 60.8 H RDW Coeff of Mikayla 17.6 H Plt Count 123 L MPV 11.6 Immature Gran % (Auto) 0.300 Neut % (Auto) 83.3 H Lymph % (Auto) 10.1 L [place] % (Auto) 4.4 Eos % (Auto) 1.5 Baso % (Auto) 0.4 Absolute Neuts (auto) 7.9 H Absolute Lymphs (auto) 0.96 Nucleated RBC % 0 Sodium Potassium Chloride Carbon Dioxide Anion Gap BUN Creatinine Estim Creat Clear Calc Est GFR (MDRD) Af Amer Est GFR (MDRD) Non-Af BUN/Creatinine Ratio Glucose Calcium Troponin I High Sens B-Natriuretic Peptide 998.4 H Urine Color Yellow Urine Clarity Clear Urine pH 6.0 Ur Specific [place] 1.025 Urine Protein 500 H Urine Glucose (UA) Normal Urine Ketones 5 H Urine Occult Blood 250 H Urine Nitrite Negative Urine Bilirubin 1 H Urine Urobilinogen Normal Ur Leukocyte Esterase 25 H Urine RBC 10-25 SEEN Urine WBC 0-5 SEEN Ur Squamous Epith Cells 0-5 SEEN Urine Bacteria 2+ Urine Mucus 0 SEEN 02/11/22 02/11/22 13:57 13:57 WBC RBC Hgb Hct MCV MCH MCHC RDW Std Deviation RDW Coeff of Mikayla Plt Count MPV Immature Gran % (Auto) Neut % (Auto) Lymph % (Auto) [place] % (Auto) Eos % (Auto) Baso % (Auto) Absolute Neuts (auto) Absolute Lymphs (auto) Nucleated RBC % Sodium 138 Potassium 4.2 Chloride 108 H Carbon Dioxide 26.0 Anion Gap 4 L BUN 57 H Creatinine 1.53 H Estim Creat Clear Calc 33.53 Est GFR (MDRD) Af Amer 43 L Est GFR (MDRD) Non-Af 35 L BUN/Creatinine Ratio 37.3 H Glucose 120 H Calcium 8.9 Troponin I High Sens 35 B-Natriuretic Peptide Urine Color Urine Clarity Urine pH Ur Specific [place] Urine Protein Urine Glucose (UA) Urine Ketones Urine Occult Blood Urine Nitrite Urine Bilirubin Urine Urobilinogen Ur Leukocyte Esterase Urine RBC Urine WBC Ur Squamous Epith Cells Urine Bacteria Urine Mucus Radiography Chest X-Ray - ED: 1 View, Read by ED Physician, Read by Radiologist and Unchanged Diagnostic Testing: Clinical Impression(s) from Imaging Studies Chest X-Ray 02/11/22 14:42 IMPRESSION: Poor inspiration with some bibasilar atelectasis. Electronically Signed: Jai Leal MD at 15:04 EDT , ED attending interpretation shows normal heart size, no acute infiltrate. <Dr. Karie Morse MD - Last Filed: 02/11/22 21:52> [facility] Lab Data Labs: Laboratory Results - last 24 hr 02/11/22 02/11/22 02/11/22 13:52 13:55 13:57 WBC 9.5 RBC 4.88 Hgb 14.2 Hct 45.6 MCV 93.4 MCH 29.1 MCHC 31.1 L RDW Std Deviation 60.8 H RDW Coeff of Mikayla 17.6 H Plt Count 123 L MPV 11.6 Immature Gran % (Auto) 0.300 Neut % (Auto) 83.3 H Lymph % (Auto) 10.1 L [place] % (Auto) 4.4 Eos % (Auto) 1.5 Baso % (Auto) 0.4 Absolute Neuts (auto) 7.9 H Absolute Lymphs (auto) 0.96 Nucleated RBC % 0 Sodium Potassium Chloride Carbon Dioxide Anion Gap BUN Creatinine Estim Creat Clear Calc Est GFR (MDRD) Af Amer Est GFR (MDRD) Non-Af BUN/Creatinine Ratio Glucose Calcium Troponin I High Sens B-Natriuretic Peptide 998.4 H Urine Color Yellow Urine Clarity Clear Urine pH 6.0 Ur Specific [place] 1.025 Urine Protein 500 H Urine Glucose (UA) Normal Urine Ketones 5 H Urine Occult Blood 250 H Urine Nitrite Negative Urine Bilirubin 1 H Urine Urobilinogen Normal Ur Leukocyte Esterase 25 H Urine RBC 10-25 SEEN Urine WBC 0-5 SEEN Ur Squamous Epith Cells 0-5 SEEN Urine Bacteria 2+ Urine Mucus 0 SEEN 02/11/22 02/11/22 13:57 13:57 WBC RBC Hgb Hct MCV MCH MCHC RDW Std Deviation RDW Coeff of Mikayla Plt Count MPV Immature Gran % (Auto) Neut % (Auto) Lymph % (Auto) [place] % (Auto) Eos % (Auto) Baso % (Auto) Absolute Neuts (auto) Absolute Lymphs (auto) Nucleated RBC % Sodium 138 Potassium 4.2 Chloride 108 H Carbon Dioxide 26.0 Anion Gap 4 L BUN 57 H Creatinine 1.53 H Estim Creat Clear Calc 33.53 Est GFR (MDRD) Af Amer 43 L Est GFR (MDRD) Non-Af 35 L BUN/Creatinine Ratio 37.3 H Glucose 120 H Calcium 8.9 Troponin I High Sens 35 B-Natriuretic Peptide Urine Color Urine Clarity Urine pH Ur Specific [place] Urine Protein Urine Glucose (UA) Urine Ketones Urine Occult Blood Urine Nitrite Urine Bilirubin Urine Urobilinogen Ur Leukocyte Esterase Urine RBC Urine WBC Ur Squamous Epith Cells Urine Bacteria Urine Mucus Radiography Diagnostic Testing: Clinical Impression(s) from Imaging Studies Chest X-Ray 02/11/22 14:42 IMPRESSION: Poor inspiration with some bibasilar atelectasis. Electronically Signed: Jai Leal MD at 15:04 EDT , Treatment and Re-Evaluation Narrative: Patient seen and evaluated with FIDEL. I personally interviewed and examined the patient. I was involved in all aspects of patient's orders, interpretation of results, and treatment. Patient presents from [facility] secondary to lower extremity edema and not able to feel pulses. They were not able to get a blood pressure on the patient at the [facility] and noted that she was more confused. It is noted the patient was diagnosed with a UTI yesterday and started on Keflex. Patient sitting upright in bed no acute distress. She is confused and believes that she is here for the of her grandson. Head neck examination is unremarkable with no sign of trauma. Heart is regular rate and rhythm. Lung sounds are clear. She has a chronic left anterior chest wall deformity from prior surgery. Abdomen is soft and nontender. Lower extremity examinations reveal 3+ pitting edema bilaterally. Legs are cool to the touch but not significantly discolored. Pulses are detected with Doppler. Patient's blood pressure has been stable here. I do have concern that with her worsening confusion and UTI she will require IV antibiotics until mental status clears. She also has a slight acute kidney injury. Patient discussed with hospitalist for admission. Discharge Plan Dx/Rx/DC Orders Clinical Impression: Altered mental state, Acute UTI, Acute kidney injury, CHF (congestive heart failure), PAD (peripheral artery disease), Bilateral edema of lower extremity Disposition Disposition: Acute Care Hospital [facility] Discharge Date/Time: 02/11/22 16:32
[2022-02-11 13:59] LABS: Mucous, Urine 0 SEEN /hpf (<or=2+)
[2022-02-11 14:00] LABS: Color, Urine Yellow (Yellow); Glucose, Dipstick Normal (Normal); Ketone-Dipstick 5 mg/dl (Negative); Leukocyte Esterase-Dipstick 25 /ul (Negative); Nitrite-Dipstick Negative (Negative); Occult Blood-Urine 250 /ul (Negative); Protein-Dipstick 500 mg/dl (Negative); Specific Gravity, Urine 1.025 (1.002-1.030); Urine Clarity Clear (Clear); Urine Urobilinogen Normal (Normal)
[2022-02-11 14:06] LABS: Urine Bilirubin Dipstick 1 mg/dL (Negative)
[2022-02-11 14:06] LABS: Absolute Lymphocyte Count 0.96 X10^3/uL (0.83-4.51); Absolute Neutrophil Count 7.9 X10^3/uL (2.0-7.7); Basophil# 0.04 X10^3/uL; Basophil% 0.4 % (0-1); Eosinophil# 0.14 X10^3/uL; Eosinophils% 1.5 % (0-5); Hematocrit 45.6 % (37-47); Hemoglobin 14.2 g/dL (12.0-15.0); Lymphocyte # 0.96 X10^3/ul (0.83-4.51); Lymphocyte % 10.1 % (19-41); Mean Corp Hgb Conc 31.1 g/dL (32-36); Mean Corpuscular Hgb 29.1 pg (27.0-32.0); Mean Corpuscular Volume 93.4 fL (81-99); Mean Platelet Vol. 11.6 fl (6.2-12.0); Monocyte# 0.42 X10^3/uL; Monocyte% 4.4 % (0-10); NRBC Flagged by Analyzer 0 % (0-5); Neutrophil # 7.87 X10^3/uL (2.7-7.7); Neutrophil % 83.3 % (47-70); Platelet Count 123 K/mm3 (150-450); RBC Distribution Width CV 17.6 % (11.6-14.6); RBC Distribution Width SD 60.8 fl (35.1-43.9); Red Blood Count 4.88 M/mm3 (4.2-5.4); White Blood Count 9.5 K/mm3 (4.4-11.0)
[2022-02-11 14:07] LABS: Red Blood Cells-Urine 10-25 SEEN /hpf (0-5); White Blood Cells 0-5 SEEN /hpf (0-5)
[2022-02-11 14:08] LABS: Bacteria 2+ /hpf (None Seen); Squamous Epithelial Cells - UA 0-5 SEEN /hpf (5-10)
[2022-02-11 14:20] LABS: Anion Gap 4 (5-15); BUN 57 mg/dL (7-18); BUN/Creat Ratio 37.3 RATIO (10-20); Calcium,Total 8.9 mg/dL (8.5-10.1); Chloride 108 mmol/L (98-107); Creatinine, Serum 1.53 mg/dL (0.55-1.02); EST Glomerular Filtration Rate 35 mL/min (>60); Est Glom Filt Rate - Afr Amer 43 mL/min (>60); Estimated Creatinine Clearance 33.53 ml/min; Glucose 120 mg/dL (74-106); Potassium 4.2 mmol/L (3.5-5.1); Sodium Level 138 mmol/L (136-145)
[2022-02-11 14:27] LABS: BNP,B-Type NATRIURETIC PEPTIDE 998.4 pg/mL (0-100)
--- NOTE | 2022-02-11 14:42 | RAD_ITS ---
STUDY: X-RAY CHEST REASON FOR EXAM: Female, 71 years old. dyspnea TECHNIQUE: Single AP portable view of the chest. COMPARISON: 11/01/2021 FINDINGS: Poor inspiration with some bibasilar atelectasis. There is no demonstrated pleural abnormality. There is moderate cardiac enlargement. Normal mediastinum and gera. Normal visualized pulmonary arteries. Normal visualized aortic arch and descending thoracic aorta. Normal visualized thoracic spine. Normal visualized ribs, clavicles, and shoulders. There is no demonstrated abnormality of the visualized soft tissue structures of the upper abdomen. RAD/Chest 1 View (Portable) IMPRESSION: Poor inspiration with some bibasilar atelectasis. Electronically Signed: Jai Leal MD at 15:04 EDT ,
--- NOTE | 2022-02-11 15:22 | HP.PCM.HOS_ITS ---
HPI - General General Date of Admission: 02/11/22 Date of Service: 02/11/22 HPI Narrative KP FLORES, is a 71 F with a PMH as outlined who presents via the ED on with a complaint of lower extremity swelling. Her lower extremity had been getting swollen and worsened, wth associated seeping; SNF staff was also concerned as they thought there was no pulse on the lower extremities. She was also noted to be confused so SNF staff brought her in. Patient couldnt give me much history as she was quite confused; she thought she was in [facility] where her grandson was about to be born. Vitals in the ED were BP of 114/85, WA of 115, RR of 18 and oxygen sats of 93% on room air. CBC showed hb of 14.2, wbc of 9.5 and platelets of 123. Chemistry showed sodium of 138, potassium of 4.2 and Cr of 1.53. Baseline Cr is 0.78. BNP is 998. Urinalysis showed leucocyte esterase and nitrites, as well as 2+ bacteria. CXR showed poor inspiration with bibasilar atelectasis. She is being admitted to be managed for acute heart failure as well as acute metabolic encephalopathy due to [facility] Medical History Anxiety and depression Atrial fibrillation Congestive heart failure (CHF) Depression Esophageal cancer Esophageal cancer Fibromyalgia GERD (gastroesophageal reflux disease) History of gastrectomy HTN (hypertension) Non-smoker Home Medications ferrous sulfate 325 mg (65 mg iron) tablet (Iron (ferrous sulfate)) 650 mg PO QODAY supplement 08/04/17 [History Last Taken 11/01/21] cholecalciferol (vitamin D3) 1,250 mcg (50,000 unit) capsule 1,250 mcg PO .2X/W [place] SUPPLEMENT 07/21/21 [History Last Taken 11/01/21] cyanocobalamin (vitamin B-12) 1,000 mcg/mL injection solution 1,000 mcg IM QMONTH SUPPLEMENT 07/21/21 [History Last Taken 11/01/21] latanoprost 0.005 % eye drops 1 drp EACH EYE QPM GLAUCOMA 07/21/21 [History Last Taken 11/01/21] magnesium 250 mg tablet 400 mg PO DAILY SUPPLEMENT 07/21/21 [History Last Taken 08/21/21 09:00] omeprazole 40 mg capsule,delayed release 20 mg PO DAILY GERD 07/21/21 [History Last Taken 08/21/21 09:00] sertraline 50 mg tablet 50 mg PO DAILY DEPRESSION 07/21/21 [History Last Taken 08/21/21 09:00] amlodipine 10 mg tablet 10 mg PO DAILY blood pressure 11/01/21 [History Last Taken 11/01/21] apixaban 5 mg tablet (Eliquis) 5 mg PO BID a fib 11/01/21 [History Last Taken Unknown] enalapril maleate 20 mg tablet 20 mg PO BID heart 11/01/21 [History Last Taken 11/01/21] furosemide 20 mg tablet 20 mg PO DAILY blood pressure 11/01/21 [History Last Taken 11/01/21] oxycodone 5 mg tablet 10 mg PO BID 11/01/21 [History Last Taken Unknown] cefdinir 300 mg capsule 300 mg PO Q12 5 days #10 caps 11/04/21 [Rx Last Taken Unknown] metoprolol tartrate 50 mg tablet 50 mg PO BID 30 days #60 tabs 11/04/21 [Rx Last Taken Unknown] Lactobacillus acidophilus 1,000 mmu cells PO DAILY 02/11/22 [History Last Taken Unknown] acetaminophen 650 mg tablet 650 mg PO Q4H PRN PAIN/FEVER 02/11/22 [History Last Taken Unknown] bisacodyl 10 mg rectal suppository 10 mg WA DAILY PRN Constipation 02/11/22 [History Last Taken Unknown] cephalexin 500 mg capsule 500 mg PO BID 02/11/22 [History Last Taken Unknown] diphenhydramine HCl 25 mg capsule 25 mg PO QHS PRN SEASONAL ALLERGIES 02/11/22 [History Last Taken Unknown] magnesium hydroxide 400 mg/5 mL oral suspension (Milk of Magnesia) 30 ml PO DAILY PRN Constipation 02/11/22 [History Last Taken Unknown] metoclopramide HCl 10 mg tablet 10 mg PO BID 02/11/22 [History Last Taken Unknown] sennosides 8.6 mg tablet (senna) 17.2 mg PO BID 02/11/22 [History Last Taken Unknown] simethicone 80 mg tablet 80 mg PO 4X/DAY 02/11/22 [History Last Taken Unknown] sodium phosphates 19 gram-7 gram/118 mL enema (Enema) 118 ml WA DAILY PRN Constipation 02/11/22 [History Last Taken Unknown] spironolactone 25 mg tablet 12.5 mg PO DAILY 02/11/22 [History Last Taken Unknown] Allergy/AdvReac Type Severity Reaction Status Date / Time adhesive tape Allergy Rash Verified 11/05/21 00:05 chlorpheniramine Allergy Other Verified 11/05/21 00:05 dobutamine Allergy Low blood Verified 11/05/21 00:05 pressure doxycycline Allergy Unknown Verified 11/05/21 00:05 Iodinated Contrast Media Allergy Rash Verified 11/05/21 00:05 [Iodinated Contrast Media - IV Dye] Sulfa (Sulfonamide Allergy Unknown Verified 11/05/21 00:05 Antibiotics) erythromycin base AdvReac Upset Verified 11/05/21 00:05 Stomach hydrocodone bitartrate AdvReac HEADACHE Verified 11/05/21 00:05 [From Vicodin] ibuprofen AdvReac Nausea Verified 11/05/21 00:05 chlortab-4 Allergy Other Uncoded 11/05/21 00:05 Family History Father Cancer Lung cancer. Mother Myocardial infarction Heart disease Surgical History H/O ventral hernia repair History of esophageal surgery Hx of appendectomy Hx of cholecystectomy S/P gastrectomy Social History household members: none housing: house pets and animals: No Smoking Status: Never smoker substance use type: does not use ROS Review of Systems ROS Unobtainable: due to encephalopathy Vital Signs Vital Signs Vital Signs: 02/11/22 12:48 02/11/22 12:55 02/11/22 13:02 Temperature 97.5 F L 97.8 F Temperature Source Oral Oral Pulse Rate 99 121 H Respiratory Rate 14 12 Respiratory Effort Normal Respiratory Pattern Normal Blood Pressure 124/97 H 124/97 H Blood Pressure Mean 106 106 Pulse Ox 93 Oxygen Delivery Method Room Air 02/11/22 13:55 02/11/22 14:47 Temperature 98.9 F Temperature Source Temporal Pulse Rate 128 H 115 H Respiratory Rate 14 18 Respiratory Effort Respiratory Pattern Blood Pressure 106/78 114/85 H Blood Pressure Mean 87 94 Pulse Ox 94 93 Oxygen Delivery Method Room Air Room Air Weight Weight: 162 lb 7.691 oz Body Mass Index (BMI) 24.7 Physical Exam Const alert and no apparent distress Orientation / Consciousness: confused and disoriented HEENT normocephalic, head/scalp atraumatic, hearing grossly normal bilaterally and moist oral mucous membranes Mouth: oral and palatal mucosa normal Eyes PERRL, EOMs intact bilaterally and conjunctivae normal Neck no lymphadenopathy, supple and no JVD Resp normal respiratory effort, no retractions, no use of accessory muscles and clear to auscultation bilaterally Cardio regular rate, regular rhythm, S1 normal heart sound, S2 normal heart sound and no murmurs GI normal to inspection, nondistended, normoactive bowel sounds, soft to palpation, non-tender and non-distended Extremity full ROM Extremity Narrative: 3+ bipedal pitting edema; both LEs wrapped in bandage. Feet very cold to touch, pulses not palpable but dopplerable, toes o both feet are slightly cyanotic. Neuro CN's II-XII intact bilaterally, moves all extremities and no focal motor deficits Neuro Narrative: confused Sensorium / Orientation: awake and alert Motor Exam: strength 5/5 throughout Psych affect normal Results Lab / Micro Data Result Diagrams: 02/11/22 13:57 02/11/22 13:57 Labs: Laboratory Results - last 24 hr 02/11/22 13:52: Urine Color Yellow, Urine Clarity Clear, Urine pH 6.0, Ur Specific [place] 1.025, Urine Protein 500 H, Urine Glucose (UA) Normal, Urine Ketones 5 H, Urine Occult Blood 250 H, Urine Nitrite Negative, Urine Bilirubin 1 H, Urine Urobilinogen Normal, Ur Leukocyte Esterase 25 H, Urine RBC 10-25 SEEN, Urine WBC 0-5 SEEN, Ur Squamous Epith Cells 0-5 SEEN, Urine Bacteria 2+, Urine Mucus 0 SEEN 02/11/22 13:55: B-Natriuretic Peptide 998.4 H 02/11/22 13:57: WBC 9.5, RBC 4.88, Hgb 14.2, Hct 45.6, MCV 93.4, MCH 29.1, MCHC 31.1 L, RDW Std Deviation 60.8 H, RDW Coeff of Mikayla 17.6 H, Plt Count 123 L, MPV 11.6, Immature Gran % (Auto) 0.300, Neut % (Auto) 83.3 H, Lymph % (Auto) 10.1 L, [place] % (Auto) 4.4, Eos % (Auto) 1.5, Baso % (Auto) 0.4, Absolute Neuts (auto) 7.9 H, Absolute Lymphs (auto) 0.96, Nucleated RBC % 0 02/11/22 13:57: Sodium 138, Potassium 4.2, Chloride 108 H, Carbon Dioxide 26.0, Anion Gap 4 L, BUN 57 H, Creatinine 1.53 H, Estim Creat Clear Calc 33.53, Est GFR (MDRD) Af Amer 43 L, Est GFR (MDRD) Non-Af 35 L, BUN/Creatinine Ratio 37.3 H , Glucose 120 H, Calcium 8.9 Radiology Impression Chest X-Ray 02/11/22 14:42 IMPRESSION: Poor inspiration with some bibasilar atelectasis. Electronically Signed: Jai Leal MD at 15:04 EDT , Assessment & Plan Assessment/Plan (1) Altered mental state: (2) Acute UTI: (3) Acute kidney injury: (4) CHF (congestive heart failure): PLAN: Plan #Acute on chronic HFpEF * admit to PCU * BNP is ~ 900, and has known EF of 55-60% from echo done in July 2021 * diurese with IV lasix 40mg bid * monitor intake and output chart * fluid restriction to 1500cc daily * * #UTI * urinalysis showed evidence of UTI; she had been started on antibiotics in SNF for UTI from 02/11 * urine culture ordered * start on IV ceftriaxone * #Acute metabolic encephalopathy due to UTI: management as above #MALCOLM: Cr is 1.55, with baseline CR of ~ 0.8. Unable to hydrate with fluid due to acute on chronic heart failure. WIll monitor closely. #? peripheral artery disease * both feet are cold to touch and of a dusky hue * pulses diminished by palpation but dopplerable * already on eliquis * will order arterial duplex to evaluate for peripheral artery disease * #Afib: on eliquis and metoprolol #HYpertension: on metoprolol and enalapril #Depression and anxiety: on sertraline. DVT prophylaxis: not indicated as she is on eliquis Code status: Unable to ascertain her CODE STATUS as she is confused. Charges/Coding Visit Charges Inpatient E&M: 93085 Init Hosp L3
[2022-02-11] MEDS: Furosemide 40 MG/4 ML Vial IV (15:43)
[2022-02-11] MEDS: Ceftriaxone 1 GM/50 ML BAG IV (15:44)
--- NOTE | 2022-02-11 15:51 | ART_ITS ---
Reason For Study: Cold extremities with diminished pulses Procedure A bilateral lower extremity continuous wave Doppler with analog waveform analysis and ankle brachial indexes. Left Segmental Pressures Left brachial= 114mmHg. Left posterior tibial artery = 187mmHg. Left dorsalis pedis artery = 205mmHg. Left digit = 109 mmHg. The left dorsalis pedis waveforms are triphasic. The left posterior tibial artery waveforms are triphasic. Right Segmental Pressures Right posterior tibial artery = 188mmHg. Right dorsalis pedis artery = 158mmHg. Right digit = 96 mmHg. The right dorsalis pedis waveforms are triphasic. The right posterior tibial artery waveforms are triphasic. Indices The right ankle brachial index by the dorsalis pedis is 1.39. The right ankle brachial index by the posterior tibial artery is 1.65. The right digital-brachial index is 0.84. The left ankle brachial index by the dorsalis pedis is 1.80. The left ankle brachial index by the posterior tibial artery is 1.64. The left digital-brachial index is 0.96. VL/Ankle Brachial Index Interpretation Summary Right STEPHEN 1.65, may be artificially elevated. TBI and Doppler/PVR waveforms of the right leg normal at rest. Left STEPHEN 1.8, may be artificially elevated. TBI and Doppler/PVR waveforms of th e left leg normal at rest. Ordering Physician: Eliana Post Referring Physician: Selma Whitaker M.D. Performed By: Noemi Mcleod RVT
[2022-02-11 16:59] LABS: Troponin-I HS 35 pg/mL (3.0-54.0)
[2022-02-11 17:35] LABS: Troponin-I HS 33 pg/mL (3.0-54.0)
[2022-02-11 20:51] LABS: Troponin-I HS 34 pg/mL (3.0-54.0)
[2022-02-11] MEDS: Senna Tablet 2 TABLET PO (21:05)
[2022-02-11] MEDS: Metoprolol Tartrate 50 MG Tablet PO (21:05)
[2022-02-11] MEDS: Latanoprost 0.005% 1 Bottle 1 DRP EACH EYE (21:06)
[2022-02-11] MEDS: APIXABAN 5 MG TABLET PO (21:10)
[2022-02-12] VITALS (12 sets, daily range): BP systolic 97–117; BP diastolic 70–88; PULSE 85–117; RESP 16–20; TEMP 36.4–36.8; O2SAT 93–99
[2022-02-12 05:03] LABS: Absolute Lymphocyte Count 0.98 X10^3/uL (0.83-4.51); Absolute Neutrophil Count 6.1 X10^3/uL (2.0-7.7); Basophil# 0.04 X10^3/uL; Basophil% 0.5 % (0-1); Eosinophil# 0.19 X10^3/uL; Eosinophils% 2.4 % (0-5); Hematocrit 42.4 % (37-47); Hemoglobin 13.4 g/dL (12.0-15.0); Lymphocyte # 0.98 X10^3/ul (0.83-4.51); Lymphocyte % 12.6 % (19-41); Mean Corp Hgb Conc 31.6 g/dL (32-36); Mean Corpuscular Hgb 29.5 pg (27.0-32.0); Mean Corpuscular Volume 93.2 fL (81-99); Mean Platelet Vol. 12.7 fl (6.2-12.0); Monocyte# 0.47 X10^3/uL; NRBC Flagged by Analyzer 0 % (0-5); Neutrophil # 6.09 X10^3/uL (2.7-7.7); Neutrophil % 78.2 % (47-70); Platelet Count 112 K/mm3 (150-450); RBC Distribution Width CV 17.6 % (11.6-14.6); Red Blood Count 4.55 M/mm3 (4.2-5.4); White Blood Count 7.8 K/mm3 (4.4-11.0)
[2022-02-12 05:15] LABS: Anion Gap 8 (5-15); BUN 55 mg/dL (7-18); BUN/Creat Ratio 40.4 RATIO (10-20); Calcium,Total 8.3 mg/dL (8.5-10.1); Chloride 108 mmol/L (98-107); Creatinine, Serum 1.36 mg/dL (0.55-1.02); EST Glomerular Filtration Rate 41 mL/min (>60); Est Glom Filt Rate - Afr Amer 49 mL/min (>60); Estimated Creatinine Clearance 28.22 ml/min; Glucose 120 mg/dL (74-106); Potassium 4.1 mmol/L (3.5-5.1); Sodium Level 138 mmol/L (136-145)
[2022-02-12] MEDS: Metoclopramide 10 MG Tablet PO ×2 (06:28→14:45)
[2022-02-12] MEDS: Ceftriaxone 1 GM/50 ML BAG IV (09:19)
[2022-02-12] MEDS: Pantoprazole Sodium 20 MG Tablet PO (09:24)
[2022-02-12] MEDS: Furosemide 40 MG/4 ML Vial IV ×2 (09:24→16:51)
[2022-02-12] MEDS: Sertraline 50 MG Tablet PO (09:24)
[2022-02-12] MEDS: Ferrous Sulfate 325 MG Tablet 650 MG PO (09:24)
[2022-02-12] MEDS: APIXABAN 5 MG TABLET PO ×2 (09:25→21:49)
[2022-02-12] MEDS: Senna Tablet 2 TABLET PO ×2 (09:25→21:49)
[2022-02-12] MEDS: Metoprolol Tartrate 50 MG Tablet PO ×2 (09:25→21:50)
[2022-02-12] MEDS: Magnesium Chloride 64 MG Delay Rel.Tablet 128 MG PO (09:25)
[2022-02-12] MEDS: amLODIPine 10 MG Tablet PO (09:25)
--- NOTE | 2022-02-12 12:50 | PN.HOSP_ITS ---
Subjective Subjective Patient seen and examined. She had no active complaints. She denies any fever, chills, cough, chest pain, palpitations, dizziness or any other symptoms. REview of systems is otherwise negative. The swelling in her lower extremities has improved. Objective Data Objective Data Vital Signs: Vital Signs Temp Pulse Resp BP Pulse Ox O2 Del Method 97.6 F L 96 20 H 117/88 H 97 Room Air 02/12/22 10:25 02/12/22 10:25 02/12/22 10:25 02/12/22 10:25 02/12/22 10:02/12/22 10:25 Oxygen Delivery Method Room Air Weight: 154 lb 12.232 oz Body Mass Index (BMI) 29.2 Intake & Output: Intake and Output for Last 24 Hours 02/10/22 02/11/22 02/12/22 23:59 23:59 23:59 Intake Total 50 / 290 790 / 790 Output Total 100 / 450 750 / 750 Balance -50 / -160 40 / 40 Lab / Micro Data Result Diagrams: 02/12/22 04:53 02/12/22 04:53 Labs: Laboratory Results - last 24 hr 02/11/22 13:52: Urine Color Yellow, Urine Clarity Clear, Urine pH 6.0, Ur Specific [place] 1.025, Urine Protein 500 H, Urine Glucose (UA) Normal, Urine Ketones 5 H, Urine Occult Blood 250 H, Urine Nitrite Negative, Urine Bilirubin 1 H, Urine Urobilinogen Normal, Ur Leukocyte Esterase 25 H, Urine RBC 10-25 SEEN, Urine WBC 0-5 SEEN, Ur Squamous Epith Cells 0-5 SEEN, Urine Bacteria 2+, Urine Mucus 0 SEEN 02/11/22 13:55: B-Natriuretic Peptide 998.4 H 02/11/22 13:57: WBC 9.5, RBC 4.88, Hgb 14.2, Hct 45.6, MCV 93.4, MCH 29.1, MCHC 31.1 L, RDW Std Deviation 60.8 H, RDW Coeff of Mikayla 17.6 H, Plt Count 123 L, MPV 11.6, Immature Gran % (Auto) 0.300, Neut % (Auto) 83.3 H, Lymph % (Auto) 10.1 L, [place] % (Auto) 4.4, Eos % (Auto) 1.5, Baso % (Auto) 0.4, Absolute Neuts (auto) 7.9 H, Absolute Lymphs (auto) 0.96, Nucleated RBC % 0 02/11/22 13:57: Sodium 138, Potassium 4.2, Chloride 108 H, Carbon Dioxide 26.0, Anion Gap 4 L, BUN 57 H, Creatinine 1.53 H, Estim Creat Clear Calc 33.53, Est GFR (MDRD) Af Amer 43 L, Est GFR (MDRD) Non-Af 35 L, BUN/Creatinine Ratio 37.3 H , Glucose 120 H, Calcium 8.9 02/11/22 13:57: Troponin I High Sens 35 02/11/22 17:00: Troponin I High Sens 33 02/11/22 20:00: Troponin I High Sens 34 02/12/22 04:53: WBC 7.8, RBC 4.55, Hgb 13.4, Hct 42.4, MCV 93.2, MCH 29.5, MCHC 31.6 L, RDW Std Deviation 60.0 H, RDW Coeff of Mikayla 17.6 H, Plt Count 112 L, MPV 12.7 H, Immature Gran % (Auto) 0.300, Neut % (Auto) 78.2 H, Lymph % (Auto) 12.6 L, [place] % (Auto) 6.0, Eos % (Auto) 2.4, Baso % (Auto) 0.5, Absolute Neuts (auto) 6.1, Absolute Lymphs (auto) 0.98, Nucleated RBC % 0 02/12/22 04:53: Sodium 138, Potassium 4.1, Chloride 108 H, Carbon Dioxide 22.0, Anion Gap 8, BUN 55 H, Creatinine 1.36 H, Estim Creat Clear Calc 28.22, Est GFR (MDRD) Af Amer 49 L, Est GFR (MDRD) Non-Af 41 L, BUN/Creatinine Ratio 40.4 H, Glucose 120 H, Calcium 8.3 L Micro: Microbiology 02/11/22 13:52 Urine, Random Urine Culture - Preliminary Culture exhibits no growth. Radiography Diagnostic Testing: Radiology Impression Chest X-Ray 02/11/22 14:42 IMPRESSION: Poor inspiration with some bibasilar atelectasis. Electronically Signed: Jai Leal MD at 15:04 EDT , Physical Exam Const alert and no apparent distress Orientation / Consciousness: confused HEENT normocephalic, head/scalp atraumatic, hearing grossly normal bilaterally and moist oral mucous membranes Head and Scalp: normocephalic Mouth: oral and palatal mucosa normal Eyes PERRL, EOMs intact bilaterally and conjunctivae normal Neck no lymphadenopathy, supple and no JVD Resp normal respiratory effort, no retractions, no use of accessory muscles and clear to auscultation bilaterally Cardio regular rate, regular rhythm, S1 normal heart sound, S2 normal heart sound and no murmurs GI normal to inspection, nondistended, normoactive bowel sounds, soft to palpation, non-tender and non-distended Extremity normal to inspection, full ROM and no clubbing, cyanosis or edema Extremity Narrative: edema has improved to 2+. Feet not so cold to touch today and not cyanotic. Distal pulses mildly diminished but palpable now. Neuro CN's II-XII intact bilaterally, moves all extremities and no focal motor deficits Neuro Narrative: confused Sensorium / Orientation: awake and alert Motor Exam: strength 5/5 throughout Psych affect normal Assessment & Plan Assessment/Plan (1) Altered mental state: (2) Acute UTI: (3) Acute kidney injury: (4) CHF (congestive heart failure): PLAN: Plan #Acute on chronic HFpEF * being diuresed with IV lasix 40mg bid. * BNP is ~ 900, and has known EF of 55-60% from echo done in July 2021 * diurese with IV lasix 40mg bid * monitor intake and output chart * fluid restriction to 1500cc daily * * #UTI * urinalysis showed evidence of UTI; she had been started on antibiotics in SNF for UTI from 02/11 * urine culture ordered and pending * on IV ceftriaxone * #Acute metabolic encephalopathy due to UTI: management as above #MALCOLM: * Cr is down to 1.36 today, with baseline CR of ~ 0.8. Unable to hydrate with fluid due to acute on chronic heart failure. WIll monitor closely. #? peripheral artery disease * feet are not so cold to touch today. * pulses diminished by palpation but dopplerable * already on eliquis * arterial duplex to evaluate for peripheral artery disease ordered and pending * #Afib: on eliquis and metoprolol #HYpertension: on metoprolol and enalapril #Depression and anxiety: on sertraline. DVT prophylaxis: not indicated as she is on eliquis Code status: Unable to ascertain her CODE STATUS as she is confused. Charges/Coding Visit Charges Inpatient E&M: 97936 Subs Hosp L2
[2022-02-12] MEDS: Nystatin Powder 15gm Bottle 1 APPLIC TOPICAL (21:48)
[2022-02-12] MEDS: Latanoprost 0.005% 1 Bottle 1 DRP EACH EYE (21:49)
[2022-02-13] VITALS (12 sets, daily range): BP systolic 102–143; BP diastolic 71–93; PULSE 75–122; RESP 16–20; TEMP 36.2–36.6; O2SAT 91–96
[2022-02-13] MEDS: Nystatin Powder 15gm Bottle 1 APPLIC TOPICAL ×3 (04:46→21:06)
[2022-02-13 05:51] LABS: Absolute Lymphocyte Count 0.96 X10^3/uL (0.83-4.51); Basophil# 0.04 X10^3/uL; Basophil% 0.5 % (0-1); Eosinophil# 0.15 X10^3/uL; Hematocrit 39.1 % (37-47); Hemoglobin 12.9 g/dL (12.0-15.0); Lymphocyte # 0.96 X10^3/ul (0.83-4.51); Lymphocyte % 12.5 % (19-41); Mean Corpuscular Hgb 30.1 pg (27.0-32.0); Mean Corpuscular Volume 91.1 fL (81-99); Mean Platelet Vol. 11.8 fl (6.2-12.0); Monocyte# 0.54 X10^3/uL; NRBC Flagged by Analyzer 0 % (0-5); Neutrophil # 5.98 X10^3/uL (2.7-7.7); Neutrophil % 77.9 % (47-70); POSITIVE COUNT YES; RBC Distribution Width CV 17.2 % (11.6-14.6); RBC Distribution Width SD 57.4 fl (35.1-43.9); Red Blood Count 4.29 M/mm3 (4.2-5.4); White Blood Count 7.7 K/mm3 (4.4-11.0)
[2022-02-13 06:19] LABS: Differential Indicated SCAN CRITERIA MET
[2022-02-13 06:20] LABS: Differential Comment SCANNED; Platelet Estimate SLT DEC (ADEQ)
[2022-02-13 06:24] LABS: Anion Gap 9 (5-15); BUN 53 mg/dL (7-18); BUN/Creat Ratio 43.8 RATIO (10-20); Calcium,Total 8.2 mg/dL (8.5-10.1); Chloride 109 mmol/L (98-107); Creatinine, Serum 1.21 mg/dL (0.55-1.02); EST Glomerular Filtration Rate 46 mL/min (>60); Est Glom Filt Rate - Afr Amer 56 mL/min (>60); Estimated Creatinine Clearance 31.71 ml/min; Glucose 99 mg/dL (74-106); Sodium Level 138 mmol/L (136-145)
[2022-02-13] MEDS: Metoclopramide 10 MG Tablet PO ×2 (07:52→16:56)
--- NOTE | 2022-02-13 08:58 | PN.HOSP_ITS ---
Subjective Subjective Breathing well. Family was asking about dementia, but were gone when arrived. Pt notes difficulty with memory. Objective Data Objective Data Vital Signs: Vital Signs Temp Pulse Resp BP Pulse Ox O2 Del Method 36.5 C L 102 H 20 H 127/88 H 96 Room Air 02/13/22 03:27 02/13/22 07:00 02/13/22 03:27 02/13/22 03:27 02/13/22 03:27 02/13/22 03:30 Oxygen Delivery Method Room Air Weight: 70.2 kg Body Mass Index (BMI) 29.2 Intake & Output: Intake and Output for Last 24 Hours 02/11/22 02/12/22 02/13/22 23:59 23:59 23:59 Intake Total 50 / 290 1040 / 1040 Output Total 100 / 450 1300 / 1300 Balance -50 / -160 -260 / -260 Lab / Micro Data Result Diagrams: 02/13/22 04:41 02/13/22 04:41 Labs: Laboratory Results - last 24 hr 02/13/22 04:41: WBC 7.7, RBC 4.29, Hgb 12.9, Hct 39.1, MCV 91.1, MCH 30.1, MCHC 33.0, RDW Std Deviation 57.4 H, RDW Coeff of Mikayla 17.2 H, Plt Count Not Reportable, MPV 11.8, Immature Gran % (Auto) 0.100, Neut % (Auto) 77.9 H, Lymph % (Auto) 12.5 L, [place] % (Auto) 7.0, Eos % (Auto) 2.0, Baso % (Auto) 0.5, Absolute Neuts (auto) 6.0, Absolute Lymphs (auto) 0.96, Nucleated RBC % 0, Differential Comment SCANNED, Platelet Estimate SLT 02/13/22 04:41: Sodium 138, Potassium 4.0, Chloride 109 H, Carbon Dioxide 20.0 L , Anion Gap 9, BUN 53 H, Creatinine 1.21 H, Estim Creat Clear Calc 31.71, Est GFR (MDRD) Af Amer 56 L, Est GFR (MDRD) Non-Af 46 L, BUN/Creatinine Ratio 43.8 H , Glucose 99, Calcium 8.2 L Micro: Microbiology 02/11/22 13:52 Urine, Random Urine Culture - Preliminary Culture exhibits no growth. Physical Exam Const alert and no apparent distress Resp normal respiratory effort, no retractions, no use of accessory muscles and clear to auscultation bilaterally Cardio regular rate, regular rhythm, S1 normal heart sound and S2 normal heart sound GI normal to inspection, nondistended, normoactive bowel sounds and soft to palpation Extremity normal to inspection Psych affect normal Assessment & Plan Assessment/Plan (1) Acute UTI: PLAN: Appears to be ruled out UA here was unrermakable. UCx, thus far negative. DC IV ceftriaxone and observe (2) Acute kidney injury: PLAN: improving baseline creatinine is 0.78 (3) CHF (congestive heart failure): QUALIFIERS: Heart failure type: other Qualified Code(s): I50.9 - Heart failure, unspecified PLAN: #Acute on chronic HFpEF * BNP is ~ 900, and has known EF of 55-60% from echo done in July 2021 * diurese with IV lasix 40mg bid * monitor intake and output chart * fluid restriction to 1500cc daily * weight down 1.5 kg since admission * change furosemide to PO (4) Delirium: PLAN: improved Cannot qualify this as metabolic encephalopathy as it does not appear to be a UTI Concern is that she may have underlying dementia. Head CT showed involutional changes. To be properly evaluated for dementia, she will require outpt eval uation with geriatrics. OARRS reviewed, which shows that she last received oxycodone 10mg on 12/08. She last took 02/11. Will attempt to minimize potentiating medications. DC diphenhydramine Check for reversible causes with TSH, B12 and folate levels. PLAN: Plan peripheral artery disease * already on eliquis * ABIs ordered Chronic conditions: * Afib: on eliquis and metoprolol * HYpertension: on metoprolol and enalapril * Depression and anxiety: on sertraline. DVT prophylaxis: not indicated as she is on eliquis Code status: Unable to ascertain her CODE STATUS as she is confused. Charges/Coding Visit Charges Inpatient E&M: 66760 Subs Hosp L2
[2022-02-13] MEDS: Ceftriaxone 1 GM/50 ML BAG IV (09:40)
[2022-02-13] MEDS: Magnesium Chloride 64 MG Delay Rel.Tablet 128 MG PO (09:40)
[2022-02-13] MEDS: Furosemide 40 MG/4 ML Vial IV (09:40)
[2022-02-13] MEDS: Pantoprazole Sodium 20 MG Tablet PO (09:41)
[2022-02-13] MEDS: Senna Tablet 2 TABLET PO (09:41)
[2022-02-13] MEDS: Metoprolol Tartrate 50 MG Tablet PO ×2 (09:41→21:07)
[2022-02-13] MEDS: Sertraline 50 MG Tablet PO (09:42)
[2022-02-13] MEDS: APIXABAN 5 MG TABLET PO ×2 (09:42→21:07)
--- NOTE | 2022-02-13 13:52 | CASEMGMT ---
SERA called patient's son Perry and left him a voice mail. SERA requested a return call confirming that the discharge plan is for patient to return to [facility]. SERA send updates to [facility]. Cristal TAVERAS
[2022-02-13] MEDS: Latanoprost 0.005% 1 Bottle 1 DRP EACH EYE (21:06)
[2022-02-13] MEDS: 0.9% Saline Lock 10 ML Syringe IV (21:11)
[2022-02-14] VITALS (7 sets, daily range): BP systolic 103–126; BP diastolic 60–99; PULSE 82–104; RESP 18; TEMP 36.6–36.7; O2SAT 93–99
[2022-02-14 05:45] LABS: Absolute Lymphocyte Count 0.88 X10^3/uL (0.83-4.51); Absolute Neutrophil Count 4.9 X10^3/uL (2.0-7.7); Basophil# 0.04 X10^3/uL; Basophil% 0.6 % (0-1); Eosinophil# 0.15 X10^3/uL; Eosinophils% 2.4 % (0-5); Hematocrit 38.9 % (37-47); Hemoglobin 12.8 g/dL (12.0-15.0); Lymphocyte # 0.88 X10^3/ul (0.83-4.51); Mean Corp Hgb Conc 32.9 g/dL (32-36); Mean Corpuscular Hgb 30.3 pg (27.0-32.0); Mean Corpuscular Volume 92.2 fL (81-99); Mean Platelet Vol. 12.4 fl (6.2-12.0); Monocyte# 0.35 X10^3/uL; Monocyte% 5.6 % (0-10); NRBC Flagged by Analyzer 0 % (0-5); Neutrophil # 4.85 X10^3/uL (2.7-7.7); Neutrophil % 77.1 % (47-70); POSITIVE COUNT YES; Platelet Count 76 K/mm3 (150-450); RBC Distribution Width SD 58.1 fl (35.1-43.9); Red Blood Count 4.22 M/mm3 (4.2-5.4); White Blood Count 6.3 K/mm3 (4.4-11.0)
[2022-02-14 05:51] LABS: Differential Indicated SCAN CRITERIA MET
[2022-02-14] MEDS: Metoclopramide 10 MG Tablet PO (06:18)
[2022-02-14 06:20] LABS: Differential Comment SCANNED
[2022-02-14 06:23] LABS: Anion Gap 5 (5-15); BUN 47 mg/dL (7-18); BUN/Creat Ratio 45.6 RATIO (10-20); Chloride 108 mmol/L (98-107); Creatinine, Serum 1.03 mg/dL (0.55-1.02); EST Glomerular Filtration Rate 56 mL/min (>60); Est Glom Filt Rate - Afr Amer 68 mL/min (>60); Estimated Creatinine Clearance 37.26 ml/min; Glucose 93 mg/dL (74-106); Potassium 3.8 mmol/L (3.5-5.1); Sodium Level 140 mmol/L (136-145)
--- NOTE | 2022-02-14 07:37 | PN.HOSP_ITS ---
Subjective Subjective Concerned about returning to her facility. Would not elaborate. I tried to gather if she felt unsafe or if she was harmed. She did not specify. Objective Data Objective Data Vital Signs: Vital Signs Temp Pulse Resp BP Pulse Ox O2 Del Method 36.6 C 95 18 103/60 96 Room Air 02/14/22 03:15 02/14/22 06:49 02/14/22 03:15 02/14/22 03:15 02/14/22 03:15 02/14/22 03:15 Oxygen Delivery Method Room Air Weight: 70.2 kg Body Mass Index (BMI) 29.2 Intake & Output: Intake and Output for Last 24 Hours 02/12/22 02/13/22 02/14/22 23:59 23:59 23:59 Intake Total 1040 / 1040 850 / 850 Output Total 1300 / 1300 200 / 200 Balance -260 / -260 850 / 850 -200 / -200 Lab / Micro Data Result Diagrams: 02/14/22 04:22 02/14/22 04:22 Labs: Laboratory Results - last 24 hr 02/14/22 04:22: WBC 6.3, RBC 4.22, Hgb 12.8, Hct 38.9, MCV 92.2, MCH 30.3, MCHC 32.9, RDW Std Deviation 58.1 H, RDW Coeff of Mikayla 17.0 H, Plt Count 76 L, MPV 12.4 H, Immature Gran % (Auto) 0.300, Neut % (Auto) 77.1 H, Lymph % (Auto) 14.0 L, [place] % (Auto) 5.6, Eos % (Auto) 2.4, Baso % (Auto) 0.6, Absolute Neuts (auto) 4.9, Absolute Lymphs (auto) 0.88, Nucleated RBC % 0, Differential Comment SCANNED 02/14/22 04:22: Sodium 140, Potassium 3.8, Chloride 108 H, Carbon Dioxide 27.0, Anion Gap 5, BUN 47 H, Creatinine 1.03 H, Estim Creat Clear Calc 37.26, Est GFR (MDRD) Af Amer 68, Est GFR (MDRD) Non-Af 56 L, BUN/Creatinine Ratio 45.6 H, Glucose 93, Calcium 8.0 L, Folate 4.20, TSH 94.50 H Micro: Microbiology 02/11/22 13:52 Urine, Clean Catch Urine Culture - Preliminary Culture exhibits no growth. 02/11/22 13:52 Urine, Random Urine Culture - Final Culture exhibits no growth. Radiography Diagnostic Testing: Radiology Impression Ankle Brachial Index 02/11/22 15:51 Interpretation Summary Right STEPHEN 1.65, may be artificially elevated. TBI and Doppler/PVR waveforms of the right leg normal at rest. Left STEPHEN 1.8, may be artificially elevated. TBI and Doppler/PVR waveforms of the left leg normal at rest. Ordering Physician: Eliana Post Referring Physician: Selma Whitaker M.D. Performed By: Noemi Mcleod RVT Physical Exam Const alert and no apparent distress Resp normal respiratory effort, no retractions and no use of accessory muscles Cardio regular rate, regular rhythm, S1 normal heart sound and S2 normal heart sound GI normal to inspection, nondistended, normoactive bowel sounds Assessment & Plan Assessment/Plan (1) Acute UTI: PLAN: Appears to be ruled out UA here was unrermakable. UCx, thus far negative. DC IV ceftriaxone and observe (2) Acute kidney injury: PLAN: improving baseline creatinine is 0.78 (3) CHF (congestive heart failure): QUALIFIERS: Heart failure type: other Qualified Code(s): I50.9 - Heart failure, unspecified PLAN: #Acute on chronic HFpEF * BNP is ~ 900, and has known EF of 55-60% from echo done in July 2021 * diurese with IV lasix 40mg bid * monitor intake and output chart * fluid restriction to 1500cc daily * weight down 1.5 kg since admission * change furosemide to PO (4) Delirium: PLAN: improved Cannot qualify this as metabolic encephalopathy as it does not appear to be a UTI Concern is that she may have underlying dementia. Head CT showed involutional changes. To be properly evaluated for dementia, she will require outpt evaluatio n with geriatrics. OARRS reviewed, which shows that she last received oxycodone 10mg on 12/08. She la st took 02/11. Will attempt to minimize potentiating medications. DC diphenhydramine B12 WNL. Folic acid low normal. + hypothyroidism (5) Hypothyroid: PLAN: New diagnosis I do not expect this the etiology of her delirium. TSH 94.5, FT4 0.49, FT3 0.9 Start levothyroxine. Load 112 mcg, then 50 mcg daily. Follow up as outpt and adjust accordingly. PLAN: Plan peripheral artery disease * already on eliquis * ABIs ordered Chronic conditions: * Afib: on eliquis and metoprolol * HYpertension: on metoprolol and enalapril * Depression and anxiety: on sertraline. DVT prophylaxis: not indicated as she is on eliquis Code status: Unable to ascertain her CODE STATUS as she is confused. DC back to [facility].
[2022-02-14 07:59] LABS: Vitamin B12 > 2000 pg/mL (211-911)
[2022-02-14] MEDS: Metoprolol Tartrate 50 MG Tablet PO (08:21)
[2022-02-14] MEDS: Pantoprazole Sodium 20 MG Tablet PO (08:21)
[2022-02-14] MEDS: APIXABAN 5 MG TABLET PO (08:21)
[2022-02-14] MEDS: Sertraline 50 MG Tablet PO (08:22)
[2022-02-14] MEDS: amLODIPine 10 MG Tablet PO (08:22)
[2022-02-14] MEDS: Magnesium Chloride 64 MG Delay Rel.Tablet 128 MG PO (08:22)
[2022-02-14] MEDS: Ferrous Sulfate 325 MG Tablet 650 MG PO (08:22)
[2022-02-14] MEDS: Furosemide 40 MG Tablet PO (08:24)
--- NOTE | 2022-02-14 09:28 | CASEMGMT ---
SERA received a phone call from patient's son. He confirmed the plan is for patient to return to [facility] at discharge. SERA let him know that someone will inform him when patient is ready for discharge. Cristal TAVERAS
[2022-02-14 11:32] LABS: Free T3 0.9 pg/mL (2.18-3.98); T4 Free Direct 0.49 ng/dL (0.76-1.46)
--- NOTE | 2022-02-14 11:44 | TREXTCAR_ITS ---
Diet Diet Order/Speech Therapy: 02/11/22 16:29 Diet: Cardiac - Heart Healthy Food consistency:: Regular Liquid Consistency:: Regular/Thin Routine Orders/Code Status Routine Lab Work: CBC and BMP Therapies Weight Bearing: Full weight bearing Physical Therapy: Eval and Treat Occupational Therapy: Eval and Treat Problem/Diagnosis (1) Acute UTI: Status: Acute Code(s): N39.0 - Urinary tract infection, site not specified Plan: Appears to be ruled out UA here was unrermakable. UCx, thus far negative. DC IV ceftriaxone and observe (2) Acute kidney injury: Status: Acute Code(s): N17.9 - Acute kidney failure, unspecified Plan: improving baseline creatinine is 0.78 (3) CHF (congestive heart failure): Status: Acute Code(s): I50.9 - Heart failure, unspecified Plan: #Acute on chronic HFpEF * BNP is ~ 900, and has known EF of 55-60% from echo done in July 2021 * diurese with IV lasix 40mg bid * monitor intake and output chart * fluid restriction to 1500cc daily * weight down 1.5 kg since admission * change furosemide to PO (4) Delirium: Status: Acute Code(s): R41.0 - Disorientation, unspecified Plan: improved Cannot qualify this as metabolic encephalopathy as it does not appear to be a UTI Concern is that she may have underlying dementia. Head CT showed involutional changes. To be properly evaluated for dementia, she will require outpt evaluation with geriatrics. OARRS reviewed, which shows that she last received oxycodone 10mg on 12/08. She last took 02/11. Will attempt to minimize potentiating medications. DC diphenhydramine B12 WNL. Folic acid low normal. + hypothyroidism (5) Hypothyroid: Status: Acute Code(s): E03.9 - Hypothyroidism, unspecified Plan: New diagnosis I do not expect this the etiology of her delirium. TSH 94.5, FT4 0.49, FT3 0.9 Start levothyroxine. Load 112 mcg, then 50 mcg daily. Follow up as outpt and adjust accordingly. Plan peripheral artery disease * already on eliquis * ABIs ordered Chronic conditions: * Afib: on eliquis and metoprolol * HYpertension: on metoprolol and enalapril * Depression and anxiety: on sertraline. DVT prophylaxis: not indicated as she is on eliquis Code status: Unable to ascertain her CODE STATUS as she is confused. DC back to [place]. Allergies/Procedures Done in Hospital Allergies adhesive tape Allergy (Verified 02/11/22 16:31) Rash chlorpheniramine Allergy (Verified 02/11/22 16:31) Other dobutamine Allergy (Verified 02/11/22 16:31) Low blood pressure doxycycline Allergy (Verified 02/11/22 16:31) Unknown Iodinated Contrast Media [Iodinated Contrast Media - IV Dye] Allergy (Verified 02/11/22 16:31) Rash Sulfa (Sulfonamide Antibiotics) Allergy (Verified 02/11/22 16:31) Unknown erythromycin base Adverse Reaction (Verified 02/11/22 16:31) Upset Stomach hydrocodone bitartrate [From Vicodin] Adverse Reaction (Verified 02/11/22 16:31) HEADACHE ibuprofen Adverse Reaction (Verified 02/11/22 16:31) Nausea chlortab-4 Allergy (Uncoded 02/11/22 16:31) Other Procedures: None Type of Care/Length of Stay Estimated LOS: Convalescent Care Less Than 30 days Type of Care Needed: Skilled Rehab Potential: Fair Prognosis: Fair Additional Orders/Day of Discharge Day of Discharge: 02/14/22 Dietary and Speech Recommendations Dietitian Recommendations/Changes: continue cardiac, fluid restricted diet Discharge Plan Admission Admit Date/Time: 02/11/22 15:37 Primary Reason for Your Visit: CHF. MALCOLM Attending Provider: Randal Lu Primary Care Provider: Selma Whitaker Consulting Providers: Eliana Post Discharge Orders/Prescriptions Prescriptions: New furosemide 40 mg Tablet 40 mg PO DAILY Qty: 0 0RF levothyroxine 50 mcg Tablet 50 mcg PO DAILY@0600 Qty: 0 0RF folic acid 1 mg Tablet 1 mg PO BREAKFAST Qty: 0 0RF oxycodone 5 mg Tablet 5 mg PO Q12H PRN (Reason: Pain Score 6-10) 3 Days Qty: 6 0RF Continued ferrous sulfate [Iron (ferrous sulfate)] 325 MG tablet 650 mg PO QODAY latanoprost 0.005 % Drops 1 drp EACH EYE QPM omeprazole 40 mg Capsule,Delayed Release(Dr/Ec) 20 mg PO DAILY cyanocobalamin (vitamin B-12) 1,000 mcg/mL solution 1,000 mcg IM QMONTH Label Comments: Inject 1 mL intramuscularly once every month. as directed magnesium 250 mg Tablet 400 mg PO DAILY sertraline 50 mg Tablet 50 mg PO DAILY enalapril maleate 20 mg Tablet 20 mg PO BID Hold Instructions: Resume on 11/18/21. Hold until further follow-up with primary care provider for repeat blood pressure check. Eliquis 5 mg tablet 5 mg PO BID metoprolol tartrate 50 mg Tablet 50 mg PO BID 30 Days Qty: 60 0RF sennosides [senna] 8.6 mg Tablet 17.2 mg PO BID acetaminophen 650 mg Tablet 650 mg PO Q4H PRN (Reason: PAIN/FEVER) spironolactone 25 mg Tablet 12.5 mg PO DAILY Lactobacillus acidophilus Tablet 1,000 mmu cells PO DAILY magnesium hydroxide [Milk of Magnesia] 400 mg/5 mL Suspension 30 ml PO DAILY PRN (Reason: Constipation) bisacodyl 10 mg Suppository 10 mg [place] DAILY PRN (Reason: Constipation) Enema 19-7 gram/118 mL Enema 118 ml [place] DAILY PRN (Reason: Constipation) simethicone 80 mg Tablet 80 mg PO 4X/DAY Vitamin D3 1 tab PO/SL BID Discontinued amlodipine 10 mg Tablet 10 mg PO DAILY Hold Instructions: Resume on 11/18/21. Hold until further follow-up with PCP for repeat blood pressure check. oxycodone 5 mg tablet 10 mg PO BID furosemide 20 mg tablet 20 mg PO DAILY Hold Instructions: Resume on 11/18/21. Hold until further follow-up with PCP. cephalexin [Keflex] 500 mg Capsule 500 mg PO BID diphenhydramine HCl 25 mg Capsule 25 mg PO QHS PRN (Reason: SEASONAL ALLERGIES) metoclopramide HCl 10 mg Tablet 10 mg PO BID Referrals / Follow Up: [facility] [Provider Group] - Within 1 Month Selma Whitaker MD [Primary Care Provider] - Within 2 Weeks Disposition Disposition (needs filled in before D/C Order can be placed): [facility] (1) CHF (congestive heart failure) Qualifiers: Heart failure type: other Qualified Code(s): I50.9 - Heart failure, unspecified
--- NOTE | 2022-02-14 11:52 | DS.PCM_ITS ---
Providers Date of Admission: 02/11/22 Primary Care Physician: Dr. Selma Whitaker MD Reason For Visit: ACUTE ON CHRONIC HFPEE, UTI Diagnosis Discharge Diagnosis (1) Acute UTI: Status: Acute Code(s): N39.0 - Urinary tract infection, site not specified Plan: Appears to be ruled out UA here was unrermakable. UCx, thus far negative. DC IV ceftriaxone and observe (2) Acute kidney injury: Status: Acute Code(s): N17.9 - Acute kidney failure, unspecified Plan: improving baseline creatinine is 0.78 (3) CHF (congestive heart failure): Status: Acute Code(s): I50.9 - Heart failure, unspecified Qualifiers: Heart failure type: other Qualified Code(s): I50.9 - Heart failure, unspecified Plan: #Acute on chronic HFpEF * BNP is ~ 900, and has known EF of 55-60% from echo done in July 2021 * diurese with IV lasix 40mg bid * monitor intake and output chart * fluid restriction to 1500cc daily * weight down 1.5 kg since admission * change furosemide to PO (4) Delirium: Status: Acute Code(s): R41.0 - Disorientation, unspecified Plan: improved Cannot qualify this as metabolic encephalopathy as it does not appear to be a UTI Concern is that she may have underlying dementia. Head CT showed involutional changes. To be properly evaluated for dementia, she will require outpt evaluation with geriatrics. OARRS reviewed, which shows that she last received oxycodone 10mg on 12/08. She last took 02/11. Will attempt to minimize potentiating medications. DC diphenhydramine B12 WNL. Folic acid low normal. + hypothyroidism (5) Hypothyroid: Status: Acute Code(s): E03.9 - Hypothyroidism, unspecified Plan: New diagnosis I do not expect this the etiology of her delirium. TSH 94.5, FT4 0.49, FT3 0.9 Start levothyroxine. Load 112 mcg, then 50 mcg daily. Follow up as outpt and adjust accordingly. Plan peripheral artery disease * already on eliquis * ABIs ordered Chronic conditions: * Afib: on eliquis and metoprolol * HYpertension: on metoprolol and enalapril * Depression and anxiety: on sertraline. DVT prophylaxis: not indicated as she is on eliquis Code status: Unable to ascertain her CODE STATUS as she is confused. DC back to [facility]. Medications at Discharge Home Medications ferrous sulfate 325 mg (65 mg iron) tablet (Iron (ferrous sulfate)) 650 mg PO QODAY supplement 08/04/17 cyanocobalamin (vitamin B-12) 1,000 mcg/mL injection solution 1,000 mcg IM QMONTH SUPPLEMENT 07/21/21 latanoprost 0.005 % eye drops 1 drp EACH EYE QPM GLAUCOMA 07/21/21 magnesium 250 mg tablet 400 mg PO DAILY SUPPLEMENT 07/21/21 omeprazole 40 mg capsule,delayed release 20 mg PO DAILY GERD 07/21/21 sertraline 50 mg tablet 50 mg PO DAILY DEPRESSION 07/21/21 apixaban 5 mg tablet (Eliquis) 5 mg PO BID a fib 11/01/21 enalapril maleate 20 mg tablet 20 mg PO BID heart 11/01/21 metoprolol tartrate 50 mg tablet 50 mg PO BID 30 days #60 tabs 11/04/21 Lactobacillus acidophilus 1,000 mmu cells PO DAILY 02/11/22 Vitamin D3 1 tab PO/SL BID supplement 02/11/22 acetaminophen 650 mg tablet 650 mg PO Q4H PRN PAIN/FEVER 02/11/22 bisacodyl 10 mg rectal suppository 10 mg [place] DAILY PRN Constipation 02/11/22 magnesium hydroxide 400 mg/5 mL oral suspension (Milk of Magnesia) 30 ml PO DAILY PRN Constipation 02/11/22 sennosides 8.6 mg tablet (senna) 17.2 mg PO BID 02/11/22 simethicone 80 mg tablet 80 mg PO 4X/DAY 02/11/22 sodium phosphates 19 gram-7 gram/118 mL enema (Enema) 118 ml GA DAILY PRN Constipation 02/11/22 spironolactone 25 mg tablet 12.5 mg PO DAILY 02/11/22 folic acid 1 mg tablet 1 mg PO BREAKFAST #0 tabs 02/14/22 furosemide 40 mg tablet 40 mg PO DAILY #0 tabs 02/14/22 levothyroxine 50 mcg tablet 50 mcg PO DAILY@0600 #0 tabs 02/14/22 oxycodone 5 mg tablet 5 mg PO Q12H PRN Pain Score 6-10 3 days #6 tabs 02/14/22 Hospital Course Operations None Procedures None Summary of Care Provided Minutes Spent on Discharge: 35 Weight / BMI Weight Weight: 70.2 kg Body Mass Index (BMI) 29.2 ABG / Lab / Microbiology Data Result Diagrams: 02/14/22 04:22 02/14/22 04:22 Laboratory: Laboratory Results - last 24 hr 02/14/22 04:22: WBC 6.3, RBC 4.22, Hgb 12.8, Hct 38.9, MCV 92.2, MCH 30.3, MCHC 32.9, RDW Std Deviation 58.1 H, RDW Coeff of Mikayla 17.0 H, Plt Count 76 L, MPV 12.4 H, Immature Gran % (Auto) 0.300, Neut % (Auto) 77.1 H, Lymph % (Auto) 14.0 L, [place] % (Auto) 5.6, Eos % (Auto) 2.4, Baso % (Auto) 0.6, Absolute Neuts (auto) 4.9, Absolute Lymphs (auto) 0.88, Nucleated RBC % 0, Differential Comment SCANNED 02/14/22 04:22: Sodium 140, Potassium 3.8, Chloride 108 H, Carbon Dioxide 27.0, Anion Gap 5, BUN 47 H, Creatinine 1.03 H, Estim Creat Clear Calc 37.26, Est GFR (MDRD) Af Amer 68, Est GFR (MDRD) Non-Af 56 L, BUN/Creatinine Ratio 45.6 H, Glucose 93, Calcium 8.0 L, Folate 4.20, TSH 94.50 H 02/14/22 04:22: Vitamin B12 > 2000 H 02/14/22 04:22: Free T4 0.49 L, Free T3 pg/dL 0.9 L Microbiology: Microbiology 02/11/22 13:52 Urine, Clean Catch Urine Culture - Final Culture exhibits no growth. 02/11/22 13:52 Urine, Random Urine Culture - Final Culture exhibits no growth. Radiography Diagnostic Testing: Radiology Impression Ankle Brachial Index 02/11/22 15:51 Interpretation Summary Right STEPHEN 1.65, may be artificially elevated. TBI and Doppler/PVR waveforms of the right leg normal at rest. Left STEPHEN 1.8, may be artificially elevated. TBI and Doppler/PVR waveforms of the left leg normal at rest. Ordering Physician: Eliana Post Referring Physician: Selma Whitaker M.D. Performed By: Noemi Mcleod RVT Meaningful Use Info Meaningful Use Diagnoses (Choose all that apply): CHF CHF KASSANDRA/ARB ordered at discharge?: Yes Documented LVEF (%): 55 Discharge Plan Admission Admit Date/Time: 02/11/22 15:37 Primary Reason for Your Visit: CHF. MALCOLM Attending Provider: Randal Lu Primary Care Provider: Selma Whitaker Consulting Providers: Eilana Post Discharge Orders/Prescriptions Prescriptions: New furosemide 40 mg Tablet 40 mg PO DAILY Qty: 0 0RF levothyroxine 50 mcg Tablet 50 mcg PO DAILY@0600 Qty: 0 0RF folic acid 1 mg Tablet 1 mg PO BREAKFAST Qty: 0 0RF oxycodone 5 mg Tablet 5 mg PO Q12H PRN (Reason: Pain Score 6-10) 3 Days Qty: 6 0RF Continued ferrous sulfate [Iron (ferrous sulfate)] 325 MG tablet 650 mg PO QODAY latanoprost 0.005 % Drops 1 drp EACH EYE QPM omeprazole 40 mg Capsule,Delayed Release(Dr/Ec) 20 mg PO DAILY cyanocobalamin (vitamin B-12) 1,000 mcg/mL solution 1,000 mcg IM QMONTH Label Comments: Inject 1 mL intramuscularly once every month. as directed magnesium 250 mg Tablet 400 mg PO DAILY sertraline 50 mg Tablet 50 mg PO DAILY enalapril maleate 20 mg Tablet 20 mg PO BID Hold Instructions: Resume on 11/18/21. Hold until further follow-up with primary care provider for repeat blood pressure check. Eliquis 5 mg tablet 5 mg PO BID metoprolol tartrate 50 mg Tablet 50 mg PO BID 30 Days Qty: 60 0RF sennosides [senna] 8.6 mg Tablet 17.2 mg PO BID acetaminophen 650 mg Tablet 650 mg PO Q4H PRN (Reason: PAIN/FEVER) spironolactone 25 mg Tablet 12.5 mg PO DAILY Lactobacillus acidophilus Tablet 1,000 mmu cells PO DAILY magnesium hydroxide [Milk of Magnesia] 400 mg/5 mL Suspension 30 ml PO DAILY PRN (Reason: Constipation) bisacodyl 10 mg Suppository 10 mg GA DAILY PRN (Reason: Constipation) Enema 19-7 gram/118 mL Enema 118 ml GA DAILY PRN (Reason: Constipation) simethicone 80 mg Tablet 80 mg PO 4X/DAY Vitamin D3 1 tab PO/SL BID Discontinued amlodipine 10 mg Tablet 10 mg PO DAILY Hold Instructions: Resume on 11/18/21. Hold until further follow-up with PCP for repeat blood pressure check. oxycodone 5 mg tablet 10 mg PO BID furosemide 20 mg tablet 20 mg PO DAILY Hold Instructions: Resume on 11/18/21. Hold until further follow-up with PCP. cephalexin [Keflex] 500 mg Capsule 500 mg PO BID diphenhydramine HCl 25 mg Capsule 25 mg PO QHS PRN (Reason: SEASONAL ALLERGIES) metoclopramide HCl 10 mg Tablet 10 mg PO BID Referrals / Follow Up: [facility] [Provider Group] - Within 1 Month Selma Whitaker MD [Primary Care Provider] - Within 2 Weeks Disposition Disposition (needs filled in before D/C Order can be placed): [facility] Charges/Coding Visit Charges Inpatient E&M: 96126 Disch Hosp
--- NOTE | 2022-02-14 11:52 | CASEMGMT ---
Patient is going to be discharged today. SERA called [facility] and spoke with Stacie letting her know patient will return today. SERA will get them orders as soon as they are completed. Cristal TAVEARS
--- NOTE | 2022-02-14 12:03 | PHA.DC.MR ---
Pharmacy Service has performed discharge medication reconciliation for this patient. The patient's discharge medication list was reviewed for discrepancies and discrepancies were resolved. Home Medications ferrous sulfate 325 mg (65 mg iron) tablet (Iron (ferrous sulfate)) 650 mg PO QODAY supplement 08/04/17 cyanocobalamin (vitamin B-12) 1,000 mcg/mL injection solution 1,000 mcg IM QMONTH SUPPLEMENT 07/21/21 latanoprost 0.005 % eye drops 1 drp EACH EYE QPM GLAUCOMA 07/21/21 magnesium 250 mg tablet 400 mg PO DAILY SUPPLEMENT 07/21/21 omeprazole 40 mg capsule,delayed release 20 mg PO DAILY GERD 07/21/21 sertraline 50 mg tablet 50 mg PO DAILY DEPRESSION 07/21/21 apixaban 5 mg tablet (Eliquis) 5 mg PO BID a fib 11/01/21 enalapril maleate 20 mg tablet 20 mg PO BID heart 11/01/21 metoprolol tartrate 50 mg tablet 50 mg PO BID 30 days #60 tabs 11/04/21 Lactobacillus acidophilus 1,000 mmu cells PO DAILY 02/11/22 Vitamin D3 1 tab PO/SL BID supplement 02/11/22 acetaminophen 650 mg tablet 650 mg PO Q4H PRN PAIN/FEVER 02/11/22 bisacodyl 10 mg rectal suppository 10 mg [place] DAILY PRN Constipation 02/11/22 magnesium hydroxide 400 mg/5 mL oral suspension (Milk of Magnesia) 30 ml PO DAILY PRN Constipation 02/11/22 sennosides 8.6 mg tablet (senna) 17.2 mg PO BID 02/11/22 simethicone 80 mg tablet 80 mg PO 4X/DAY 02/11/22 sodium phosphates 19 gram-7 gram/118 mL enema (Enema) 118 ml [place] DAILY PRN Constipation 02/11/22 spironolactone 25 mg tablet 12.5 mg PO DAILY 02/11/22 folic acid 1 mg tablet 1 mg PO BREAKFAST #0 tabs 02/14/22 furosemide 40 mg tablet 40 mg PO DAILY #0 tabs 02/14/22 levothyroxine 50 mcg tablet 50 mcg PO DAILY@0600 #0 tabs 02/14/22 oxycodone 5 mg tablet 5 mg PO Q12H PRN Pain Score 6-10 3 days #6 tabs 02/14/22
[2022-02-14] MEDS: Levothyroxine 112 MCG Tablet PO (12:31)
--- NOTE | 2022-02-14 13:33 | CASEMGMT ---
SERA arranged for patient to get picked up at 3p via cot by [facility]. SW faxed orders, negative COVID test, and cotton picker time to [place]. SERA also called [place] and notified Cecille of cotton picker time. SERA also called patient's son, Naldo ([place]) and left him a voice mail letting him know about discharge and cotton picker time. Plan: d/c back to [place] under intermediate level of care. [facility] transported via cot. Cristal TAVERAS
[2022-02-14] MEDS: Nystatin Powder 15gm Bottle 1 APPLIC TOPICAL (13:45)
== END 2022-02-14 15:19 | DRG 291 ==
LOC: ED 15:31 → PCU 15:57
PROVIDERS: Physician Assistant; Admitting Provider Student in an Organized Health Care Education/Training Program; Emergency Provider Emergency Medicine; PCP Internal Medicine
DX: I11.0 Hypertensive heart disease with heart failure (principal); I50.33 Acute on chronic diastolic (congestive) heart failure; N17.9 Acute kidney failure, unspecified; D69.6 Thrombocytopenia, unspecified; I73.9 Peripheral vascular disease, unspecified; I48.91 Unspecified atrial fibrillation; E03.9 Hypothyroidism, unspecified; K21.9 Gastro-esophageal reflux disease without esophagitis; M79.7 Fibromyalgia; F41.9 Anxiety disorder, unspecified; Z79.01 Long term (current) use of anticoagulants; R41.0 Disorientation, unspecified; F32.A Depression, unspecified; Z85.01 Personal history of malignant neoplasm of esophagus; Z79.899 Other long term (current) drug therapy
CPT/HCPCS: 36415; 71045; 80048; 81001; 82607; 82746; 83880; 84439; 84443; 84481; 84484; 85025; 87086; 87426; 93005; 93922; 97162; 97166; 97535; 99285; J7040; P9612; A4216; J1940

== ENCOUNTER 2022-03-20 15:29 | Inpatient (IN) | payer MEDICARE, SELFPAY ==
[2022-03-20] VITALS (9 sets, daily range): BP systolic 103–118; BP diastolic 72–86; PULSE 86–119; RESP 16–24; TEMP 36.5–37.2; O2SAT 93–98; BMI 28.0; BMI 27.7
--- NOTE | 2022-03-20 15:59 | EKG12_ITS ---
Test Reason : WEAKNESS Blood Pressure : / mmHG Vent. Rate : 119 BPM Atrial Rate : 000 BPM P-R Int : 000 ms QRS Dur : 082 ms QT Int : 268 ms P-R-T Axes : 000 -21 187 degrees QTc Int : 376 ms Atrial fibrillation with rapid ventricular response Low voltage QRS Nonspecific T wave abnormality Abnormal ECG Confirmed by NELSON FINLEY, PIOTR ([id number]), video news editor CHARITO ALLEN ([id number]) on 03/22/2022 11:01:33 AM Referred By: MARLENA Confirmed By:PIOTR DAMON MD
--- NOTE | 2022-03-20 16:03 | EDS_ITS ---
HPI History of Present Illness Chief Complaint: Weakness Detail of Chief Complaint: No appetite, no energy Informant: patient, EMS and SNF Onset/Context/Timing Onset: Days (Has not eaten in days) Context: - (Unknown) Timing: Continuous (Per EMS) Quality: Generalized Location: Not applicable Current Severity: Unable to determine Maximum Severity: Unable to determine Worsened by: Patient does not know why she is here Relieved by: Apparently nothing Associated Symptoms Associated Symptoms: Unable to determine Narrative Narrative: Patient is a 76-year-old woman who does not know why she is here. She is disoriented. She was sent in because of not eating and generalized weakness. She apparently has a history of persistent atrial fibrillation, cardiomyopathy, systolic and diastolic congestive heart failure, hypertension, PAD, esophageal cancer, urinary tract infection and hypothyroidism. History limited because of altered mental status Prior similar symptoms: No Recent Illness/Hospitalization: No PFSH PFS Medical History Acute on chronic combined systolic (congestive) and diastolic (congestive) heart failure Anxiety and depression Bilateral edema of lower extremity Cardiomyopathy Chronic pain syndrome Depression Esophageal cancer Essential hypertension Fibromyalgia Frequent falls GERD (gastroesophageal reflux disease) Hypothyroid New onset atrial fibrillation (07/2021) Non-smoker PAD (peripheral artery disease) Persistent atrial fibrillation Home Medications ferrous sulfate 325 mg (65 mg iron) tablet (Iron (ferrous sulfate)) 650 mg PO QODAY supplement 08/04/17 [History Last Taken 03/19/22] cyanocobalamin (vitamin B-12) 1,000 mcg/mL injection solution 1,000 mcg IM QMONTH SUPPLEMENT 07/21/21 [History Last Taken 03/14/22] latanoprost 0.005 % eye drops 1 drp EACH EYE QPM GLAUCOMA 07/21/21 [History Last Taken 03/19/22] sertraline 50 mg tablet 50 mg PO DAILY DEPRESSION 07/21/21 [History Last Taken 03/20/22] apixaban 5 mg tablet (Eliquis) 5 mg PO BID a fib 11/01/21 [History Last Taken 03/20/22] enalapril maleate 20 mg tablet 20 mg PO BID heart 11/01/21 [History Last Taken 03/20/22] metoprolol tartrate 50 mg tablet 50 mg PO BID 30 days #60 tabs 11/04/21 [Rx Last Taken 03/20/22] Lactobacillus acidophilus 1 tab PO DAILY 02/11/22 [History Last Taken 03/20/22] bisacodyl 10 mg rectal suppository 10 mg AK DAILY PRN Constipation 02/11/22 [History Last Taken Unknown] magnesium hydroxide 400 mg/5 mL oral suspension (Milk of Magnesia) 30 ml PO DAILY PRN Constipation 02/11/22 [History Last Taken Unknown] sennosides 8.6 mg tablet (senna) 17.2 mg PO BID CONSTIPATION 02/11/22 [History Last Taken 03/20/22] sodium phosphates 19 gram-7 gram/118 mL enema (Enema) 118 ml AK DAILY PRN Constipation 02/11/22 [History Last Taken Unknown] spironolactone 25 mg tablet 25 mg PO DAILY 02/11/22 [History Last Taken 03/20/22] furosemide 40 mg tablet 40 mg PO DAILY #0 tabs 02/14/22 [Rx Last Taken 03/20/22] levothyroxine 50 mcg tablet 50 mcg PO DAILY@0600 #0 tabs 02/14/22 [Rx Last Taken 03/20/22] acetaminophen 325 mg tablet 650 mg PO Q4H PRN Pain 03/20/22 [History Last Taken 03/13/22] cholecalciferol (vitamin D3) 25 mcg (1,000 unit) tablet 25 mcg PO DAILY 03/20/22 [History Last Taken 03/20/22] folic acid 1 mg tablet 1 mg PO DAILY 03/20/22 [History Last Taken 03/20/22] loperamide 2 mg tablet (Imodium A-D) 2 - 4 mg PO Q4H PRN STOOL 03/20/22 [History Last Taken 03/10/22] magnesium oxide 400 mg PO DAILY 03/20/22 [History Last Taken 03/20/22] omeprazole 20 mg capsule,delayed release 20 mg PO DAILY 03/20/22 [History Last Taken 03/20/22] oxycodone 5 mg tablet 5 mg PO Q12H PRN Pain 03/20/22 [History Last Taken 03/13/22] quetiapine 50 mg tablet 50 mg PO DAILY 03/20/22 [History Last Taken 03/19/22] simethicone 80 mg chewable tablet 80 mg PO ACHS GAS 03/20/22 [History Last Taken 03/20/22] Allergy/AdvReac Type Severity Reaction Status Date / Time adhesive tape Allergy Rash Verified 03/20/22 15:30 chlorpheniramine Allergy Other Verified 03/20/22 15:30 dobutamine Allergy Low blood Verified 03/20/22 15:30 pressure doxycycline Allergy Unknown Verified 03/20/22 15:30 Iodinated Contrast Media Allergy Rash Verified 03/20/22 15:30 [Iodinated Contrast Media - IV Dye] Sulfa (Sulfonamide Allergy Unknown Verified 03/20/22 15:30 Antibiotics) erythromycin base AdvReac Upset Verified 03/20/22 15:30 Stomach hydrocodone bitartrate AdvReac HEADACHE Verified 03/20/22 15:30 [From Vicodin] ibuprofen AdvReac Nausea Verified 03/20/22 15:30 chlortab-4 Allergy Other Uncoded 03/20/22 15:30 Family History Father Cancer Lung cancer. Mother Myocardial infarction Heart disease Surgical History H/O ventral hernia repair History of esophageal surgery History of gastrectomy Hx of appendectomy Hx of cholecystectomy Social History household members: none housing: house pets and animals: No Smoking Status: Never smoker substance use type: does not use ROS ROS ED Review of Systems ROS Unobtainable: due to mental status EXAM Physical Exam Const Vital Signs: 03/20/22 15:32 03/20/22 16:20 03/20/22 16:24 Temperature 98.1 F Temperature Source Oral Pulse Rate 115 H 109 H Respiratory Rate 16 22 H Respiratory Effort Normal Non-Labored Respiratory Pattern Normal Blood Pressure 103/72 110/86 H Blood Pressure Mean 82 94 Pulse Ox 93 96 Oxygen Delivery Method Room Air Room Air 03/20/22 17:00 03/20/22 17:30 03/20/22 18:00 Temperature Temperature Source Pulse Rate 119 H 113 H Respiratory Rate 19 H 20 H Respiratory Effort Respiratory Pattern Blood Pressure 109/72 105/80 107/73 Blood Pressure Mean 84 88 84 Pulse Ox 94 96 Oxygen Delivery Method Room Air Room Air 03/20/22 20:00 Temperature Temperature Source Pulse Rate 115 H Respiratory Rate 18 Respiratory Effort Respiratory Pattern Blood Pressure 108/81 H Blood Pressure Mean 90 Pulse Ox 97 Oxygen Delivery Method Room Air Positive well nourished, well developed, obese and unkempt General Appearance ED: unkempt, well developed, NAD and pallor; Negative for cyanotic or diaphoretic Nutritional Appearance: obese HEENT Reports dry mucous membranes HEENT Narrative: Head is atraumatic normocephalic. Ears normal. Nares patent. TMs normal. Uvula midline. No deviation tongue with protrusion. Dry mucosa. Mouth ED: Yes dry mucous membranes Mouth: dry mucous membranes Eyes Eyes Narrative: Status post cataract surgery. Extract muscles are intact. Sclera is anicteric. Conjunctive appears pink. Patient has evidence of conjunctivitis with thick green drainage bilaterally. Neck no lymphadenopathy, supple and no JVD Chest Wall inspection of chest normal and palpation of chest normal Resp normal respiratory effort and No clear to auscultation bilaterally Auscultation: rales right base Cardio no murmurs Rate: tachycardic Rhythm: abnormal rhythm irregularly irregular GI normal to inspection, nondistended, normoactive bowel sounds, non-tender, non- distended and no masses; Negative for hepatosplenomegaly Auscultation: normoactive bowel sounds Back/Spine no CVA tenderness Cervical Spine: Negative for cervical spine tenderness Thoracic Spine / Upper Back: Negative for thoracic spinal tenderness Extremity Negative for normal to inspection Extremity Narrative: Patient has wraps due to venous stasis dermatitis. General Extremety ED: Yes edema General Extremity: edema Neuro No oriented x3, CN's II-XII intact bilaterally and no sensory deficits noted Sensorium / Orientation: Negative for alert Psych Psych Narrative: Mood and affect are depressed. Appearance: unkempt Skin No no rashes or lesions noted and No skin turgor normal General Skin Exam: pallor; Negative for jaundice Sepsis Attestation Sepsis Alert: Yes Sepsis Attestation: Agree w/Sepsis Date exam was performed: 03/20/22 Possible Source of Sepsis: Genitourinary Sepsis Organ Dysfunction Criteria Present: New/Unexplained change in mental status Supportive Findings: Sepsis was identified once urine returned. Since patient has evidence of endorgan dysfunction i.e. acute encephalopathy will obtain blood cultures, urine cultures and treat with Rocephin since source is urologic. Fluid boluses were not given because patient is not hypotensive and patient has COVID. MDM MDM MDM Narrative Medical decision making narrative: With altered mental status and history hypothyroidism we will obtain TSH to rule out hypothyroidism. This is unlikely since she is tachycardic. With prior history of urinary tract infections this may be due to a UTI. Will obtain appropriate blood work to assess for endorgan injury as well as UA. Cath urine was obtained since she will not be able to provide a clean-catch urine. Because of the abnormal auscultatory findings on the right chest x-ray was obtained to evaluate for pneumonia. Patient has multiple sirs criteria. There is a source. There is evidence of endorgan dysfunction i.e. change in mental status that is new and acute. Lab Data Attestation: I reviewed the patient's lab results. Lab results narrative: Urine is consistent with infection. Will obtain urine culture. We will treat with Rocephin since patient is not allergic to penicillin or cephalosporin. Of note COVID test is positive. This may explain all of her symptoms. Comprehensive metabolic panel reveals an elevated creatinine of 1.28. TSH is elevated 11.9. This may contribute to her altered mental status. She also has evidence of urinary tract infection as previously noted. Labs: Laboratory Results - last 24 hr 03/20/22 03/20/22 03/20/22 16:18 17:50 19:00 WBC RBC Hgb Hct MCV MCH MCHC RDW Std Deviation RDW Coeff of Mikayla Plt Count MPV Immature Gran % (Auto) Neut % (Auto) Lymph % (Auto) [place] % (Auto) Eos % (Auto) Baso % (Auto) Absolute Neuts (auto) Absolute Lymphs (auto) Nucleated RBC % Sodium 137 Potassium 4.8 Chloride 107 Carbon Dioxide 21.0 Anion Gap 9 BUN 56 H Creatinine 1.28 H Estim Creat Clear Calc 31.42 Est GFR (MDRD) Af Amer 53 L Est GFR (MDRD) Non-Af 44 L BUN/Creatinine Ratio 43.8 H Glucose 104 Lactic Acid 0.7 Calcium 8.5 Total Bilirubin 0.70 AST 20 ALT 9 L Alkaline Phosphatase 80 Total Protein 5.9 L Albumin 1.6 L Globulin 4.3 H Albumin/Globulin Ratio 0.4 L TSH 11.90 H Urine Color Yellow Urine Clarity Turbid Urine pH 7.0 Ur Specific [place] 1.010 Urine Protein 30 H Urine Glucose (UA) Normal Urine Ketones 5 H Urine Occult Blood 250 H Urine Nitrite Negative Urine Bilirubin Negative Urine Urobilinogen Normal Ur Leukocyte Esterase 500 H Urine RBC 50-100 SEEN Urine WBC 25-50 SEEN Ur Squamous Epith Cells 0 SEEN Triple Phos Crystals 2+ Urine Bacteria 4+ Hyaline Casts 0-5 SEEN Urine Mucus 0 SEEN 03/20/22 19:30 WBC 12.4 H RBC 4.71 Hgb 14.1 Hct 42.7 MCV 90.7 MCH 29.9 MCHC 33.0 RDW Std Deviation 50.4 H RDW Coeff of Mikayla 15.2 H Plt Count 233 MPV 11.6 Immature Gran % (Auto) 0.400 Neut % (Auto) 82.3 H Lymph % (Auto) 10.2 L [place] % (Auto) 5.3 Eos % (Auto) 1.5 Baso % (Auto) 0.3 Absolute Neuts (auto) 10.2 H Absolute Lymphs (auto) 1.26 Nucleated RBC % 0 Sodium Potassium Chloride Carbon Dioxide Anion Gap BUN Creatinine Estim Creat Clear Calc Est GFR (MDRD) Af Amer Est GFR (MDRD) Non-Af BUN/Creatinine Ratio Glucose Lactic Acid Calcium Total Bilirubin AST ALT Alkaline Phosphatase Total Protein Albumin Globulin Albumin/Globulin Ratio TSH Urine Color Urine Clarity Urine pH Ur Specific [place] Urine Protein Urine Glucose (UA) Urine Ketones Urine Occult Blood Urine Nitrite Urine Bilirubin Urine Urobilinogen Ur Leukocyte Esterase Urine RBC Urine WBC Ur Squamous Epith Cells Triple Phos Crystals Urine Bacteria Hyaline Casts Urine Mucus Radiography Chest X-Ray - ED: 1 View and Read by ED Physician (Patient is rotated. Inspiratory volume is limited. It appears unchanged from February 11, 2022. There is widening of the mediastinum due to prior esophageal surgery. There are chronic changes noted. Surgery clips are noted in the upper abdomen.) Diagnostic Testing: Clinical Impression(s) from Imaging Studies Chest X-Ray 03/20/22 18:29 IMPRESSION: No acute findings. Electronically Signed: Marcela Emerson MD at 19:08 EDT Reading Location ID and State: [id number] / Tel , Service support , EKG Initial EKG: Attestation: I personally reviewed and interpreted this EKG as follows: Interpretation: Atrial Fibrillation (Ventricular rate is 119. QRS duration 82 ms. QT duration 268 ms. [place] is normal. There is evidence of low voltage. Computer is reading ossific changes which in all likelihood is artifact.) Procedures Other Procedures Procedure(s): Femoral stick to obtain blood. The patient was prepped with C hloraPrep. The area was allowed to dry. The right femoral vein was cannula excessively on the way in. Blood was drawn for tests ordered and 1 set of blood cultures was obtained from the site. Discharge Plan Dx/Rx/DC Orders Clinical Impression: Infectious encephalopathy, Urinary tract infection, Sepsis, COVID-19 virus in fection, Acute conjunctivitis, bilateral, Persistent atrial fibrillation, Renal insufficiency, Atrial fibrillation with rapid ventricular response Disposition Disposition: Acute Care Hospital [facility]
[2022-03-20 16:34] LABS: Mucous, Urine 0 SEEN /hpf (<or=2+); Squamous Epithelial Cells - UA 0 SEEN /hpf (5-10)
[2022-03-20 16:46] LABS: Color, Urine Yellow (Yellow); Glucose, Dipstick Normal (Normal); Ketone-Dipstick 5 mg/dl (Negative); Leukocyte Esterase-Dipstick 500 /ul (Negative); Nitrite-Dipstick Negative (Negative); Occult Blood-Urine 250 /ul (Negative); Protein-Dipstick 30 mg/dl (Negative); Urine Bilirubin Dipstick Negative (Negative); Urine Clarity Turbid (Clear); Urine Urobilinogen Normal (Normal)
[2022-03-20 17:20] LABS: Bacteria 4+ /hpf (None Seen); Hyaline Cast 0-5 SEEN /lpf (0-5); Red Blood Cells-Urine 50-100 SEEN /hpf (0-5); Triple Phosphate Crystals Ur 2+ /hpf (<or=1+); White Blood Cells 25-50 SEEN /hpf (0-5)
[2022-03-20] MEDS: 0.9% Normal Saline 1,000 ML 1000 ML IV (18:01)
[2022-03-20 18:29] LABS: ALB/GLOB Ratio 0.4 RATIO (0.9-2.4); AST(SGOT) 20 U/L (15-37); Alanine Aminotransfer ALT/SGPT 9 U/L (13-56); Albumin, Serum 1.6 g/dL (3.2-5.0); Alkaline Phosphatase 80 U/L (45-117); Anion Gap 9 (5-15); BUN 56 mg/dL (7-18); BUN/Creat Ratio 43.8 RATIO (10-20); Calcium,Total 8.5 mg/dL (8.5-10.1); Chloride 107 mmol/L (98-107); Creatinine, Serum 1.28 mg/dL (0.55-1.02); EST Glomerular Filtration Rate 44 mL/min (>60); Est Glom Filt Rate - Afr Amer 53 mL/min (>60); Estimated Creatinine Clearance 31.42 ml/min; Globulin 4.3 g/dL (2.2-4.2); Glucose 104 mg/dL (74-106); Potassium 4.8 mmol/L (3.5-5.1); Protein, Total 5.9 g/dL (6.4-8.2); Sodium Level 137 mmol/L (136-145)
--- NOTE | 2022-03-20 18:29 | RAD_ITS ---
STUDY: X-RAY CHEST REASON FOR EXAM: Female, 71 years old. Tachypnea tachypnea TECHNIQUE: Single AP portable view of the chest. COMPARISON: 02/11/2022. FINDINGS: The lungs are clear and expanded. There is no demonstrated pleural abnormality. Normal size heart. Normal mediastinum and gera. Normal visualized pulmonary arteries. Normal visualized aortic arch and descending thoracic aorta. Normal visualized thoracic spine. Normal visualized ribs, clavicles, and shoulders. Surgical clips are projected over the mediastinum and upper abdomen. RAD/Chest 1 View (Portable) IMPRESSION: No acute findings. Electronically Signed: Marcela Emerson MD at 19:08 EDT Reading Location ID and State: [id number] / Tel , Service support ,
[2022-03-20] MEDS: Ceftriaxone 1 GM/50 ML BAG IV (18:55)
[2022-03-20 19:36] LABS: Absolute Lymphocyte Count 1.26 X10^3/uL (0.83-4.51); Absolute Neutrophil Count 10.2 X10^3/uL (2.0-7.7); Basophil# 0.04 X10^3/uL; Basophil% 0.3 % (0-1); Eosinophil# 0.18 X10^3/uL; Eosinophils% 1.5 % (0-5); Hematocrit 42.7 % (37-47); Hemoglobin 14.1 g/dL (12.0-15.0); Lymphocyte # 1.26 X10^3/ul (0.83-4.51); Lymphocyte % 10.2 % (19-41); Mean Corpuscular Hgb 29.9 pg (27.0-32.0); Mean Corpuscular Volume 90.7 fL (81-99); Mean Platelet Vol. 11.6 fl (6.2-12.0); Monocyte# 0.65 X10^3/uL; Monocyte% 5.3 % (0-10); NRBC Flagged by Analyzer 0 % (0-5); Neutrophil # 10.19 X10^3/uL (2.7-7.7); Neutrophil % 82.3 % (47-70); Platelet Count 233 K/mm3 (150-450); RBC Distribution Width CV 15.2 % (11.6-14.6); RBC Distribution Width SD 50.4 fl (35.1-43.9); Red Blood Count 4.71 M/mm3 (4.2-5.4); White Blood Count 12.4 K/mm3 (4.4-11.0)
[2022-03-20 19:49] LABS: Lactic Acid 0.7 mmol/L (0.4-1.9)
[2022-03-20] MEDS: 0.9% Normal Saline 1,000 ML 250 ML IV (20:14)
--- NOTE | 2022-03-20 21:36 | PCM.HP.STD ---
Documented by User: BRO Olvera 03/20/22 21:46 HPI - General General Date of Admission: 03/20/22 Date of Service: 03/20/22 Chief Complaint: weakness, FTT HPI Narrative KP FLORES, is a 71 F who presents with reports from the group home that patient has been lethargic, and not eating much. Patient states that she is generally feels unwell but is unsure for how long as patient is confused. Patient has medical history of atrial fibrillation, systolic and diastolic congestive heart failure, hypertension, PAD, esophageal cancer, hypothyroidism. [facility] Medical History Acute on chronic combined systolic (congestive) and diastolic (congestive) heart failure Anxiety and depression Bilateral edema of lower extremity Cardiomyopathy Chronic pain syndrome Depression Esophageal cancer Essential hypertension Fibromyalgia Frequent falls GERD (gastroesophageal reflux disease) Hypothyroid New onset atrial fibrillation (07/2021) Non-smoker PAD (peripheral artery disease) Persistent atrial fibrillation Home Medications ferrous sulfate 325 mg (65 mg iron) tablet (Iron (ferrous sulfate)) 650 mg PO QODAY supplement 08/04/17 [History Last Taken 03/19/22] cyanocobalamin (vitamin B-12) 1,000 mcg/mL injection solution 1,000 mcg IM QMONTH SUPPLEMENT 07/21/21 [History Last Taken 03/14/22] latanoprost 0.005 % eye drops 1 drp EACH EYE QPM GLAUCOMA 07/21/21 [History Last Taken 03/19/22] sertraline 50 mg tablet 50 mg PO DAILY DEPRESSION 07/21/21 [History Last Taken 03/20/22] apixaban 5 mg tablet (Eliquis) 5 mg PO BID a fib 11/01/21 [History Last Taken 03/20/22] enalapril maleate 20 mg tablet 20 mg PO BID heart 11/01/21 [History Last Taken 03/20/22] metoprolol tartrate 50 mg tablet 50 mg PO BID 30 days #60 tabs 11/04/21 [Rx Last Taken 03/20/22] Lactobacillus acidophilus 1 tab PO DAILY 02/11/22 [History Last Taken 03/20/22] bisacodyl 10 mg rectal suppository 10 mg [place] DAILY PRN Constipation 02/11/22 [History Last Taken Unknown] magnesium hydroxide 400 mg/5 mL oral suspension (Milk of Magnesia) 30 ml PO DAILY PRN Constipation 02/11/22 [History Last Taken Unknown] sennosides 8.6 mg tablet (senna) 17.2 mg PO BID CONSTIPATION 02/11/22 [History Last Taken 03/20/22] sodium phosphates 19 gram-7 gram/118 mL enema (Enema) 118 ml [place] DAILY PRN Constipation 02/11/22 [History Last Taken Unknown] spironolactone 25 mg tablet 25 mg PO DAILY 02/11/22 [History Last Taken 03/20/22] furosemide 40 mg tablet 40 mg PO DAILY #0 tabs 02/14/22 [Rx Last Taken 03/20/22] levothyroxine 50 mcg tablet 50 mcg PO DAILY@0600 #0 tabs 02/14/22 [Rx Last Taken 03/20/22] acetaminophen 325 mg tablet 650 mg PO Q4H PRN Pain 03/20/22 [History Last Taken 03/13/22] cholecalciferol (vitamin D3) 25 mcg (1,000 unit) tablet 25 mcg PO DAILY 03/20/22 [History Last Taken 03/20/22] folic acid 1 mg tablet 1 mg PO DAILY 03/20/22 [History Last Taken 03/20/22] loperamide 2 mg tablet (Imodium A-D) 2 - 4 mg PO Q4H PRN STOOL 03/20/22 [History Last Taken 03/10/22] magnesium oxide 400 mg PO DAILY 03/20/22 [History Last Taken 03/20/22] omeprazole 20 mg capsule,delayed release 20 mg PO DAILY 03/20/22 [History Last Taken 03/20/22] oxycodone 5 mg tablet 5 mg PO Q12H PRN Pain 03/20/22 [History Last Taken 03/13/22] quetiapine 50 mg tablet 50 mg PO DAILY 03/20/22 [History Last Taken 03/19/22] simethicone 80 mg chewable tablet 80 mg PO ACHS GAS 03/20/22 [History Last Taken 03/20/22] Allergy/AdvReac Type Severity Reaction Status Date / Time adhesive tape Allergy Rash Verified 03/20/22 15:30 chlorpheniramine Allergy Other Verified 03/20/22 15:30 dobutamine Allergy Low blood Verified 03/20/22 15:30 pressure doxycycline Allergy Unknown Verified 03/20/22 15:30 Iodinated Contrast Media Allergy Rash Verified 03/20/22 15:30 [Iodinated Contrast Media - IV Dye] Sulfa (Sulfonamide Allergy Unknown Verified 03/20/22 15:30 Antibiotics) erythromycin base AdvReac Upset Verified 03/20/22 15:30 Stomach hydrocodone bitartrate AdvReac HEADACHE Verified 03/20/22 15:30 [From Vicodin] ibuprofen AdvReac Nausea Verified 03/20/22 15:30 chlortab-4 Allergy Other Uncoded 03/20/22 15:30 Family History Father Cancer Lung cancer. Mother Myocardial infarction Heart disease Surgical History H/O ventral hernia repair History of esophageal surgery History of gastrectomy Hx of appendectomy Hx of cholecystectomy Social History household members: none housing: house pets and animals: No Smoking Status: Never smoker substance use type: does not use ROS Review of Systems ROS Unobtainable: due to mental status Vital Signs Vital Signs Vital Signs: 03/20/22 15:32 03/20/22 16:20 03/20/22 16:24 Temperature 98.1 F Temperature Source Oral Pulse Rate 115 H 109 H Respiratory Rate 16 22 H Respiratory Effort Normal Non-Labored Respiratory Pattern Normal Blood Pressure 103/72 110/86 H Blood Pressure Mean 82 94 Pulse Ox 93 96 Oxygen Delivery Method Room Air Room Air 03/20/22 17:00 03/20/22 17:30 03/20/22 18:00 Temperature Temperature Source Pulse Rate 119 H 113 H Respiratory Rate 19 H 20 H Respiratory Effort Respiratory Pattern Blood Pressure 109/72 105/80 107/73 Blood Pressure Mean 84 88 84 Pulse Ox 94 96 Oxygen Delivery Method Room Air Room Air 03/20/22 20:00 Temperature Temperature Source Pulse Rate 115 H Respiratory Rate 18 Respiratory Effort Respiratory Pattern Blood Pressure 108/81 H Blood Pressure Mean 90 Pulse Ox 97 Oxygen Delivery Method Room Air Weight Weight: 153 lb 7.068 oz Body Mass Index (BMI) 28.0 Physical Exam Const alert Orientation / Consciousness: confused HEENT normocephalic and head/scalp atraumatic Eyes conjunctivae normal and no scleral icterus Neck no lymphadenopathy and supple General: trachea midline Resp normal respiratory effort, normal air movement and clear to auscultation bilaterally Cardio S1 normal heart sound, S2 normal heart sound and peripheral pulses 2+ throughout Rhythm: abnormal rhythm irregularly irregular GI normal to inspection, nondistended, normoactive bowel sounds, soft to palpation and non-tender Extremity normal capillary refill and no clubbing, cyanosis or edema Skin General Skin Exam: no breakdown Lesions: no lesions Rashes: no rashes Neuro no focal motor deficits and no sensory deficits noted Speech: speech normal Psych Thought Process: confused Thought Content: normal thought content Results Lab / Micro Data Result Diagrams: 03/20/22 19:30 03/20/22 17:50 Labs: Laboratory Results - last 24 hr 03/20/22 16:18: Urine Color Yellow, Urine Clarity Turbid, Urine pH 7.0, Ur Specific [place] 1.010, Urine Protein 30 H, Urine Glucose (UA) Normal, Urine Ketones 5 H, Urine Occult Blood 250 H, Urine Nitrite Negative, Urine Bilirubin Negative, Urine Urobilinogen Normal, Ur Leukocyte Esterase 500 H, Urine RBC 50-100 SEEN, Urine WBC 25-50 SEEN, Ur Squamous Epith Cells 0 SEEN, Triple Phos Crystals 2+, Urine Bacteria 4+, Hyaline Casts 0-5 SEEN, Urine Mucus 0 SEEN 03/20/22 17:50: Sodium 137, Potassium 4.8, Chloride 107, Carbon Dioxide 21.0, Anion Gap 9, BUN 56 H, Creatinine 1.28 H, Estim Creat Clear Calc 31.42, Est GFR (MDRD) Af Amer 53 L, Est GFR (MDRD) Non-Af 44 L, BUN/Creatinine Ratio 43.8 H, Glucose 104, Calcium 8.5, Total Bilirubin 0.70, AST 20, ALT 9 L, Alkaline Phosphatase 80, Total Protein 5.9 L, Albumin 1.6 L, Globulin 4.3 H, Albumin/Globulin Ratio 0.4 L, TSH 11.90 H 03/20/22 19:00: Lactic Acid 0.7 03/20/22 19:30: WBC 12.4 H, RBC 4.71, Hgb 14.1, Hct 42.7, MCV 90.7, MCH 29.9, MCHC 33.0, RDW Std Deviation 50.4 H, RDW Coeff of Mikayla 15.2 H, Plt Count 233, MPV 11.6, Immature Gran % (Auto) 0.400, Neut % (Auto) 82.3 H, Lymph % (Auto) 10.2 L, [place] % (Auto) 5.3, Eos % (Auto) 1.5, Baso % (Auto) 0.3, Absolute Neuts (auto) 10.2 H, Absolute Lymphs (auto) 1.26, Nucleated RBC % 0 Micro: Microbiology 03/20/22 16:30 Nasal Secretion SARS-CoV-2 Antigen (Rapid) - Final SARS-CoV-2 (COVID 19) Radiology Impression Chest X-Ray 03/20/22 18:29 IMPRESSION: No acute findings. Electronically Signed: Marcela Emerson MD at 19:08 EDT Reading Location ID and State: [id number] / Tel , Service support , Assessment & Plan Assessment/Plan (1) Urinary tract infection: (2) COVID-19 virus infection: (3) Acute conjunctivitis, bilateral: PLAN: Plan 1. Urinary tract infection -Admit to MedSur -Sepsis ruled out -PT and OT to eval and treat -CBC and BMP ordered for a.m. -Blood culture and urine culture pending -Rocephin given in ER, will continue -Normal saline 75 mL ordered, will need close monitoring of lung sounds as patient has CHF 2. COVID-19 -Patient positive for COVID-19 -Chest x-ray negative -97% on room air 3. Acute bilateral conjunctivitis -Neomycin/polymyxin B/dexamethasone drops ordered 4 times daily -Wash bilateral eyes twice daily with warm washcloth 4. Atrial fibrillation -Continue Eliquis and metoprolol 5. Systolic and diastolic heart failure -Continue enalapril, spironolactone and Lasix 6. Hypothyroidism -Continue levothyroxine 7. Depression -Continue Seroquel and sertraline DVT prophylaxis-not indicated, chronically anticoagulated This patient was seen by BHANU OlveraC under the supervision of Dr. Contreras. 29 minutes spent in clinical coordination of patient's plan of care. Documented by User: Dr. Herman Contreras MD 03/21/22 00:49 HPI - General General Date of Admission: 03/20/22 [facility] Medical History Acute on chronic combined systolic (congestive) and diastolic (congestive) heart failure Anxiety and depression Bilateral edema of lower extremity Cardiomyopathy Chronic pain syndrome Depression Esophageal cancer Essential hypertension Fibromyalgia Frequent falls GERD (gastroesophageal reflux disease) Hypothyroid New onset atrial fibrillation (07/2021) Non-smoker PAD (peripheral artery disease) Persistent atrial fibrillation Home Medications ferrous sulfate 325 mg (65 mg iron) tablet (Iron (ferrous sulfate)) 650 mg PO QODAY supplement 08/04/17 [History Last Taken 03/19/22] cyanocobalamin (vitamin B-12) 1,000 mcg/mL injection solution 1,000 mcg IM QMONTH SUPPLEMENT 07/21/21 [History Last Taken 03/14/22] latanoprost 0.005 % eye drops 1 drp EACH EYE QPM GLAUCOMA 07/21/21 [History Last Taken 03/19/22] sertraline 50 mg tablet 50 mg PO DAILY DEPRESSION 07/21/21 [History Last Taken 03/20/22] apixaban 5 mg tablet (Eliquis) 5 mg PO BID a fib 11/01/21 [History Last Taken 03/20/22] enalapril maleate 20 mg tablet 20 mg PO BID heart 11/01/21 [History Last Taken 03/20/22] metoprolol tartrate 50 mg tablet 50 mg PO BID 30 days #60 tabs 11/04/21 [Rx Last Taken 03/20/22] Lactobacillus acidophilus 1 tab PO DAILY 02/11/22 [History Last Taken 03/20/22] bisacodyl 10 mg rectal suppository 10 mg TX DAILY PRN Constipation 02/11/22 [History Last Taken Unknown] magnesium hydroxide 400 mg/5 mL oral suspension (Milk of Magnesia) 30 ml PO DAILY PRN Constipation 02/11/22 [History Last Taken Unknown] sennosides 8.6 mg tablet (senna) 17.2 mg PO BID CONSTIPATION 02/11/22 [History Last Taken 03/20/22] sodium phosphates 19 gram-7 gram/118 mL enema (Enema) 118 ml TX DAILY PRN Constipation 02/11/22 [History Last Taken Unknown] spironolactone 25 mg tablet 25 mg PO DAILY 02/11/22 [History Last Taken 03/20/22] furosemide 40 mg tablet 40 mg PO DAILY #0 tabs 02/14/22 [Rx Last Taken 03/20/22] levothyroxine 50 mcg tablet 50 mcg PO DAILY@0600 #0 tabs 02/14/22 [Rx Last Taken 03/20/22] acetaminophen 325 mg tablet 650 mg PO Q4H PRN Pain 03/20/22 [History Last Taken 03/13/22] cholecalciferol (vitamin D3) 25 mcg (1,000 unit) tablet 25 mcg PO DAILY 03/20/22 [History Last Taken 03/20/22] folic acid 1 mg tablet 1 mg PO DAILY 03/20/22 [History Last Taken 03/20/22] loperamide 2 mg tablet (Imodium A-D) 2 - 4 mg PO Q4H PRN STOOL 03/20/22 [History Last Taken 03/10/22] magnesium oxide 400 mg PO DAILY 03/20/22 [History Last Taken 03/20/22] omeprazole 20 mg capsule,delayed release 20 mg PO DAILY 03/20/22 [History Last Taken 03/20/22] oxycodone 5 mg tablet 5 mg PO Q12H PRN Pain 03/20/22 [History Last Taken 03/13/22] quetiapine 50 mg tablet 50 mg PO DAILY 03/20/22 [History Last Taken 03/19/22] simethicone 80 mg chewable tablet 80 mg PO ACHS GAS 03/20/22 [History Last Taken 03/20/22] Allergy/AdvReac Type Severity Reaction Status Date / Time adhesive tape Allergy Rash Verified 03/20/22 15:30 chlorpheniramine Allergy Other Verified 03/20/22 15:30 dobutamine Allergy Low blood Verified 03/20/22 15:30 pressure doxycycline Allergy Unknown Verified 03/20/22 15:30 Iodinated Contrast Media Allergy Rash Verified 03/20/22 15:30 [Iodinated Contrast Media - IV Dye] Sulfa (Sulfonamide Allergy Unknown Verified 03/20/22 15:30 Antibiotics) erythromycin base AdvReac Upset Verified 03/20/22 15:30 Stomach hydrocodone bitartrate AdvReac HEADACHE Verified 03/20/22 15:30 [From Vicodin] ibuprofen AdvReac Nausea Verified 03/20/22 15:30 chlortab-4 Allergy Other Uncoded 03/20/22 15:30 Family History Father Cancer Lung cancer. Mother Myocardial infarction Heart disease Surgical History H/O ventral hernia repair History of esophageal surgery History of gastrectomy Hx of appendectomy Hx of cholecystectomy Social History household members: none housing: house pets and animals: No Smoking Status: Never smoker substance use type: does not use Results Lab / Micro Data Result Diagrams: 03/20/22 19:30 03/20/22 17:50 Assessment & Plan Assessment/Plan (1) Urinary tract infection: (2) COVID-19 virus infection: (3) Acute conjunctivitis, bilateral: PLAN: Plan 1. Urinary tract infection -Admit to MedSurg -Sepsis ruled out -PT and OT to eval and treat -CBC and BMP ordered for a.m. -Blood culture and urine culture pending -Rocephin given in ER, will continue -Normal saline 75 mL ordered, will need close monitoring of lung sounds as patient has CHF 2. COVID-19 -Patient positive for COVID-19 -Chest x-ray negative -97% on room air 3. Acute bilateral conjunctivitis -Neomycin/polymyxin B/dexamethasone drops ordered 4 times daily -Wash bilateral eyes twice daily with warm washcloth 4. Atrial fibrillation -Continue Eliquis and metoprolol 5. Systolic and diastolic heart failure -Continue enalapril, spironolactone and Lasix 6. Hypothyroidism -Continue levothyroxine 7. Depression -Continue Seroquel and sertraline DVT prophylaxis-not indicated, chronically anticoagulated This patient was seen by Andreea Knoble, PART TIME RECEPTIONIST-C under the supervision of Dr. Contreras. 29 minutes spent in clinical coordination of patient's plan of care. Patient seen and examined agree with above assessment and plan
[2022-03-21] VITALS (10 sets, daily range): BP systolic 100–136; BP diastolic 60–94; PULSE 76–90; RESP 16–20; TEMP 36.2–36.8; O2SAT 95–97
[2022-03-21] MEDS: 0.9% Normal Saline 1,000 ML 75 ML IV (00:18)
[2022-03-21] MEDS: Neomycin/Polymyxin/Dexameth OINT 3.5GM OPTH.TUBE 1 APPLIC OPHTHALMIC ×5 (00:32→21:25)
[2022-03-21] MEDS: Metoprolol Tartrate 50 MG Tablet PO ×2 (00:32→10:54)
[2022-03-21] MEDS: Senna Tablet 2 TABLET PO ×3 (00:33→21:25)
[2022-03-21] MEDS: Lisinopril 20 MG Tablet PO ×2 (00:33→10:53)
[2022-03-21] MEDS: Levothyroxine 50 MCG Tablet PO (05:45)
--- NOTE | 2022-03-21 07:23 | PN.HOSP_ITS ---
Subjective Subjective listless. Objective Data Objective Data Vital Signs: Vital Signs Temp Pulse Resp BP Pulse Ox O2 Del Method 36.2 C L 84 20 H 124/94 H 97 Room Air 03/21/22 05:41 03/21/22 05:41 03/21/22 05:41 03/21/22 05:41 03/21/22 05:41 03/21/22 05:41 Oxygen Delivery Method Room Air Weight: 68.8 kg Body Mass Index (BMI) 27.7 Intake & Output: Intake and Output for Last 24 Hours 03/19/22 03/20/22 03/21/22 23:59 23:59 23:59 Intake Total 1783.33 / 1883.33 300 / 300 Output Total 200 / 200 Balance 1783.33 / 1883.33 100 / 100 Lab / Micro Data Result Diagrams: 03/21/22 07:55 03/21/22 07:55 Labs: Laboratory Results - last 24 hr 03/20/22 16:18: Urine Color Yellow, Urine Clarity Turbid, Urine pH 7.0, Ur Specific [place] 1.010, Urine Protein 30 H, Urine Glucose (UA) Normal, Urine Ketones 5 H, Urine Occult Blood 250 H, Urine Nitrite Negative, Urine Bilirubin Negative, Urine Urobilinogen Normal, Ur Leukocyte Esterase 500 H, Urine RBC 50- 100 SEEN, Urine WBC 25-50 SEEN, Ur Squamous Epith Cells 0 SEEN, Triple Phos Crystals 2+, Urine Bacteria 4+, Hyaline Casts 0-5 SEEN, Urine Mucus 0 SEEN 03/20/22 17:50: Sodium 137, Potassium 4.8, Chloride 107, Carbon Dioxide 21.0, Anion Gap 9, BUN 56 H, Creatinine 1.28 H, Estim Creat Clear Calc 31.42, Est GFR (MDRD) Af Amer 53 L, Est GFR (MDRD) Non-Af 44 L, BUN/Creatinine Ratio 43.8 H, Glucose 104, Calcium 8.5, Total Bilirubin 0.70, AST 20, ALT 9 L, Alkaline Phosphatase 80, Total Protein 5.9 L, Albumin 1.6 L, Globulin 4.3 H, Albumin/Globulin Ratio 0.4 L, TSH 11.90 H 03/20/22 19:00: Lactic Acid 0.7 03/20/22 19:30: WBC 12.4 H, RBC 4.71, Hgb 14.1, Hct 42.7, MCV 90.7, MCH 29.9, MCHC 33.0, RDW Std Deviation 50.4 H, RDW Coeff of Mikayla 15.2 H, Plt Count 233, MPV 11.6, Immature Gran % (Auto) 0.400, Neut % (Auto) 82.3 H, Lymph % (Auto) 10.2 L, [place] % (Auto) 5.3, Eos % (Auto) 1.5, Baso % (Auto) 0.3, Absolute Neuts (auto) 10.2 H, Absolute Lymphs (auto) 1.26, Nucleated RBC % 0 Micro: Microbiology 03/20/22 16:30 Nasal Secretion SARS-CoV-2 Antigen (Rapid) - Final SARS-CoV-2 (COVID 19) Radiography Diagnostic Testing: Radiology Impression Chest X-Ray 03/20/22 18:29 IMPRESSION: No acute findings. Electronically Signed: Marcela Emerson MD at 19:08 EDT Reading Location ID and State: [id number] / Tel , Service support , Physical Exam Const alert and no apparent distress Constitutional Narrative: listless. afebrile. Resp normal respiratory effort, no retractions, no use of accessory muscles and clear to auscultation bilaterally Cardio regular rate, regular rhythm, S1 normal heart sound and S2 normal heart sound Assessment & Plan Assessment/Plan (1) Urinary tract infection: PLAN: -Sepsis ruled out -Blood culture and urine culture pending -Rocephin given in ER, will continue (2) COVID-19 virus infection: PLAN: -Patient positive for COVID-19 -Chest x-ray negative -97% on room air -No treatment indicated (3) Acute conjunctivitis, bilateral: PLAN: Doubt bacteria -Neomycin/polymyxin B/dexamethasone drops ordered 4 times daily -Wash bilateral eyes twice daily with warm washcloth PLAN: Plan Chronic conditions: * Atrial fibrillation-Continue Eliquis and metoprolol * Systolic and diastolic heart failure-Continue enalapril, spironolactone and Lasix * Hypothyroidism-Continue levothyroxine * Depression-Continue Seroquel and sertraline DVT prophylaxis-not indicated, chronically anticoagulated Disposition: TBD. Likely back to [place] when culture finalized. Anticipate 1-2 more days. Charges/Coding Visit Charges Inpatient E&M: 10208 Subs Hosp L2
[2022-03-21 08:11] LABS: Absolute Lymphocyte Count 0.96 X10^3/uL (0.83-4.51); Absolute Neutrophil Count 9.9 X10^3/uL (2.0-7.7); Basophil# 0.06 X10^3/uL; Basophil% 0.5 % (0-1); Eosinophil# 0.14 X10^3/uL; Eosinophils% 1.2 % (0-5); Hematocrit 44.1 % (37-47); Hemoglobin 14.6 g/dL (12.0-15.0); Lymphocyte # 0.96 X10^3/ul (0.83-4.51); Lymphocyte % 8.3 % (19-41); Mean Corp Hgb Conc 33.1 g/dL (32-36); Mean Corpuscular Volume 90.7 fL (81-99); Monocyte# 0.51 X10^3/uL; Monocyte% 4.4 % (0-10); NRBC Flagged by Analyzer 0 % (0-5); Neutrophil # 9.88 X10^3/uL (2.7-7.7); Neutrophil % 85.1 % (47-70); Platelet Count 207 K/mm3 (150-450); RBC Distribution Width SD 50.2 fl (35.1-43.9); Red Blood Count 4.86 M/mm3 (4.2-5.4); White Blood Count 11.6 K/mm3 (4.4-11.0)
[2022-03-21 08:31] LABS: Anion Gap 7 (5-15); BUN 54 mg/dL (7-18); BUN/Creat Ratio 48.2 RATIO (10-20); Calcium,Total 8.4 mg/dL (8.5-10.1); Chloride 109 mmol/L (98-107); Creatinine, Serum 1.12 mg/dL (0.55-1.02); EST Glomerular Filtration Rate 51 mL/min (>60); Est Glom Filt Rate - Afr Amer 61 mL/min (>60); Estimated Creatinine Clearance 35.91 ml/min; Glucose 106 mg/dL (74-106); Sodium Level 140 mmol/L (136-145)
--- NOTE | 2022-03-21 09:16 | CASEMGMT ---
Social Work SW called Thalia at [facility] to gather information about pt return to [facility], when medically ready. SW left message requesting a call back and left contact info. DESIREE Thompson
[2022-03-21] MEDS: Ferrous Sulfate 325 MG Tablet 650 MG PO (10:52)
[2022-03-21] MEDS: QUEtiapine 25 MG Tablet 50 MG PO (10:54)
[2022-03-21] MEDS: Pantoprazole Sodium 20 MG Tablet PO (10:54)
[2022-03-21] MEDS: Sertraline 50 MG Tablet PO (10:55)
[2022-03-21] MEDS: APIXABAN 5 MG TABLET PO ×2 (10:56→21:24)
[2022-03-21] MEDS: Spironolactone 25 MG Tablet PO (10:56)
[2022-03-21] MEDS: Furosemide 40 MG Tablet PO (10:56)
--- NOTE | 2022-03-21 11:51 | NURSING ---
Bladder scan performed by this RN d/t low urine output. Bladder scanned for amount of 60ml. Will continue to monitor
[2022-03-21] MEDS: Menthol/Lanolin/Calamine/Znox 113 GM Tube 1 APPLIC TOPICAL ×2 (13:39→21:22)
--- NOTE | 2022-03-21 13:44 | CASEMGMT ---
Social Work SW attempted to speak with pt regarding discharge. Pt speech slurred and not easy to comprehend. SW called pt's sons, Miles and Perry Pitts, and left messages with both to discuss discharge plans. SW left contact information for both and requested calls back. DESIREE Thompson
--- NOTE | 2022-03-21 18:46 | NURSING ---
This RN bladder scanned pt for a second time and scanned 100ml urine. This RN contacted Dr Lu about poor intake and UO through the day. Message was viewed at 1822, has not responded. Will continue to monitor
[2022-03-21] MEDS: Nystatin Powder 15gm Bottle 1 APPLIC TOPICAL (21:21)
[2022-03-21] MEDS: Latanoprost 0.005% 1 Bottle 1 DRP EACH EYE (21:26)
[2022-03-21] MEDS: Ceftriaxone 1 GM/50 ML BAG IV (21:36)
[2022-03-21] MEDS: 0.9% Saline Lock 10 ML Syringe IV (21:36)
[2022-03-22] VITALS (10 sets, daily range): BP systolic 99–127; BP diastolic 58–83; PULSE 78–94; RESP 16–18; TEMP 36.4–36.6; O2SAT 93–97
[2022-03-22 05:39] LABS: Absolute Lymphocyte Count 1.05 X10^3/uL (0.83-4.51); Absolute Neutrophil Count 8.4 X10^3/uL (2.0-7.7); Basophil# 0.08 X10^3/uL; Basophil% 0.8 % (0-1); Eosinophil# 0.15 X10^3/uL; Eosinophils% 1.5 % (0-5); Hematocrit 43.1 % (37-47); Hemoglobin 14.4 g/dL (12.0-15.0); Lymphocyte # 1.05 X10^3/ul (0.83-4.51); Lymphocyte % 10.2 % (19-41); Mean Corp Hgb Conc 33.4 g/dL (32-36); Mean Corpuscular Hgb 30.5 pg (27.0-32.0); Mean Corpuscular Volume 91.3 fL (81-99); Mean Platelet Vol. 11.6 fl (6.2-12.0); Monocyte# 0.55 X10^3/uL; Monocyte% 5.4 % (0-10); NRBC Flagged by Analyzer 0 % (0-5); Neutrophil # 8.38 X10^3/uL (2.7-7.7); Neutrophil % 81.6 % (47-70); Platelet Count 195 K/mm3 (150-450); RBC Distribution Width CV 15.2 % (11.6-14.6); RBC Distribution Width SD 50.6 fl (35.1-43.9); Red Blood Count 4.72 M/mm3 (4.2-5.4); White Blood Count 10.3 K/mm3 (4.4-11.0)
[2022-03-22 06:18] LABS: Anion Gap 10 (5-15); BUN 50 mg/dL (7-18); Calcium,Total 7.8 mg/dL (8.5-10.1); Chloride 111 mmol/L (98-107); Creatinine, Serum 1.25 mg/dL (0.55-1.02); EST Glomerular Filtration Rate 45 mL/min (>60); Est Glom Filt Rate - Afr Amer 54 mL/min (>60); Estimated Creatinine Clearance 32.18 ml/min; Glucose 103 mg/dL (74-106); Potassium 4.9 mmol/L (3.5-5.1); Sodium Level 140 mmol/L (136-145)
[2022-03-22] MEDS: Levothyroxine 50 MCG Tablet PO (06:41)
--- NOTE | 2022-03-22 08:36 | PN.HOSP_ITS ---
Subjective Subjective Denies pain. Objective Data Objective Data Vital Signs: Vital Signs Temp Pulse Resp BP Pulse Ox O2 Del Method 36.6 C 90 18 99/79 93 Room Air 03/22/22 03:00 03/22/22 03:00 03/22/22 03:00 03/22/22 03:00 03/22/22 03:00 03/22/22 07:58 Oxygen Delivery Method Room Air Weight: 68.8 kg Body Mass Index (BMI) 27.7 Intake & Output: Intake and Output for Last 24 Hours 03/20/22 03/21/22 03/22/22 23:59 23:59 23:59 Intake Total 1783.33 / 1883.33 1248.75 / 1248.75 Output Total 200 / 200 100 / 100 Balance 1783.33 / 1883.33 1048.75 / 1048.75 -100 / -100 Lab / Micro Data Result Diagrams: 03/22/22 05:32 03/22/22 05:32 Labs: Laboratory Results - last 24 hr 03/22/22 05:32: WBC 10.3, RBC 4.72, Hgb 14.4, Hct 43.1, MCV 91.3, MCH 30.5, MCHC 33.4, RDW Std Deviation 50.6 H, RDW Coeff of Mikayla 15.2 H, Plt Count 195, MPV 11.6, Immature Gran % (Auto) 0.500, Neut % (Auto) 81.6 H, Lymph % (Auto) 10.2 L, [place] % (Auto) 5.4, Eos % (Auto) 1.5, Baso % (Auto) 0.8, Absolute Neuts (auto) 8.4 H, Absolute Lymphs (auto) 1.05, Nucleated RBC % 0 03/22/22 05:32: Sodium 140, Potassium 4.9, Chloride 111 H, Carbon Dioxide 19.0 L , Anion Gap 10, BUN 50 H, Creatinine 1.25 H, Estim Creat Clear Calc 32.18, Est GFR (MDRD) Af Amer 54 L, Est GFR (MDRD) Non-Af 45 L, BUN/Creatinine Ratio 40.0 H , Glucose 103, Calcium 7.8 L Micro: Microbiology 03/20/22 16:18 Urine, Clean Catch Urine Culture - Preliminary Gram negative monico GNR lactose district scout executive 03/20/22 16:30 Nasal Secretion SARS-CoV-2 Antigen (Rapid) - Final SARS-CoV-2 (COVID 19) Physical Exam Const Constitutional Narrative: listless. speaks softly. Resp normal respiratory effort, no retractions, no use of accessory muscles and clear to auscultation bilaterally Cardio regular rate, regular rhythm, S1 normal heart sound and S2 normal heart sound Psych affect normal Assessment & Plan Assessment/Plan (1) Urinary tract infection: PLAN: -Sepsis ruled out -Blood culture pending -Rocephin given in ER, will continue -Urine culture with GNR (2) COVID-19 virus infection: PLAN: -Patient positive for COVID-19 -Chest x-ray negative -97% on room air -No treatment indicated (3) Acute conjunctivitis, bilateral: PLAN: Doubt bacteria -Neomycin/polymyxin B/dexamethasone drops ordered 4 times daily -Wash bilateral eyes twice daily with warm washcloth PLAN: Plan Chronic conditions: * Atrial fibrillation-Continue Eliquis and metoprolol * Systolic and diastolic heart failure-Continue enalapril, spironolactone and Lasix * Hypothyroidism-Continue levothyroxine * Depression-Continue Seroquel and sertraline DVT prophylaxis-not indicated, chronically anticoagulated Disposition: TBD. Informed by case management patient's family does not want her to go back to [place]. They are currently following options which are going to be limited as patient is COVID-19 positive, despite being stable. Charges/Coding Visit Charges Inpatient E&M: 34661 Subs Hosp L2
--- NOTE | 2022-03-22 09:31 | CASEMGMT ---
Addendum entered by Yadi Huizar 03/22/22 09:40: Sera called Perry, pt son to confirm list of SNFs was received. Perry confirmed and will review. Original Note: Social Work SW called pt son and HCPOA, Perry Naldo Hong, to discuss placement for pt upon discharge. Perry shared family does not want pt to return to [place] [facility] as pt care there has not been to standard of family. SW validated Perry's concerns and discussed new options. A electronic list of SNF providers including quality and resources use date that is consistent with patient's preferred geographical region, medical needs, and insurances network were provided via the [facility] [employer] to Perry through text message.?SW encouraged Perry to review and call back today with choices. SERA also explained that due to pt Covid status that many SNF would not be available. SERA made note in comment section of electronic list of the facilities that indicated would accept covid pt's at this time to help inform family as it does not show on printed/shared list. Perry grateful, indicated he would review and return pc later this day to discuss further. PLAN: Wait on pt/faimly choice for SNF DESIREE Thompson
--- NOTE | 2022-03-22 09:41 | CASEMGMT ---
Social Work SW spoke to pt son, Perry Pitts, and informed that HCPOA/LW documents are not on file with [facility]. Perry voiced understanding, stated has HCPOA documents and would email them to this SW if can find them. Perry reported not sure if LW was ever made. Yadi Huizar, DESIREE
[2022-03-22] MEDS: Lisinopril 20 MG Tablet PO ×2 (09:47→20:40)
[2022-03-22] MEDS: QUEtiapine 25 MG Tablet 50 MG PO (09:47)
[2022-03-22] MEDS: Metoprolol Tartrate 50 MG Tablet PO ×2 (09:48→20:40)
[2022-03-22] MEDS: Menthol/Lanolin/Calamine/Znox 113 GM Tube 1 APPLIC TOPICAL ×2 (09:48→20:38)
[2022-03-22] MEDS: Spironolactone 25 MG Tablet PO (09:48)
[2022-03-22] MEDS: APIXABAN 5 MG TABLET PO ×2 (09:48→20:40)
[2022-03-22] MEDS: Furosemide 40 MG Tablet PO (09:48)
[2022-03-22] MEDS: Sertraline 50 MG Tablet PO (09:48)
[2022-03-22] MEDS: Pantoprazole Sodium 20 MG Tablet PO (09:48)
[2022-03-22] MEDS: Neomycin/Polymyxin/Dexameth OINT 3.5GM OPTH.TUBE 1 APPLIC OPHTHALMIC ×4 (09:49→20:40)
[2022-03-22] MEDS: Nystatin Powder 15gm Bottle 1 APPLIC TOPICAL ×2 (09:49→20:39)
--- NOTE | 2022-03-22 11:03 | NURSING ---
Addendum entered by Delia Echevarria 03/22/22 11:15: Perry, Patients son states he can not get here to see his mother until the weekend as he lives in [place] and can't get off of work until then. Original Note: This RN spoke with patients son Perry Pitts after he called for an update.
--- NOTE | 2022-03-22 12:11 | CASEMGMT ---
Addendum entered by Yadi Huizar 03/22/22 14:53: SERA called pt sonPerry, once again to attempt obtaining SNF choice. No answer, left message informing this SERA will be in a meeting and directed Perry to call Chiquis Hutchison, discharge producer assistant, if ready to deliver choice of SNF this evening. This worker provided contact information for Chiquis. PLAN: Wait on pt/family choice DESIREE Thompson Original Note: Social Work SW called pt sonPerry, to discuss discharge plan and inquire about choices for new SNF placement. No answer, left message for Perry informing pt is medically ready to discharge and a choice for SNF needs to be determined, as insurance authorization still needs to be obtained. Left contact information and requested Perry call back at earliest convenience. PLAN: SNF, pending choice, acceptance and precert. DESIREE Thompson
--- NOTE | 2022-03-22 15:31 | CASEMGMT ---
Discharge It Operations Analyst This sign writer letterer or painter called patient felicia Amador. Left a voicemail in regards to try to get choices for SNF's. Plan: Chiquis Hutchison Discharge It Operations Analyst
[2022-03-22] MEDS: Latanoprost 0.005% 1 Bottle 1 DRP EACH EYE (20:39)
[2022-03-22] MEDS: Ceftriaxone 1 GM/50 ML BAG IV (20:41)
[2022-03-22] MEDS: 0.9% Saline Lock 10 ML Syringe IV (20:44)
[2022-03-23] VITALS (9 sets, daily range): BP systolic 87–116; BP diastolic 61–86; PULSE 70–91; RESP 16–18; TEMP 36.4–36.6; O2SAT 95–96
[2022-03-23] MEDS: Levothyroxine 50 MCG Tablet PO (05:18)
--- NOTE | 2022-03-23 09:09 | CASEMGMT ---
Social Work SERA received pc from pt son, Perry. Perry informed that he has made SNF choices in [facility]. SW reviewed choices, informed both options chosen were not likely to accept pt due to Covid status. SW asked Perry to provide another choice due to difficult nature of pt case. Perry was also agreeable to [facility] in [place]. Perry requested referrals be sent to first two choices ([facility] and [facility]) first. SW reassured Perry first two choices would be contacted to determine acceptance. Pt son, Perry, shared medicaid had been established for pt during stay at [facility] but Perry does not have information on this. SERA called Thalia at [facility] to inquire about medicaid information and to inform that pt will not be returning to [facility]. Left message detailing this information and provided fax number for Thalia to send medicaid info to. SERA informed discharge cataloging assistant, Chiquis Hutchison, of pt choices. Referral to be sent to SNF options that were provided by family. PLAN: Likely [facility], pending acceptance and precert.
--- NOTE | 2022-03-23 09:38 | CASEMGMT ---
Addendum entered by Chiquis Hutchison 03/23/22 10:00: [facility]ail [facility] reached out. [facility] might be going back into outbreak status. Referral was sent to Abigail as they might be taking covid positive again. SERA Yadi aware and will touch base with son to see depending on acceptance if [facility] would be closer than [place] if that is an option. Original Note: Discharge [place] [employer] [place] Chiquis d/c medical assistant supervisor sent referrals via [facility] to [facility] and [facility]. Chiquis talked to Brea at [facility] which was patient other choice but, [facility] is not taking covid positive patients at all. Therefore, referral was not sent there. Will follow up. Plan: [facility] vs [facility], Waiting Acceptance Chiquis Hutchison Discharge [place]
[2022-03-23] MEDS: Menthol/Lanolin/Calamine/Znox 113 GM Tube 1 APPLIC TOPICAL ×2 (10:08→22:18)
[2022-03-23] MEDS: Pantoprazole Sodium 20 MG Tablet PO (10:08)
[2022-03-23] MEDS: APIXABAN 5 MG TABLET PO ×2 (10:08→22:18)
[2022-03-23] MEDS: Furosemide 40 MG Tablet PO (10:08)
[2022-03-23] MEDS: Sertraline 50 MG Tablet PO (10:08)
[2022-03-23] MEDS: Metoprolol Tartrate 50 MG Tablet PO (10:08)
[2022-03-23] MEDS: Spironolactone 25 MG Tablet PO (10:08)
[2022-03-23] MEDS: QUEtiapine 25 MG Tablet 50 MG PO (10:09)
[2022-03-23] MEDS: Nystatin Powder 15gm Bottle 1 APPLIC TOPICAL ×2 (10:09→22:30)
[2022-03-23] MEDS: Lisinopril 20 MG Tablet PO (10:09)
[2022-03-23] MEDS: Neomycin/Polymyxin/Dexameth OINT 3.5GM OPTH.TUBE 1 APPLIC OPHTHALMIC ×3 (10:10→17:24)
--- NOTE | 2022-03-23 10:41 | PN.HOSP_ITS ---
Subjective Subjective Patient seen and examined. She had no active complaints this morning. Review of systems is otherwise negative. She is awaiting placement. She remains on room air. Objective Data Objective Data Vital Signs: Vital Signs Temp Pulse Resp BP Pulse Ox O2 Del Method 98 F 70 18 104/66 95 Room Air 03/23/22 10:02 03/23/22 10:08 03/23/22 10:02 03/23/22 10:08 03/23/22 10:02 03/23/22 10:15 Oxygen Delivery Method Room Air Weight: 151 lb 10.848 oz Body Mass Index (BMI) 27.7 Intake & Output: Intake and Output for Last 24 Hours 03/21/22 03/22/22 03/23/22 23:59 23:59 23:59 Intake Total 1248.75 / 1248.75 450 / 450 Output Total 200 / 200 100 / 300 400 / 400 Balance 1048.75 / 1048.75 350 / 150 -400 / -400 Lab / Micro Data Result Diagrams: 03/22/22 05:32 03/22/22 05:32 Micro: Microbiology 03/20/22 18:17 Blood Culture (Wb) - Left Forearm Blood Culture - Preliminary No growth in 48 hours. 03/20/22 18:00 Blood Culture (Wb) - Right Hand Blood Culture - Preliminary No growth in 48 hours. 03/20/22 16:18 Urine, Clean Catch Urine Culture - Final Citrobacter amalonaticus Klebsiella pneumoniae sp pneum 03/20/22 16:30 Nasal Secretion SARS-CoV-2 Antigen (Rapid) - Final SARS-CoV-2 (COVID 19) Physical Exam Const alert, oriented x3 and no apparent distress Constitutional Narrative: frail HEENT head/scalp atraumatic, moist oral mucous membranes and oropharynx normal Head and Scalp: normocephalic Mouth: oral and palatal mucosa normal Eyes PERRL, EOMs intact bilaterally and conjunctivae normal Neck no lymphadenopathy and supple Resp normal respiratory effort, no retractions, no use of accessory muscles and clear to auscultation bilaterally Cardio regular rate, regular rhythm, S1 normal heart sound, S2 normal heart sound and no murmurs GI normal to inspection, nondistended, normoactive bowel sounds, soft to palpation, non-tender and non-distended Extremity normal to inspection, full ROM and no clubbing, cyanosis or edema Neuro oriented x3, CN's II-XII intact bilaterally and moves all extremities Sensorium / Orientation: awake and alert Coordination / Balance: [id number] test normal Motor Exam: strength 5/5 throughout Psych affect normal Assessment & Plan Assessment/Plan (1) Urinary tract infection: (2) COVID-19 virus infection: PLAN: Plan #UTI * on IV ceftriaxone * urine culture growing gram negative rods * #COVID 19 infection * asymptomatic * on room air * #Bilateral conjuctivitis * on neomyxin/polymyxic/dexamethasone eye drops * #AFib: on metoprolol. 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, lasix and enalapril * #Hypothyroidism: on synthroid #Depression;on seroquel and sertraline DVT prophylaxis: not indicated as patient is chronically anticoagulated Disposition: awaiting placement Charges/Coding Visit Charges Inpatient E&M: 99877 Subs Hosp L2
--- NOTE | 2022-03-23 11:15 | CASEMGMT ---
Discharge Bending Machine Operator This report writer was notified that [facility] has no beds available. Abigail reached out from the [facility]. Patient has been accepted and pre-cert has been started. Plan: [facility], Waiting pre-cert. Chiquis Hutchison Discharge Bending Machine Operator
--- NOTE | 2022-03-23 11:25 | CASEMGMT ---
Social Work SW notified by D/C metal moulder's assistant Chiquis that [facility] willing to accept Covid status pts at this time. SW called pt son, Perry to inform and determine if wants referral sent there vs. [facility]. No answer, left message requesting call back. SW called pt's other son, Miles Pitts, to discuss option of [facility] as pt's son Perry is unreachable. SERA explained Perry chose [facility], who is not currently taking covid pt's but that [facility] is willing to accept Covid pt at this time. Miles voiced understanding. Stated would like a referral sent to [facility] as it is closer for family to visit. Miles also stated continue with referral to [facility] as back-up choice. Miles stated would talk to brother Perry and inform him of new plan. Miles stated Perry would not have an issue with new plan. PLAN: [facility] vs. [facility], pending acceptance and precert DESIREE Thompson
--- NOTE | 2022-03-23 11:51 | CASEMGMT ---
Social Work SW called [employer] to inquire about pt medicaid status. [employer] rep shared [employer] medicaid billing number of [id number]. SW shared this billing number with [facility], the pending facility. DESIREE Thompson
[2022-03-23] MEDS: Ferrous Sulfate 325 MG Tablet 650 MG PO (13:20)
[2022-03-23] MEDS: 0.9% Saline Lock 10 ML Syringe IV (22:19)
[2022-03-23] MEDS: Ceftriaxone 1 GM/50 ML BAG IV (22:28)
[2022-03-24] VITALS (12 sets, daily range): BP systolic 97–121; BP diastolic 66–82; PULSE 91–110; RESP 18–20; TEMP 36.3–36.7; O2SAT 92–97
[2022-03-24] MEDS: Levothyroxine 50 MCG Tablet PO (05:08)
[2022-03-24] MEDS: QUEtiapine 25 MG Tablet 50 MG PO (08:57)
[2022-03-24] MEDS: Pantoprazole Sodium 20 MG Tablet PO (08:57)
[2022-03-24] MEDS: Lisinopril 20 MG Tablet PO ×2 (08:57→21:37)
[2022-03-24] MEDS: Spironolactone 25 MG Tablet PO (08:57)
[2022-03-24] MEDS: Senna Tablet 2 TABLET PO (08:57)
[2022-03-24] MEDS: Sertraline 50 MG Tablet PO (08:57)
[2022-03-24] MEDS: Metoprolol Tartrate 50 MG Tablet PO ×2 (08:57→21:37)
[2022-03-24] MEDS: APIXABAN 5 MG TABLET PO ×2 (08:57→21:37)
[2022-03-24] MEDS: Furosemide 40 MG Tablet PO (08:58)
[2022-03-24] MEDS: Menthol/Lanolin/Calamine/Znox 113 GM Tube 1 APPLIC TOPICAL ×2 (08:58→21:38)
[2022-03-24] MEDS: Neomycin/Polymyxin/Dexameth OINT 3.5GM OPTH.TUBE 1 APPLIC OPHTHALMIC ×2 (08:59→13:19)
[2022-03-24] MEDS: Nystatin Powder 15gm Bottle 1 APPLIC TOPICAL ×2 (08:59→21:39)
--- NOTE | 2022-03-24 10:24 | CASEMGMT ---
Social Work Pt has been accepted at the [facility]. Precert was started 03/23/22. Plan: [facility], pending precert DESIREE Tripp
--- NOTE | 2022-03-24 12:17 | PN.HOSP_ITS ---
Subjective Subjective Patient seen and examined. She had no active complaints and had an uneventful night. Review of systems is otherwise negative. Labs and vitals reviewed. She is awaiting placement. She remains on room air. Objective Data Objective Data Vital Signs: Vital Signs Temp Pulse Resp BP Pulse Ox O2 Del Method 97.7 F L 101 H 18 121/82 H 97 Room Air 03/24/22 09:56 03/24/22 09:56 03/24/22 09:56 03/24/22 09:56 03/24/22 09:56 03/24/22 09:56 Oxygen Delivery Method Room Air Weight: 151 lb 10.848 oz Body Mass Index (BMI) 27.7 Intake & Output: Intake and Output for Last 24 Hours 03/22/22 03/23/22 03/24/22 23:59 23:59 23:59 Intake Total 450 / 450 50 / 50 270 / 270 Output Total 100 / 300 550 / 725 400 / 400 Balance 350 / 150 -500 / -675 -130 / -130 Lab / Micro Data Result Diagrams: 03/22/22 05:32 03/22/22 05:32 Micro: Microbiology 03/20/22 18:17 Blood Culture (Wb) - Left Forearm Blood Culture - Preliminary No growth in 48 hours. 03/20/22 18:00 Blood Culture (Wb) - Right Hand Blood Culture - Preliminary No growth in 48 hours. 03/20/22 16:18 Urine, Clean Catch Urine Culture - Final Citrobacter amalonaticus Klebsiella pneumoniae sp pneum 03/20/22 16:30 Nasal Secretion SARS-CoV-2 Antigen (Rapid) - Final SARS-CoV-2 (COVID 19) Physical Exam Const alert, oriented x3 and no apparent distress HEENT normocephalic, head/scalp atraumatic, moist oral mucous membranes and oropharynx normal Head and Scalp: normocephalic Mouth: oral and palatal mucosa normal Eyes PERRL, EOMs intact bilaterally, conjunctivae normal and no scleral icterus Neck no lymphadenopathy and supple General: trachea midline Resp normal respiratory effort, normal air movement, no retractions, no use of accessory muscles and clear to auscultation bilaterally Cardio regular rate, regular rhythm, S1 normal heart sound, S2 normal heart sound, no murmurs and peripheral pulses 2+ throughout Rhythm: abnormal rhythm irregularly irregular GI normal to inspection, nondistended, normoactive bowel sounds, soft to palpation, non-tender and non-distended Extremity normal to inspection, full ROM, normal capillary refill and no clubbing, cyanosis or edema Skin General Skin Exam: no breakdown Lesions: no lesions Rashes: no rashes Neuro oriented x3, CN's II-XII intact bilaterally, moves all extremities, no focal motor deficits and no sensory deficits noted Sensorium / Orientation: awake and alert Coordination / Balance: [id number] test normal Speech: speech normal Motor Exam: strength 5/5 throughout Psych affect normal Thought Process: confused Assessment & Plan Assessment/Plan (1) Urinary tract infection: (2) COVID-19 virus infection: PLAN: Plan #UTI * on IV ceftriaxone * urine culture growing Klebsiella and Citrobacter * blood cultures negative after 48 hours * #COVID 19 infection * asymptomatic * on room air * #Bilateral conjuctivitis * on neomyxin/polymyxic/dexamethasone eye drops * #AFib: on metoprolol. 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, lasix and enalapril * #Hypothyroidism: on synthroid #Depression;on seroquel and sertraline DVT prophylaxis: not indicated as patient is chronically anticoagulated Disposition: awaiting placement Charges/Coding Visit Charges Inpatient E&M: 64700 Subs Hosp L2
--- NOTE | 2022-03-24 15:21 | CASEMGMT ---
Discharge Assistive Technology Specialist Abigail from the [facility] reached out. Patient insurance has denied patient. Abigail provided this health technical writer with a Peer to Peer number of [phone]. Reference # [id number]. Peer to Peer needs to be completed by NOON tomorrow 03/25/2022. Or a level of care can be obtained. SERA Garcia has been notified. Plan: [facility], Pending insurance/decision Chiquis Hutchison Discharge Assistive Technology Specialist
--- NOTE | 2022-03-24 15:38 | TREXTCAR_ITS ---
Diet Diet Order/Speech Therapy: 03/20/22 23:33 Diet: Cardiac - Heart Healthy Food consistency:: Regular Liquid Consistency:: Regular/Thin Is pt able to select menu?: Yes Routine Orders/Code Status Enema Type: Fleetz Enema Frequency: Daily PRN Suppository Type: Dulcolax 10mg Suppository Frequency: Daily PRN O2 Frequency: PRN Keep PO Greater than or Equal to (%): 90 Wound(s) top of R foot: Wound Type: Abrasion coccyx: Wound Type: Pressure Injury Therapies Weight Bearing: Weight bearing as tolerated Physical Therapy: Eval and Treat Occupational Therapy: Eval and Treat Problem/Diagnosis (1) Urinary tract infection: Status: Acute Code(s): N39.0 - Urinary tract infection, site not specified (2) COVID-19 virus infection: Status: Acute Code(s): U07.1 - COVID-19 Plan #UTI * on IV ceftriaxone * urine culture growing Klebsiella and Citrobacter * blood cultures negative after 48 hours * #COVID 19 infection * asymptomatic * on room air * #Bilateral conjuctivitis * on neomyxin/polymyxic/dexamethasone eye drops * #AFib: on metoprolol. 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, lasix and enalapril * #Hypothyroidism: on synthroid #Depression;on seroquel and sertraline DVT prophylaxis: not indicated as patient is chronically anticoagulated Disposition: awaiting placement Allergies/Procedures Done in Hospital Allergies adhesive tape Allergy (Verified 03/20/22 15:30) Rash chlorpheniramine Allergy (Verified 03/20/22 15:30) Other dobutamine Allergy (Verified 03/20/22 15:30) Low blood pressure doxycycline Allergy (Verified 03/20/22 15:30) Unknown Iodinated Contrast Media [Iodinated Contrast Media - IV Dye] Allergy (Verified 03/20/22 15:30) Rash Sulfa (Sulfonamide Antibiotics) Allergy (Verified 03/20/22 15:30) Unknown erythromycin base Adverse Reaction (Verified 03/20/22 15:30) Upset Stomach hydrocodone bitartrate [From Vicodin] Adverse Reaction (Verified 03/20/22 15:30) HEADACHE ibuprofen Adverse Reaction (Verified 03/20/22 15:30) Nausea chlortab-4 Allergy (Uncoded 03/20/22 15:30) Other Type of Care/Length of Stay Estimated LOS: Convalescent Care Less Than 30 days Type of Care Needed: Intermediate Rehab Potential: Fair Prognosis: Fair Additional Orders/Day of Discharge Day of Discharge: 03/24/22 Dietary and Speech Recommendations Dietitian Recommendations/Changes: Continue Cardiac - Heart Healthy Diet Discharge Plan Admission Admit Date/Time: 03/20/22 21:27 Attending Provider: Eliana Post Primary Care Provider: Selma Whitaker Consulting Providers: Herman Contreras ; Randal Lu Instructions Patient Instructions: ED Cystitis Female Adult Discharge Orders/Prescriptions Prescriptions: Continued ferrous sulfate [Iron (ferrous sulfate)] 325 MG tablet 650 mg PO QODAY latanoprost 0.005 % Drops 1 drp EACH EYE QPM cyanocobalamin (vitamin B-12) 1,000 mcg/mL solution 1,000 mcg IM QMONTH Label Comments: Inject 1 mL intramuscularly once every month. as directed sertraline 50 mg Tablet 50 mg PO DAILY enalapril maleate 20 mg Tablet 20 mg PO BID Hold Instructions: Resume on 11/18/21. Hold until further follow-up with primary care provider for repeat blood pressure check. Eliquis 5 mg tablet 5 mg PO BID metoprolol tartrate 50 mg Tablet 50 mg PO BID 30 Days Qty: 60 0RF sennosides [senna] 8.6 mg Tablet 17.2 mg PO BID spironolactone 25 mg Tablet 25 mg PO DAILY Lactobacillus acidophilus Tablet 1 tab PO DAILY magnesium hydroxide [Milk of Magnesia] 400 mg/5 mL Suspension 30 ml PO DAILY PRN (Reason: Constipation) bisacodyl 10 mg Suppository 10 mg IN DAILY PRN (Reason: Constipation) Enema 19-7 gram/118 mL Enema 118 ml IN DAILY PRN (Reason: Constipation) furosemide 40 mg Tablet 40 mg PO DAILY Qty: 0 0RF levothyroxine 50 mcg Tablet 50 mcg PO DAILY@0600 Qty: 0 0RF acetaminophen 325 mg Tablet 650 mg PO Q4H PRN (Reason: Pain) loperamide [Imodium A-D] 2 mg Tablet 2 - 4 mg PO Q4H PRN (Reason: STOOL) Rx Instructions: administer after each loose stool until symptoms controlled; do not exceed 8 mg per 24 hrs omeprazole 20 mg Capsule,Delayed Release(Dr/Ec) 20 mg PO DAILY simethicone 80 mg Tablet,Chewable 80 mg PO ACHS magnesium oxide 400 mg magnesium Tablet 400 mg PO DAILY folic acid 1 mg tablet 1 mg PO DAILY oxycodone 5 mg tablet 5 mg PO Q12H PRN (Reason: Pain) quetiapine 50 mg Tablet 50 mg PO DAILY cholecalciferol (vitamin D3) 25 mcg (1,000 unit) Tablet 25 mcg PO DAILY Referrals / Follow Up: Selma Whitaker MD [Primary Care Provider] - Within 2 Weeks Disposition Disposition (needs filled in before D/C Order can be placed): NonSkilled NH/Intermed Care
--- NOTE | 2022-03-24 16:11 | CASEMGMT ---
Discharge General Manager Road Production Abigail from the [facility] reached out. Abigail ran the patients medicaid insurance and the patient would have a liability payment of $1,463.00 a month. There would be a prorated charge for March but, for April this balance would need to be paid. SERA Garcia has been notified. Plan: Chiquis Hutchison Discharge General Manager Road Production
--- NOTE | 2022-03-24 16:28 | CASEMGMT ---
Social Work SW notified that insurance has denied SNF stay. SW reviewed therapy notes with physician and it was decided due to pts function levels, peer to peer would not be pursued. SW submitted for Level of Care so pt can admit under her Medicaid benefit at intermediate level of care. Awaiting results. SERA spoke with Abigail at the [facility]. Pt has an outstanding balance and therefore must pay pt liability of $1463 prior to being accepting into the [facility]. Phone call to pt son Perry and VM left. Phone call to pt son Miles and situation explained. Miles was familiar with patient liability and was agreeable to pay amount prior to admission. SERA inquired if he would be able to make payment tomorrow so pt could be admitted. Miles states he can. Phone call to Abigail at the [facility] and informed of conversations with sons. Abigail states she will call Miles to confirm prepayment. Return call to Abigail who states Miles plans to drop the payment off this evening. Prior to discharge, Level of Care Results will need to be obtained and SERA will need to make a phone call to Abigail at the [facility] ([phone]) to confirm payment has been made. Plan: [facility] intermediate level of care, pending above criteria met DESIREE Tripp
--- NOTE | 2022-03-24 17:58 | CM.ED ---
Patient's LOC received. SERA called Abigail at [facility] and left voice mail advising that LOC was received. SERA asked Aibgail to advise if the patient liability had been received as per SERA patient CAN NOT go to the [facility] until LOC received and patient liability has been paid. Patient' s LOC has been faxed to Abigail at [facility]. Plan: [facility] Hannah RENEE
[2022-03-24] MEDS: 0.9% Saline Lock 10 ML Syringe IV (21:38)
[2022-03-24] MEDS: Ceftriaxone 1 GM/50 ML BAG IV (21:39)
[2022-03-25] VITALS (8 sets, daily range): BP systolic 117–131; BP diastolic 84–90; PULSE 90–108; RESP 16–18; TEMP 36.4–36.6; O2SAT 93–97
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
[2022-03-25 06:08] LABS: Absolute Lymphocyte Count 1.17 X10^3/uL (0.83-4.51); Absolute Neutrophil Count 8.9 X10^3/uL (2.0-7.7); Basophil# 0.07 X10^3/uL; Basophil% 0.6 % (0-1); Eosinophil# 0.18 X10^3/uL; Eosinophils% 1.7 % (0-5); Hematocrit 40.7 % (37-47); Hemoglobin 13.3 g/dL (12.0-15.0); Lymphocyte # 1.17 X10^3/ul (0.83-4.51); Lymphocyte % 10.7 % (19-41); Mean Corp Hgb Conc 32.7 g/dL (32-36); Mean Corpuscular Hgb 29.6 pg (27.0-32.0); Mean Corpuscular Volume 90.4 fL (81-99); Mean Platelet Vol. 11.7 fl (6.2-12.0); Monocyte# 0.55 X10^3/uL; NRBC Flagged by Analyzer 0 % (0-5); Neutrophil # 8.87 X10^3/uL (2.7-7.7); Neutrophil % 81.4 % (47-70); Platelet Count 130 K/mm3 (150-450); RBC Distribution Width CV 14.7 % (11.6-14.6); RBC Distribution Width SD 48.7 fl (35.1-43.9); White Blood Count 10.9 K/mm3 (4.4-11.0)
[2022-03-25 06:38] LABS: Anion Gap 7 (5-15); BUN 49 mg/dL (7-18); BUN/Creat Ratio 47.1 RATIO (10-20); Calcium,Total 8.3 mg/dL (8.5-10.1); Chloride 110 mmol/L (98-107); Creatinine, Serum 1.04 mg/dL (0.55-1.02); EST Glomerular Filtration Rate 55 mL/min (>60); Est Glom Filt Rate - Afr Amer 67 mL/min (>60); Estimated Creatinine Clearance 38.67 ml/min; Glucose 101 mg/dL (74-106); Potassium 3.7 mmol/L (3.5-5.1); Sodium Level 142 mmol/L (136-145)
[2022-03-25] MEDS: Metoprolol Tartrate 50 MG Tablet PO (08:53)
[2022-03-25] MEDS: QUEtiapine 25 MG Tablet 50 MG PO (08:53)
[2022-03-25] MEDS: Senna Tablet 2 TABLET PO (08:53)
[2022-03-25] MEDS: Levothyroxine 50 MCG Tablet PO (08:53)
[2022-03-25] MEDS: Pantoprazole Sodium 20 MG Tablet PO (08:53)
[2022-03-25] MEDS: APIXABAN 5 MG TABLET PO (08:53)
[2022-03-25] MEDS: Furosemide 40 MG Tablet PO (08:53)
[2022-03-25] MEDS: Spironolactone 25 MG Tablet PO (08:53)
[2022-03-25] MEDS: Lisinopril 20 MG Tablet PO (08:54)
[2022-03-25] MEDS: Sertraline 50 MG Tablet PO (08:54)
[2022-03-25] MEDS: Neomycin/Polymyxin/Dexameth OINT 3.5GM OPTH.TUBE 1 APPLIC OPHTHALMIC ×2 (09:05→14:02)
[2022-03-25] MEDS: Nystatin Powder 15gm Bottle 1 APPLIC TOPICAL (09:07)
[2022-03-25] MEDS: Menthol/Lanolin/Calamine/Znox 113 GM Tube 1 APPLIC TOPICAL (09:07)
--- NOTE | 2022-03-25 11:18 | CM.ED ---
Addendum entered by Hannah Greenwood 03/25/22 11:41: Abigail advised that the 7000 is complete and she will do the PASSR when patient returns to the [facility]. Hannah RENEE Original Note: SERA called Abigail at the [facility]. She said that family paid their outstanding bill. Abigail received the fax that this report writer faxed over yesterday. Abigail said that patient is fine for admission to the [facility]. SERA faxed Transfer Summary to [facility]. Plan: [facility] at discharge Hannah RENEE
--- NOTE | 2022-03-25 12:22 | DS.PCM_ITS ---
Providers Date of Admission: 03/20/22 Date of Discharge: 03/25/22 Primary Care Physician: Dr. 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, lasix and enalapril * #Hypothyroidism: on synthroid #Depression;on seroquel and sertraline DVT prophylaxis: not indicated as patient is chronically anticoagulated Disposition: awaiting placement Medications at Discharge Home Medications ferrous sulfate 325 mg (65 mg iron) tablet (Iron (ferrous sulfate)) 650 mg PO QODAY supplement 08/04/17 cyanocobalamin (vitamin B-12) 1,000 mcg/mL injection solution 1,000 mcg IM QMONTH SUPPLEMENT 07/21/21 latanoprost 0.005 % eye drops 1 drp EACH EYE QPM GLAUCOMA 07/21/21 sertraline 50 mg tablet 50 mg PO DAILY DEPRESSION 07/21/21 apixaban 5 mg tablet (Eliquis) 5 mg PO BID a fib 11/01/21 enalapril maleate 20 mg tablet 20 mg PO BID heart 11/01/21 metoprolol tartrate 50 mg tablet 50 mg PO BID 30 days #60 tabs 11/04/21 Lactobacillus acidophilus 1 tab PO DAILY 02/11/22 bisacodyl 10 mg rectal suppository 10 mg [place] DAILY PRN Constipation 02/11/22 magnesium hydroxide 400 mg/5 mL oral suspension (Milk of Magnesia) 30 ml PO DAILY PRN Constipation 02/11/22 sennosides 8.6 mg tablet (senna) 17.2 mg PO BID CONSTIPATION 02/11/22 sodium phosphates 19 gram-7 gram/118 mL enema (Enema) 118 ml [place] DAILY PRN Constipation 02/11/22 spironolactone 25 mg tablet 25 mg PO DAILY 02/11/22 furosemide 40 mg tablet 40 mg PO DAILY #0 tabs 02/14/22 levothyroxine 50 mcg tablet 50 mcg PO DAILY@0600 #0 tabs 02/14/22 acetaminophen 325 mg tablet 650 mg PO Q4H PRN Pain 03/20/22 cholecalciferol (vitamin D3) 25 mcg (1,000 unit) tablet 25 mcg PO DAILY 03/20/22 folic acid 1 mg tablet 1 mg PO DAILY 03/20/22 loperamide 2 mg tablet (Imodium A-D) 2 - 4 mg PO Q4H PRN STOOL 03/20/22 magnesium oxide 400 mg PO DAILY 03/20/22 omeprazole 20 mg capsule,delayed release 20 mg PO DAILY 03/20/22 oxycodone 5 mg tablet 5 mg PO Q12H PRN Pain 03/20/22 quetiapine 50 mg tablet 50 mg PO DAILY 03/20/22 simethicone 80 mg chewable tablet 80 mg PO ACHS GAS 03/20/22 Hospital Course Operations None Procedures None Summary of Care Provided Minutes Spent on Discharge: 45 Hospital Course: Patient is seven 2-year-old female with past medical history as outlined [facility] with a complaint of lethargy and patient not eating much. She was also noted to be confused. On admission she was found to have UTI and also tested positive for COVID though she was asymptomatic from the COVID standpoint. She was started on IV ceftriaxone. She remained on room air throughout her admission. Urine culture grew Klebsiella and Citrobacter and blood cultures were negative. She completed a 5-day course of antibiotics. Patient was initially skilled as needing skilled facility but insurance denied precertification on account of her activity level. Patient was therefore discharged to an assisted living facility. She was discharged on 03/25/2022. She is to follow-up with her primary care doctor within 1 to 2 weeks. Patient seen and examined prior to discharge. She had no active complaints and Comfortably in bed. Review of symptoms otherwise negative. Labs and vitals reviewed. Home medication reviewed and reconciled. Physical Exam Const alert, oriented x3 and no apparent distress Constitutional Narrative: frail General Appearance: cooperative, comfortable and well kempt Orientation / Consciousness: confused Exam Limitations: no limitations HEENT normocephalic, head/scalp atraumatic, hearing grossly normal bilaterally, moist oral mucous membranes and oropharynx normal Mouth: oral and palatal mucosa normal Eyes PERRL, EOMs intact bilaterally, conjunctivae normal and no scleral icterus Neck no lymphadenopathy and supple General: trachea midline Resp normal respiratory effort, normal air movement, no retractions, no use of accessory muscles and clear to auscultation bilaterally Cardio regular rate, regular rhythm, S1 normal heart sound, S2 normal heart sound, no murmurs and peripheral pulses 2+ throughout Rhythm: abnormal rhythm irregularly irregular GI normal to inspection, nondistended, normoactive bowel sounds, soft to palpation, non-tender and non-distended Extremity normal to inspection, full ROM, normal capillary refill and no clubbing, cya nosis or edema Skin no rashes or lesions noted General Skin Exam: no breakdown Lesions: no lesions Rashes: no rashes Neuro oriented x3, CN's II-XII intact bilaterally, moves all extremities, no focal motor deficits and no sensory deficits noted Sensorium / Orientation: awake and alert Coordination / Balance: [id number] test normal Speech: speech normal Motor Exam: strength 5/5 throughout Psych affect normal Thought Process: confused Thought Content: normal thought content Weight / BMI Weight Weight: 151 lb 10.848 oz Body Mass Index (BMI) 27.7 ABG / Lab / Microbiology Data Result Diagrams: 03/25/22 05:45 03/25/22 05:45 Laboratory: Laboratory Results - last 24 hr 03/25/22 05:45: WBC 10.9, RBC 4.50, Hgb 13.3, Hct 40.7, MCV 90.4, MCH 29.6, MCHC 32.7, RDW Std Deviation 48.7 H, RDW Coeff of Mikayla 14.7 H, Plt Count 130 L, MPV 11.7, Immature Gran % (Auto) 0.600, Neut % (Auto) 81.4 H, Lymph % (Auto) 10.7 L, [place] % (Auto) 5.0, Eos % (Auto) 1.7, Baso % (Auto) 0.6, Absolute Neuts (auto) 8.9 H, Absolute Lymphs (auto) 1.17, Nucleated RBC % 0 03/25/22 05:45: Sodium 142, Potassium 3.7, Chloride 110 H, Carbon Dioxide 25.0, Anion Gap 7, BUN 49 H, Creatinine 1.04 H, Estim Creat Clear Calc 38.67, Est GFR (MDRD) Af Amer 67, Est GFR (MDRD) Non-Af 55 L, BUN/Creatinine Ratio 47.1 H, Glucose 101, Calcium 8.3 L Microbiology: Microbiology 03/20/22 18:17 Blood Culture (Wb) - Left Forearm Blood Culture - Preliminary No growth in 48 hours. 03/20/22 18:00 Blood Culture (Wb) - Right Hand Blood Culture - Preliminary No growth in 48 hours. 03/20/22 16:18 Urine, Clean Catch Urine Culture - Final Citrobacter amalonaticus Klebsiella pneumoniae sp pneum 03/20/22 16:30 Nasal Secretion SARS-CoV-2 Antigen (Rapid) - Final SARS-CoV-2 (COVID 19) D/C Instructions Discharge Diet: Low fat / Low cholesterol Discharge Activity: Return to Normal Activity Weight Bearing Status: Weight bearing as tolerated Call your doctor if you observe: Fever of 101 or Higher, Shortness of breath, Dizziness, Swelling in the ankles, Chest pain and Increased palpitations (irregular heartbeat) Meaningful Use Info Meaningful Use Diagnoses (Choose all that apply): None applicable Discharge Plan Admission Admit Date/Time: 03/20/22 21:27 Primary Reason for Your Visit: UTI, covid Attending Provider: Eliana Post Primary Care Provider: Selma Whitaker Consulting Providers: Herman Contreras ; Randal Lu Instructions Patient Instructions: ED Cystitis Female Adult Discharge Orders/Prescriptions Prescriptions: Continued ferrous sulfate [Iron (ferrous sulfate)] 325 MG tablet 650 mg PO QODAY latanoprost 0.005 % Drops 1 drp EACH EYE QPM cyanocobalamin (vitamin B-12) 1,000 mcg/mL solution 1,000 mcg IM QMONTH Label Comments: Inject 1 mL intramuscularly once every month. as directed sertraline 50 mg Tablet 50 mg PO DAILY enalapril maleate 20 mg Tablet 20 mg PO BID Hold Instructions: Resume on 11/18/21. Hold until further follow-up with primary care provider for repeat blood pressure check. Eliquis 5 mg tablet 5 mg PO BID metoprolol tartrate 50 mg Tablet 50 mg PO BID 30 Days Qty: 60 0RF sennosides [senna] 8.6 mg Tablet 17.2 mg PO BID spironolactone 25 mg Tablet 25 mg PO DAILY Lactobacillus acidophilus Tablet 1 tab PO DAILY magnesium hydroxide [Milk of Magnesia] 400 mg/5 mL Suspension 30 ml PO DAILY PRN (Reason: Constipation) bisacodyl 10 mg Suppository 10 mg [place] DAILY PRN (Reason: Constipation) Enema 19-7 gram/118 mL Enema 118 ml [place] DAILY PRN (Reason: Constipation) furosemide 40 mg Tablet 40 mg PO DAILY Qty: 0 0RF levothyroxine 50 mcg Tablet 50 mcg PO DAILY@0600 Qty: 0 0RF acetaminophen 325 mg Tablet 650 mg PO Q4H PRN (Reason: Pain) loperamide [Imodium A-D] 2 mg Tablet 2 - 4 mg PO Q4H PRN (Reason: STOOL) Rx Instructions: administer after each loose stool until symptoms controlled; do not exceed 8 mg per 24 hrs omeprazole 20 mg Capsule,Delayed Release(Dr/Ec) 20 mg PO DAILY simethicone 80 mg Tablet,Chewable 80 mg PO ACHS magnesium oxide 400 mg magnesium Tablet 400 mg PO DAILY folic acid 1 mg tablet 1 mg PO DAILY oxycodone 5 mg tablet 5 mg PO Q12H PRN (Reason: Pain) quetiapine 50 mg Tablet 50 mg PO DAILY cholecalciferol (vitamin D3) 25 mcg (1,000 unit) Tablet 25 mcg PO DAILY Referrals / Follow Up: Selma Whitaker MD [Primary Care Provider] - Within 2 Weeks Disposition Disposition (needs filled in before D/C Order can be placed): NonSkilled NH/Intermed Care Charges/Coding Visit Charges Inpatient E&M: 03053 Disch Hosp
[2022-03-25] MEDS: Ferrous Sulfate 325 MG Tablet 650 MG PO (14:02)
== END 2022-03-25 15:02 | disposition intermediate care facility (04) | DRG 689 ==
LOC: ED 18:13 → MS3 23:18
PROVIDERS: Nurse Practitioner Family; Admitting Provider Family Medicine; Emergency Provider Emergency Medicine; PCP Internal Medicine; Visit Provider Student in an Organized Health Care Education/Training Program
DX: N39.0 Urinary tract infection, site not specified (principal); G93.41 Metabolic encephalopathy; U07.1 COVID-19; I50.42 Chronic combined systolic (congestive) and diastolic (congestive) heart failure; I48.19 Other persistent atrial fibrillation; I11.0 Hypertensive heart disease with heart failure; I73.9 Peripheral vascular disease, unspecified; E03.9 Hypothyroidism, unspecified; F41.9 Anxiety disorder, unspecified; M79.7 Fibromyalgia; K21.9 Gastro-esophageal reflux disease without esophagitis; H10.9 Unspecified conjunctivitis; F32.A Depression, unspecified; G89.4 Chronic pain syndrome; Z85.01 Personal history of malignant neoplasm of esophagus; Z79.01 Long term (current) use of anticoagulants; Z79.899 Other long term (current) drug therapy; B96.1 Klebsiella pneumoniae [K. pneumoniae] as the cause of diseases classified elsewhere; B96.89 Other specified bacterial agents as the cause of diseases classified elsewhere
CPT/HCPCS: 36415; 71045; 80048; 80053; 81001; 83605; 84443; 85025; 87040; 87077; 87086; 87088; 87186; 87811; 93005; 97110; 97162; 97166; 97530; 97535; 99285; J7030; J7050; P9612; A4216

== ENCOUNTER 2022-04-07 14:46 | Emergency (ER) | payer MEDICARE, SELFPAY ==
[2022-04-07 14:47] VITALS: BP 124/81; PULSE 92; RESP 18; TEMP 36.3; O2SAT 98; BMI 24.3
--- NOTE | 2022-04-07 15:10 | EX.ED.DYSGE1 ---
HPI History of Present Illness Chief Complaint: Abn Labs Detail of Chief Complaint: Per the pain sent they think I am nuts. Informant: patient Onset/Context/Timing Onset: Days Context: Gradual Onset Timing: Intermittent Current Severity: Mild Maximum Severity: Mild Narrative Narrative: 71-year-old female history of CHF, cardiomyopathy, A. fib. Reportedly may be making suicidal threats at the custodial. She is at the [facility]. Also reportedly had an abnormal labs with an elevated creatinine. States she has been nauseated. Denies vomiting or diarrhea. Denies any fever or chills. Denies abdominal pain. Prior similar symptoms: No Recent Illness/Hospitalization: No PFSH PFS Medical History Acute on chronic combined systolic (congestive) and diastolic (congestive) heart failure Anxiety and depression Bilateral edema of lower extremity Cardiomyopathy Chronic pain syndrome Depression Esophageal cancer Essential hypertension Fibromyalgia Frequent falls GERD (gastroesophageal reflux disease) Hypothyroid New onset atrial fibrillation (07/2021) Non-smoker PAD (peripheral artery disease) Persistent atrial fibrillation Home Medications ferrous sulfate 325 mg (65 mg iron) tablet (Iron (ferrous sulfate)) 650 mg PO QODAY supplement 08/04/17 [History Last Taken 03/19/22] cyanocobalamin (vitamin B-12) 1,000 mcg/mL injection solution 1,000 mcg IM QMONTH SUPPLEMENT 07/21/21 [History Last Taken 03/14/22] latanoprost 0.005 % eye drops 1 drp EACH EYE QPM GLAUCOMA 07/21/21 [History Last Taken 03/19/22] sertraline 50 mg tablet 50 mg PO DAILY DEPRESSION 07/21/21 [History Last Taken 03/20/22] apixaban 5 mg tablet (Eliquis) 5 mg PO BID a fib 11/01/21 [History Last Taken 03/20/22] enalapril maleate 20 mg tablet 20 mg PO BID heart 11/01/21 [History Last Taken 03/20/22] metoprolol tartrate 50 mg tablet 50 mg PO BID 30 days #60 tabs 11/04/21 [Rx Last Taken 03/20/22] Lactobacillus acidophilus 1 tab PO DAILY 02/11/22 [History Last Taken 03/20/22] bisacodyl 10 mg rectal suppository 10 mg AZ DAILY PRN Constipation 02/11/22 [History Last Taken Unknown] magnesium hydroxide 400 mg/5 mL oral suspension (Milk of Magnesia) 30 ml PO DAILY PRN Constipation 02/11/22 [History Last Taken Unknown] sennosides 8.6 mg tablet (senna) 17.2 mg PO BID CONSTIPATION 02/11/22 [History Last Taken 03/20/22] sodium phosphates 19 gram-7 gram/118 mL enema (Enema) 118 ml [place] DAILY PRN Constipation 02/11/22 [History Last Taken Unknown] spironolactone 25 mg tablet 25 mg PO DAILY 02/11/22 [History Last Taken 03/20/22] furosemide 40 mg tablet 40 mg PO DAILY #0 tabs 02/14/22 [Rx Last Taken 03/20/22] levothyroxine 50 mcg tablet 50 mcg PO DAILY@0600 #0 tabs 02/14/22 [Rx Last Taken 03/20/22] acetaminophen 325 mg tablet 650 mg PO Q4H PRN Pain 03/20/22 [History Last Taken 03/13/22] cholecalciferol (vitamin D3) 25 mcg (1,000 unit) tablet 25 mcg PO DAILY 03/20/22 [History Last Taken 03/20/22] folic acid 1 mg tablet 1 mg PO DAILY 03/20/22 [History Last Taken 03/20/22] loperamide 2 mg tablet (Imodium A-D) 2 - 4 mg PO Q4H PRN STOOL 03/20/22 [History Last Taken 03/10/22] magnesium oxide 400 mg PO DAILY 03/20/22 [History Last Taken 03/20/22] omeprazole 20 mg capsule,delayed release 20 mg PO DAILY 03/20/22 [History Last Taken 03/20/22] oxycodone 5 mg tablet 5 mg PO Q12H PRN Pain 03/20/22 [History Last Taken 03/13/22] quetiapine 50 mg tablet 50 mg PO DAILY 03/20/22 [History Last Taken 03/19/22] simethicone 80 mg chewable tablet 80 mg PO ACHS GAS 03/20/22 [History Last Taken 03/20/22] ciprofloxacin HCl 500 mg tablet (Cipro) 500 mg PO BID Urinary tract infection 10 days #20 tabs 04/07/22 [Rx Last Taken Unknown] Allergy/AdvReac Type Severity Reaction Status Date / Time adhesive tape Allergy Rash Verified 04/07/22 14:55 chlorpheniramine Allergy Other Verified 04/07/22 14:55 dobutamine Allergy Low blood Verified 04/07/22 14:55 pressure doxycycline Allergy Unknown Verified 04/07/22 14:55 Iodinated Contrast Media Allergy Rash Verified 04/07/22 14:55 [Iodinated Contrast Media - IV Dye] Sulfa (Sulfonamide Allergy Unknown Verified 04/07/22 14:55 Antibiotics) erythromycin base AdvReac Upset Verified 04/07/22 14:55 Stomach hydrocodone bitartrate AdvReac HEADACHE Verified 04/07/22 14:55 [From Vicodin] ibuprofen AdvReac Nausea Verified 04/07/22 14:55 chlortab-4 Allergy Other Uncoded 04/07/22 14:55 Family History Father Cancer Lung cancer. Mother Myocardial infarction Heart disease Surgical History H/O ventral hernia repair History of esophageal surgery History of gastrectomy Hx of appendectomy Hx of cholecystectomy Social History household members: none housing: house pets and animals: No Smoking Status: Never smoker substance use type: does not use ROS ROS ED ROS Narrative Nausea denies vomiting and diarrhea. Review of Systems ROS Unobtainable: Denies due to encephalopathy Constitutional Constitutional ED: Denies chills or fever(s) ENT ENT ED: Denies ear pain Cardiovascular Cardiovascular: Denies chest pain Respiratory/Chest Respiratory/Chest: Denies cough or dyspnea Gastrointestinal Gastrointestinal: Reports nausea; Denies abdominal pain, constipation, diarrhea, melena or vomiting Genitourinary Genitourinary ED: Denies dysuria or hematuria Musculoskeletal Musculoskeletal: Denies arthralgias or back pain Integumentary Denies abscess Neurologic Neurologic: Denies headache(s) Psychiatric Psychiatric: Denies anxiety Endocrine Endocrinology: Denies cold intolerance Hematologic/Lymphatic Hematologic/Lymphatic: Reports none Allergic/Immunologic Allergic/Immunologic ED: Denies mouth swelling or tongue swelling EXAM Physical Exam Narrative Exam Narrative: 69-year-old female no acute distress. Vital signs stable afebrile. Pulse ox 98% on room air no hypoxia. She does not look septic or toxic. She is awake alert and talking. Answering questions following commands. Currently she is not acting out. She is not violent. She is not verbally abusive. H EENT exam unremarkable atraumatic. Neck nontender. Lungs clear to auscultation bilaterally. Heart regular rhythm rate about 90 no murmur. Chest wall nontender. Abdomen soft nontender. Nondistended normal bowel sounds no peritoneal signs. Patient moving all 4 extremities. Calves are nontender without edema. Neurologically she is awake and alert with no focal motor deficits. Const Vital Signs: 04/07/22 14:47 04/07/22 14:55 04/07/22 16:01 Temperature 97.4 F L Temperature Source Temporal Pulse Rate 92 101 H Respiratory Rate 18 16 Respiratory Effort Normal Respiratory Pattern Normal Blood Pressure 124/81 H 158/79 H Blood Pressure Mean 95 105 Pulse Ox 98 96 Oxygen Delivery Method Room Air Room Air Positive well nourished and well developed; Negative for obese, cachectic, contractures or unkempt General Appearance ED: well developed and NAD; Negative for unkempt, cachectic, contractures, cyanotic or diaphoretic Nutritional Appearance: Negative for cachectic or obese HEENT Denies moist mucous membranes Negative for trauma or tenderness Eyes PERRL and EOMs intact bilaterally General Eye ED: Negative for pale conjunctiva or scleral icterus Neck no lymphadenopathy, supple and no JVD General: Negative for tenderness Chest Wall inspection of chest normal and palpation of chest normal Chest: Negative for other Resp No normal respiratory effort and clear to auscultation bilaterally Effort and Inspection: Negative for retractions or pain with movement Auscultation: Negative for rales, rhonchi or wheezes Cardio regular rate, regular rhythm, S1 normal heart sound, S2 normal heart sound and no murmurs Palpation: Negative for palpable S3 Rate: Negative for bradycardia Rhythm: Negative for abnormal rhythm GI normal to inspection, nondistended, normoactive bowel sounds, non-tender, non-distended and no masses Inspection: Negative for abdominal distention Auscultation: normoactive bowel sounds Palpation: soft; Negative for tender or guarding Back/Spine no CVA tenderness General Back: Negative for CVA tenderness Cervical Spine: Negative for cervical spine tenderness Thoracic Spine / Upper Back: Negative for thoracic spinal tenderness Lumbar Spine / Lower Back: Negative for lumbar spinal tenderness Extremity normal to inspection General Extremety ED: Negative for edema or tenderness General Extremity: Negative for edema Neuro oriented x3 Sensorium / Orientation: alert Motor Exam: strength 5/5 throughout Psych mental status grossly normal Appearance: Negative for unkempt Attitude: No agitated Mood & Affect: Negative for depressed, anxious or tearful Skin no wounds Lesions: No lesion noted Rashes: No rashes noted Trauma: Negative for abrasion Wounds: Negative for wounds noted MDM MDM MDM Narrative Medical decision making narrative: 71-year-old female depressed at the custodial area may not be suicidal. We will go through an ED mental health evaluation. A social media strategist will talk to her. She will be given a liter of fluid to address possible acute kidney injury dehydration as they sent her in for also. Repeat exam unchanged. computer networker evaluated patient. She spoke to the [facility] facility. They will take the patient back. We will treat her urinary tract infection with Cipro twice a day for 10 days. Urine culture sent. If she is not improving then they will consider psychiatric admission. First dose of oral Cipro given here prior to discharge. Lab Data Attestation: I reviewed the patient's lab results. Lab results narrative: Urinalysis is positive for nitrates. 10-25 white cells and 4+ bacteria. A culture will be sent. CBC White count is normal at 9.4. H&H 13.1 and 40. Platelets are low at 126,000. Tox screen negative. Electrolytes show a sodium 147. Anion gap equal 5. BUN 39 creatinine 0.86 that is where she typically runs. Glucose of 122. Prior labs show prior thrombocytopenia. And elevated BUN consistent with dehydration in the past also. Labs: Laboratory Results - last 24 hr 04/07/22 04/07/22 04/07/22 15:30 15:30 16:00 WBC 9.4 RBC 4.47 Hgb 13.1 Hct 40.4 MCV 90.4 MCH 29.3 MCHC 32.4 RDW Std Deviation 49.7 H RDW Coeff of Mikayla 15.1 H Plt Count 126 L MPV 11.9 Immature Gran % (Auto) 0.400 Neut % (Auto) 74.7 H Lymph % (Auto) 17.7 L [place] % (Auto) 5.2 Eos % (Auto) 1.4 Baso % (Auto) 0.6 Absolute Neuts (auto) 7.0 Absolute Lymphs (auto) 1.66 Nucleated RBC % 0 Sodium Potassium Chloride Carbon Dioxide Anion Gap BUN Creatinine Estim Creat Clear Calc Est GFR (MDRD) Af Amer Est GFR (MDRD) Non-Af BUN/Creatinine Ratio Glucose Calcium Urine Color Yellow Urine Clarity Sl. Cloudy Urine pH 6.5 Ur Specific [place] 1.015 Urine Protein 100 H Urine Glucose (UA) Normal Urine Ketones Negative Urine Occult Blood 250 H Urine Nitrite Positive H Urine Bilirubin Negative Urine Urobilinogen Normal Ur Leukocyte Esterase 500 H Urine RBC 50-100 SEEN Urine WBC 10-25 SEEN Ur Squamous Epith Cells 0-5 SEEN Urine Bacteria 4+ Urine Mucus 0 SEEN Urine Opiates Screen NEGATIVE Urine Methadone Screen NEGATIVE Ur Barbiturates Screen NEGATIVE Ur Phencyclidine Scrn NEGATIVE Ur Amphetamines Screen NEGATIVE MDMA (Ecstasy) Screen NEGATIVE U Benzodiazepines Scrn NEGATIVE Urine Cocaine Screen NEGATIVE U Cannabinoids Screen NEGATIVE Ur Drug Screen Comment Ethyl Alcohol 04/07/22 04/07/22 16:00 16:00 WBC RBC Hgb Hct MCV MCH MCHC RDW Std Deviation RDW Coeff of Mikayla Plt Count MPV Immature Gran % (Auto) Neut % (Auto) Lymph % (Auto) [place] % (Auto) Eos % (Auto) Baso % (Auto) Absolute Neuts (auto) Absolute Lymphs (auto) Nucleated RBC % Sodium 147 H Potassium 4.0 Chloride 113 H Carbon Dioxide 29.0 Anion Gap 5 BUN 39 H Creatinine 0.86 Estim Creat Clear Calc 44.62 Est GFR (MDRD) Af Amer 84 Est GFR (MDRD) Non-Af 69 BUN/Creatinine Ratio 45.6 H Glucose 122 H Calcium 8.5 Urine Color Urine Clarity Urine pH Ur Specific [place] Urine Protein Urine Glucose (UA) Urine Ketones Urine Occult Blood Urine Nitrite Urine Bilirubin Urine Urobilinogen Ur Leukocyte Esterase Urine RBC Urine WBC Ur Squamous Epith Cells Urine Bacteria Urine Mucus Urine Opiates Screen Urine Methadone Screen Ur Barbiturates Screen Ur Phencyclidine Scrn Ur Amphetamines Screen MDMA (Ecstasy) Screen U Benzodiazepines Scrn Urine Cocaine Screen U Cannabinoids Screen Ur Drug Screen Comment Ethyl Alcohol < 3.0 Discharge Plan Triage Chief Complaint: Abn Labs ED Provider: Vadim Williamson Dx/Rx/DC Orders Clinical Impression: Depression, Suicide ideation, Acute dehydration, History of atrial fibrillation, Urinary tract infection Instructions: Depression SCI, ED Cystitis Female Adult Prescriptions: New ciprofloxacin HCl [Cipro] 500 mg tablet 500 mg PO BID 10 Days Qty: 20 0RF No Action ferrous sulfate [Iron (ferrous sulfate)] 325 MG tablet 650 mg PO QODAY latanoprost 0.005 % Drops 1 drp EACH EYE QPM cyanocobalamin (vitamin B-12) 1,000 mcg/mL solution 1,000 mcg IM QMONTH Label Comments: Inject 1 mL intramuscularly once every month. as directed sertraline 50 mg Tablet 50 mg PO DAILY enalapril maleate 20 mg Tablet 20 mg PO BID Hold Instructions: Resume on 11/18/21. Hold until further follow-up with primary care provider for repeat blood pressure check. Eliquis 5 mg tablet 5 mg PO BID metoprolol tartrate 50 mg Tablet 50 mg PO BID 30 Days Qty: 60 0RF sennosides [senna] 8.6 mg Tablet 17.2 mg PO BID spironolactone 25 mg Tablet 25 mg PO DAILY Lactobacillus acidophilus Tablet 1 tab PO DAILY magnesium hydroxide [Milk of Magnesia] 400 mg/5 mL Suspension 30 ml PO DAILY PRN (Reason: Constipation) bisacodyl 10 mg Suppository 10 mg AZ DAILY PRN (Reason: Constipation) Enema 19-7 gram/118 mL Enema 118 ml AZ DAILY PRN (Reason: Constipation) furosemide 40 mg Tablet 40 mg PO DAILY Qty: 0 0RF levothyroxine 50 mcg Tablet 50 mcg PO DAILY@0600 Qty: 0 0RF acetaminophen 325 mg Tablet 650 mg PO Q4H PRN (Reason: Pain) loperamide [Imodium A-D] 2 mg Tablet 2 - 4 mg PO Q4H PRN (Reason: STOOL) Rx Instructions: administer after each loose stool until symptoms controlled; do not exceed 8 mg per 24 hrs omeprazole 20 mg Capsule,Delayed Release(Dr/Ec) 20 mg PO DAILY simethicone 80 mg Tablet,Chewable 80 mg PO ACHS magnesium oxide 400 mg magnesium Tablet 400 mg PO DAILY folic acid 1 mg tablet 1 mg PO DAILY oxycodone 5 mg tablet 5 mg PO Q12H PRN (Reason: Pain) quetiapine 50 mg Tablet 50 mg PO DAILY cholecalciferol (vitamin D3) 25 mcg (1,000 unit) Tablet 25 mcg PO DAILY Primary Care Provider: Selma Whitaker Referrals: Selma Whitaker MD [Primary Care Provider] - 1 Week Activity Restrictions/Additional Instructions: Patient has urinary tract infection. We started her on ciprofloxacin. First dose given in the ER. She will need to take that twice a day for the next 10 days. A urine culture was sent today. Results should be back in the next 48 hours. Follow-up with your doctor. If her depression and suicidal ideation are not improving she may need further evaluation with that. Disposition Disposition: Home, Self Care
--- NOTE | 2022-04-07 15:12 | ED.RN ---
PER DR. MARTINEZ, NO SITTER NEEDED AT THIS TIME FOR THIS PT.
[2022-04-07 15:34] LABS: Mucous, Urine 0 SEEN /hpf (<or=2+)
[2022-04-07 15:49] LABS: Color, Urine Yellow (Yellow); Glucose, Dipstick Normal (Normal); Ketone-Dipstick Negative (Negative); Leukocyte Esterase-Dipstick 500 /ul (Negative); Nitrite-Dipstick Positive (Negative); Occult Blood-Urine 250 /ul (Negative); Protein-Dipstick 100 mg/dl (Negative); Specific Gravity, Urine 1.015 (1.002-1.030); Urine Bilirubin Dipstick Negative (Negative); Urine Clarity Sl. Cloudy (Clear); Urine Urobilinogen Normal (Normal); Urine pH 6.5 (5.0 - 8.0)
[2022-04-07 15:52] LABS: Red Blood Cells-Urine 50-100 SEEN /hpf (0-5); Squamous Epithelial Cells - UA 0-5 SEEN /hpf (5-10); White Blood Cells 10-25 SEEN /hpf (0-5)
[2022-04-07 15:53] LABS: Bacteria 4+ /hpf (None Seen)
[2022-04-07] MEDS: 0.9% Normal Saline 1,000 ML 999 ML IV (16:00)
[2022-04-07 16:01] VITALS: BP 158/79; PULSE 101; RESP 16; O2SAT 96
[2022-04-07 16:02] LABS: Amphetamine Urine VISTA NEGATIVE (<1000 ng/mL); Barbiturate Urine VISTA NEGATIVE (< 200 ng/mL); Benzodiazepine Urine VISTA NEGATIVE (< 200 ng/mL); Cocaine Urine VISTA NEGATIVE (< 300 ng/mL); Ecstacy Urine VISTA NEGATIVE (< 500 ng/mL); Methadone Urine VISTA NEGATIVE (< 300 ng/mL); PCP Urine VISTA NEGATIVE (< 25 ng/mL); THC Urine VISTA NEGATIVE (< 50 ng/mL); Vista UDS pH Range 6
[2022-04-07 16:07] LABS: Absolute Lymphocyte Count 1.66 X10^3/uL (0.83-4.51); Basophil# 0.06 X10^3/uL; Basophil% 0.6 % (0-1); Eosinophil# 0.13 X10^3/uL; Eosinophils% 1.4 % (0-5); Hematocrit 40.4 % (37-47); Hemoglobin 13.1 g/dL (12.0-15.0); Lymphocyte # 1.66 X10^3/ul (0.83-4.51); Lymphocyte % 17.7 % (19-41); Mean Corp Hgb Conc 32.4 g/dL (32-36); Mean Corpuscular Hgb 29.3 pg (27.0-32.0); Mean Corpuscular Volume 90.4 fL (81-99); Mean Platelet Vol. 11.9 fl (6.2-12.0); Monocyte# 0.49 X10^3/uL; Monocyte% 5.2 % (0-10); NRBC Flagged by Analyzer 0 % (0-5); Neutrophil # 7.02 X10^3/uL (2.7-7.7); Neutrophil % 74.7 % (47-70); Platelet Count 126 K/mm3 (150-450); RBC Distribution Width CV 15.1 % (11.6-14.6); RBC Distribution Width SD 49.7 fl (35.1-43.9); Red Blood Count 4.47 M/mm3 (4.2-5.4); White Blood Count 9.4 K/mm3 (4.4-11.0)
[2022-04-07 16:22] LABS: Anion Gap 5 (5-15); BUN 39 mg/dL (7-18); BUN/Creat Ratio 45.6 RATIO (10-20); Calcium,Total 8.5 mg/dL (8.5-10.1); Chloride 113 mmol/L (98-107); Creatinine, Serum 0.86 mg/dL (0.55-1.02); EST Glomerular Filtration Rate 69 mL/min (>60); Est Glom Filt Rate - Afr Amer 84 mL/min (>60); Estimated Creatinine Clearance 44.62 ml/min; Glucose 122 mg/dL (74-106); Sodium Level 147 mmol/L (136-145)
--- NOTE | 2022-04-07 16:31 | CM.ED ---
Addendum entered by Hannah Greenwood 04/07/22 17:56: SERA had reviewed patient's chart and there was no ED visits for Mental Health. The [facility] said that how patient is acting is out of character for patient. Thus, due to patient having an UTI and no mental health ED visits SERA spoke to MD Williamson and he agreed that patient could return to [facility]. [facility] agreed to take patient back. Hannah RASCON LISWS Addendum entered by Hannah Greenwood 04/07/22 17:31: SERA spoke to MD Williamson about patient's UTI and how it can affect her mental health as the [facility] said that she has never acted like this before. said that he is comfortable with patient returning to the [facility] with oral antibiotics for treatment of the UTI. SERA called the [facility] and spoke to resolution agent Sandy who talked to the ORACLE CONSULTANT Michelle who said that if patient came back with antibiotics she could return. [facility] Addendum entered by Hannah Greenwood 04/07/22 16:35: SERA spoke to MD Williamson. Patient is medically cleared. Patient had an UTI but was aware she had an UTI. Patient had a CT 5 months ago. Plan: Inpatient psych Original Note: SERA Note Referral Source: automotive service management teacherfisher pot Reason: Mental Health SERA spoke to Michelle Theodore at [facility]. KODY Martinez said that when the EMS came to bring patient to the ED patient said to them are you here to help me kill them or myself. Earlier in the day patient had told staff My effort at trying to get you wasn't worth just getting your fingers. Patient said to the PREFABRICATOR I'm not sorry... I'm just trying to hurt her. Per records patient refused linen change and was physically combative and yelling out when care is attempted, and she attempted to stick hands in bowel movement. Per notes patient was asked by RN if there was anything she needed and resident stated, ?a straight jacket?. Per documentation on 04/22 by SERA at [facility] patient was asked how she was doing and patient responded, ?oh like you actually care?. SERA at [facility] offered psych services to assess her mood and sleep and patient declined and demanded SW leave immediately. SERA Note: progress worker went into patient?s room and said ?you don?t have to yell? when this service writer introduced herself. SW asked how patient got here to the hospital and she said ?ambulance?. SW asked why the SNF was concerned about her and patient said ?because of some of the things I have said .. I was trying to tell the truth, but no one is listening?. SW asked what the ?truth? is, and patient said ?the man is bringing you down... I know you wanted it to be a woman, but a man is bringing you down... that is how it always is?. SW asked about any other concerns and patient said, ?because you made sure of that... the bomb is ticking?. SW asked where the bomb is and patient said, ?I don?t know you tell me?. SW asked patient about her marital status and she said that she was a and when asked if she had children patient did not answer. Living Situation: Patient is residing at the [facility] Supports: Patient refused to answer History: Patient refused to answer Education and Employment History: SW asked if patient graduated from high school and patient said, ?we don?t need to go there?. Mental Health Treatment: SW asked if patient has seen a psychiatrist and patient said ?well, everyone has seen a counselor. Patient denied psych hospitalization Triggers and Stressors: SW asked if patient worries and patient said, ?isn?t everybody?. SW asked what patient worries about and she said ?abut you minding your own business. Coping Skill: Unknown Abuse Issues: Unknown Substance Abuse: Unknown Risk to Self and Others: Patient denied SI and when this service writer stated it was documented by staff that she made SI and why the staff would state that patient said, ?you would need to ask them?. SW asked patient about HI and patient said, ?I don?t recall?. Violence to others: Unknown Appearance: Disheveled Mood and Affect: Angry with flat affect Communication Pattern: At times responds to questions at other times she refuses to answer. Thought Process: Patient denied AH/VH but voices paranoia. General Intellectual Functioning: Average Judgement: Poor Insight: Poor SW thanked patient for talking to her and she said ?did I?? Patient was noted to have an UTI. Due to having an UTI social science teacher will follow for discharge needs. Plan: To be determined Hannah RENEE
[2022-04-07 16:51] LABS: Alcohol, Blood (Medical)-Serum < 3.0 mg/dL
[2022-04-07 17:35] VITALS: BP 117/84; PULSE 84; RESP 16; O2SAT 99
[2022-04-07] MEDS: Ciprofloxacin 500 MG Tablet PO (17:39)
--- NOTE | 2022-04-07 17:55 | ED.RN ---
PHYSICIANS CALLED ETA 2-3HRS.
[2022-04-07 23:49] VITALS: RESP 17; O2SAT 98
== END 2022-04-07 23:53 | disposition home or self-care (01) ==
PROVIDERS: Emergency Provider Emergency Medicine; PCP Internal Medicine; Visit Provider Emergency Medicine
DX: F32.A Depression, unspecified (principal); R45.851 Suicidal ideations; E86.0 Dehydration; N39.0 Urinary tract infection, site not specified
CPT/HCPCS: 80048; 80307; 81001; 82077; 85025; 87077; 87086; 87088; 87186; 87811; 99285; J7030; P9612; A4216